=== PATIENT | female | born 1970 | race Caucasian/White ===

== ENCOUNTER → 2017-02-13 | Outpatient (CLI) | payer OTHER ==
--- NOTE | 2017-02-16 09:42 | MM ---
Reason for exam: screening (asymptomatic). Last mammogram was performed 1 year and 9 months ago. History: Family history of breast cancer in aunt at age 60. Benign right mammotome panel of the right breast, November 09, 2009. Took hormonal contraceptives for 6 years beginning at age 19. Physical Findings: A clinical breast exam by your physician is recommended on an annual basis and results should be correlated with mammographic findings. MG Screening Mammo w CAD Bilateral CC and MLO view(s) were taken. Prior study comparison: May 10, 2015, right breast MG work up mamm w CAD RT. May 08, 2015, bilateral MG screening mammo w CAD. The breast tissue is extremely dense which could obscure a lesion on mammography. Finding: There are stable diffuse calcifications in the right breast. There is no discrete abnormality. No significant changes in finding since May 10, 2015 and May 08, 2015. ASSESSMENT: Benign, BI-RAD 2 RECOMMENDATION: Routine screening mammogram of both breasts in 1 year.
== END | disposition home or self-care (01) ==
LOC: RADMAMWWP 15:01
PROVIDERS: ATTEND Family Medicine
DX: Z12.31 Encounter for screening mammogram for malignant neoplasm of breast (principal)

== ENCOUNTER 2017-10-16 10:06 | Emergency (ER) | payer OTHER ==
[2017-10-16] MEDS ORDERED: KETOROLAC 30 MG/ML 1 ML VIAL IVP STA (10:40)
[2017-10-16] MEDS ORDERED: SODIUM CHLORIDE 0.9% 500 ML IV STA (10:40)
[2017-10-16] MEDS ORDERED: RX INFO: IV CONTRAST WAS GIVEN 1 EACH MISC MISCELLANE PRN (10:40)
--- NOTE | 2017-10-16 10:48 | ED ---
General Adult HPI - General Chief complaint: Abdominal Pain Stated complaint: Right side pain Time Seen by Provider: 10/16/17 10:06 Source: patient, RN notes reviewed Mode of arrival: ambulatory Limitations: no limitations - History of Present Illness Initial comments: This is a 47 over female presents emergency Department complaining of right lower quadrant abdominal pain. Patient states she does not have an over-the- counter said she had similar pain years ago and he took the ovary out. Patient states she still does have an appendix. Patient states the pain comes and goes and is excruciatingly sharp when it comes. Patient states she vomited once last night but has not vomited since. Patient denies any nausea at this time. Patient denies diarrhea. Patient denies any vaginal discharge or bleeding abnormally. Patient states she is is starting menopause. Patient states she has no dysuria hematuria urinary frequency. Patient denies any fever chills per patient denies hurting that area in any way by lifting or moving. Patient denies any movement that increases the pain. - Related Data Home Medications Medication Instructions Recorded Confirmed Ranitidine HCl [Zantac] 150 mg PO BID 06/30/14 10/16/17 Methocarbamol [Robaxin-750] 750 mg PO BID PRN 11/18/15 10/16/17 Aspirin EC [Ecotrin] 325 mg PO DAILY 05/01/16 10/16/17 Atorvastatin [Lipitor] 80 mg PO DAILY 06/05/16 10/16/17 Cyanocobalamin (Vitamin B-12) 1,000 mcg PO DAILY 10/16/17 10/16/17 [Vitamin B-12] Ergocalciferol [Vitamin D2 50,000 unit PO SA 10/16/17 10/16/17 (DRISDOL)] Fluticasone Nasal [place] [Flonase 2 spr EA NOSTRIL DAILY 10/16/17 10/16/17 Nasal [place]] Folic Acid 0.4 mg PO DAILY 10/16/17 10/16/17 Levothyroxine Sodium [Synthroid] 88 mcg PO DAILY 10/16/17 10/16/17 Liothyronine Sodium [Cytomel] 5 mcg PO DAILY 10/16/17 10/16/17 Loratadine [Claritin] 10 mg PO DAILY 10/16/17 10/16/17 Magnesium Oxide [Mag-Ox] 400 mg PO DAILY 10/16/17 10/16/17 Metoprolol Tartrate [Metoprolol 12.5 mg PO BID 10/16/17 10/16/17 Tartrate] Previous Rx's Medication Instructions Recorded LORazepam [Ativan] 1 mg PO BID PRN #20 tab 02/19/15 Allergies Allergy/AdvReac Type Severity Reaction Status Date / Time No Known Allergies Allergy Verified 10/16/17 10:35 Review of Systems ROS Statement: Those systems with pertinent positive or pertinent negative responses have been documented in the HPI. ROS Other: All systems not noted in ROS Statement are negative. Past Medical History Past Medical History: Coronary Artery Disease (CAD), COPD, GERD/Reflux, Hyperlipidemia, Hypertension, Thyroid Disorder Additional Past Medical History / Comment(s): IRRITABLE BOWEL DISEASE/ HAD GRAVES-NOW HYPO History of Any Multi-Drug Resistant Organisms: C-DIFF Date of last positivie culture/infection: APRIL2015 MDRO Source:: FECES Past Surgical History: Section, Heart Catheterization With Stent, Tubal Ligation Additional Past Surgical History / Comment(s): OVARY REMOVED Past Anesthesia/Blood Transfusion Reactions: Motion Sickness Past Psychological History: Anxiety Smoking Status: Current every day smoker Past Alcohol Use History: None Reported Past Drug Use History: Marijuana - Past Family History Mother Family Medical History: No Reported History General Exam - General Exam Comments Initial Comments: GENERAL: Patient is well-developed and well-nourished. Patient is nontoxic and well- hydrated and is in mild distress. ENT: Neck is soft and supple. No significant lymphadenopathy is noted. Oropharynx is clear. Moist mucous membranes. Neck has full range of motion without eliciting any pain. T EYES: The sclera were anicteric and conjunctiva were pink and moist. Extraocular movements were intact and pupils were equal round and reactive to light. Eyelids were unremarkable. PULMONARY: Unlabored respirations. Good breath sounds bilaterally. No audible rales rhonchi or wheezing was noted. CARDIOVASCULAR: There is a regular rate and rhythm without any murmurs gallops or rubs. ABDOMEN: Mild right lower quadrant abdominal pain no rebound or guarding. SKIN: Skin is clear with no lesions or rashes and otherwise unremarkable. NEUROLOGIC: Patient is alert and oriented x3. Cranial nerves II through XII are grossly intact. Motor and sensory are also intact. Normal speech, volume and content. Symmetrical smile. MUSCULOSKELETAL: Normal extremities with adequate strength and full range of motion. No lower extremity swelling or edema. No calf tenderness. LYMPHATICS: No significant lymphadenopathy is noted PSYCHIATRIC: Normal psychiatric evaluation. Limitations: no limitations Course Vital Signs 10/16/17 10:14 Temperature 97.8 F Pulse Rate 102 H Respiratory 18 Rate Blood Pressure 181/76 O2 Sat by Pulse 99 Oximetry Medical Decision Making - Medical Decision Making All labs were normal. Computed tomography scan of abdomen and pelvis was normal. - Lab Data Result diagrams: 10/16/17 11:01 10/16/17 11:01 Lab Results 10/16/17 10/16/17 10/16/17 Range/Units 10:51 11:01 11:01 WBC 10.6 (3.8-10.6) k/uL RBC 4.81 (3.80-5.40) m/uL Hgb 15.7 (11.4-16.0) gm/dL Hct 46.5 H (34.0-46.0) % MCV 96.7 (80.0-100.0) fL MCH 32.5 (25.0-35.0) pg MCHC 33.7 (31.0-37.0) g/dL RDW 12.1 (11.5-15.5) % Plt Count 364 (150-450) k/uL Neutrophils % 66 % Lymphocytes % 24 % Monocytes % 4 % Eosinophils % 4 % Basophils % 1 % Neutrophils # 7.0 (1.3-7.7) k/uL Lymphocytes # 2.5 (1.0-4.8) k/uL Monocytes # 0.4 (0-1.0) k/uL Eosinophils # 0.5 (0-0.7) k/uL Basophils # 0.1 (0-0.2) k/uL Sodium 144 (137-145) mmol/L Potassium 3.8 (3.5-5.1) mmol/L Chloride 105 (98-107) mmol/L Carbon Dioxide 30 (22-30) mmol/L Anion Gap 9 mmol/L BUN 9 (7-17) mg/dL Creatinine 0.66 (0.52-1.04) mg/dL Est GFR (MDRD) Af Amer >60 (>60 ml/min/1.73 sqM) Est GFR (MDRD) Non-Af >60 (>60 ml/min/1.73 sqM) Glucose 93 (74-99) mg/dL Calcium 10.1 (8.4-10.2) mg/dL Total Bilirubin 0.4 (0.2-1.3) mg/dL AST 19 (14-36) U/L ALT 37 (9-52) U/L Alkaline Phosphatase 52 (38-126) U/L Total Protein 8.1 (6.3-8.2) g/dL Albumin 4.9 (3.5-5.0) g/dL Amylase 45 (30-110) U/L Lipase 81 (23-300) U/L Urine Color Light Yellow Urine Appearance Clear (Clear) Urine pH 5.0 (5.0-8.0) Ur Specific [place] 1.006 (1.001-1.035) Urine Protein Negative (Negative) Urine Glucose (UA) Negative (Negative) Urine Ketones Negative (Negative) Urine Blood Negative (Negative) Urine Nitrite Negative (Negative) Urine Bilirubin Negative (Negative) Urine Urobilinogen <2.0 (<2.0) mg/dL Ur Leukocyte Esterase Negative (Negative) Disposition Clinical Impression: Abdominal pain Disposition: HOME SELF-CARE Instructions: Abdominal Pain (ED) Referrals: Haydee Bear MD [Primary Care Provider] - 1-2 days Time of Disposition: 12:07
[2017-10-16 11:00] LABS: Appearance,Urine Clear (Clear); Bilirubin,Urine Negative (Negative); Blood,Urine Negative (Negative); Color,Urine Light Yellow; Glucose,Urine (UA) Negative (Negative); Ketones,Urine Negative (Negative); Leukocyte Esterase,Urine Negative (Negative); Nitrite,Urine Negative (Negative); Protein,Urine Negative (Negative); Specific Gravity,Urine 1.006 (1.001-1.035); Urobilinogen,Urine <2.0 mg/dL (<2.0)
[2017-10-16 11:25] LABS: Basophils # (A) 0.1 k/uL (0-0.2); Basophils % (A) 1 %; Eosinophils # (A) 0.5 k/uL (0-0.7); Eosinophils % (A) 4 %; HCT 46.5 % (34.0-46.0); HGB 15.7 gm/dL (11.4-16.0); Lymphocytes # (A) 2.5 k/uL (1.0-4.8); Lymphocytes % (A) 24 %; MCH 32.5 pg (25.0-35.0); MCHC 33.7 g/dL (31.0-37.0); MCV 96.7 fL (80.0-100.0); Mean Platelet Volume 6.5; Monocytes # (A) 0.4 k/uL (0-1.0); Monocytes % (A) 4 %; Neutrophils % (A) 66 %; Platelet Count 364 k/uL (150-450); RBC 4.81 m/uL (3.80-5.40); RDW 12.1 % (11.5-15.5); WBC 10.6 k/uL (3.8-10.6)
[2017-10-16 11:33] LABS: ALT 37 U/L (9-52); AST 19 U/L (14-36); Albumin 4.9 g/dL (3.5-5.0); Alkaline Phosphatase 52 U/L (38-126); Amylase 45 U/L (30-110); Anion Gap 9 mmol/L; Blood Urea Nitrogen 9 mg/dL (7-17); Calcium 10.1 mg/dL (8.4-10.2); Carbon Dioxide 30 mmol/L (22-30); Chloride 105 mmol/L (98-107); Glucose 93 mg/dL (74-99); Lipase 81 U/L (23-300); Potassium 3.8 mmol/L (3.5-5.1); Sodium 144 mmol/L (137-145); Total Bilirubin 0.4 mg/dL (0.2-1.3); Total Protein 8.1 g/dL (6.3-8.2)
--- NOTE | 2017-10-16 11:55 | CT ---
EXAMINATION TYPE: CT abdomen pelvis w con DATE OF EXAM: 10/16/2017 HISTORY: RLQ pain, back pain CT DLP: 928mGycm Automated Exposure Control for Dose Reduction was Utilized. CONTRAST: CT scan of the abdomen and pelvis is performed with IV Contrast, patient injected with 100 mL of Omni paque 300. COMPARISON: 06/05/2016 FINDINGS: LUNG BASES: Few centrilobular emphysematous changes are seen of the lung bases. LIVER/GB: No significant abnormality is appreciated. No cholelithiasis. PANCREAS: No significant abnormality is seen. No ductal dilatation. SPLEEN: No significant abnormality is seen. ADRENALS: A low-density 0.9 x 1.1 cm left adrenal gland nodule is most compatible with a benign adren al adenoma. KIDNEYS: No significant abnormality is seen. BOWEL: The appendix is retrocecal, low-lying within the pelvis and air-filled distally. No current ev idence of appendicitis. Moderate amount retained stool is seen throughout the nondilated colon. No pe ricolonic fat stranding changes are noted. No dilation of small bowel. UTERUS/ADNEXA: Right ovary is again surgically absent. LYMPH NODES: No greater than 1cm abdominal or pelvic lymph nodes are appreciated. OSSEOUS STRUCTURES: No significant abnormality is seen. Osseous structures are intact. IMPRESSION: Moderate amount of retained colonic stool throughout the nondilated colon. No evidence of bowel obstruction or significant CT finding to account for the patient's symptoms.
[2017-10-16 12:38] VITALS: BP 167/70; PULSE 97; RESP 20; TEMP 98.2
== END 2017-10-16 12:35 | disposition home or self-care (01) ==
LOC: EC 10:06
DX: R10.31 Right lower quadrant pain (principal); I25.10 Atherosclerotic heart disease of native coronary artery without angina pectoris; J44.9 Chronic obstructive pulmonary disease, unspecified; K21.9 Gastro-esophageal reflux disease without esophagitis; E78.5 Hyperlipidemia, unspecified; I10 Essential (primary) hypertension; E07.9 Disorder of thyroid, unspecified; F17.200 Nicotine dependence, unspecified, uncomplicated; Z98.51 Tubal ligation status; Z95.5 Presence of coronary angioplasty implant and graft; Z79.82 Long term (current) use of aspirin; Z79.899 Other long term (current) drug therapy; Z79.51 Long term (current) use of inhaled steroids
CPT/HCPCS: 99284; 96374; 96361; 36415; 80053; 82150; 83690; 85025; 81003; 74177; J1885; Q9967

== ENCOUNTER → 2018-03-16 | Outpatient (CLI) | payer OTHER ==
--- NOTE | 2018-03-17 09:02 | CT ---
EXAMINATION TYPE: CT chest w con DATE OF EXAM: 03/16/2018 COMPARISON: NONE HISTORY: Chronic cough. CT DLP: 390 mGycm Automated exposure control for dose reduction was used. CONTRAST: CT scan of the chest is performed with IV Contrast, patient injected with 100ml mL of Isovue M300. FINDINGS: LUNGS: There is moderate upper lobe emphysematous change appreciated. No evidence for distinct nodule or mass. No infiltrate seen. No pleural effusion. MEDIASTINUM: There are no greater than 1 cm hilar or mediastinal lymph nodes. No pericardial effusi on is seen. Thoracic aorta is of normal caliber. The heart is not enlarged. UPPER ABDOMEN: No significant abnormality appreciated. OTHER: No additional significant abnormality is seen. IMPRESSION: 1. Moderate and upper lobe emphysematous changes appreciated. No evident infiltrate or mass.
== END | disposition home or self-care (01) ==
LOC: RADCTMAIN 19:09
PROVIDERS: ATTEND Family Medicine
DX: J43.9 Emphysema, unspecified (principal)
CPT/HCPCS: 71260; Q9967

== ENCOUNTER 2018-03-19 04:24 | Emergency (ER) | payer OTHER ==
[2018-03-19] MEDS ORDERED: SODIUM CHLORIDE 0.9% 1,000 ML IV STA (04:41)
[2018-03-19] MEDS ORDERED: NITROGLYCERIN OINT 1 INCH/GM PACKET TOPICAL STA (04:41)
[2018-03-19] MEDS ORDERED: MORPHINE SULFATE 2 MG/ML SYRINGE IVP STA (04:41)
[2018-03-19] MEDS ORDERED: ASPIRIN 81 MG PO STA (04:41)
[2018-03-19] MEDS ORDERED: ONDANSETRON 4 MG/2 ML VIAL IVP STA (04:41)
[2018-03-19 05:21] LABS: Basophils # (A) 0.1 k/uL (0-0.2); Basophils % (A) 1 %; Eosinophils # (A) 0.5 k/uL (0-0.7); Eosinophils % (A) 5 %; HCT 40.7 % (34.0-46.0); HGB 14.2 gm/dL (11.4-16.0); Lymphocytes # (A) 3.1 k/uL (1.0-4.8); Lymphocytes % (A) 33 %; MCH 33.7 pg (25.0-35.0); MCHC 34.9 g/dL (31.0-37.0); MCV 96.7 fL (80.0-100.0); Mean Platelet Volume 6.4; Monocytes # (A) 0.6 k/uL (0-1.0); Monocytes % (A) 7 %; Neutrophils # (A) 4.9 k/uL (1.3-7.7); Neutrophils % (A) 52 %; Platelet Count 365 k/uL (150-450); RBC 4.21 m/uL (3.80-5.40); RDW 12.6 % (11.5-15.5); WBC 9.4 k/uL (3.8-10.6)
[2018-03-19 05:36] LABS: D-Dimer 0.4 mg/L FEU (<0.60); Partial Thromboplastin Time 28.5 sec (22.0-30.0); Prothrombin Time 9.9 sec (9.0-12.0)
[2018-03-19 05:43] LABS: ALT 27 U/L (9-52); AST 18 U/L (14-36); Albumin 4.1 g/dL (3.5-5.0); Alkaline Phosphatase 56 U/L (38-126); Anion Gap 10 mmol/L; Blood Urea Nitrogen 9 mg/dL (7-17); Calcium 9.6 mg/dL (8.4-10.2); Carbon Dioxide 28 mmol/L (22-30); Chloride 104 mmol/L (98-107); Glucose 72 mg/dL (74-99); Magnesium 1.8 mg/dL (1.6-2.3); Potassium 3.7 mmol/L (3.5-5.1); Sodium 142 mmol/L (137-145); Total Bilirubin 0.3 mg/dL (0.2-1.3); Total Protein 6.5 g/dL (6.3-8.2)
[2018-03-19 05:48] LABS: Creatine Kinase 51 U/L (30-135)
--- NOTE | 2018-03-19 05:57 | XR ---
EXAM: XR Chest, 2 Views CLINICAL HISTORY: ITS.REASON XR Reason: Chest Pain TECHNIQUE: Frontal and lateral views of the chest. COMPARISON: 04/24/2016 FINDINGS: Lungs: Unremarkable. No consolidation. Pleural space: Unremarkable. No pneumothorax. Heart: Unremarkable. No cardiomegaly. Mediastinum: Unremarkable. Bones/joints: Unremarkable. IMPRESSION: No acute radiographic findings regarding the chest.
[2018-03-19 06:00] LABS: Creatine Kinase MB <0.2 ng/mL (0.0-2.4); Troponin I <0.012 ng/mL (0.000-0.034)
[2018-03-19] MEDS ORDERED: MORPHINE SULFATE 2 MG/ML SYRINGE IVP PRN (06:51)
[2018-03-19] MEDS ORDERED: NITROGLYCERIN SL TABS 0.4 MG TAB SUBLINGUAL PRN (06:51)
--- NOTE | 2018-03-19 06:51 | ED ---
Chest Pain HPI - General Chief Complaint: Chest Pain Stated Complaint: Chest pain Time Seen by Provider: 03/19/18 04:36 Source: patient Mode of arrival: wheelchair Limitations: no limitations - History of Present Illness Initial Comments: 48 years old female with history of heart disease him a she has ischemic heart disease comes in with the mild chest pain for about to 2 hours prior to coming to the ER, she had a chest pain yesterday as well and she also had a pain going down the left arm she felt some tingling in the left arm as as well she feels generally weak and she is also complaining about shortness of breath and now chest pain gets worse with a deep breaths - Related Data Home Medications Medication Instructions Recorded Confirmed Ranitidine HCl [Zantac] 150 mg PO BID 06/30/14 10/16/17 Methocarbamol [Robaxin-750] 750 mg PO BID PRN 11/18/15 10/16/17 Aspirin EC [Ecotrin] 325 mg PO DAILY 05/01/16 10/16/17 Atorvastatin [Lipitor] 80 mg PO DAILY 06/05/16 10/16/17 Cyanocobalamin (Vitamin B-12) 1,000 mcg PO DAILY 10/16/17 10/16/17 [Vitamin B-12] Ergocalciferol [Vitamin D2 50,000 unit PO SA 10/16/17 10/16/17 (DRISDOL)] Fluticasone Nasal [place] [Flonase 2 spr EA NOSTRIL DAILY 10/16/17 10/16/17 Nasal [place]] Folic Acid 0.4 mg PO DAILY 10/16/17 10/16/17 Levothyroxine Sodium [Synthroid] 88 mcg PO DAILY 10/16/17 10/16/17 Liothyronine Sodium [Cytomel] 5 mcg PO DAILY 10/16/17 10/16/17 Loratadine [Claritin] 10 mg PO DAILY 10/16/17 10/16/17 Magnesium Oxide [Mag-Ox] 400 mg PO DAILY 10/16/17 10/16/17 Metoprolol Tartrate [Metoprolol 12.5 mg PO BID 10/16/17 10/16/17 Tartrate] Previous Rx's Medication Instructions Recorded LORazepam [Ativan] 1 mg PO BID PRN #20 tab 02/19/15 Allergies Allergy/AdvReac Type Severity Reaction Status Date / Time No Known Allergies Allergy Verified 03/19/18 04:32 Review of Systems ROS Statement: Those systems with pertinent positive or pertinent negative responses have been documented in the HPI. ROS Other: All systems not noted in ROS Statement are negative. EKG Findings - EKG Comments: EKG Findings:: I am EKG is ventricular rate is 62 FL interval is 208 QT QRS duration is 146 QT/QTc is 472/43 noticed white QRS complex this pain. (Rash block Past Medical History Past Medical History: Coronary Artery Disease (CAD), Chest Pain / Angina, COPD, GERD/Reflux, Hyperlipidemia, Hypertension, Thyroid Disorder Additional Past Medical History / Comment(s): IRRITABLE BOWEL DISEASE/ HAD GRAVES-NOW HYPO History of Any Multi-Drug Resistant Organisms: C-DIFF Date of last positivie culture/infection: APRIL2015 MDRO Source:: FECES Past Surgical History: Section, Heart Catheterization, Tubal Ligation Additional Past Surgical History / Comment(s): OVARY REMOVED Past Anesthesia/Blood Transfusion Reactions: Motion Sickness Past Psychological History: Anxiety Smoking Status: Current every day smoker Past Alcohol Use History: None Reported Past Drug Use History: Marijuana - Past Family History Mother Family Medical History: No Reported History General Exam - General Exam Comments Initial Comments: General: The patient is awake and alert, in no distress, and does not appear acutely ill. Skin: Skin is warm and dry and no rashes or lesions are noted. Eye: Pupils are equal, round and reactive to light, extra-ocular movements are intact; there is normal conjunctiva bilaterally. Ears, nose, mouth and throat: There are moist mucous membranes and no oral lesions. Neck: The neck is supple, there is no tenderness or JVD. Cardiovascular: There is a regular rate and rhythm. No murmur, rub or gallop is appreciated. Respiratory: To auscultation bilateral, exam is consistent with down moderate COPD Gastrointestinal: Soft, non-distended, non-tender abdomen without masses or organomegaly noted. There is no rebound or guarding present. Bowel sounds are unremarkable. Back: There is no tenderness to palpation in the midline. There is no obvious deformity. Musculoskeletal: Normal ROM, no tenderness, There is no pedal edema. There is no calf tenderness or swelling. No cords were appreciated. Neurological: CN II-XII intact, Cranial nerves III through XII are intact. There are no obvious motor or sensory deficits. Coordination appears grossly intact. Speech is normal. Psychiatric: Cooperative, appropriate mood & affect, normal judgment. Limitations: no limitations Course Vital Signs 03/19/18 03/19/18 03/19/18 04:28 04:57 05:48 Temperature 97.8 F 98.1 F Pulse Rate 70 63 Respiratory 18 18 16 Rate Blood Pressure 131/76 130/78 O2 Sat by Pulse 98 95 Oximetry 03/19/18 06:36 Temperature Pulse Rate 57 L Respiratory 16 Rate Blood Pressure 132/78 O2 Sat by Pulse 98 Oximetry Reassessment noticed the d-dimer is normal, CBC is unremarkable compress metabolic panel is unremarkable troponin is fine EKG does show a new left bundle branch block and she is known ischemic heart disease she be admitted to Dr. Page's service and now CONSULT cardiology Disposition Clinical Impression: Chest pain Disposition: ADMITTED IP TO THIS HOSP Condition: Good Referrals: Haydee Bear MD [Primary Care Provider] - 1-2 days
[2018-03-19] MEDS ORDERED: LORazepam 1 MG TAB PO PRN (06:55)
[2018-03-19] MEDS ORDERED: METHOCARBAMOL 750 MG TAB PO PRN (06:55)
[2018-03-19 07:06] VITALS: BP 143/85; PULSE 70; RESP 18; TEMP 97.8
[2018-03-19] MEDS ORDERED: METOPROLOL TARTRATE 25 MG TAB PO SCH (09:00)
[2018-03-19] MEDS ORDERED: MAGNESIUM OXIDE 400 MG TAB PO SCH (09:00)
[2018-03-19] MEDS ORDERED: FLUTICASONE 50MCG/SPRAY NASAL 16GM EA NOSTRIL SCH (09:00)
[2018-03-19] MEDS ORDERED: LIOTHYRONINE SODIUM 5 MCG TAB PO SCH (09:00)
[2018-03-19] MEDS ORDERED: NON-FORMULARY DRUG (Cyanocobalamin (Vitamin B-12) [Vitamin B-12] 1,000 MCG) PO SCH (09:00)
[2018-03-19] MEDS ORDERED: LEVOTHYROXINE 88 MCG TAB PO SCH (09:00)
[2018-03-19] MEDS ORDERED: NON-FORMULARY DRUG (Folic Acid [Folic Acid] 0.4 MG) PO SCH (09:00)
[2018-03-19] MEDS ORDERED: LORATADINE 10 MG TAB PO SCH (09:00)
[2018-03-19] MEDS ORDERED: NON-FORMULARY DRUG (Ranitidine Hcl [Zantac] 150 MG) PO SCH (09:00)
[2018-03-19] MEDS ORDERED: ATORVASTATIN 80 MG TAB PO SCH (09:00)
[2018-03-20] MEDS ORDERED: ERGOCALCIFEROL 50,000 UNIT CAP PO SCH (06:55)
[2018-03-20] MEDS ORDERED: ASPIRIN 325 MG TAB PO SCH (09:00)
== END 2018-03-19 07:14 | disposition other institution (70) ==
LOC: EC 04:24 → UNDOADMOB 06:51 → 6SEL 06:51 → EC 07:14
DX: R07.9 Chest pain, unspecified (principal); R06.02 Shortness of breath; R20.2 Paresthesia of skin; M79.602 Pain in left arm; R53.1 Weakness; I44.7 Left bundle-branch block, unspecified; I25.119 Atherosclerotic heart disease of native coronary artery with unspecified angina pectoris; J44.9 Chronic obstructive pulmonary disease, unspecified; K21.9 Gastro-esophageal reflux disease without esophagitis; E78.5 Hyperlipidemia, unspecified; I10 Essential (primary) hypertension; E03.9 Hypothyroidism, unspecified; K58.9 Irritable bowel syndrome, unspecified; F17.200 Nicotine dependence, unspecified, uncomplicated; Z79.51 Long term (current) use of inhaled steroids; Z79.82 Long term (current) use of aspirin; Z79.899 Other long term (current) drug therapy; Z95.818 Presence of other cardiac implants and grafts
CPT/HCPCS: 36415; 93005; 85379; 83880; 80053; 82550; 82553; 83735; 84484; 85025; 85610; 85730; 71046; 99285; 96374; 96375; 96361 ×2; J2405; J2270

== ENCOUNTER 2018-03-29 03:52 | Emergency (ER) | payer OTHER ==
[2018-03-29 04:10] VITALS: TEMP 98.4
[2018-03-29] MEDS ORDERED: HYDROcodone/APAP 5-325MG 1 EACH TAB PO STA (04:23)
[2018-03-29] MEDS: LORazepam 1 MG TAB PO STA ×2 (04:38→04:40)
--- NOTE | 2018-03-29 05:00 | CT ---
EXAMINATION TYPE: CT abdomen pelvis wo con DATE OF EXAM: 03/29/2018 COMPARISON: NONE HISTORY: Prior on synapse, right sided abd pain that radiates to her leg, renal stone protocol CT DLP: 664.00 mGycm Automated exposure control for dose reduction was used. TECHNIQUE: Helical acquisition of images was performed from the lung bases through the pelvis. FINDINGS: Lung bases are clear. There is no pleural effusion. There is no pericardial effusion. Liver shows no focal defect. Spleen and pancreas appear normal. Bile ducts are not dilated. Gallbladd er appears normal. There is no adrenal mass. Kidneys have normal size and contour. Ureters are not di lated. There is no hydronephrosis. I see no intestinal wall thickening. There are no dilated loops. B ladder distends smoothly. I see no pelvic mass. There is no sign of appendicitis. I see no bony destr uctive process. IMPRESSION: No evidence of renal stone or obstruction. Minimal atherosclerotic vascular disease. IMPRESSION:
--- NOTE | 2018-03-29 06:17 | ED ---
General Adult HPI - General Chief complaint: Abdominal Pain Stated complaint: Leg Pain Time Seen by Provider: 03/29/18 04:11 Source: patient, RN notes reviewed, old records reviewed Mode of arrival: ambulatory Limitations: no limitations - History of Present Illness Initial comments: This is a 48-year-old female to the ER for evaluation. Patient was essay for evaluation regarding abdominal pain. No nausea no vomiting no diarrhea. Patient states her bowel pain is mildly improved with no aggravating causes. No prior history of similar abdominal pain at this time. No modifying factors for pain. No fevers. No diarrhea. - Related Data Home Medications Medication Instructions Recorded Confirmed Ranitidine HCl [Zantac] 150 mg PO BID 06/30/14 10/16/17 Methocarbamol [Robaxin-750] 750 mg PO BID PRN 11/18/15 10/16/17 Aspirin EC [Ecotrin] 325 mg PO DAILY 05/01/16 10/16/17 Atorvastatin [Lipitor] 80 mg PO DAILY 06/05/16 10/16/17 Cyanocobalamin (Vitamin B-12) 1,000 mcg PO DAILY 10/16/17 10/16/17 [Vitamin B-12] Ergocalciferol [Vitamin D2 50,000 unit PO SA 10/16/17 10/16/17 (DRISDOL)] Fluticasone Nasal [place] [Flonase 2 spr EA NOSTRIL DAILY 10/16/17 10/16/17 Nasal [place]] Folic Acid 0.4 mg PO DAILY 10/16/17 10/16/17 Levothyroxine Sodium [Synthroid] 88 mcg PO DAILY 10/16/17 10/16/17 Liothyronine Sodium [Cytomel] 5 mcg PO DAILY 10/16/17 10/16/17 Loratadine [Claritin] 10 mg PO DAILY 10/16/17 10/16/17 Magnesium Oxide [Mag-Ox] 400 mg PO DAILY 10/16/17 10/16/17 Metoprolol Tartrate [Metoprolol 12.5 mg PO BID 10/16/17 10/16/17 Tartrate] Previous Rx's Medication Instructions Recorded LORazepam [Ativan] 1 mg PO BID PRN #20 tab 02/19/15 Allergies Allergy/AdvReac Type Severity Reaction Status Date / Time No Known Allergies Allergy Verified 03/29/18 04:10 Review of Systems ROS Statement: Those systems with pertinent positive or pertinent negative responses have been documented in the HPI. ROS Other: All systems not noted in ROS Statement are negative. Past Medical History Past Medical History: Coronary Artery Disease (CAD), Chest Pain / Angina, COPD, GERD/Reflux, Hyperlipidemia, Hypertension, Thyroid Disorder Additional Past Medical History / Comment(s): IRRITABLE BOWEL DISEASE/ HAD GRAVES-NOW HYPO History of Any Multi-Drug Resistant Organisms: C-DIFF Date of last positivie culture/infection: APRIL2015 MDRO Source:: FECES Past Surgical History: Section, Heart Catheterization, Tubal Ligation Additional Past Surgical History / Comment(s): OVARY REMOVED Past Anesthesia/Blood Transfusion Reactions: Motion Sickness Past Psychological History: Anxiety Smoking Status: Current every day smoker Past Alcohol Use History: None Reported Past Drug Use History: Marijuana - Past Family History Mother Family Medical History: No Reported History General Exam Limitations: no limitations General appearance: alert, in no apparent distress Head exam: Present: atraumatic, normocephalic, normal inspection Eye exam: Present: normal appearance, PERRL, EOMI. Absent: scleral icterus, conjunctival injection, periorbital swelling ENT exam: Present: normal exam, mucous membranes moist Neck exam: Present: normal inspection. Absent: tenderness, meningismus, lymphadenopathy Respiratory exam: Present: normal lung sounds bilaterally. Absent: respiratory distress, wheezes, rales, rhonchi, stridor Cardiovascular Exam: Present: regular rate, normal rhythm, normal heart sounds. Absent: systolic murmur, diastolic murmur, rubs, gallop, clicks GI/Abdominal exam: Present: soft, normal bowel sounds. Absent: distended, tenderness, guarding, rebound, rigid Extremities exam: Present: normal inspection, full ROM, normal capillary refill. Absent: tenderness, pedal edema, joint swelling, calf tenderness Back exam: Present: normal inspection Neurological exam: Present: alert, oriented X3, CN II-XII intact Psychiatric exam: Present: normal affect, normal mood Skin exam: Present: warm, dry, intact, normal color. Absent: rash Course Vital Signs 03/29/18 03/29/18 04:07 06:28 Temperature 98.4 F Pulse Rate 78 58 L Respiratory 18 16 Rate Blood Pressure 143/89 129/68 O2 Sat by Pulse 99 96 Oximetry Medical Decision Making - Medical Decision Making 48 female to specific abdominal pain. CT labwork is negative. Patient can be discharged home - Radiology Data Radiology results: report reviewed (CT of pelvis is negative for acute disease) , image reviewed Disposition Clinical Impression: Abdominal pain Disposition: HOME SELF-CARE Condition: Good Instructions: Abdominal Pain (ED) Is patient prescribed a controlled substance at d/c from ED?: No Referrals: Haydee Bear MD [Primary Care Provider] - 1-2 days
[2018-03-29 06:28] VITALS: BP 129/68; PULSE 58; RESP 16
== END 2018-03-29 06:28 | disposition home or self-care (01) ==
LOC: EC 03:52
DX: R10.9 Unspecified abdominal pain (principal); I25.10 Atherosclerotic heart disease of native coronary artery without angina pectoris; J44.9 Chronic obstructive pulmonary disease, unspecified; K21.9 Gastro-esophageal reflux disease without esophagitis; E78.5 Hyperlipidemia, unspecified; I10 Essential (primary) hypertension; E07.9 Disorder of thyroid, unspecified; F41.9 Anxiety disorder, unspecified; F17.200 Nicotine dependence, unspecified, uncomplicated; Z98.51 Tubal ligation status; Z90.721 Acquired absence of ovaries, unilateral; Z79.51 Long term (current) use of inhaled steroids; Z79.82 Long term (current) use of aspirin; Z79.899 Other long term (current) drug therapy
CPT/HCPCS: 74176; 99284

== ENCOUNTER → 2018-03-30 | Outpatient (CLI) | payer OTHER ==
--- NOTE | 2018-04-01 12:10 | MM ---
Reason for exam: screening (asymptomatic). Last mammogram was performed 1 year and 1 month ago. History: Family history of breast cancer in aunt at age 60. Benign right mammotome panel of the right breast, November 09, 2009. Took hormonal contraceptives for 6 years beginning at age 19. Physical Findings: A clinical breast exam by your physician is recommended on an annual basis and results should be correlated with mammographic findings. MG Screening Mammo w CAD Bilateral CC and MLO view(s) were taken. Prior study comparison: February 13, 2017, bilateral MG screening mammo w CAD. May 10, 2015, right breast MG work up mamm w CAD RT. The breast tissue is extremely dense which could obscure a lesion on mammography. Finding: There are typically benign round, diffuse/scattered and grouped calcifications in both breasts, greater in the right breast. Previous mammotome biopsy in the right breast. There is no discrete abnormality. Increase in number of calcifications since February 13, 2017 and May 10, 2015. ASSESSMENT: Benign, BI-RAD 2 RECOMMENDATION: Routine screening mammogram of both breasts in 1 year.
== END | disposition home or self-care (01) ==
LOC: RADMAMWWP 14:12
PROVIDERS: ATTEND Family Medicine
DX: Z12.31 Encounter for screening mammogram for malignant neoplasm of breast (principal)
CPT/HCPCS: 77067

== ENCOUNTER 2018-04-22 17:17 | Observation (INO) | payer OTHER ==
[2018-04-22] MEDS ORDERED: ASPIRIN 81 MG PO STA (17:48)
[2018-04-22] MEDS ORDERED: NICOTINE 21MG/24HR PATCH TRANSDERM STA (18:11)
--- NOTE | 2018-04-22 18:42 | ED ---
General Adult HPI - General Chief complaint: Recheck/Abnormal Lab/Rx Stated complaint: Abnormal Ekg Source: patient Mode of arrival: ambulatory Limitations: no limitations - History of Present Illness Initial comments: Dictation was produced using [employer] dictation software. please excuse any grammatical, word or spelling errors. Chief Complaint: 48-year-old female past medical history of acute coronary syndrome, 40% LAD blockage, hypertension, dyslipidemia, thyroid disease presents via transfer from visual merchandising director for EKG changes and chest pain. History of Present Illness: 48-year-old female past medical history of acute coronary disease, chest pain, COPD, GERD, hypertension, tobacco abuse presents via transfer from visual merchandising [facility] clinic for EKG changes and chest pain. Patient states that she was at her primary care physician's office where they EKG was obtained showing no left bundle-branch block. She was told to follow- up with the visual merchandising director. She was at the visual merchandising director's office where she's felt that she was having chest discomfort. She described the chest as pressure without radiation. She denies any exacerbation with exertion. Denies any radiation to the shoulders or neck. Another EKG was performed showing left bundle branch block as well. She was instructed by the visual merchandising director come to the emergency department for laboratory evaluation and likely admission for observation. Patient had a cardiac cath performed 2 years ago where there was found 40% blockage of the left anterior descending artery. At that time patient describes that she was told that she had a mini heart attack. Patient denies any stent placement this time. Patient reports not being compliant with her aspirin medication. Currently patient feels asymptomatic. Past Medical History: Hypertension, dyslipidemia, GERD, COPD, tobacco abuse, coronary artery disease Past Surgical History: , cardiac cath, tubal ligation Social History: Regular tobacco, occasional EtOH Family History: reviewed and noncontributory The ROS documented in this emergency department record has been reviewed and confirmed by me. Those systems with pertinent positive or negative responses have been documented in the HPI. All other systems are other negative and/or noncontributory. - Related Data Home Medications Medication Instructions Recorded Confirmed Ranitidine HCl [Zantac] 150 mg PO BID 06/30/14 04/22/18 Methocarbamol [Robaxin-750] 750 mg PO BID PRN 11/18/15 04/22/18 Aspirin EC [Ecotrin] 325 mg PO DAILY 05/01/16 04/22/18 Atorvastatin [Lipitor] 40 mg PO DAILY 06/05/16 04/22/18 Cyanocobalamin (Vitamin B-12) 1,000 mcg PO DAILY 10/16/17 04/22/18 [Vitamin B-12] Ergocalciferol [Vitamin D2 50,000 unit PO ANDRADE 10/16/17 04/22/18 (DRISDOL)] Fluticasone Nasal [place] [Flonase 2 spr EA NOSTRIL DAILY 10/16/17 04/22/18 Nasal [place]] Levothyroxine Sodium [Synthroid] 88 mcg PO DAILY 10/16/17 04/22/18 Liothyronine Sodium [Cytomel] 5 mcg PO DAILY 10/16/17 04/22/18 Loratadine [Claritin] 10 mg PO DAILY 10/16/17 04/22/18 Magnesium Oxide [Mag-Ox] 400 mg PO DAILY 10/16/17 04/22/18 Metoprolol Tartrate 12.5 mg PO BID 10/16/17 04/22/18 Albuterol Inhaler [Ventolin Hfa 1 - 2 puff INHALATION RT-Q6H PRN 04/22/18 Inhaler] Folic Acid 0.8 mg PO DAILY 04/22/18 04/22/18 Naproxen 500 mg PO BID PRN 04/22/18 04/22/18 Omeprazole [PriLOSEC] 20 mg PO DAILY 04/22/18 04/22/18 PARoxetine [Paxil] 20 mg PO DAILY 04/22/18 04/22/18 Umeclidinium [place] [Incruse 1 puff INHALATION RT-DAILY 04/22/18 04/22/18 Ellipta] Venlafaxine HCl [Effexor] 25 mg PO DAILY 04/22/18 04/22/18 Previous Rx's Medication Instructions Recorded LORazepam [Ativan] 1 mg PO BID PRN #20 tab 02/19/15 Allergies Allergy/AdvReac Type Severity Reaction Status Date / Time No Known Allergies Allergy Verified 04/22/18 18:45 Review of Systems ROS Statement: Those systems with pertinent positive or pertinent negative responses have been documented in the HPI. ROS Other: All systems not noted in ROS Statement are negative. Past Medical History Past Medical History: Coronary Artery Disease (CAD), Chest Pain / Angina, COPD, GERD/Reflux, Hyperlipidemia, Hypertension, Thyroid Disorder Additional Past Medical History / Comment(s): IRRITABLE BOWEL DISEASE/ HAD GRAVES-NOW HYPO History of Any Multi-Drug Resistant Organisms: C-DIFF Date of last positivie culture/infection: [id number] MDRO Source:: FECES Past Surgical History: Section, Heart Catheterization, Tubal Ligation Additional Past Surgical History / Comment(s): OVARY REMOVED Past Anesthesia/Blood Transfusion Reactions: Motion Sickness Past Psychological History: Anxiety Smoking Status: Current every day smoker Past Alcohol Use History: None Reported Past Drug Use History: Marijuana - Past Family History Mother Family Medical History: No Reported History General Exam - General Exam Comments Initial Comments: Vitals: Vital signs upon arrival are within acceptable limits PHYSICAL EXAM: General Impression: Alert and oriented x3, not in acute distress HEENT: Normocephalic atraumatic, extra-ocular movements intact, pupils equal and reactive to light bilaterally, mucous membranes moist. Cardiovascular: Heart regular rate and rhythm, S1&S2 audible, no murmurs, rubs or gallops Chest: Lungs clear to auscultation bilaterally, no rhonchi, no wheeze, no rales Abdomen: Bowel sounds present, abdomen soft, non-tender, non-distended, no organomegaly Musculoskeletal: Pulses present and equal in all extremities, no peripheral edema Motor: Power 5/5 bilaterally, no focal deficits noted Neurological: CN II-XII grossly intact, no focal motor or sensory deficits noted Skin: Intact with no visualized rashes Psych: Normal affect and mood Limitations: no limitations Course Vital Signs 04/22/18 04/22/18 04/22/18 17:36 18:57 19:16 Temperature 98.3 F Pulse Rate 73 63 69 Respiratory 20 18 19 Rate Blood Pressure 123/77 134/75 129/77 O2 Sat by Pulse 100 99 97 Oximetry 04/22/18 04/22/18 20:10 20:55 Temperature Pulse Rate 70 69 Respiratory 19 16 Rate Blood Pressure 138/81 134/77 O2 Sat by Pulse 95 Oximetry Medical Decision Making - Medical Decision Making ED course: 48-year-old female with multiple cardiac risk factors presents for new onset EKG changes and episode of chest pain today. Patient has known history of coronary artery disease. She states she has been noncompliant with her aspirin medication. Patient is asymptomatic at this time. She is not complaining of any chest pain. Vital signs upon arrival are within normal limits. She is well-appearing. Physical examination is benign. Laboratory evaluation obtained. First troponin is negative. Rest of labs unremarkable. Discussed patient case with visual merchandising director who recommends patient be worked up for acute coronary syndrome. patient given aspirin. He request the patient be admitted to observation for cardiology consult. We'll defer any provocative testing to cardiology. EKG Interpretation: A 12 lead EKG was obtained. It was interpreted by myself and attending physician. There is a P wave before every QRS complex. Rate is 61. Rhythm is normal sinus rhythm, left bundle branch block,. Interval 194, care surgeon 140 , QTc 463. QT is not prolonged. No ST segment depression or elevation. No sgarbossa criteria met - Lab Data Result diagrams: 04/22/18 18:06 04/22/18 18:06 Lab Results 04/22/18 04/22/18 04/22/18 Range/Units 18:06 18:06 18:06 WBC 8.3 (3.8-10.6) k/uL RBC 4.34 (3.80-5.40) m/uL Hgb 14.6 (11.4-16.0) gm/dL Hct 42.7 (34.0-46.0) % MCV 98.5 (80.0-100.0) fL MCH 33.6 (25.0-35.0) pg MCHC 34.1 (31.0-37.0) g/dL RDW 12.3 (11.5-15.5) % Plt Count 337 (150-450) k/uL Neutrophils % 53 % Lymphocytes % 32 % Monocytes % 6 % Eosinophils % 6 % Basophils % 1 % Neutrophils # 4.4 (1.3-7.7) k/uL Lymphocytes # 2.7 (1.0-4.8) k/uL Monocytes # 0.5 (0-1.0) k/uL Eosinophils # 0.5 (0-0.7) k/uL Basophils # 0.1 (0-0.2) k/uL PT (9.0-12.0) sec INR (<1.2) APTT (22.0-30.0) sec Sodium 143 (137-145) mmol/L Potassium 4.1 (3.5-5.1) mmol/L Chloride 103 (98-107) mmol/L Carbon Dioxide 27 (22-30) mmol/L Anion Gap 13 mmol/L BUN 8 (7-17) mg/dL Creatinine 0.56 (0.52-1.04) mg/dL Est GFR (CKD-EPI)AfAm >90 (>60 ml/min/1.73 sqM) Est GFR (CKD-EPI)NonAf >90 (>60 ml/min/1.73 sqM) Glucose 85 (74-99) mg/dL Calcium 9.7 (8.4-10.2) mg/dL Magnesium 1.9 (1.6-2.3) mg/dL Total Bilirubin 0.4 (0.2-1.3) mg/dL AST 17 (14-36) U/L ALT 27 (9-52) U/L Alkaline Phosphatase 52 (38-126) U/L Total Creatine Kinase 58 (30-135) U/L CK-MB (CK-2) <0.2 (0.0-2.4) ng/mL CK-MB (CK-2) Rel Index Troponin I <0.012 (0.000-0.034) ng/mL Total Protein 7.2 (6.3-8.2) g/dL Albumin 4.6 (3.5-5.0) g/dL 04/22/18 Range/Units 18:06 WBC (3.8-10.6) k/uL RBC (3.80-5.40) m/uL Hgb (11.4-16.0) gm/dL Hct (34.0-46.0) % MCV (80.0-100.0) fL MCH (25.0-35.0) pg MCHC (31.0-37.0) g/dL RDW (11.5-15.5) % Plt Count (150-450) k/uL Neutrophils % % Lymphocytes % % Monocytes % % Eosinophils % % Basophils % % Neutrophils # (1.3-7.7) k/uL Lymphocytes # (1.0-4.8) k/uL Monocytes # (0-1.0) k/uL Eosinophils # (0-0.7) k/uL Basophils # (0-0.2) k/uL PT 9.9 (9.0-12.0) sec INR 1.0 (<1.2) APTT 28.4 (22.0-30.0) sec Sodium (137-145) mmol/L Potassium (3.5-5.1) mmol/L Chloride (98-107) mmol/L Carbon Dioxide (22-30) mmol/L Anion Gap mmol/L BUN (7-17) mg/dL Creatinine (0.52-1.04) mg/dL Est GFR (CKD-EPI)AfAm (>60 ml/min/1.73 sqM) Est GFR (CKD-EPI)NonAf (>60 ml/min/1.73 sqM) Glucose (74-99) mg/dL Calcium (8.4-10.2) mg/dL Magnesium (1.6-2.3) mg/dL Total Bilirubin (0.2-1.3) mg/dL AST (14-36) U/L ALT (9-52) U/L Alkaline Phosphatase (38-126) U/L Total Creatine Kinase (30-135) U/L CK-MB (CK-2) (0.0-2.4) ng/mL CK-MB (CK-2) Rel Index Troponin I (0.000-0.034) ng/mL Total Protein (6.3-8.2) g/dL Albumin (3.5-5.0) g/dL Disposition Clinical Impression: Chest pain Disposition: ADMITTED IP TO THIS [facility] Condition: Stable Decision Time: 20:43
[2018-04-22 18:46] LABS: ALT 27 U/L (9-52); AST 17 U/L (14-36); Albumin 4.6 g/dL (3.5-5.0); Alkaline Phosphatase 52 U/L (38-126); Anion Gap 13 mmol/L; Blood Urea Nitrogen 8 mg/dL (7-17); Calcium 9.7 mg/dL (8.4-10.2); Carbon Dioxide 27 mmol/L (22-30); Chloride 103 mmol/L (98-107); Glucose 85 mg/dL (74-99); Magnesium 1.9 mg/dL (1.6-2.3); Potassium 4.1 mmol/L (3.5-5.1); Sodium 143 mmol/L (137-145); Total Bilirubin 0.4 mg/dL (0.2-1.3); Total Protein 7.2 g/dL (6.3-8.2)
[2018-04-22 18:53] LABS: Partial Thromboplastin Time 28.4 sec (22.0-30.0); Prothrombin Time 9.9 sec (9.0-12.0)
[2018-04-22 18:58] LABS: Basophils # (A) 0.1 k/uL (0-0.2); Basophils % (A) 1 %; Creatine Kinase 58 U/L (30-135); Eosinophils # (A) 0.5 k/uL (0-0.7); Eosinophils % (A) 6 %; HCT 42.7 % (34.0-46.0); HGB 14.6 gm/dL (11.4-16.0); Lymphocytes # (A) 2.7 k/uL (1.0-4.8); Lymphocytes % (A) 32 %; MCH 33.6 pg (25.0-35.0); MCHC 34.1 g/dL (31.0-37.0); MCV 98.5 fL (80.0-100.0); Mean Platelet Volume 6.5; Monocytes # (A) 0.5 k/uL (0-1.0); Monocytes % (A) 6 %; Neutrophils # (A) 4.4 k/uL (1.3-7.7); Neutrophils % (A) 53 %; Platelet Count 337 k/uL (150-450); RBC 4.34 m/uL (3.80-5.40); RDW 12.3 % (11.5-15.5); WBC 8.3 k/uL (3.8-10.6)
[2018-04-22 19:11] LABS: Creatine Kinase MB <0.2 ng/mL (0.0-2.4); Troponin I <0.012 ng/mL (0.000-0.034)
--- NOTE | 2018-04-22 19:13 | XR ---
EXAMINATION TYPE: XR chest 2V DATE OF EXAM: 04/22/2018 COMPARISON: 03/19/2018 HISTORY: Chest pain TECHNIQUE: Frontal and lateral views of the chest are obtained. FINDINGS: Heart and mediastinum are normal. Lungs are clear. Costophrenic angles are clear. Bony tho rax is intact. IMPRESSION: Normal chest. No change.
[2018-04-22] MEDS ORDERED: LORazepam 2 MG/ML INJ IV STA (20:31)
[2018-04-22] MEDS ORDERED: ACETAMINOPHEN TAB 325 MG TAB PO PRN (20:32)
[2018-04-22] MEDS ORDERED: NALOXONE 0.4 MG/ML 1 ML VIAL IV PRN (20:32)
[2018-04-22] MEDS ORDERED: SODIUM CHLORIDE 0.9% 1,000 ML IV SCH (20:45)
[2018-04-22] MEDS ORDERED: LORazepam 1 MG TAB PO PRN (23:06)
[2018-04-22] MEDS ORDERED: ALBUTEROL NEBULIZED 2.5 MG/3 ML INHALATION PRN (23:06)
[2018-04-22] MEDS ORDERED: NAPROXEN 250 MG TAB PO PRN (23:06)
[2018-04-22] MEDS ORDERED: METHOCARBAMOL 750 MG TAB PO PRN (23:06)
[2018-04-23 00:24] VITALS: BMI 21.9
[2018-04-23 01:57] VITALS: TEMP 97.6
[2018-04-23] MEDS ORDERED: LEVOTHYROXINE 88 MCG TAB PO SCH (06:30)
[2018-04-23] MEDS ORDERED: Umeclidinium Bromide [Incruse Ellipta] 1 PUFF INHALATION SCH (08:00)
[2018-04-23] MEDS ORDERED: LIOTHYRONINE SODIUM 5 MCG TAB PO SCH (09:00)
[2018-04-23] MEDS ORDERED: NICOTINE 14MG/24HR PATCH TRANSDERM SCH (09:00)
[2018-04-23] MEDS ORDERED: CYANOCOBALAMIN 500 MCG TAB PO SCH (09:00)
[2018-04-23] MEDS ORDERED: PARoxetine 20 MG TAB PO SCH (09:00)
[2018-04-23] MEDS ORDERED: LORATADINE 10 MG TAB PO SCH (09:00)
[2018-04-23] MEDS ORDERED: ATORVASTATIN 40 MG TAB PO SCH (09:00)
[2018-04-23] MEDS ORDERED: ASPIRIN 325 MG TAB PO SCH (09:00)
[2018-04-23] MEDS ORDERED: METOPROLOL TARTRATE 12.5 MG TAB PO SCH (09:00)
[2018-04-23] MEDS ORDERED: NON-FORMULARY DRUG (Ranitidine Hcl [Zantac] 150 MG) PO SCH (09:00)
[2018-04-23] MEDS ORDERED: FLUTICASONE 50MCG/SPRAY NASAL 16GM EA NOSTRIL SCH (09:00)
[2018-04-23] MEDS ORDERED: PANTOPRAZOLE 40 MG TABLET PO SCH (09:00)
[2018-04-23] MEDS ORDERED: MAGNESIUM OXIDE 400 MG TAB PO SCH (09:00)
[2018-04-23] MEDS ORDERED: FOLIC ACID 1 MG TAB PO SCH (09:00)
[2018-04-23] MEDS ORDERED: VENLAFAXINE HCL 25 MG TAB PO SCH (09:00)
[2018-04-23 09:06] VITALS: BP 120/65; PULSE 76; RESP 16
--- NOTE | 2018-04-23 10:57 | CONS ---
CONSULTATION CHIEF COMPLAINT: Abnormal EKG. Cassy is a 48-year-old lady with history of coronary artery disease who had an EKG at her primary care physician's office yesterday and it was abnormal, went to Dr. Espinoza, her probation and patrol agent where the EKG was done. It was thought to be different from her baseline EKG. Hence, she is admitted to hospital. Her EKG here shows left bundle branch block. She had left bundle branch block on an EKG done in March, also. While she was waiting at Dr. Espinoza's office, she had an episode of chest pain for which she was sent to the emergency room. Since coming here, she had remained chest pain-free and hemodynamically stable. Three sets of cardiac enzymes have been negative. Patient this morning wishes to go home and does not want to have a stress test done. She has not had any more episodes of chest pain. PAST MEDICAL HISTORY: Significant for coronary artery disease, hypothyroidism, dyslipidemia. CURRENT MEDICATIONS: Include aspirin, Lipitor, albuterol, vitamin B12, folic acid, Ativan, Synthroid, metoprolol 12.5 b.i.d., Robaxin, Zantac, Paxil, Prilosec, Effexor. ALLERGIES: There are no known drug allergies. FAMILY HISTORY: Negative for premature coronary artery disease. SOCIAL HISTORY: Significant for smoking and marijuana use. REVIEW OF SYSTEMS: HEENT is unremarkable. CARDIAC: As described above. RESPIRATORY: Negative. GI: Negative. : Negative. ALLERGY/IMMUNOLOGY: Negative. MUSCULOSKELETAL: Significant for arthritis. PSYCHOSOCIAL: Negative. ENDOCRINE: Negative. DERM: Negative. CONSTITUTIONAL: Negative. ONCOLOGICAL: Negative Rest of the system review is not relevant. PHYSICAL EXAM: Patient is afebrile. Heart rate is 76 beats per minute, blood pressure is 120/65, respiratory rate is 18, O2 SAT is 93% on room air. There is no jugular venous distention. Carotid upstroke is normal. There is no bruit. Chest exam reveals good air entry bilaterally. Heart exam reveals first and second heart sounds. No gallop. No murmur. No rub. Abdomen is soft, nontender. Exam of extremities did not reveal any edema. Peripheral pulses are felt. ASSESSMENT: 1. Abnormal EKG. 2. Coronary artery disease. PLAN: Myocardial infarction is ruled out. Patient is doing well. Does not want to have any further testing. Wishes to go home. She is stable to be discharged home and outpatient followup with Dr. Espinoza. BRENDA / MOSES: [id number] /
--- NOTE | 2018-04-23 11:07 | P.HPIM ---
History of Present Illness H&P Date: 04/23/18 Chief Complaint: Chest pain This is a 48-year-old female, a patient of Dr. Bear. She has a known past medical history of coronary artery disease, hypertension, hyperlipidemia, hypothyroidism, COPD, GERD, nicotine dependence and a possible previous myocardial infarction. Patient presents to the emergency room with complaints of chest pain and EKG changes. She had initially been to see her PCP and was found to have a new left bundle branch block and was sent to see her bag maker. At the bag maker office again there were EKG changes and patient was complaining of this left-sided chest pain near the breast area. The pain did not radiate. She denies any other associated symptoms. No nausea or vomiting, shortness of breath, dizziness lightheadedness or diaphoresis. Patient was admitted to the hospital for further evaluation and treatment. Troponins were negative 3 sets. EKG showing a normal sinus rhythm with a left bundle branch block. Chest x-ray was negative. Last heart catheterization was 2 years ago and per ER reports there was a 40% blockage in the LAD. Patient seen by our bag maker and they recommended patient have a stress test. Patient wishes to go home and does not want to have stress test done while she is in the hospital. Cardiology has cleared her for discharge and recommending stress test with Dr. Espinoza outpatient Review of Systems Please refer to HPI otherwise unremarkable Past Medical History Past Medical History: Coronary Artery Disease (CAD), Chest Pain / Angina, COPD, GERD/Reflux, Hyperlipidemia, Hypertension, Thyroid Disorder Additional Past Medical History / Comment(s): IRRITABLE BOWEL DISEASE/ HAD GRAVES-NOW HYPO History of Any Multi-Drug Resistant Organisms: C-DIFF Date of last positivie culture/infection: APRIL2015 MDRO Source:: FECES Past Surgical History: Section, Heart Catheterization, Tubal Ligation Additional Past Surgical History / Comment(s): OVARY REMOVED Past Anesthesia/Blood Transfusion Reactions: Motion Sickness Smoking Status: Current every day smoker - Past Family History Mother Family Medical History: No Reported History Medications and Allergies Home Medications Medication Instructions Recorded Confirmed Type Ranitidine HCl [Zantac] 150 mg PO BID 06/30/14 04/22/18 History LORazepam [Ativan] 1 mg PO BID PRN #20 tab 02/19/15 04/22/18 Rx Methocarbamol [Robaxin-750] 750 mg PO BID PRN 11/18/15 04/22/18 History Aspirin EC [Ecotrin] 325 mg PO DAILY 05/01/16 04/22/18 History Atorvastatin [Lipitor] 40 mg PO DAILY 06/05/16 04/22/18 History Cyanocobalamin (Vitamin B-12) 1,000 mcg PO DAILY 10/16/17 04/22/18 History [Vitamin B-12] Ergocalciferol [Vitamin D2 50,000 unit PO ANDRADE 10/16/17 04/22/18 History (DRISDOL)] Fluticasone Nasal [place] [Flonase 2 spr EA NOSTRIL DAILY 10/16/17 04/22/18 History Nasal [place]] Levothyroxine Sodium [Synthroid] 88 mcg PO DAILY 10/16/17 04/22/18 History Liothyronine Sodium [Cytomel] 5 mcg PO DAILY 10/16/17 04/22/18 History Loratadine [Claritin] 10 mg PO DAILY 10/16/17 04/22/18 History Magnesium Oxide [Mag-Ox] 400 mg PO DAILY 10/16/17 04/22/18 History Metoprolol Tartrate 12.5 mg PO BID 10/16/17 04/22/18 History Albuterol Inhaler [Ventolin Hfa 1 - 2 puff INHALATION RT-Q6H PRN 04/22/18 History Inhaler] Folic Acid 0.8 mg PO DAILY 04/22/18 04/22/18 History Naproxen 500 mg PO BID PRN 04/22/18 04/22/18 History Omeprazole [PriLOSEC] 20 mg PO DAILY 04/22/18 04/22/18 History PARoxetine [Paxil] 20 mg PO DAILY 04/22/18 04/22/18 History Umeclidinium [place] [Incruse 1 puff INHALATION RT-DAILY 04/22/18 04/22/18 History Ellipta] Venlafaxine HCl [Effexor] 25 mg PO DAILY 04/22/18 04/22/18 History Allergies Allergy/AdvReac Type Severity Reaction Status Date / Time No Known Allergies Allergy Verified 04/22/18 18:45 Physical Exam Vitals: Vital Signs Temp Pulse Pulse Resp BP BP Pulse Ox 04/23/18 09:05 97.6 F 76 16 120/65 93 L 04/23/18 05:10 97.6 F 70 20 130/61 97 04/23/18 04:00 70 20 04/22/18 22:11 97.6 F 66 20 127/61 96 04/22/18 20:55 69 16 134/77 95 04/22/18 20:10 70 19 138/81 04/22/18 19:16 69 19 129/77 97 04/22/18 18:57 63 18 134/75 99 04/22/18 17:36 98.3 F 73 20 123/77 100 Intake and Output 04/22/18 04/23/18 04/23/18 22:59 06:59 14:59 Intake Total 10 200 Output Total 300 Balance 10 -100 Intake: IV 10 Invasive Line 1 10 Oral 200 Output: Urine 300 Other: Voiding Method Toilet Toilet Weight 61.689 kg 61.1 kg Head normocephalic Neck supple Lungs clear to auscultation bilaterally no wheezing or crackles Heart regular rate and rhythm S1-S2, no rub or gallop. No rashes or lesions noted along the left breast Abdomen is soft nontender nondistended positive bowel sounds no hepatosplenomegaly Extremities no edema Neuro alert and orientated to 3 Results CBC & Chem 7: 04/22/18 18:06 04/22/18 18:06 Thrombosis Risk Factor Assmnt - Choose All That Apply Each Factor Represents 1 point: Abnormal pulmonary function (COPD), Age 41-60 years Other Risk Factors: No Other congenital or acquired thrombophilia - If yes, enter type in comment: No Thrombosis Risk Factor Assessment Total Risk Factor Score: 2 Thrombosis Risk Factor Assessment Level: Low Risk Assessment and Plan Assessment: 1. Chest pain with abnormal EKG showing left bundle branch block: DE ruled out troponins are negative 3 sets. Patient seen evaluated by cardiology. They're recommending a stress test. Patient is requesting this to be done outpatient. Therefore, cardiology has cleared her for discharge to have stress test outpatient with Dr. Palencia 2. History of coronary artery disease 3. Hypertension 4. Hyperlipidemia 5. Hypothyroidism 6. Nicotine dependence discussed smoking cessation for greater than 3 minutes 7. GERD Anticipate discharge later this morning with stress test outpatient.
--- NOTE | 2018-04-23 11:41 | P.DS ---
Providers Date of admission: 04/22/18 20:32 Expected date of discharge: 04/23/18 Attending physician: Hubert Page Consults: 04/22/18 20:33 Consult Physician Routine Consulting Provider: [facility] Consult Reason/Comments: chest pain Do you want consulting provider notified?: Yes Primary care physician: Haydee Bear [facility] Course: Discharge diagnosis 1. Chest pain with abnormal EKG showing left bundle branch block: SC ruled out troponins are negative 3 sets. Patient seen evaluated by cardiology. They're recommending a stress test. Patient is requesting this to be done outpatient. Therefore, cardiology has cleared her for discharge to have stress test outpatient with Dr. Plaencia 2. History of coronary artery disease 3. Hypertension 4. Hyperlipidemia 5. Hypothyroidism 6. Nicotine dependence discussed smoking cessation for greater than 3 minutes 7. GERD Hospital course This is a 48-year-old female, a patient of Dr. Bear. She has a known past medical history of coronary artery disease, hypertension, hyperlipidemia, hypothyroidism, COPD, GERD, nicotine dependence and a possible previous myocardial infarction. Patient presents to the emergency room with complaints of chest pain and EKG changes. She had initially been to see her PCP and was found to have a new left bundle branch block and was sent to see her gas combustion engineer. At the gas combustion engineer office again there were EKG changes and patient was complaining of this left-sided chest pain near the breast area. The pain did not radiate. She denies any other associated symptoms. No nausea or vomiting, shortness of breath, dizziness lightheadedness or diaphoresis. Patient was admitted to the hospital for further evaluation and treatment. Troponins were negative 3 sets. EKG showing a normal sinus rhythm with a left bundle branch block. Chest x-ray was negative. Last heart catheterization was 2 years ago and per ER reports there was a 40% blockage in the LAD. Patient seen by our gas combustion engineer and they recommended patient have a stress test. Patient wishes to go home and does not want to have stress test done while she is in the hospital. Cardiology has cleared her for discharge and recommending stress test with Dr. Espinoza outpatient SC ruled out during this admission. Patient will have stress test next Thursday. She has been informed if she starts to have chest pains that she can return to the emergency room for further evaluation and stress test at that time. Patient's chronic chest pain-free. She has been cleared by cardiology for discharge. She'll follow-up with cardiology Thursday and her PCP in 1 week. Please refer to chart for any further details. I performed an examination of the patient and discussed their management with the physician Signal Worker Helper. I have reviewed the Physician Signal Worker Helper's notes and agree with the documented findings and plan of care Patient Condition at Discharge: Stable Plan - Discharge Summary Discharge Rx Participant: No New Discharge Prescriptions: Continue Ranitidine HCl [Zantac] 150 mg PO BID LORazepam [Ativan] 1 mg PO BID PRN #20 tab PRN Reason: Anxiety Methocarbamol [Robaxin-750] 750 mg PO BID PRN PRN Reason: Muscle Spasm Aspirin EC [Ecotrin] 325 mg PO DAILY Atorvastatin [Lipitor] 40 mg PO DAILY Metoprolol Tartrate 12.5 mg PO BID Magnesium Oxide [Mag-Ox] 400 mg PO DAILY Ergocalciferol [Vitamin D2 (DRISDOL)] 50,000 unit PO ANDRADE Loratadine [Claritin] 10 mg PO DAILY Liothyronine Sodium [Cytomel] 5 mcg PO DAILY Fluticasone Nasal [place] [Flonase Nasal Gary] 2 spr EA NOSTRIL DAILY Cyanocobalamin (Vitamin B-12) [Vitamin B-12] 1,000 mcg PO DAILY Levothyroxine Sodium [Synthroid] 88 mcg PO DAILY Albuterol Inhaler [Ventolin Hfa Inhaler] 1 - 2 puff INHALATION RT-Q6H PRN PRN Reason: sob Folic Acid 0.8 mg PO DAILY Naproxen 500 mg PO BID PRN PRN Reason: Pain Omeprazole [PriLOSEC] 20 mg PO DAILY PARoxetine [Paxil] 20 mg PO DAILY Umeclidinium [place] [Incruse Ellipta] 1 puff INHALATION RT-DAILY Venlafaxine HCl [Effexor] 25 mg PO DAILY Discharge Medication List Ranitidine HCl [Zantac] 150 mg PO BID 06/30/14 [History] LORazepam [Ativan] 1 mg PO BID PRN #20 tab 02/19/15 [Rx] Methocarbamol [Robaxin-750] 750 mg PO BID PRN 11/18/15 [History] Aspirin EC [Ecotrin] 325 mg PO DAILY 05/01/16 [History] Atorvastatin [Lipitor] 40 mg PO DAILY 06/05/16 [History] Cyanocobalamin (Vitamin B-12) [Vitamin B-12] 1,000 mcg PO DAILY 10/16/17 [ History] Ergocalciferol [Vitamin D2 (DRISDOL)] 50,000 unit PO ANDRADE 10/16/17 [History] Fluticasone Nasal [place] [Flonase Nasal [place]] 2 spr EA NOSTRIL DAILY 10/16/17 [ History] Levothyroxine Sodium [Synthroid] 88 mcg PO DAILY 10/16/17 [History] Liothyronine Sodium [Cytomel] 5 mcg PO DAILY 10/16/17 [History] Loratadine [Claritin] 10 mg PO DAILY 10/16/17 [History] Magnesium Oxide [Mag-Ox] 400 mg PO DAILY 10/16/17 [History] Metoprolol Tartrate 12.5 mg PO BID 10/16/17 [History] Albuterol Inhaler [Ventolin Hfa Inhaler] 1 - 2 puff INHALATION RT-Q6H PRN [History] Folic Acid 0.8 mg PO DAILY 04/22/18 [History] Naproxen 500 mg PO BID PRN 04/22/18 [History] Omeprazole [PriLOSEC] 20 mg PO DAILY 04/22/18 [History] PARoxetine [Paxil] 20 mg PO DAILY 04/22/18 [History] Umeclidinium [place] [Incruse Ellipta] 1 puff INHALATION RT-DAILY 04/22/18 [ History] Venlafaxine HCl [Effexor] 25 mg PO DAILY 04/22/18 [History] Follow up Appointment(s)/Referral(s): [facility] [Provider Group] - 04/27/18 9:45 am (Thursday Scheduled Lexiscan Stress Test in office) Gael Espinoza MD [STAFF PHYSICIAN] - 05/11/18 3:45 pm (Thursday) Haydee Bear MD [Primary Care Provider] - 05/03/18 1:00 pm (Thursday) Patient Instructions/Handouts: Chest Pain (DC) Activity/Diet/Wound Care/Special Instructions: Follow up with cardiology for outpatient stress test. Diet: cardiac Activity: as tolerated Discharge Disposition: HOME SELF-CARE
== END 2018-04-23 11:55 | disposition home or self-care (01) ==
LOC: EC 17:17 → 6SEL 20:32
PROVIDERS: ADMIT Internal Medicine; ATTEND Internal Medicine
DX: R07.89 Other chest pain (principal); I44.7 Left bundle-branch block, unspecified; I25.10 Atherosclerotic heart disease of native coronary artery without angina pectoris; I10 Essential (primary) hypertension; E78.5 Hyperlipidemia, unspecified; F17.200 Nicotine dependence, unspecified, uncomplicated; K21.9 Gastro-esophageal reflux disease without esophagitis; K58.9 Irritable bowel syndrome, unspecified; Z16.24 Resistance to multiple antibiotics; F41.9 Anxiety disorder, unspecified; F12.90 Cannabis use, unspecified, uncomplicated; M19.90 Unspecified osteoarthritis, unspecified site; E03.9 Hypothyroidism, unspecified; J44.9 Chronic obstructive pulmonary disease, unspecified; Z91.14 Patient's other noncompliance with medication regimen; Z79.82 Long term (current) use of aspirin; Z79.899 Other long term (current) drug therapy; Z79.890 Hormone replacement therapy; Z79.51 Long term (current) use of inhaled steroids
CPT/HCPCS: 99285 ×2; 96374 ×2; 36415; 93005; 80053; 82550; 82553; 83735; 84484 ×2; 85025; 85610; 85730; 71046; G0378 ×2; S4990 ×2; J2060

== ENCOUNTER → 2018-05-21 | Outpatient (CLI) | payer OTHER ==
[2018-05-21 14:39] LABS: HCT 42.7 % (34.0-46.0); HGB 13.9 gm/dL (11.4-16.0); MCH 31.8 pg (25.0-35.0); MCHC 32.6 g/dL (31.0-37.0); MCV 97.6 fL (80.0-100.0); Mean Platelet Volume 6.6; Platelet Count 373 k/uL (150-450); RBC 4.37 m/uL (3.80-5.40); RDW 12.4 % (11.5-15.5); WBC 8.1 k/uL (3.8-10.6)
[2018-05-21 14:48] LABS: Anion Gap 6 mmol/L; Blood Urea Nitrogen 8 mg/dL (7-17); Carbon Dioxide 28 mmol/L (22-30); Chloride 108 mmol/L (98-107); Potassium 3.8 mmol/L (3.5-5.1); Sodium 142 mmol/L (137-145)
== END | disposition home or self-care (01) ==
LOC: LABPAT 14:09
PROVIDERS: ATTEND Internal Medicine Interventional Cardiology
DX: Z01.812 Encounter for preprocedural laboratory examination (principal); I25.10 Atherosclerotic heart disease of native coronary artery without angina pectoris
CPT/HCPCS: 36415; 80051; 82565; 84520; 85027

== ENCOUNTER 2018-05-26 11:08 | Day surgery (SDC) | payer OTHER ==
[~2018-05-26 11:08] MED LIST: ALPRAZolam 0.25 MG TAB PO PRN; ALPRAZolam 0.5 MG TAB PO PRN; ASPIRIN 325 MG TAB PO STA; ATORVASTATIN 80 MG TAB PO STA; BIVALIRUDIN 250 MG VIAL IV ONE; NITROGLYCERIN SL TABS 0.4 MG TAB SUBLINGUAL PRN; SODIUM CHLORIDE 0.9% 1,000 ML in EMPTY BAG 1 BAG IV ONE; SODIUM CHLORIDE 0.9% 50 ML BAG ONE
[2018-05-26] MEDS ORDERED: VERAPAMIL 2.5 MG/ML 2 ML AMP ONE (12:48)
[2018-05-26] MEDS ORDERED: MIDAZOLAM 2 MG/2 ML VIAL ONE ×2 (12:48→13:34)
[2018-05-26] MEDS ORDERED: LIDOCAINE 1% INJ 10MG/ML (20 ML MDV) ONE (12:48)
[2018-05-26] MEDS ORDERED: LIDOCAINE 1% INJ 10MG/ML (20 ML MDV) SQ ONE (13:12)
[2018-05-26] MEDS ORDERED: MIDAZOLAM 2 MG/2 ML VIAL IVP ONE ×2 (13:14→13:37)
[2018-05-26] MEDS ORDERED: HEPARIN SODIUM 1,000 UN/ML (10ML VL) ONE (13:18)
[2018-05-26] MEDS ORDERED: fentaNYL (PF) 50 MCG/ML 2 ML AMP ONE (13:18)
[2018-05-26] MEDS: fentaNYL (PF) 50 MCG/ML 2 ML AMP IVP ONE ×2 (13:19→13:37)
[2018-05-26] MEDS ORDERED: VERAPAMIL SYRINGE (5 MG/10 ML) INTRAARTER ONE (13:20)
[2018-05-26] MEDS ORDERED: HEPARIN SODIUM 1,000 UN/ML (10ML VL) IV ONE (13:20)
[2018-05-26] MEDS ORDERED: NITROGLYCERIN 1000MCG/10ML SYRINGE INTRACORON ONE ×2 (13:29→13:50)
[2018-05-26] MEDS ORDERED: CLOPIDOGREL 75 MG TAB ONE (13:39)
[2018-05-26] MEDS ORDERED: BIVALIRUDIN BOLUS 250 MG/50 ML IV ONE (13:43)
[2018-05-26] MEDS ORDERED: BIVALIRUDIN 250 MG in SODIUM CHLORIDE 0.9% 50 ML IV ONE (13:43)
[2018-05-26] MEDS ORDERED: IOPAMIDOL-370 125ML BTL INJ ONE (13:54)
[2018-05-26] MEDS ORDERED: IOPAMIDOL-370 100ML BTL INJ ONE (13:54)
[2018-05-26] MEDS ORDERED: LORazepam 1 MG TAB PO PRN (13:57)
[2018-05-26] MEDS ORDERED: METHOCARBAMOL 750 MG TAB PO PRN (13:57)
[2018-05-26] MEDS ORDERED: NAPROXEN 250 MG TAB PO PRN (13:57)
[2018-05-26] MEDS ORDERED: ALBUTEROL NEBULIZED 1.25 MG/3 ML INHALATION SCH (14:00)
[2018-05-26] MEDS ORDERED: RX INFO: IV CONTRAST WAS GIVEN 1 EACH MISC MISCELLANE PRN (14:00)
[2018-05-26] MEDS ORDERED: NITROGLYCERIN SL TABS 0.4 MG TAB SUBLINGUAL PRN (14:00)
[2018-05-26] MEDS ORDERED: MAG HYDROX/AL HYDROX/SIMETH 30 ML CUP PO PRN (14:00)
[2018-05-26] MEDS ORDERED: SODIUM CHLORIDE 0.9% 1,000 ML IV SCH (14:00)
[2018-05-26] MEDS ORDERED: ATROPINE SULFATE 0.1 MG/ML 10ML SYRINGE IV PRN (14:00)
[2018-05-26] MEDS ORDERED: ZOLPIDEM 5 MG TAB PO PRN (14:00)
[2018-05-26] MEDS ORDERED: ACETAMINOPHEN TAB 325 MG TAB ONE (15:34)
--- NOTE | 2018-05-26 16:46 | LTR ---
May 26, 2018 To: Dr. Bear Regarding: Cassy Jones (72) Dear Dr. Bear, Ms. Cassy Jones underwent heart catheterization and stenting of the left circumflex. The procedure was performed without any complication and with good angiographic results. Thank you for allowing me to participate in her care. Please do not hesitate to call with any question or concern. Sincerely, Gael Espinoza M.D. BRENDA / MOSES: [id number] /
--- NOTE | 2018-05-26 17:00 | CC ---
CARDIAC CATHETERIZATION REPORT DATE OF SERVICE: May 26, 2018 PERFORMING PHYSICIAN: Gael Espinoza MD, dress finisher. PROCEDURE PERFORMED: 1. Selective right and left coronary angiogram. 2. Left heart catheterization. 3. Successful stenting of the distal left circumflex using 2.5 x 15 mm Xience GOPI with good angiographic results. INDICATION: This is a pleasant 48-year-old female patient with history of coronary artery disease as well as hypertension and dyslipidemia who continues to experience intermittent episodes of chest discomfort. Her symptoms were concerning for angina. Because of that, heart catheterization was recommended. APPROACH: Right radial artery. COMPLICATION: None. LEVEL OF SEDATION: Moderate with sedation length of 43 minutes. PROCEDURE DESCRIPTION: After obtaining an informed consent, the patient was brought to cardiac entry level lab technician. The right radial artery was cannulated using micropuncture technique, the micropuncture wire passed easily then I placed a 6-Swiss sheath in the right radial artery. After that I gave the patient 2 mg of verapamil IA and 6000 units of heparin IV. Selective right and left coronary angiogram was performed using JR4 and JL3.5 catheters. Left heart catheterization was performed using 5-Swiss pigtail catheter. After that, I intervened on the left circumflex. Please see a separate paragraph for that. SELECTIVE CORONARY ANGIOGRAM: 1. The RCA is a moderate caliber vessel. It is a nondominant vessel. It is angiographically normal. 2. The left main is angiographically normal. It is a long left main. It bifurcates into the circumflex and left anterior descending artery. 3. The left circumflex is a large caliber vessel. It is a dominant vessel. The proximal circ appeared to be angiographically normal. The mid circ is normal and gives rise into the first and second obtuse marginal branches, both are angiographically normal. The circ distally after the bifurcation of the PDA branch has a lesion appeared to be in the range of 70%. 4. The proximal LAD appeared to have mild disease only in the range of 20-30%. It gives rise into the first diagonal branch which seems to be angiographically normal. The mid LAD is normal and gives rise into a second diagonal branch which seems to be angiographically normal and the LAD distally is angiographically normal and the LAD reached the apex. HEMODYNAMICS: The left ventricular end-diastolic pressure was 12 mmHg and no gradient was identified across the aortic valve. PCI OF THE LEFT CIRCUMFLEX: Anticoagulation was initiated using Angiomax. After I checked ACT it came into be sub therapeutic. After that, I did engage the left main using JL3.5 guiding catheter. A run-through wire was used to wire the left circumflex. After that, I did direct stenting of the lesion using 2.5 x 15 mm Xience GOPI where the stent was positioned under fluoroscopy guidance and deployed under 12 atmospheres for 20 seconds. The following angiogram showed good angiographic results. The procedure was completed without any complication. CONCLUSION: 1. Normal medium size nondominant right coronary artery. 2. Normal left main coronary artery. 3. Severe disease involving the distal left circumflex. 4. Mild disease involving the proximal LAD. 5. Successful stenting of the left circumflex distally as described above. POSTPROCEDURE MANAGEMENT: 1. Maximize medical treatment. 2. Follow up with the patient. BRENDA / MOSES: [id number] /
[2018-05-26 17:52] VITALS: BMI 22.7
[2018-05-26] MEDS: ALBUTEROL NEBULIZED 2.5 MG/3 ML INHALATION SCH ×2 (20:57→23:43)
[2018-05-26] MEDS ORDERED: FAMOTIDINE 20 MG TAB PO SCH (21:00)
[2018-05-26] MEDS ORDERED: METOPROLOL TARTRATE 12.5 MG TAB PO SCH (21:00)
[2018-05-27 06:03] LABS: Basophils % (A) 1 %; Eosinophils # (A) 0.5 k/uL (0-0.7); Eosinophils % (A) 5 %; HCT 39.1 % (34.0-46.0); HGB 12.8 gm/dL (11.4-16.0); Lymphocytes # (A) 2.2 k/uL (1.0-4.8); Lymphocytes % (A) 25 %; MCH 31.9 pg (25.0-35.0); MCHC 32.9 g/dL (31.0-37.0); MCV 96.8 fL (80.0-100.0); Mean Platelet Volume 6.6; Monocytes # (A) 0.6 k/uL (0-1.0); Monocytes % (A) 7 %; Neutrophils # (A) 5.5 k/uL (1.3-7.7); Neutrophils % (A) 61 %; Platelet Count 327 k/uL (150-450); RBC 4.03 m/uL (3.80-5.40); RDW 12.3 % (11.5-15.5)
[2018-05-27 06:22] LABS: Anion Gap 8 mmol/L; Blood Urea Nitrogen 8 mg/dL (7-17); Calcium 8.8 mg/dL (8.4-10.2); Carbon Dioxide 21 mmol/L (22-30); Chloride 112 mmol/L (98-107); Glucose 88 mg/dL (74-99); Potassium 3.8 mmol/L (3.5-5.1); Sodium 141 mmol/L (137-145)
[2018-05-27] MEDS ORDERED: LEVOTHYROXINE 88 MCG TAB PO SCH (06:30)
[2018-05-27] MEDS ORDERED: PANTOPRAZOLE 40 MG TABLET PO SCH (07:30)
--- NOTE | 2018-05-27 07:44 | DS ---
DISCHARGE SUMMARY ADMISSION DATE: May 26, 2018. DISCHARGE DATE: May 27, 2018 BRIEF HISTORY: This is a pleasant 48-year-old female patient with known history of coronary artery disease as well as hypertension and dyslipidemia and smoking, was experiencing chest discomfort concerning for angina. She underwent a heart catheterization and that revealed severe disease involving the distal left circumflex which was stented using a drug-eluting stent with good angiographic results and without any complication. The procedure was performed from the right radial artery. On follow up with the patient today, she is doing good. She is ready to go home. Her blood work looks within normal limits. I am going to discharge the patient home and I will follow up with the patient in the office in a week. MMODL / IJN: [id number] /
[2018-05-27 07:48] VITALS: BP 116/73; PULSE 61; RESP 16; TEMP 97.2
[2018-05-27] MEDS ORDERED: FLUTICASONE 50MCG/SPRAY NASAL 16GM EA NOSTRIL SCH (09:00)
[2018-05-27] MEDS ORDERED: LIOTHYRONINE SODIUM 5 MCG TAB PO SCH (09:00)
[2018-05-27] MEDS ORDERED: MAGNESIUM OXIDE 400 MG TAB PO SCH (09:00)
[2018-05-27] MEDS ORDERED: CYANOCOBALAMIN 500 MCG TAB PO SCH (09:00)
[2018-05-27] MEDS ORDERED: ESCITALOPRAM 10 MG TAB PO SCH (09:00)
[2018-05-27] MEDS ORDERED: ATORVASTATIN 40 MG TAB PO SCH (09:00)
[2018-05-27] MEDS ORDERED: VENLAFAXINE HCL 25 MG TAB PO SCH (09:00)
[2018-05-27] MEDS ORDERED: ASPIRIN 325 MG TAB PO SCH (09:00)
[2018-05-27] MEDS ORDERED: FOLIC ACID 1 MG TAB PO SCH (09:00)
[2018-05-27] MEDS ORDERED: LORATADINE 10 MG TAB PO SCH (09:00)
[2018-05-27] MEDS ORDERED: CLOPIDOGREL 75 MG TAB PO SCH (12:00)
[2018-05-30] MEDS ORDERED: ERGOCALCIFEROL 50,000 UNIT CAP PO SCH (09:00)
== END 2018-05-27 08:23 | disposition home or self-care (01) ==
LOC: CATHCVL 11:08 → 6SEL 13:53 → CATHCVL 05-27 08:23
PROVIDERS: ATTEND Internal Medicine Interventional Cardiology
DX: I25.110 Atherosclerotic heart disease of native coronary artery with unstable angina pectoris (principal); I44.7 Left bundle-branch block, unspecified; I10 Essential (primary) hypertension; E78.00 Pure hypercholesterolemia, unspecified; I34.1 Nonrheumatic mitral (valve) prolapse; Z82.49 Family history of ischemic heart disease and other diseases of the circulatory system; Z79.82 Long term (current) use of aspirin; Z79.51 Long term (current) use of inhaled steroids; Z79.899 Other long term (current) drug therapy; F17.210 Nicotine dependence, cigarettes, uncomplicated
CPT/HCPCS: 94640; 93458; 80048; 85025; C9600; C1887; C1894; C1769 ×2; C1874; J2250; J2001; J3010; J1644; J0583; Q9967 ×2

== ENCOUNTER 2019-01-12 01:50 | Emergency (ER) | payer OTHER ==
[2019-01-12] MEDS ORDERED: PROMETHAZ-COD 6.25-10 MG/5 ML 5 ML CUP PO STA (02:15)
[2019-01-12] MEDS ORDERED: IPRATROPIUM-ALBUTEROL 3 ML NEB INHALATION STA (02:15)
[2019-01-12] MEDS ORDERED: SODIUM CHLORIDE 0.9% 500 ML 500 ML IV STA (02:15)
[2019-01-12 02:27] LABS: Basophils # (A) 0.1 k/uL (0-0.2); Basophils % (A) 1 %; Eosinophils # (A) 0.8 k/uL (0-0.7); Eosinophils % (A) 7 %; HCT 43.8 % (34.0-46.0); HGB 14.5 gm/dL (11.4-16.0); Lymphocytes # (A) 2.3 k/uL (1.0-4.8); Lymphocytes % (A) 19 %; MCV 96.9 fL (80.0-100.0); Monocytes # (A) 0.6 k/uL (0-1.0); Monocytes % (A) 5 %; Neutrophils % (A) 67 %; Platelet Count 384 k/uL (150-450); RBC 4.52 m/uL (3.80-5.40); RDW 13.3 % (11.5-15.5)
[2019-01-12] MEDS ORDERED: ACETAMINOPHEN TAB 500 MG TAB PO STA (02:34)
[2019-01-12 02:35] LABS: ALT 25 U/L (9-52); AST 20 U/L (14-36); Albumin 4.4 g/dL (3.5-5.0); Alkaline Phosphatase 58 U/L (38-126); Anion Gap 10 mmol/L; Blood Urea Nitrogen 7 mg/dL (7-17); Calcium 10.1 mg/dL (8.4-10.2); Carbon Dioxide 25 mmol/L (22-30); Chloride 108 mmol/L (98-107); Glucose 97 mg/dL (74-99); INR 0.9 (<1.2); Magnesium 1.9 mg/dL (1.6-2.3); Partial Thromboplastin Time 28.4 sec (22.0-30.0); Potassium 3.7 mmol/L (3.5-5.1); Prothrombin Time 9.5 sec (9.0-12.0); Sodium 143 mmol/L (137-145); Total Bilirubin 0.3 mg/dL (0.2-1.3); Total Protein 7.2 g/dL (6.3-8.2)
--- NOTE | 2019-01-12 02:45 | ED ---
General Adult HPI - General Source: patient Mode of arrival: ambulatory Limitations: no limitations <Barbra Mcbride - Last Filed: 01/12/19 03:16> <Lynn Courtney - Last Filed: 01/12/19 06:06> - General Chief complaint: Upper Respiratory Infection Stated complaint: Chest Pain, Cough Time Seen by Provider: 01/12/19 01:58 - History of Present Illness Initial comments: 39-year-old female patient presents to the emergency department today for evaluation of cough, chest pain, shortness of breath. Patient states she's been sick for the last week with upper respiratory symptoms. Patient states she's had fevers as high as 100.6F. Patient states tonight she had a coughing episode lasting approximately 3 hours. States she did have 2 episodes of posttussive vomiting. Patient states she is having substernal chest pain that was sharp and stabbing in nature. She states that she was short of breath with this. Patient states she does have a history of coronary artery disease and has one stent. She denies any dizziness or weakness. Denies any numbness or tingling to extremities. Patient states she did receive influenza vaccination this season. Patient was seen at urgent care on Thursday for her symptoms was diagnosed with a sinus infection and given amoxicillin. Patient does admit to smoking cigarettes. Patient denies any recent rash, abdominal pain, nausea, vomiting, diarrhea, constipation, back pain, hematuria, dysuria, urinary urgency, urinary frequency, headache, visual changes, or any other complaints. (Barbra Mcbride) - Related Data Home Medications Medication Instructions Recorded Confirmed Ranitidine HCl [Zantac] 150 mg PO BID 06/30/14 05/26/18 Methocarbamol [Robaxin-750] 750 mg PO BID PRN 11/18/15 05/26/18 Aspirin EC [Ecotrin] 325 mg PO DAILY 05/01/16 05/26/18 Atorvastatin [Lipitor] 40 mg PO DAILY 06/05/16 05/26/18 Cyanocobalamin (Vitamin B-12) 1,000 mcg PO DAILY 10/16/17 05/26/18 [Vitamin B-12] Ergocalciferol [Vitamin D2 50,000 unit PO ANDRADE 10/16/17 05/26/18 (DRISDOL)] Fluticasone Nasal [place] [Flonase 2 spr EA NOSTRIL DAILY 10/16/17 05/26/18 Nasal [place]] Levothyroxine Sodium [Synthroid] 88 mcg PO DAILY 10/16/17 05/26/18 Liothyronine Sodium [Cytomel] 5 mcg PO DAILY 10/16/17 05/26/18 Loratadine [Claritin] 10 mg PO DAILY 10/16/17 05/26/18 Magnesium Oxide [Mag-Ox] 400 mg PO DAILY 10/16/17 05/26/18 Metoprolol Tartrate 12.5 mg PO BID 10/16/17 05/26/18 Albuterol Inhaler [Ventolin Hfa 1 - 2 puff INHALATION RT-Q6H PRN 04/22/18 05/26/18 Inhaler] Folic Acid 0.8 mg PO DAILY 04/22/18 05/26/18 Naproxen 500 mg PO BID PRN 04/22/18 05/21/18 Omeprazole [PriLOSEC] 20 mg PO DAILY 04/22/18 05/26/18 Venlafaxine HCl [Effexor] 25 mg PO DAILY 04/22/18 05/26/18 Albuterol Nebulized [Ventolin 1.25 mg INHALATION Q8H 05/21/18 05/26/18 Nebulized] Escitalopram [Lexapro] 10 mg PO DAILY 05/21/18 05/26/18 Albuterol Nebulized [Ventolin 2.5 mg INHALATION Q8H 05/26/18 05/26/18 Nebulized] Previous Rx's Medication Instructions Recorded LORazepam [Ativan] 1 mg PO BID PRN #20 tab 02/19/15 Clopidogrel [Plavix] 75 mg PO DAILY #90 tab 05/27/18 Promethaz-Cod 6.25-10 mg/5 ml 5 ml PO Q4HR PRN 3 Days #90 ml 01/12/19 [Phenergan with Codeine] predniSONE 50 mg PO DAILY #5 tablet 01/12/19 Allergies Allergy/AdvReac Type Severity Reaction Status Date / Time No Known Allergies Allergy Verified 01/12/19 01:56 Review of Systems ROS Other: All systems not noted in ROS Statement are negative. <Barbra Mcbride - Last Filed: 01/12/19 03:16> ROS Other: All systems not noted in ROS Statement are negative. <Lynn Courtney P - Last Filed: 01/12/19 06:06> ROS Statement: Those systems with pertinent positive or pertinent negative responses have been documented in the HPI. Past Medical History Past Medical History: Coronary Artery Disease (CAD), Chest Pain / Angina, COPD, Fibromyalgia, GERD/Reflux, Hyperlipidemia, Hypertension, Thyroid Disorder Additional Past Medical History / Comment(s): IRRITABLE BOWEL DISEASE/ HAD GRAVES-NOW HYPO,. Anxiety with panic attacks, sciatica, History of Any Multi-Drug Resistant Organisms: C-DIFF Date of last positivie culture/infection: APRIL 2015 MDRO Source:: FECES Past Surgical History: Section, Heart Catheterization With Stent, Tubal Ligation Additional Past Surgical History / Comment(s): OVARY REMOVED, cardiac stent Distal circ, Past Anesthesia/Blood Transfusion Reactions: Motion Sickness Past Psychological History: Anxiety, Panic Disorder Smoking Status: Current every day smoker Past Alcohol Use History: None Reported Past Drug Use History: Marijuana - Past Family History Mother Family Medical History: No Reported History <Barbra Mcbride M - Last Filed: 01/12/19 03:16> General Exam Limitations: no limitations General appearance: alert, in no apparent distress, other (This is a well- developed, well-nourished adult female patient in no acute distress. Vital signs upon presentation are temperature 100.0F, pulse 89, respirations 20, blood pressure 133/83, pulse ox 98% on room air.) Eye exam: Present: normal appearance, PERRL, EOMI. Absent: scleral icterus, conjunctival injection, periorbital swelling ENT exam: Present: normal exam, normal oropharynx, mucous membranes moist, TM's normal bilaterally Respiratory exam: Present: normal lung sounds bilaterally. Absent: respiratory distress, wheezes, rales, rhonchi, stridor Cardiovascular Exam: Present: regular rate, normal rhythm, normal heart sounds. Absent: systolic murmur, diastolic murmur, rubs, gallop, clicks GI/Abdominal exam: Present: soft, normal bowel sounds. Absent: distended, tenderness, guarding, rebound, rigid Neurological exam: Present: alert, oriented X3, CN II-XII intact Psychiatric exam: Present: normal affect, normal mood Skin exam: Present: warm, dry, intact, normal color. Absent: rash <Barbra Mcbride M - Last Filed: 01/12/19 03:16> Course Vital Signs 01/12/19 01/12/19 01/12/19 01:51 02:09 03:13 Temperature 100.0 F H Pulse Rate 89 69 Respiratory 20 22 Rate Blood Pressure 133/83 O2 Sat by Pulse 98 Oximetry 01/12/19 01/12/19 03:22 03:27 Temperature 99.2 F Pulse Rate 73 75 Respiratory 19 Rate Blood Pressure 124/84 O2 Sat by Pulse 98 Oximetry EKG Findings - EKG Comments: EKG Findings:: EKG obtained at 00 51 shows sinus bradycardia with a short WV interval. Ventricular rate is 59, WV interval is 104, QRS duration 70, QT 408, QTC 403. No evidence of ST elevation or depression. <Barbra Mcbride - Last Filed: 01/12/19 03:16> Medical Decision Making - Lab Data Result diagrams: 01/12/19 02:15 01/12/19 02:15 - Radiology Data Radiology results: report reviewed, image reviewed <Barbra Mcbride - Last Filed: 01/12/19 03:16> - Lab Data Result diagrams: 01/12/19 02:15 01/12/19 02:15 <Lynn Courtney - Last Filed: 01/12/19 06:06> - Medical Decision Making 49-year-old female patient presented to the emergency department today for evaluation of chest pain and shortness of breath. Patient states symptoms started after a three-hour coughing episode where she did have 2 episodes of posttussive vomiting. Patient does have history of coronary artery disease I did perform labs which had an negative troponin. Chest x-ray was clear with no evidence for pneumonia. Patient symptoms are consistent with acute bronchitis, she is on a taken amoxicillin from urgent care. She'll be started on prednisone and given a prescription for cough medication. She does have albuterol and Atrovent nebulizer treatments at home which she takes every 8 hours, she is instructed to increase the frequency of use every 4 hours as needed. She is instructed to follow-up with her primary care physician for recheck in 1-2 days. Return parameters were discussed in detail. She verbalizes understanding and agrees with this plan. (Barbra Mcbride) EKG was obtained at 2:06 AM, rate is 79 there is a P-wave before each QRS, rhythm is sinus, normal intervals, WV 188, QRS 136, QTC 451. There are no acute ST elevations or depressions there is no evidence of acute ischemia or infarction. I was available for consultation in the emergency department. The history and physical exam were done by the midlevel provider. I was consulted for this patient's care. I reviewed the case with the midlevel provider and based on their presentation of the patient, I agree with the assessment, medical decision making and plan of care as documented. (Lynn Courtney) - Lab Data Lab Results 01/12/19 01/12/19 01/12/19 Range/Units 02:15 02:15 02:15 WBC 12.0 H (3.8-10.6) k/uL RBC 4.52 (3.80-5.40) m/uL Hgb 14.5 (11.4-16.0) gm/dL Hct 43.8 (34.0-46.0) % MCV 96.9 (80.0-100.0) fL MCH 32.0 (25.0-35.0) pg MCHC 33.0 (31.0-37.0) g/dL RDW 13.3 (11.5-15.5) % Plt Count 384 (150-450) k/uL Neutrophils % 67 % Lymphocytes % 19 % Monocytes % 5 % Eosinophils % 7 % Basophils % 1 % Neutrophils # 8.0 H (1.3-7.7) k/uL Lymphocytes # 2.3 (1.0-4.8) k/uL Monocytes # 0.6 (0-1.0) k/uL Eosinophils # 0.8 H (0-0.7) k/uL Basophils # 0.1 (0-0.2) k/uL PT (9.0-12.0) sec INR (<1.2) APTT (22.0-30.0) sec Sodium 143 (137-145) mmol/L Potassium 3.7 (3.5-5.1) mmol/L Chloride 108 H (98-107) mmol/L Carbon Dioxide 25 (22-30) mmol/L Anion Gap 10 mmol/L BUN 7 (7-17) mg/dL Creatinine 0.48 L (0.52-1.04) mg/dL Est GFR (CKD-EPI)AfAm >90 (>60 ml/min/1.73 sqM) Est GFR (CKD-EPI)NonAf >90 (>60 ml/min/1.73 sqM) Glucose 97 (74-99) mg/dL Calcium 10.1 (8.4-10.2) mg/dL Magnesium 1.9 (1.6-2.3) mg/dL Total Bilirubin 0.3 (0.2-1.3) mg/dL AST 20 (14-36) U/L ALT 25 (9-52) U/L Alkaline Phosphatase 58 (38-126) U/L Troponin I (0.000-0.034) ng/mL Total Protein 7.2 (6.3-8.2) g/dL Albumin 4.4 (3.5-5.0) g/dL Influenza Type A RNA Not Detected (Not Detectd) Influenza Type B (PCR) Not Detected (Not Detectd) 01/12/19 01/12/19 Range/Units 02:15 02:15 WBC (3.8-10.6) k/uL RBC (3.80-5.40) m/uL Hgb (11.4-16.0) gm/dL Hct (34.0-46.0) % MCV (80.0-100.0) fL MCH (25.0-35.0) pg MCHC (31.0-37.0) g/dL RDW (11.5-15.5) % Plt Count (150-450) k/uL Neutrophils % % Lymphocytes % % Monocytes % % Eosinophils % % Basophils % % Neutrophils # (1.3-7.7) k/uL Lymphocytes # (1.0-4.8) k/uL Monocytes # (0-1.0) k/uL Eosinophils # (0-0.7) k/uL Basophils # (0-0.2) k/uL PT 9.5 (9.0-12.0) sec INR 0.9 (<1.2) APTT 28.4 (22.0-30.0) sec Sodium (137-145) mmol/L Potassium (3.5-5.1) mmol/L Chloride (98-107) mmol/L Carbon Dioxide (22-30) mmol/L Anion Gap mmol/L BUN (7-17) mg/dL Creatinine (0.52-1.04) mg/dL Est GFR (CKD-EPI)AfAm (>60 ml/min/1.73 sqM) Est GFR (CKD-EPI)NonAf (>60 ml/min/1.73 sqM) Glucose (74-99) mg/dL Calcium (8.4-10.2) mg/dL Magnesium (1.6-2.3) mg/dL Total Bilirubin (0.2-1.3) mg/dL AST (14-36) U/L ALT (9-52) U/L Alkaline Phosphatase (38-126) U/L Troponin I <0.012 (0.000-0.034) ng/mL Total Protein (6.3-8.2) g/dL Albumin (3.5-5.0) g/dL Influenza Type A RNA (Not Detectd) Influenza Type B (PCR) (Not Detectd) - Radiology Data Two-view x-ray of the chest is obtained. Report was reviewed in its entirety. Impression by Dr. Virk shows no acute cardio pulmonary process or significant interval change from previous exam. (Barbra Mcbride) Disposition Is patient prescribed a controlled substance at d/c from ED?: Yes When asked, does pt state using other controlled substances?: No If prescribed controlled substance>3 days was MAPS reviewed?: Prescribed <3 Days If Rx opioid, was Start Talking consent form obtained?: Yes Time of Disposition: 03:05 <Barbra Mcbride - Last Filed: 01/12/19 03:16> <Lynn Courtney - Last Filed: 01/12/19 06:06> Clinical Impression: Acute bronchitis, Pleuritic chest pain Disposition: HOME SELF-CARE Condition: Good Instructions (If sedation given, give patient instructions): Pleurisy (ED), Acute Bronchitis (ED) Additional Instructions: Complete antibiotic and other prescriptions as directed. Use home breathing treatments as directed. Follow-up with your primary care physician for recheck in 1-2 days. Return to the emergency department immediately for any new, worsening, or concerning symptoms. Prescriptions: Promethaz-Cod 6.25-10 mg/5 ml [Phenergan with Codeine] 5 ml PO Q4HR PRN 3 Days #90 ml PRN Reason: Cough predniSONE 50 mg PO DAILY #5 tablet Referrals: Haydee Baer MD [Primary Care Provider] - 1-2 days
--- NOTE | 2019-01-12 02:54 | XR ---
EXAM: XR Chest, 2 Views CLINICAL HISTORY: Chest Pain TECHNIQUE: Frontal and lateral views of the chest. COMPARISON: 07/20/2017; 04/22/2018 FINDINGS: Lungs: Unremarkable. No consolidation. The pulmonary vasculature is unremarkable. Pleural space: Unremarkable. No pneumothorax. Heart: Unremarkable. No cardiomegaly. Mediastinum: Unremarkable. Bones/joints: Unremarkable. IMPRESSION: No acute cardiopulmonary process or significant interval change from previous exam.
[2019-01-12] MEDS ORDERED: predniSONE 50 MG TAB PO STA (03:03)
[2019-01-12 04:58] VITALS: BP 124/84; PULSE 75; RESP 19; TEMP 99.2
== END 2019-01-12 03:28 | disposition home or self-care (01) ==
LOC: EC 01:50
DX: J20.9 Acute bronchitis, unspecified (principal); I25.119 Atherosclerotic heart disease of native coronary artery with unspecified angina pectoris; J44.9 Chronic obstructive pulmonary disease, unspecified; E78.5 Hyperlipidemia, unspecified; K21.9 Gastro-esophageal reflux disease without esophagitis; I10 Essential (primary) hypertension; E03.9 Hypothyroidism, unspecified; F41.0 Panic disorder [episodic paroxysmal anxiety]; F17.210 Nicotine dependence, cigarettes, uncomplicated; Z79.51 Long term (current) use of inhaled steroids; Z79.82 Long term (current) use of aspirin; Z79.899 Other long term (current) drug therapy; Z79.890 Hormone replacement therapy; Z95.5 Presence of coronary angioplasty implant and graft
CPT/HCPCS: 36415; 94640; 93005; 80053; 83735; 84484; 85025; 85610; 85730; 87502; 71046; 99285; 96360; J7512

== ENCOUNTER → 2019-02-22 | Outpatient (CLI) | payer OTHER ==
--- NOTE | 2019-02-22 13:41 | CT ---
EXAMINATION TYPE: CT pelvis w con DATE OF EXAM: 02/22/2019 COMPARISON: CT abdomen and pelvis 03/29/2018 HISTORY: 49-year-old female with right groin mass. Left side hernia. TECHNIQUE: Contiguous axial scanning of the pelvis pelvis following administration of 100 ml Isovue 3 00 IV contrast. Delayed images through the bladder and coronal/sagittal reconstructions performed. CT DLP: 377.7 mGycm Automated exposure control for dose reduction was used. FINDINGS: Some scattered prominent fluid-filled small bowel loops could be transient or could represent a nonsp ecific enteritis. Visualized kidneys, inferior liver, gallbladder and no gross abnormality. Scattered mild atherosclerotic calcifications infrarenal abdominal aorta and iliac arteries. Rounded, 1 cm enhancing lesion within the anterior uterine fundus/body like an intramural fibroid. There is somewhat bulky rounded appearance to the cervix measuring 4.7 cm wide, probably physiologic change. Correlate with Pap smear findings. The left ovary is visualized. Right ovary not clearly seen. No pelvic free fluid. Some prominent but nonenlarged right inguinal lymph nodes measure 1.1 cm, slightly larger from 8 mm, previously. Otherwise, no inguinal mass is identified. No discrete inguinal hernia or femoral canal h ernia seen by CT. Bones: Mild degenerative spurring of the hips. No osseous destructive process. IMPRESSION: 1. No discrete inguinal hernia or groin mass. A borderline sized but nonenlarged 1.1 cm right inguina l lymph node is present, slightly larger from 8 mm on 03/29/2018. No pathologic lymphadenopathy by CT size criteria. 2. A 1 cm round enhancing lesion in the anterior uterine fundus/body most likely an intramural fibroi d. 3. Somewhat bulky rounded configuration to the cervix measuring 4.7 cm wide may be a product of dudley l physiologic change. Correlate with Pap smear results.
== END | disposition home or self-care (01) ==
LOC: RADCTMAIN 11:19
PROVIDERS: ATTEND Surgery
DX: N85.9 Noninflammatory disorder of uterus, unspecified (principal)
CPT/HCPCS: 72193; Q9967

== ENCOUNTER 2019-03-18 12:30 | Emergency (ER) | payer OTHER ==
[2019-03-18 12:40] VITALS: RESP 16
[2019-03-18] MEDS ORDERED: SODIUM CHLORIDE 0.9% 1,000 ML IV STA (13:15)
[2019-03-18 13:53] LABS: Basophils # (A) 0.1 k/uL (0-0.2); Basophils % (A) 1 %; Eosinophils # (A) 0.4 k/uL (0-0.7); Eosinophils % (A) 4 %; HCT 44.5 % (34.0-46.0); HGB 14.7 gm/dL (11.4-16.0); Lymphocytes # (A) 2.3 k/uL (1.0-4.8); Lymphocytes % (A) 26 %; MCH 32.7 pg (25.0-35.0); MCHC 32.9 g/dL (31.0-37.0); MCV 99.3 fL (80.0-100.0); Mean Platelet Volume 6.4; Monocytes # (A) 0.5 k/uL (0-1.0); Monocytes % (A) 5 %; Neutrophils # (A) 5.4 k/uL (1.3-7.7); Neutrophils % (A) 62 %; Platelet Count 408 k/uL (150-450); RBC 4.48 m/uL (3.80-5.40); WBC 8.7 k/uL (3.8-10.6)
[2019-03-18 14:07] LABS: ALT 24 U/L (9-52); AST 19 U/L (14-36); Albumin 4.6 g/dL (3.5-5.0); Alkaline Phosphatase 50 U/L (38-126); Amylase 51 U/L (30-110); Anion Gap 9 mmol/L; Blood Urea Nitrogen 5 mg/dL (7-17); Carbon Dioxide 27 mmol/L (22-30); Chloride 106 mmol/L (98-107); Glucose 84 mg/dL (74-99); Lipase 59 U/L (23-300); Potassium 4.1 mmol/L (3.5-5.1); Sodium 142 mmol/L (137-145); Total Bilirubin 0.3 mg/dL (0.2-1.3); Total Protein 7.3 g/dL (6.3-8.2)
[2019-03-18] MEDS ORDERED: KETOROLAC 30 MG/ML 1 ML VIAL IVP STA (14:23)
[2019-03-18 14:41] LABS: Appearance,Urine Clear (Clear); Bilirubin,Urine Negative (Negative); Blood,Urine Negative (Negative); Color,Urine Colorless; Glucose,Urine (UA) Negative (Negative); Ketones,Urine Negative (Negative); Leukocyte Esterase,Urine Negative (Negative); Nitrite,Urine Negative (Negative); Protein,Urine Negative (Negative); Specific Gravity,Urine 1.001 (1.001-1.035); Urobilinogen,Urine <2.0 mg/dL (<2.0)
--- NOTE | 2019-03-18 14:43 | ED ---
General Adult HPI - General Chief complaint: Abdominal Pain Stated complaint: poss hernia Time Seen by Provider: 03/18/19 13:02 Source: patient, RN notes reviewed Mode of arrival: wheelchair Limitations: no limitations - History of Present Illness Initial comments: 41-year-old female presents to the emergency department for left groin pain. Patient states she has had pain in the left groin for quite some time. However today around 9 AM it worsen. States that prior to this her primary care provider thought she felt a hernia in her left groin. However she saw surgeon and had a CAT scan done and was told she does not have a hernia. States that t his pain is sharp and stabbing in nature. Denies any radiating pain. States she deals with chronic constipation from IBS. Denies any nausea vomiting or diarrhea.Patient has no other complaints at this time including shortness of breath, chest pain, abdominal pain, nausea or vomiting, headache, or visual changes. - Related Data Home Medications Medication Instructions Recorded Confirmed Ranitidine HCl [Zantac] 150 mg PO BID 06/30/14 03/18/19 Aspirin EC [Ecotrin] 325 mg PO DAILY 05/01/16 03/18/19 Ergocalciferol [Vitamin D2 50,000 unit PO ANDRADE 10/16/17 03/18/19 (DRISDOL)] Fluticasone Nasal [place] [Flonase 2 spr EA NOSTRIL DAILY 10/16/17 03/18/19 Nasal [place]] Liothyronine Sodium [Cytomel] 5 mcg PO DAILY 10/16/17 03/18/19 Metoprolol Tartrate 12.5 mg PO BID 10/16/17 03/18/19 Albuterol Inhaler [Ventolin Hfa 2 puff INHALATION RT-Q6H PRN 04/22/18 03/18/19 Inhaler] Escitalopram [Lexapro] 10 mg PO DAILY 05/21/18 03/18/19 Ascorbic Acid [Vitamin C] 500 mg PO DAILY 03/18/19 03/18/19 Atorvastatin [Lipitor] 20 mg PO HS 03/18/19 03/18/19 Dicyclomine [Bentyl] 20 mg PO QID 03/18/19 03/18/19 Levothyroxine Sodium [Synthroid] 100 mcg PO DAILY 03/18/19 03/18/19 Multivitamins, Thera [Multivitamin 1 tab PO DAILY 03/18/19 03/18/19 (formulary)] oxyCODONE HCL/ACETAMINOPHEN 0.5 tab PO ONCE 03/18/19 03/18/19 [Percocet 7.5-325 mg] Previous Rx's Medication Instructions Recorded LORazepam [Ativan] 1 mg PO BID PRN #20 tab 02/19/15 Allergies Allergy/AdvReac Type Severity Reaction Status Date / Time No Known Allergies Allergy Verified 03/18/19 14:09 Review of Systems ROS Statement: Those systems with pertinent positive or pertinent negative responses have been documented in the HPI. ROS Other: All systems not noted in ROS Statement are negative. Past Medical History Past Medical History: Coronary Artery Disease (CAD), Chest Pain / Angina, COPD, Fibromyalgia, GERD/Reflux, Hyperlipidemia, Hypertension, Thyroid Disorder Additional Past Medical History / Comment(s): IRRITABLE BOWEL DISEASE/ HAD GRAVES-NOW HYPO,. Anxiety with panic attacks, sciatica, History of Any Multi-Drug Resistant Organisms: C-DIFF Date of last positivie culture/infection: APRIL 2015 MDRO Source:: FECES Past Surgical History: Section, Heart Catheterization With Stent, Tubal Ligation Additional Past Surgical History / Comment(s): OVARY REMOVED, cardiac stent Distal circ, Past Anesthesia/Blood Transfusion Reactions: Motion Sickness Past Psychological History: Anxiety, Panic Disorder Smoking Status: Current every day smoker Past Alcohol Use History: None Reported Past Drug Use History: Marijuana - Past Family History Mother Family Medical History: No Reported History General Exam Limitations: no limitations General appearance: alert, in no apparent distress Head exam: Present: atraumatic, normocephalic, normal inspection Eye exam: Present: normal appearance, PERRL, EOMI. Absent: scleral icterus, conjunctival injection, periorbital swelling ENT exam: Present: normal exam, mucous membranes moist Neck exam: Present: normal inspection, full ROM. Absent: tenderness, meningismus, lymphadenopathy Respiratory exam: Present: normal lung sounds bilaterally. Absent: respiratory distress, wheezes, rales, rhonchi, stridor Cardiovascular Exam: Present: regular rate, normal rhythm, normal heart sounds. Absent: systolic murmur, diastolic murmur, rubs, gallop, clicks GI/Abdominal exam: Present: soft, normal bowel sounds, other (tenderness in right groin, no obvious hernia palpated). Absent: distended, tenderness, guarding, rebound, rigid Neurological exam: Present: alert, oriented X3, CN II-XII intact Psychiatric exam: Present: normal affect, normal mood Course Vital Signs 03/18/19 12:37 Temperature 97.6 F Pulse Rate 80 Respiratory 16 Rate Blood Pressure 121/74 O2 Sat by Pulse 98 Oximetry Medical Decision Making - Medical Decision Making 41-year-old female presents for left groin pain. This has been ongoing for quite some time but worsened around 9 AM this morning. On exam she does have minimal groin tenderness. No CVA abdominal tenderness. CBC CMP unremarkable. Urine does not show any significant evidence of infection. CT abdomen and pelvis shows there a few bilateral small inguinal lymph nodes unchanged. No evidence of hernia. There is a small left ovarian cyst. There is also an oval- shaped nodule on the left adrenal gland. I did discuss all of these a patient. Pain is likely from ovarian cyst or lymph nodes. Discussed following up with primary care and DEV OPS ENGINEER. Discussed returning here if she has any worsening symptoms. - Lab Data Result diagrams: 03/18/19 13:37 03/18/19 13:37 Lab Results 03/18/19 03/18/19 03/18/19 Range/Units 13:37 13:37 14:27 WBC 8.7 (3.8-10.6) k/uL RBC 4.48 (3.80-5.40) m/uL Hgb 14.7 (11.4-16.0) gm/dL Hct 44.5 (34.0-46.0) % MCV 99.3 (80.0-100.0) fL MCH 32.7 (25.0-35.0) pg MCHC 32.9 (31.0-37.0) g/dL RDW 13.0 (11.5-15.5) % Plt Count 408 (150-450) k/uL Neutrophils % 62 % Lymphocytes % 26 % Monocytes % 5 % Eosinophils % 4 % Basophils % 1 % Neutrophils # 5.4 (1.3-7.7) k/uL Lymphocytes # 2.3 (1.0-4.8) k/uL Monocytes # 0.5 (0-1.0) k/uL Eosinophils # 0.4 (0-0.7) k/uL Basophils # 0.1 (0-0.2) k/uL Sodium 142 (137-145) mmol/L Potassium 4.1 (3.5-5.1) mmol/L Chloride 106 (98-107) mmol/L Carbon Dioxide 27 (22-30) mmol/L Anion Gap 9 mmol/L BUN 5 L (7-17) mg/dL Creatinine 0.55 (0.52-1.04) mg/dL Est GFR (CKD-EPI)AfAm >90 (>60 ml/min/1.73 sqM) Est GFR (CKD-EPI)NonAf >90 (>60 ml/min/1.73 sqM) Glucose 84 (74-99) mg/dL Calcium 10.0 (8.4-10.2) mg/dL Total Bilirubin 0.3 (0.2-1.3) mg/dL AST 19 (14-36) U/L ALT 24 (9-52) U/L Alkaline Phosphatase 50 (38-126) U/L Total Protein 7.3 (6.3-8.2) g/dL Albumin 4.6 (3.5-5.0) g/dL Amylase 51 (30-110) U/L Lipase 59 (23-300) U/L Urine Color Urine Appearance (Clear) Urine pH (5.0-8.0) Ur Specific Carrie (1.001-1.035) Urine Protein (Negative) Urine Glucose (UA) (Negative) Urine Ketones (Negative) Urine Blood (Negative) Urine Nitrite (Negative) Urine Bilirubin (Negative) Urine Urobilinogen (<2.0) mg/dL Ur Leukocyte Esterase (Negative) Urine HCG, Qual Not Detected (Not Detectd) 03/18/19 Range/Units 14:27 WBC (3.8-10.6) k/uL RBC (3.80-5.40) m/uL Hgb (11.4-16.0) gm/dL Hct (34.0-46.0) % MCV (80.0-100.0) fL MCH (25.0-35.0) pg MCHC (31.0-37.0) g/dL RDW (11.5-15.5) % Plt Count (150-450) k/uL Neutrophils % % Lymphocytes % % Monocytes % % Eosinophils % % Basophils % % Neutrophils # (1.3-7.7) k/uL Lymphocytes # (1.0-4.8) k/uL Monocytes # (0-1.0) k/uL Eosinophils # (0-0.7) k/uL Basophils # (0-0.2) k/uL Sodium (137-145) mmol/L Potassium (3.5-5.1) mmol/L Chloride (98-107) mmol/L Carbon Dioxide (22-30) mmol/L Anion Gap mmol/L BUN (7-17) mg/dL Creatinine (0.52-1.04) mg/dL Est GFR (CKD-EPI)AfAm (>60 ml/min/1.73 sqM) Est GFR (CKD-EPI)NonAf (>60 ml/min/1.73 sqM) Glucose (74-99) mg/dL Calcium (8.4-10.2) mg/dL Total Bilirubin (0.2-1.3) mg/dL AST (14-36) U/L ALT (9-52) U/L Alkaline Phosphatase (38-126) U/L Total Protein (6.3-8.2) g/dL Albumin (3.5-5.0) g/dL Amylase (30-110) U/L Lipase (23-300) U/L Urine Color Colorless Urine Appearance Clear (Clear) Urine pH 6.0 (5.0-8.0) Ur Specific Carrie 1.001 (1.001-1.035) Urine Protein Negative (Negative) Urine Glucose (UA) Negative (Negative) Urine Ketones Negative (Negative) Urine Blood Negative (Negative) Urine Nitrite Negative (Negative) Urine Bilirubin Negative (Negative) Urine Urobilinogen <2.0 (<2.0) mg/dL Ur Leukocyte Esterase Negative (Negative) Urine HCG, Qual (Not Detectd) Disposition Clinical Impression: Abdominal pain, Ovarian cyst, Inguinal adenopathy Narrative: left adrenal gland nodule Disposition: HOME SELF-CARE Condition: Good Instructions (If sedation given, give patient instructions): Abdominal Pain (ED), Ovarian Cyst (ED) Additional Instructions: Please take Motrin and Tylenol for pain. Follow up with primary care and DEV OPS ENGINEER for CT results. Return here if you have any worsening symptoms. Is patient prescribed a controlled substance at d/c from ED?: No Referrals: Haydee Bear MD [Primary Care Provider] - 1-2 days Time of Disposition: 16:14
--- NOTE | 2019-03-18 15:10 | CT ---
EXAMINATION TYPE: CT abdomen pelvis w con DATE OF EXAM: 03/18/2019 COMPARISON: 02/22/2019 HISTORY: Possible hernia, left lower groin area CT DLP: 603.8 mGycm Automated exposure control for dose reduction was used. TECHNIQUE: Helical acquisition of images was performed from the lung bases through the pelvis. CONTRAST: Performed without Oral Contrast and with IV Contrast, patient injected with 100 mL of Isovue 300. FINDINGS: Lung bases are clear. There is no pleural effusion. There is no pericardial effusion. Liver spleen pancreas gallbladder appear normal. Bile ducts are not dilated. Stomach appears normal. There is a oval-shaped 15 x 12 mm low-density nodule left adrenal gland consistent with benign diseas e. Kidneys show satisfactory contrast opacification. There is no hydronephrosis. There is no retroper itoneal adenopathy. Ureters are not dilated. Bladder distends smoothly. Uterus is anteverted. There i s no evidence of a pelvic mass. There is no free fluid in the pelvis. There are a few small bilateral inguinal lymph nodes up to 1 cm. There is no inguinal hernia. There is 1.7 cm cyst on the left ovary . There is 16mm high density area anterior uterine fundus consistent with a fibroid unchanged. Unchan ged compared to 03/29/2018. Appendix appears normal. There is no evidence of free air. There is no asc ites. There is no mesenteric edema. Lumbar vertebra have normal spacing and alignment. I see no bony destructive process. Bony pelvis is intact. IMPRESSION: THERE ARE FEW BILATERAL SMALL INGUINAL LYMPH NODES UNCHANGED. NO EVIDENCE OF INGUINAL OR ABDOMINAL WA LL HERNIA. SMALL LEFT OVARIAN CYST IS A CHANGE COMPARED TO OLD EXAM.
[2019-03-18] MEDS ORDERED: MORPHINE SULFATE 4 MG/ML SYRINGE IVP STA (15:22)
[2019-03-18 16:25] VITALS: BP 128/70; PULSE 71; TEMP 97.8
== END 2019-03-18 16:24 | disposition home or self-care (01) ==
LOC: EC 12:30
DX: N83.202 Unspecified ovarian cyst, left side (principal); R59.0 Localized enlarged lymph nodes; I25.10 Atherosclerotic heart disease of native coronary artery without angina pectoris; J44.9 Chronic obstructive pulmonary disease, unspecified; M79.7 Fibromyalgia; K21.9 Gastro-esophageal reflux disease without esophagitis; E78.5 Hyperlipidemia, unspecified; I10 Essential (primary) hypertension; E07.9 Disorder of thyroid, unspecified; F41.0 Panic disorder [episodic paroxysmal anxiety]; F17.200 Nicotine dependence, unspecified, uncomplicated; Z95.5 Presence of coronary angioplasty implant and graft; Z87.19 Personal history of other diseases of the digestive system; Z98.51 Tubal ligation status; Z79.82 Long term (current) use of aspirin; Z79.890 Hormone replacement therapy; Z79.891 Long term (current) use of opiate analgesic; Z79.899 Other long term (current) drug therapy
CPT/HCPCS: 36415; 80053; 82150; 83690; 85025; 81003; 81025; 74177; 99284; 96374; 96375; 96361; J2270; J1885; Q9967

== ENCOUNTER → 2019-04-25 | Outpatient (CLI) | payer OTHER ==
--- NOTE | 2019-04-27 08:50 | MM ---
Reason for exam: screening (asymptomatic). Last mammogram was performed 1 year and 1 month ago. History: Family history of breast cancer in aunt at age 60. Benign right mammotome panel of the right breast, November 09, 2009. Took hormonal contraceptives for 6 years beginning at age 19. Physical Findings: A clinical breast exam by your physician is recommended on an annual basis and results should be correlated with mammographic findings. MG Screening Mammo w CAD Bilateral CC, MLO, and XCCL view(s) were taken. Prior study comparison: March 30, 2018, bilateral MG screening mammo w CAD. February 13, 2017, bilateral MG screening mammo w CAD. The breast tissue is heterogeneously dense. This may lower the sensitivity of mammography. Previous mammotome biopsy in the right breast. Diffuse bilateral punctate calcifications. No significant changes when compared with prior studies. ASSESSMENT: Benign, BI-RAD 2 RECOMMENDATION: Routine screening mammogram of both breasts in 1 year.
== END | disposition home or self-care (01) ==
LOC: RADMAMWWP 14:05
PROVIDERS: ATTEND Family Medicine
DX: Z12.31 Encounter for screening mammogram for malignant neoplasm of breast (principal)
CPT/HCPCS: 77067

== ENCOUNTER 2019-05-20 16:10 | Emergency (ER) | payer OTHER ==
[2019-05-20 16:15] VITALS: RESP 18
[2019-05-20] MEDS ORDERED: SODIUM CHLORIDE 0.9% 1,000 ML IV STA ×2 (16:28)
[2019-05-20 16:56] LABS: Basophils # (A) 0.1 k/uL (0-0.2); Basophils % (A) 1 %; Eosinophils # (A) 0.6 k/uL (0-0.7); Eosinophils % (A) 6 %; HCT 45.5 % (34.0-46.0); HGB 15.1 gm/dL (11.4-16.0); Lymphocytes # (A) 2.7 k/uL (1.0-4.8); Lymphocytes % (A) 30 %; MCH 32.9 pg (25.0-35.0); MCHC 33.1 g/dL (31.0-37.0); MCV 99.2 fL (80.0-100.0); Mean Platelet Volume 6.2; Monocytes # (A) 0.4 k/uL (0-1.0); Monocytes % (A) 5 %; Neutrophils # (A) 4.9 k/uL (1.3-7.7); Neutrophils % (A) 55 %; Platelet Count 383 k/uL (150-450); RBC 4.59 m/uL (3.80-5.40); RDW 12.1 % (11.5-15.5); WBC 8.8 k/uL (3.8-10.6)
--- NOTE | 2019-05-20 17:06 | XR ---
EXAMINATION TYPE: XR chest 2V DATE OF EXAM: 05/20/2019 COMPARISON: Prior chest 01/12/2019, chest CT 03/16/2018 HISTORY: Chest pain TECHNIQUE: Frontal and lateral views of the chest are obtained. FINDINGS: There are overlying cardiac leads. Prominent lung volumes is indicative of underlying emph ysema. There is no focal air space opacity, pleural effusion, or pneumothorax seen. The cardiac silh ouette size is within normal limits. The osseous structures are intact. IMPRESSION: No acute cardiopulmonary process. Emphysema
[2019-05-20 17:07] LABS: ALT 23 U/L (9-52); AST 22 U/L (14-36); African American GFR (CKD) >90 (>60 ml/min/1.73 sqM); Albumin 4.9 g/dL (3.5-5.0); Alkaline Phosphatase 64 U/L (38-126); Anion Gap 11 mmol/L; Blood Urea Nitrogen 9 mg/dL (7-17); Carbon Dioxide 26 mmol/L (22-30); Chloride 104 mmol/L (98-107); Glucose 101 mg/dL (74-99); Potassium 3.9 mmol/L (3.5-5.1); Sodium 141 mmol/L (137-145); Total Bilirubin 0.3 mg/dL (0.2-1.3); Total Protein 8.1 g/dL (6.3-8.2)
[2019-05-20 17:10] LABS: D-Dimer 0.4 mg/L FEU (<0.60); INR 0.9 (<1.2); Partial Thromboplastin Time 30.1 sec (22.0-30.0); Prothrombin Time 9.9 sec (9.0-12.0)
[2019-05-20] MEDS ORDERED: KETOROLAC 30 MG/ML 1 ML VIAL IVP STA (17:34)
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
[2019-05-20 18:30] VITALS: BP 127/68; PULSE 72; TEMP 98.4
== END 2019-05-20 18:30 | disposition home or self-care (01) ==
LOC: EC 16:10
DX: R07.9 Chest pain, unspecified (principal); I25.119 Atherosclerotic heart disease of native coronary artery with unspecified angina pectoris; J43.9 Emphysema, unspecified; I10 Essential (primary) hypertension; K21.9 Gastro-esophageal reflux disease without esophagitis; E78.5 Hyperlipidemia, unspecified; E07.9 Disorder of thyroid, unspecified; F41.0 Panic disorder [episodic paroxysmal anxiety]; F17.200 Nicotine dependence, unspecified, uncomplicated; Z79.82 Long term (current) use of aspirin; Z79.51 Long term (current) use of inhaled steroids; Z79.890 Hormone replacement therapy; Z79.899 Other long term (current) drug therapy; Z95.5 Presence of coronary angioplasty implant and graft
CPT/HCPCS: 36415; 93005; 85379; 83880; 80053; 83735; 84484; 85025; 85610; 85730; 71046; 99285; 96374; 96361 ×2; J1885

== ENCOUNTER 2019-09-09 08:20 | Day surgery (SDC) | payer OTHER ==
[2019-09-08 11:16] VITALS: BMI 24.7
[~2019-09-09 08:20] MED LIST changes: -ALPRAZolam 0.25 MG TAB PO PRN; -ALPRAZolam 0.5 MG TAB PO PRN; -ASPIRIN 325 MG TAB PO STA; -ATORVASTATIN 80 MG TAB PO STA; -BIVALIRUDIN 250 MG VIAL IV ONE; +LACTATED RINGERS 1,000 ML IV SCH; +LIDOCAINE 1% 20 ML VIAL (10MG/ML) FOR IV START INTRADERMA PRN; -NITROGLYCERIN SL TABS 0.4 MG TAB SUBLINGUAL PRN; -SODIUM CHLORIDE 0.9% 1,000 ML in EMPTY BAG 1 BAG IV ONE; -SODIUM CHLORIDE 0.9% 50 ML BAG ONE
[2019-09-09 08:45] VITALS: TEMP 97.6
--- NOTE | 2019-09-09 08:47 | P.GSHP ---
History of Present Illness H&P Date: 09/09/19 Chief Complaint: Change in bowel habits 49-year-old female some in the office this summer. Patient complaining of change in bowel habits. Some groin swelling. No rectal bleeding or melena. No family history of colon cancer. Past Medical History Past Medical History: Coronary Artery Disease (CAD), Chest Pain / Angina, COPD, Fibromyalgia, GERD/Reflux, Hyperlipidemia, Hypertension, Myocardial Infarction (OR), Skin Disorder, Thyroid Disorder Additional Past Medical History / Comment(s): IBS, HAD GRAVES-NOW HYPOTHYROID, MIx2, sciatica, "heart skips a beat sometimes', hx ulcer, "problem with gallbaldder-being tested because having pain after eating", psoriasis, Last Myocardial Infarction Date:: unknown History of Any Multi-Drug Resistant Organisms: C-DIFF Date of last positivie culture/infection: APRIL 2015 MDRO Source:: FECES Past Surgical History: Section, Heart Catheterization, Heart Catheterization With Stent, Tubal Ligation Additional Past Surgical History / Comment(s): rt oophorectomy, one cardiac stent, EGD Past Anesthesia/Blood Transfusion Reactions: Previous Problems w/ Anesthesia Additional Past Anesthesia/Blood Transfusion Reaction / Comment(s): diff breathing with one heart cath Date of Last Stent Placement:: 2017 Smoking Status: Current every day smoker - Past Family History Mother Family Medical History: No Reported History Medications and Allergies Home Medications Medication Instructions Recorded Confirmed Type Ranitidine HCl [Zantac] 150 mg PO BID PRN 06/30/14 09/08/19 History Fluticasone Nasal [place] [Flonase 2 spr EA NOSTRIL DAILY 10/16/17 09/08/19 History Nasal [place]] Liothyronine Sodium [Cytomel] 5 mcg PO HS 10/16/17 09/08/19 History Metoprolol Tartrate 12.5 mg PO BID 10/16/17 09/08/19 History Albuterol Inhaler [Ventolin Hfa 1 puff INHALATION Q6HR PRN 04/22/18 09/08/19 History Inhaler] Ascorbic Acid [Vitamin C] 500 mg PO HS 03/18/19 09/08/19 History Atorvastatin [Lipitor] 20 mg PO 1200 03/18/19 09/08/19 History Dicyclomine [Bentyl] 20 mg PO QID PRN 03/18/19 09/08/19 History Levothyroxine Sodium [Synthroid] 100 mcg PO 1200 03/18/19 09/08/19 History Multivitamins, Thera [Multivitamin 1 tab PO HS 03/18/19 09/08/19 History (formulary)] Acetaminophen Tab [Tylenol Tab] 1,000 mg PO BID 09/08/19 09/08/19 History Apple Cider Vinegar Tab 2 tab PO DAILY 09/08/19 09/08/19 History Aspirin [Adult Low Dose Aspirin EC] 81 mg PO DAILY 09/08/19 09/08/19 History Docusate Sodium [Dok] 100 mg PO BID PRN 09/08/19 09/08/19 History Ergocalciferol [Vitamin D2] 50,000 unit PO MO 09/08/19 09/08/19 History Gas-X Tab 180 mg PO DAILY PRN 09/08/19 09/08/19 History Inhaler(Name Unknown) 1 applicate IH TID 09/08/19 09/08/19 History Isosorbide Mononitrate [Isosorbide 15 mg PO 1200 09/08/19 09/08/19 History Mononitrate ER] L.acidoph,Paracasei, B.lactis 2 each PO DAILY 09/08/19 09/08/19 History [Probiotic] LORazepam [Ativan] 0.5 mg PO HS 09/08/19 09/08/19 History LORazepam [Ativan] 1 mg PO DAILY PRN 09/08/19 09/08/19 History Lisinopril [Zestril] 2.5 mg PO 1200 09/08/19 09/08/19 History Loratadine [Claritin] 10 mg PO 1200 09/08/19 09/08/19 History Magnesium Oxide 400 mg PO HS 09/08/19 09/08/19 History Nitroglycerin Sl Tabs [Nitrostat] 0.4 mg SUBLINGUAL Q5M PRN 09/08/19 09/08/19 History Omeprazole [PriLOSEC] 20 mg PO BID PRN 09/08/19 09/08/19 History PARoxetine [Paxil] 20 mg PO 1200 09/08/19 09/08/19 History Spironolactone [Aldactone] 25 mg PO 1200 09/08/19 09/08/19 History Turmeric Root Extract [Turmeric] 500 mg PO HS 09/08/19 09/08/19 History Umeclidinium [place] [Incruse 1 puff INHALATION DAILY PRN 09/08/19 09/08/19 History Ellipta] guaiFENesin [Mucinex] 1,200 mg PO DAILY 09/08/19 09/08/19 History l-Mefol/A-Cyst/Meb12/Algal Oil 1 each PO 1200 09/08/19 09/08/19 History [Cerefolin Nac Caplet] Allergies Allergy/AdvReac Type Severity Reaction Status Date / Time No Known Allergies Allergy Verified 09/09/19 08:45 Surgical - Exam Vital Signs Temp Pulse Resp BP Pulse Ox 97.6 F 79 16 137/61 93 L 09/09/19 08:44 09/09/19 08:44 09/09/19 08:44 09/09/19 08:44 09/09/19 08:44 Physical exam: General: Well-developed, well-nourished HEENT: Normocephalic, sclerae nonicteric Abdomen: Nontender, nondistended Extremities: No edema Neuro: Alert and oriented Assessment and Plan (1) Change in bowel habits Narrative/Plan: Will proceed with colonoscopy at this time. Current Visit: Yes Status: Acute Code(s): R19.4 - CHANGE IN BOWEL HABIT SNOMED Code(s): 979082565
[2019-09-09] MEDS ORDERED: PROPOFOL 10 MG/ML 20 ML VIAL IV ONE (08:54)
[2019-09-09] MEDS ORDERED: LIDOCAINE 1% INJ 10MG/ML (20 ML MDV) ONE (08:54)
--- NOTE | 2019-09-09 09:35 | P.PCN ---
Date of Procedure: 09/09/19 Procedure(s) Performed: PREOPERATIVE DIAGNOSIS: GERD, change in bowel habits POSTOPERATIVE DIAGNOSIS: Gastritis, small hiatal hernia, rectal polyps PROCEDURE: 1. EGD with biopsy 2. Colonoscopy with snare polypectomy ANESTHESIA: MAC SURGEON: Alexandro Demarco M.D. SPECIMENS: Antrum, rectal polyps ENDOSCOPIC PROCEDURE: The patient was on the endoscopy table in the left decubitus position. The Olympus gastroscope was inserted into the oropharynx and passed under direct visualization to the region of the third portion of the duodenum. From that point the scope was slowly withdrawn inspecting all surfaces carefully. There were no neoplastic inflammatory or polypoid lesions throughout the duodenum. The pylorus was widely patent. The stomach was carefully inspected. There was gastritis present. A biopsy of the antrum took place to rule out H. pylori. Retroflexion revealed a small sliding hiatal hernia. GE junction was present 1.5 cm above the diaphragmatic hiatus. The esophagus was then carefully examined. There were no neoplastic inflammatory or polypoid lesions throughout the visualized esophagus. The patient was kept on the endoscopy table in the left decubitus position. The Olympus colonoscope was inserted into the anus and passed under direct visualization to the base of the cecum. The appendiceal orifice was visualized. From that point the scope was slowly withdrawn inspecting all surfaces carefully. There were no neoplastic inflammatory or polypoid lesions throughout the cecum, ascending, transverse, descending, and sigmoid colon. In the rectum there were 3 small polyps removed using the snare with cautery technique. These are likely hyperplastic. No visible diverticulosis. Digital rectal examination was normal. The patient was taken to the recovery room in stable condition per anesthesia guidelines. RECOMMENDATIONS: Await biopsy results. Continue antiacids.
[2019-09-09 09:48] VITALS: PULSE 72; RESP 12
[2019-09-09 10:03] VITALS: BP 119/71
== END 2019-09-09 10:17 | disposition home or self-care (01) ==
LOC: ORWHC2ENDO 08:20
PROVIDERS: ATTEND Surgery
DX: K29.50 Unspecified chronic gastritis without bleeding (principal); K62.1 Rectal polyp; K44.9 Diaphragmatic hernia without obstruction or gangrene; K21.9 Gastro-esophageal reflux disease without esophagitis; I10 Essential (primary) hypertension; I25.2 Old myocardial infarction; I25.10 Atherosclerotic heart disease of native coronary artery without angina pectoris; J44.9 Chronic obstructive pulmonary disease, unspecified; K58.9 Irritable bowel syndrome, unspecified; E78.5 Hyperlipidemia, unspecified; M79.7 Fibromyalgia; F43.10 Post-traumatic stress disorder, unspecified; F41.9 Anxiety disorder, unspecified; Z95.5 Presence of coronary angioplasty implant and graft; E03.9 Hypothyroidism, unspecified; F17.200 Nicotine dependence, unspecified, uncomplicated; L40.9 Psoriasis, unspecified; Z86.19 Personal history of other infectious and parasitic diseases; Z79.890 Hormone replacement therapy; Z79.899 Other long term (current) drug therapy; Z98.51 Tubal ligation status; Z90.721 Acquired absence of ovaries, unilateral; Z79.82 Long term (current) use of aspirin; Z80.1 Family history of malignant neoplasm of trachea, bronchus and lung; Z80.3 Family history of malignant neoplasm of breast; Z82.49 Family history of ischemic heart disease and other diseases of the circulatory system
CPT/HCPCS: 88305; 45385; 43239; J2001; J2704

== ENCOUNTER → 2019-09-14 | Outpatient (CLI) | payer OTHER ==
--- NOTE | 2019-09-14 11:08 | NM ---
EXAMINATION TYPE: NM hepatobiliary w EF DATE OF EXAM: 09/14/2019 COMPARISON: NONE INDICATION: Right upper quadrant pain TECHNIQUE: After the intravenous administration of 4.4 mCi Tc 99m Mebrofenin hepatobiliary scintigrap hy is performed. Images were obtained immediately post injection. FINDINGS: There is prompt uptake and excretion of radiotracer by the liver. Extrahepatic ducts are identified at 11 minutes. The gallbladder is visualized within 13 minutes. Small bowel activity is noted within 24 minutes. At one hour 8 ounces of oral ensure plus is given to mimic CCK and gallbladder ejection fraction is c alculated at 45 %, which is in the normal range. (Normal >35% and <80%.). IMPRESSION: 1. Normal hepatobiliary scan
== END | disposition home or self-care (01) ==
LOC: RADNMMAIN 08:56
PROVIDERS: ATTEND Family Medicine
DX: R10.11 Right upper quadrant pain (principal)
CPT/HCPCS: 78226; A9537

== ENCOUNTER → 2019-09-21 | Outpatient (CLI) | payer OTHER ==
[2019-09-21 19:23] LABS: Chol/HDL Ratio 5.02; LDL Cholesterol,Calculated 116.2 mg/dL (0.0-131.0); VLDL Calculation 52.8 mg/dL (5.00-40.00)
== END ==
LOC: LABWHC1 12:35
PROVIDERS: ATTEND Internal Medicine Interventional Cardiology
DX: E78.2 Mixed hyperlipidemia (principal)
CPT/HCPCS: 36415; 80061; 84450; 84460

== ENCOUNTER → 2019-09-21 | Outpatient (CLI) | payer OTHER ==
[2019-09-21 13:09] LABS: HCT 46.8 % (34.0-46.0); HGB 15.8 gm/dL (11.4-16.0); MCH 33.6 pg (25.0-35.0); MCHC 33.8 g/dL (31.0-37.0); MCV 99.7 fL (80.0-100.0); Mean Platelet Volume 6.2; Platelet Count 407 k/uL (150-450); RBC 4.69 m/uL (3.80-5.40); RDW 11.9 % (11.5-15.5); WBC 8.8 k/uL (3.8-10.6)
[2019-09-21 13:13] LABS: African American GFR (CKD) >90 (>60 ml/min/1.73 sqM); Anion Gap 10 mmol/L; Blood Urea Nitrogen 9 mg/dL (7-17); Carbon Dioxide 26 mmol/L (22-30); Chloride 104 mmol/L (98-107); Non-African American GFR(CKD) >90 (>60 ml/min/1.73 sqM); Potassium 4.4 mmol/L (3.5-5.1); Sodium 140 mmol/L (137-145)
== END | disposition home or self-care (01) ==
LOC: LABPAT 12:29
PROVIDERS: ATTEND Internal Medicine Interventional Cardiology
DX: Z01.812 Encounter for preprocedural laboratory examination (principal); I25.10 Atherosclerotic heart disease of native coronary artery without angina pectoris
CPT/HCPCS: 36415; 80051; 82565; 84520; 85027

== ENCOUNTER 2019-09-24 23:36 | Emergency (ER) | payer OTHER ==
[2019-09-24 23:41] VITALS: TEMP 97.6
[2019-09-24] MEDS ORDERED: ASPIRIN 81 MG PO STA (23:52)
[2019-09-25 00:10] LABS: Basophils # (A) 0.1 k/uL (0-0.2); Basophils % (A) 1 %; Eosinophils # (A) 0.6 k/uL (0-0.7); Eosinophils % (A) 5 %; HGB 15.8 gm/dL (11.4-16.0); Lymphocytes # (A) 3.7 k/uL (1.0-4.8); Lymphocytes % (A) 31 %; MCH 33.8 pg (25.0-35.0); MCHC 34.4 g/dL (31.0-37.0); MCV 98.4 fL (80.0-100.0); Mean Platelet Volume 7.3; Monocytes # (A) 0.5 k/uL (0-1.0); Monocytes % (A) 4 %; Neutrophils # (A) 6.8 k/uL (1.3-7.7); Neutrophils % (A) 58 %; Platelet Count 409 k/uL (150-450); RBC 4.68 m/uL (3.80-5.40); RDW 11.8 % (11.5-15.5); WBC 11.9 k/uL (3.8-10.6)
--- NOTE | 2019-09-25 00:14 | ED ---
Chest Pain HPI - General Chief Complaint: Chest Pain Stated Complaint: Chest Pain Time Seen by Provider: 09/24/19 23:51 Source: patient, family Mode of arrival: ambulatory Limitations: no limitations - History of Present Illness Initial Comments: Cassy is a 49-year-old female with history of known coronary artery disease with one stent previously, patient is a current every day cigarette smoker. Patient reports that she recently followed with her pasteurizer helper had an echo which indicated a decreasing ejection fraction and was scheduled for a routine o utpatient cardiac catheterization for this Thursday. Patient reports that throughout the afternoon today she's been having stabbing retrosternal chest pain which prompted her to come to the ER for further evaluation. denies any recent fevers chills nausea vomiting or upper respiratory illness. - Related Data Home Medications Medication Instructions Recorded Confirmed Ranitidine HCl [Zantac] 150 mg PO BID PRN 06/30/14 09/09/19 Fluticasone Nasal [place] [Flonase 2 spr EA NOSTRIL DAILY 10/16/17 09/08/19 Nasal [place]] Liothyronine Sodium [Cytomel] 5 mcg PO HS 10/16/17 09/09/19 Metoprolol Tartrate 12.5 mg PO BID 10/16/17 09/09/19 Albuterol Inhaler [Ventolin Hfa 1 puff INHALATION Q6HR PRN 04/22/18 09/08/19 Inhaler] Ascorbic Acid [Vitamin C] 500 mg PO HS 03/18/19 09/08/19 Atorvastatin [Lipitor] 20 mg PO 1200 03/18/19 09/08/19 Dicyclomine [Bentyl] 20 mg PO QID PRN 03/18/19 09/08/19 Levothyroxine Sodium [Synthroid] 100 mcg PO 1200 03/18/19 09/09/19 Multivitamins, Thera [Multivitamin 1 tab PO HS 03/18/19 09/09/19 (formulary)] Acetaminophen Tab [Tylenol Tab] 1,000 mg PO BID 09/08/19 09/09/19 Apple Cider Vinegar Tab 2 tab PO DAILY 09/08/19 09/08/19 Aspirin [Adult Low Dose Aspirin EC] 81 mg PO DAILY 09/08/19 09/09/19 Docusate Sodium [Dok] 100 mg PO BID PRN 09/08/19 09/08/19 Ergocalciferol [Vitamin D2] 50,000 unit PO MO 09/08/19 09/08/19 Gas-X Tab 180 mg PO DAILY PRN 09/08/19 09/08/19 Inhaler(Name Unknown) 1 applicate IH TID 09/08/19 09/08/19 Isosorbide Mononitrate [Isosorbide 15 mg PO 1200 09/08/19 09/09/19 Mononitrate ER] L.acidoph,Paracasei, B.lactis 2 each PO DAILY 09/08/19 09/08/19 [Probiotic] LORazepam [Ativan] 0.5 mg PO HS 09/08/19 09/08/19 LORazepam [Ativan] 1 mg PO DAILY PRN 09/08/19 09/08/19 Lisinopril [Zestril] 2.5 mg PO 1200 09/08/19 09/09/19 Loratadine [Claritin] 10 mg PO 1200 09/08/19 09/09/19 Magnesium Oxide 400 mg PO HS 09/08/19 09/09/19 Nitroglycerin Sl Tabs [Nitrostat] 0.4 mg SUBLINGUAL Q5M PRN 09/08/19 09/09/19 Omeprazole [PriLOSEC] 20 mg PO BID PRN 09/08/19 09/09/19 PARoxetine [Paxil] 20 mg PO 1200 09/08/19 09/09/19 Spironolactone [Aldactone] 25 mg PO 1200 09/08/19 09/09/19 Turmeric Root Extract [Turmeric] 500 mg PO HS 09/08/19 09/09/19 Umeclidinium [place] [Incruse 1 puff INHALATION DAILY PRN 09/08/19 09/09/19 Ellipta] guaiFENesin [Mucinex] 1,200 mg PO DAILY 09/08/19 09/09/19 l-Mefol/A-Cyst/Meb12/Algal Oil 1 each PO 1200 09/08/19 09/09/19 [Cerefolin Nac Caplet] Allergies Allergy/AdvReac Type Severity Reaction Status Date / Time No Known Allergies Allergy Verified 09/24/19 23:41 Review of Systems ROS Statement: Those systems with pertinent positive or pertinent negative responses have been documented in the HPI. ROS Other: All systems not noted in ROS Statement are negative. EKG Findings - EKG Comments: EKG Findings:: EKG was obtained due to complaint of chest pain, EKG obtained at 12:01 AM, rate is 71 rhythm is sinus with sinus arrhythmia. Normal axis, left bundle branch block noted, VT prolonged 28, QRS 144, QTC [address] elevations or depressions no evidence of acute ischemia or infarction. An EKG was compared to EKG obtained on May 20 of this year is no significant change in morphology. Past Medical History Past Medical History: Coronary Artery Disease (CAD), Chest Pain / Angina, COPD, Fibromyalgia, GERD/Reflux, Hyperlipidemia, Hypertension, Thyroid Disorder Additional Past Medical History / Comment(s): IRRITABLE BOWEL DISEASE/ HAD GRAVES-NOW HYPO,. Anxiety with panic attacks, sciatica, History of Any Multi-Drug Resistant Organisms: C-DIFF Date of last positivie culture/infection: APRIL 2015 MDRO Source:: FECES Past Surgical History: Section, Heart Catheterization With Stent, Tubal Ligation Additional Past Surgical History / Comment(s): OVARY REMOVED, cardiac stent Distal circ, Past Anesthesia/Blood Transfusion Reactions: Motion Sickness Past Psychological History: Anxiety, Panic Disorder, PTSD Smoking Status: Current every day smoker Past Alcohol Use History: None Reported Past Drug Use History: None Reported - Past Family History Mother Family Medical History: No Reported History General Exam - General Exam Comments Initial Comments: Physical Exam GENERAL: Patient is well-developed and well-nourished. Patient is nontoxic and well- hydrated and is in no distress. HENT: Normocephalic, Atraumatic. EYES: PERRL, EOMI PULMONARY: Unlabored respirations. No audible rales rhonchi or wheezing was noted. CARDIOVASCULAR: There is a regular rate and rhythm without any murmurs gallops or rubs. ABDOMEN: Soft and nontender with normal bowel sounds. SKIN: Skin is clear with no lesions or rashes and otherwise unremarkable. : Deferred NEUROLOGIC: Patient is alert and oriented x3. Moving all extremities spontaneously MUSCULOSKELETAL: Normal extremities with adequate strength and full range of motion. No lower extremity swelling or edema. No calf tenderness. PSYCHIATRIC: Normal psychiatric evaluation. 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 Patient had an outpatient echo with abnormality and is scheduled for a cardiac catheterization this Thursday. Patient reports sharp stabbing pain in the retrosternal area for a number of hours. Pertinent workup was initiated EKG with no acute ischemic changes, persistent left bundle-branch block Labs were reviewed with no acute findings Results were discussed with the patient. Patient expresses relief. I advised the patient that given her medical history she is a high risk cardiac patient and I would advise that she be placed in the observation unit for evaluation by cardiology in the morning and possible early or cardiac catheterization. Patient states that normal labs she would prefer discharge home. I did advise the patient at this time she would have to leaving his medical advice. The patient has decided to leave against medical advice because she has sheridan eduled cath thursday The patient has adequate capacity to make medical decisions. The patient refuses hospital admission and wants to be discharged. The risks have been explained to the patient, including heart attack, worsening illness, chronic pain, permanent disability and . The benefits of workup/admission have also been explained, including the availability and proximity of nurses, physicians, monitoring, diagnostic testing, treatment and evaluation by cardiology in the morning The patient was able to understand and state the risks and benefits of hospital admission. This was witnessed by nurse Amanda Sanchez and me. The patient the opportunity to ask questions about their medical condition. The patient was treated to the extent that they would allow and knows that they may return for care at any time. Disposition Clinical Impression: Chest pain Disposition: Left Against Medical Advice Condition: Serious Instructions (If sedation given, give patient instructions): Chest Pain (ED) Additional Instructions: Please return to the emergency department if you develop any worsening chest pain, palpitations, shortness of breath or any new or concerning symptoms. Notify her pasteurizer helper on Thursday morning the ER in the ER for chest pain. Is patient prescribed a controlled substance at d/c from ED?: No Referrals: Scot Sanchez DO [Primary Care Provider] - 1-2 days
[2019-09-25 00:19] LABS: INR 0.9 (<1.2); Partial Thromboplastin Time 29.9 sec (22.0-30.0); Prothrombin Time 9.8 sec (9.0-12.0)
[2019-09-25 00:20] LABS: ALT 25 U/L (9-52); AST 20 U/L (14-36); African American GFR (CKD) >90 (>60 ml/min/1.73 sqM); Alkaline Phosphatase 64 U/L (38-126); Anion Gap 12 mmol/L; Blood Urea Nitrogen 13 mg/dL (7-17); Calcium 10.2 mg/dL (8.4-10.2); Carbon Dioxide 24 mmol/L (22-30); Chloride 103 mmol/L (98-107); Glucose 125 mg/dL (74-99); Magnesium 1.9 mg/dL (1.6-2.3); Non-African American GFR(CKD) >90 (>60 ml/min/1.73 sqM); Potassium 3.7 mmol/L (3.5-5.1); Sodium 139 mmol/L (137-145); Total Bilirubin 0.3 mg/dL (0.2-1.3); Total Protein 8.1 g/dL (6.3-8.2)
--- NOTE | 2019-09-25 00:34 | XR ---
EXAMINATION TYPE: XR chest 2V DATE OF EXAM: 09/25/2019 COMPARISON: May 20, 2019 HISTORY: Chest pain TECHNIQUE: Frontal and lateral views of the chest are obtained. FINDINGS: Heart and mediastinum are normal. Lungs are clear. Diaphragm is normal. Bony thorax is int act. There are chest leads. IMPRESSION: Normal chest. No change.
[2019-09-25 00:48] VITALS: BP 128/94; PULSE 72; RESP 14
== END 2019-09-25 01:23 | disposition left against medical advice (07) ==
LOC: EC 23:36
DX: R07.9 Chest pain, unspecified (principal); I25.119 Atherosclerotic heart disease of native coronary artery with unspecified angina pectoris; J44.9 Chronic obstructive pulmonary disease, unspecified; M79.7 Fibromyalgia; E78.5 Hyperlipidemia, unspecified; K21.9 Gastro-esophageal reflux disease without esophagitis; I10 Essential (primary) hypertension; E03.9 Hypothyroidism, unspecified; K58.9 Irritable bowel syndrome, unspecified; F17.210 Nicotine dependence, cigarettes, uncomplicated; F41.9 Anxiety disorder, unspecified; F41.0 Panic disorder [episodic paroxysmal anxiety]; Z79.899 Other long term (current) drug therapy; Z79.890 Hormone replacement therapy; Z79.51 Long term (current) use of inhaled steroids; Z79.82 Long term (current) use of aspirin; Z95.5 Presence of coronary angioplasty implant and graft; Z53.20 Procedure and treatment not carried out because of patient's decision for unspecified reasons
CPT/HCPCS: 36415; 71046; 80053; 83735; 84484; 85025; 85610; 85730; 93005; 99285

== ENCOUNTER 2019-09-28 05:11 | Emergency (ER) | payer OTHER ==
[2019-09-28 05:17] VITALS: TEMP 97.4
--- NOTE | 2019-09-28 05:31 | ED ---
Chest Pain HPI - General Chief Complaint: Chest Pain Stated Complaint: chest pain Time Seen by Provider: 09/28/19 05:30 Source: patient Mode of arrival: ambulatory Limitations: no limitations - History of Present Illness Initial Comments: Cassy is a 49-year-old female with known cardiac disease with a stent in the past scheduled for an outpatient cardiac catheterization this Thursday due to abnormality on outpatient echo. Patient was seen and evaluated earlier in the week for chest pain but chose to sign out AMA. Patient reports that she's been up all night because she's been having chest pain, patient reports she's premature and constant pain since her previous visit. She cannot identify any exacerbating or relieving factors. Is not exertional. As also seen with shortness of breath lightheadedness diaphoresis. Pain is directly behind her sternum with no radiation. She is still smoking half a pack a day. - Related Data Home Medications Medication Instructions Recorded Confirmed Ranitidine HCl [Zantac] 150 mg PO BID PRN 06/30/14 09/09/19 Fluticasone Nasal [place] [Flonase 2 spr EA NOSTRIL DAILY 10/16/17 09/08/19 Nasal [place]] Liothyronine Sodium [Cytomel] 5 mcg PO HS 10/16/17 09/09/19 Metoprolol Tartrate 12.5 mg PO BID 10/16/17 09/09/19 Albuterol Inhaler [Ventolin Hfa 1 puff INHALATION Q6HR PRN 04/22/18 09/08/19 Inhaler] Ascorbic Acid [Vitamin C] 500 mg PO HS 03/18/19 09/08/19 Atorvastatin [Lipitor] 20 mg PO 1200 03/18/19 09/08/19 Dicyclomine [Bentyl] 20 mg PO QID PRN 03/18/19 09/08/19 Levothyroxine Sodium [Synthroid] 100 mcg PO 1200 03/18/19 09/09/19 Multivitamins, Thera [Multivitamin 1 tab PO HS 03/18/19 09/09/19 (formulary)] Acetaminophen Tab [Tylenol Tab] 1,000 mg PO BID 09/08/19 09/09/19 Apple Cider Vinegar Tab 2 tab PO DAILY 09/08/19 09/08/19 Aspirin [Adult Low Dose Aspirin EC] 81 mg PO DAILY 09/08/19 09/09/19 Docusate Sodium [Dok] 100 mg PO BID PRN 09/08/19 09/08/19 Ergocalciferol [Vitamin D2] 50,000 unit PO MO 09/08/19 09/08/19 Gas-X Tab 180 mg PO DAILY PRN 09/08/19 09/08/19 Inhaler(Name Unknown) 1 applicate IH TID 09/08/19 09/08/19 Isosorbide Mononitrate [Isosorbide 15 mg PO 1200 09/08/19 09/09/19 Mononitrate ER] L.acidoph,Paracasei, B.lactis 2 each PO DAILY 09/08/19 09/08/19 [Probiotic] LORazepam [Ativan] 0.5 mg PO HS 09/08/19 09/08/19 LORazepam [Ativan] 1 mg PO DAILY PRN 09/08/19 09/08/19 Lisinopril [Zestril] 2.5 mg PO 1200 09/08/19 09/09/19 Loratadine [Claritin] 10 mg PO 1200 09/08/19 09/09/19 Magnesium Oxide 400 mg PO HS 09/08/19 09/09/19 Nitroglycerin Sl Tabs [Nitrostat] 0.4 mg SUBLINGUAL Q5M PRN 09/08/19 09/09/19 Omeprazole [PriLOSEC] 20 mg PO BID PRN 09/08/19 09/09/19 PARoxetine [Paxil] 20 mg PO 1200 09/08/19 09/09/19 Spironolactone [Aldactone] 25 mg PO 1200 09/08/19 09/09/19 Turmeric Root Extract [Turmeric] 500 mg PO HS 09/08/19 09/09/19 Umeclidinium [place] [Incruse 1 puff INHALATION DAILY PRN 09/08/19 09/09/19 Ellipta] guaiFENesin [Mucinex] 1,200 mg PO DAILY 09/08/19 09/09/19 l-Mefol/A-Cyst/Meb12/Algal Oil 1 each PO 1200 09/08/19 09/09/19 [Cerefolin Nac Caplet] Allergies Allergy/AdvReac Type Severity Reaction Status Date / Time No Known Allergies Allergy Verified 09/28/19 05:17 Review of Systems ROS Statement: Those systems with pertinent positive or pertinent negative responses have been documented in the HPI. ROS Other: All systems not noted in ROS Statement are negative. EKG Findings - EKG Comments: EKG Findings:: EKG was obtained due to complaint of chest pain. EKG obtained at 5:24 AM, rate is 62 rhythm is sinus first degree AV block and a left bundle branch block. No acute ST elevations or depressions no evidence of acute ischemia or infarction. When EKG was compared to previous EKG from 4 days prior, there is no TN prolongation no other change in morphology. Past Medical History Past Medical History: Coronary Artery Disease (CAD), Chest Pain / Angina, COPD, Fibromyalgia, GERD/Reflux, Hyperlipidemia, Hypertension, Thyroid Disorder Additional Past Medical History / Comment(s): IRRITABLE BOWEL DISEASE/ HAD GRAVES-NOW HYPO,. Anxiety with panic attacks, sciatica, History of Any Multi-Drug Resistant Organisms: C-DIFF Date of last positivie culture/infection: APRIL 2015 MDRO Source:: FECES Past Surgical History: Section, Heart Catheterization With Stent, Tubal Ligation Additional Past Surgical History / Comment(s): OVARY REMOVED, cardiac stent Distal circ, Past Anesthesia/Blood Transfusion Reactions: Motion Sickness Past Psychological History: Anxiety, Panic Disorder, PTSD Smoking Status: Current every day smoker Past Alcohol Use History: None Reported Past Drug Use History: Marijuana - Past Family History Mother Family Medical History: No Reported History General Exam - General Exam Comments Initial Comments: Physical Exam GENERAL: Patient is well-developed and well-nourished. Patient is nontoxic and well- hydrated and is in no distress. HENT: Normocephalic, Atraumatic. EYES: PERRL, EOMI PULMONARY: Unlabored respirations. No audible rales rhonchi or wheezing was noted. CARDIOVASCULAR: There is a regular rate and rhythm without any murmurs gallops or rubs. ABDOMEN: Soft and nontender with normal bowel sounds. SKIN: Skin is clear with no lesions or rashes and otherwise unremarkable. : Deferred NEUROLOGIC: Patient is alert and oriented x3. Moving all extremities spontaneously MUSCULOSKELETAL: Normal extremities with adequate strength and full range of motion. No lower extremity swelling or edema. No calf tenderness. PSYCHIATRIC: Normal psychiatric evaluation. Limitations: no limitations Course Vital Signs 09/28/19 05:14 Temperature 97.4 F L Pulse Rate 80 Respiratory 17 Rate Blood Pressure 118/75 O2 Sat by Pulse 99 Oximetry Chest Pain MDM - MDM The patient was seen and evaluated, history was obtained from the patient and review of medical record 49-year-old female who is been experiencingNo evidence of ACS, pericarditis, myocarditis, pulmonary embolism, pneumothorax, pneumonia, Zoster, or esophageal perforation. Historically not abrupt in onset, tearing or ripping, pulses symmetric, no evidence of aortic dissection. For a number of days, upon initial arrival evaluation patient is very anxious asking if she has to stay asking if she'll be able to call her own erp analyst asking if she has to see the on-call asking who is on-call. Advised the patient at this time we just need to begin a workup and reevaluate her chest pain. Patient is agreeable. EKG is nonischemic Labs were unchanged, troponin continues to be negative. Considering the patient's reporting multiple days of chest pain with no change in EKG and no elevated troponin I do not feel this is related to acute coronary syndrome. I did discuss with the patient the need to stop looking. And follow-up with cardiology as scheduled Thursday morning. Disposition Clinical Impression: Chest pain Disposition: HOME SELF-CARE Condition: Stable Instructions (If sedation given, give patient instructions): Chest Pain (ED) Additional Instructions: Follow up with Cardiology on Thursday as scheduled Return to the ER if you have any new or worsening chest pain Is patient prescribed a controlled substance at d/c from ED?: No Referrals: Scot Sanchez DO [Primary Care Provider] - 1-2 days
[2019-09-28 06:13] LABS: ALT 27 U/L (9-52); AST 21 U/L (14-36); African American GFR (CKD) >90 (>60 ml/min/1.73 sqM); Albumin 4.5 g/dL (3.5-5.0); Alkaline Phosphatase 54 U/L (38-126); Anion Gap 7 mmol/L; Blood Urea Nitrogen 9 mg/dL (7-17); Calcium 9.9 mg/dL (8.4-10.2); Carbon Dioxide 27 mmol/L (22-30); Chloride 105 mmol/L (98-107); Glucose 106 mg/dL (74-99); Magnesium 1.8 mg/dL (1.6-2.3); Non-African American GFR(CKD) >90 (>60 ml/min/1.73 sqM); Sodium 139 mmol/L (137-145); Total Bilirubin 0.4 mg/dL (0.2-1.3); Total Protein 7.3 g/dL (6.3-8.2)
[2019-09-28 06:15] LABS: Basophils # (A) 0.1 k/uL (0-0.2); Basophils % (A) 1 %; Eosinophils # (A) 0.5 k/uL (0-0.7); Eosinophils % (A) 5 %; HCT 41.5 % (34.0-46.0); HGB 14.3 gm/dL (11.4-16.0); Lymphocytes % (A) 40 %; MCH 33.7 pg (25.0-35.0); MCHC 34.3 g/dL (31.0-37.0); MCV 98.2 fL (80.0-100.0); Mean Platelet Volume 7.3; Monocytes # (A) 0.6 k/uL (0-1.0); Monocytes % (A) 6 %; Neutrophils # (A) 4.7 k/uL (1.3-7.7); Neutrophils % (A) 46 %; Platelet Count 384 k/uL (150-450); RBC 4.23 m/uL (3.80-5.40); RDW 11.7 % (11.5-15.5); WBC 10.2 k/uL (3.8-10.6)
[2019-09-28 06:21] LABS: INR 0.9 (<1.2); Partial Thromboplastin Time 30.6 sec (22.0-30.0); Prothrombin Time 10.2 sec (9.0-12.0)
--- NOTE | 2019-09-28 06:33 | XR ---
EXAM: XR Chest, 2 Views CLINICAL HISTORY: Reason: Chest Pain TECHNIQUE: Frontal and lateral views of the chest. COMPARISON: 09/25/19 FINDINGS: Lungs: Normal lung volumes. No airspace consolidation. No pulmonary edema. Pleural space: Unremarkable. No pneumothorax. No pleural effusions. Heart: Unremarkable. No cardiomegaly. Mediastinum: Unremarkable. Bones/joints: Unremarkable. IMPRESSION: No evidence of active cardiopulmonary abnormality.
[2019-09-28 07:48] VITALS: BP 110/79; PULSE 75; RESP 20
== END 2019-09-28 07:53 | disposition home or self-care (01) ==
LOC: EC 05:11
DX: R07.9 Chest pain, unspecified (principal); I25.119 Atherosclerotic heart disease of native coronary artery with unspecified angina pectoris; E03.9 Hypothyroidism, unspecified; F43.10 Post-traumatic stress disorder, unspecified; F41.0 Panic disorder [episodic paroxysmal anxiety]; F41.9 Anxiety disorder, unspecified; E78.5 Hyperlipidemia, unspecified; I10 Essential (primary) hypertension; J44.9 Chronic obstructive pulmonary disease, unspecified; K21.9 Gastro-esophageal reflux disease without esophagitis; K58.9 Irritable bowel syndrome, unspecified; M79.7 Fibromyalgia; F17.210 Nicotine dependence, cigarettes, uncomplicated; Z79.82 Long term (current) use of aspirin; Z95.5 Presence of coronary angioplasty implant and graft; Z79.51 Long term (current) use of inhaled steroids; Z79.890 Hormone replacement therapy; Z79.899 Other long term (current) drug therapy
CPT/HCPCS: 36415; 71046; 80053; 83735; 84484; 85025; 85610; 85730; 99285

== ENCOUNTER → 2019-09-30 | Day surgery (SDC) | payer OTHER ==
[~2019-09-30] MED LIST changes: +ALPRAZolam 0.25 MG TAB PO PRN; +ALPRAZolam 0.5 MG TAB PO PRN; +ASPIRIN 325 MG TAB PO ONE; +HEPARIN SODIUM 1,000 UN/ML (10ML VL) IV ONE; +IOPAMIDOL-370 125ML BTL INJ ONE; -LACTATED RINGERS 1,000 ML IV SCH; -LIDOCAINE 1% 20 ML VIAL (10MG/ML) FOR IV START INTRADERMA PRN; +LIDOCAINE 1% INJ 10MG/ML (20 ML MDV) SQ ONE; +MIDAZOLAM 2 MG/2 ML VIAL IVP ONE; +NITROGLYCERIN SL TABS 0.4 MG TAB SUBLINGUAL PRN; +RX INFO: IV CONTRAST WAS GIVEN 1 EACH MISC MISCELLANE PRN; +SODIUM CHLORIDE 0.9% 1,000 ML IV SCH; +SODIUM CHLORIDE 0.9% 1,000 ML in EMPTY BAG 1 BAG IV ONE; +fentaNYL (PF) 50 MCG/ML 2 ML AMP IVP ONE
[2019-09-30 06:33] VITALS: RESP 18; TEMP 97.8
--- NOTE | 2019-09-30 08:57 | CC ---
CARDIAC CATHETERIZATION REPORT DATE OF SERVICE: 09/30/2019 PERFORMING PHYSICIAN: Gael Espinoza MD. PROCEDURE PERFORMED: 1. Selective right and left coronary angiogram. 2. Left heart catheterization. INDICATION: This is a very pleasant 49-year-old female patient with history of coronary artery disease and prior stenting of the left circumflex as well as history of smoking, was experiencing symptoms of shortness of breath with exertion. She underwent an echocardiogram which revealed cardiomyopathy with EF around 43%. Because of that, a heart catheterization was advised. APPROACH: Right radial artery. COMPLICATION: None. LEVEL OF SEDATION: Moderate with sedation length of 11 minutes. PROCEDURE DESCRIPTION: After obtaining an informed consent, the patient was brought to the cardiac nitriles lab technician. The right radial artery was cannulated using micropuncture technique, the micropuncture wire passed easily, then I placed a 5-Romansh sheath in the right radial artery. After that, I did give the patient 2 mg of verapamil IA and 6000 units of heparin IV. Subsequently, I did perform selective right and left coronary angiogram using JR4 and JL3.5 catheters. Left heart catheterization was performed using the JR4 catheter which crossed the aortic valve then I did pullback across the aortic valve. The procedure was completed without any complication. SELECTIVE CORONARY ANGIOGRAM: 1. The right coronary artery is a small to medium caliber vessel and is a nondominant vessel. The right coronary artery appeared to be angiographically normal. 2. The left main is angiographically normal. It bifurcates into left circumflex and left anterior descending artery. 3. The left circumflex is a large caliber vessel and it is a dominant vessel. The proximal left circumflex appeared to be angiographically normal. The mid left circumflex is normal and gives rise into the first and second obtuse marginal branches both appeared to be angiographically normal. The circumflex distally bifurcates into PDA and PLV branches. The PLV branch is stented and the stent is patent. The PDA branch appeared to be angiographically normal. 4. The LAD, the proximal LAD appeared to have mild disease only in the range of 10%- 20% only. Gives rise into the first diagonal branch which appeared to be a large caliber vessel and seems to be normal. The mid LAD is normal and gives rise into a second diagonal branch which seems to be normal. The LAD distally is angiographically normal. 5. HEMODYNAMICS: The LVEDP was 12 mmHg without significant gradient across the aortic valve. CONCLUSION: 1. Patent stent in the left circumflex coronary artery. 2. Mild disease involving the left anterior descending artery. POSTPROCEDURE MANAGEMENT: 1. Medical treatment. 2. Smoking cessation. 3. Obtain an echocardiogram in the next few months to assess the improvement in the left ventricular systolic function. BRENDA / TODDN: [id number] /
[2019-09-30 15:28] VITALS: BP 105/56; PULSE 65
== END ==
LOC: CATHCVL 05:46
PROVIDERS: ATTEND Internal Medicine Interventional Cardiology
DX: I25.10 Atherosclerotic heart disease of native coronary artery without angina pectoris (principal); I42.9 Cardiomyopathy, unspecified; E78.00 Pure hypercholesterolemia, unspecified; I10 Essential (primary) hypertension; E78.5 Hyperlipidemia, unspecified; I34.1 Nonrheumatic mitral (valve) prolapse; F17.210 Nicotine dependence, cigarettes, uncomplicated; Z95.5 Presence of coronary angioplasty implant and graft; Z79.899 Other long term (current) drug therapy; Z79.890 Hormone replacement therapy; Z79.82 Long term (current) use of aspirin; Z82.49 Family history of ischemic heart disease and other diseases of the circulatory system
CPT/HCPCS: 93005; 93458; C1769; C1894; J2250; J2001; J3010; J1644; Q9967

== ENCOUNTER 2019-10-26 11:36 | Emergency (ER) | payer OTHER | END 2019-10-26 12:01 | disposition left against medical advice (07) | LOC: EC 11:36 | DX: R45.89 Other symptoms and signs involving emotional state (principal); Z53.21 Procedure and treatment not carried out due to patient leaving prior to being seen by health care provider | CPT/HCPCS: 99499 ==

== ENCOUNTER → 2019-10-28 | Outpatient (CLI) | payer OTHER ==
--- NOTE | 2019-10-30 11:29 | CT ---
EXAMINATION TYPE: CT angio chest DATE OF EXAM: 10/28/2019 COMPARISON: 03/16/2018 CT chest HISTORY: Chest pain, history of heart disease. CT DLP: 394.7 mGycm. Automated Exposure Control for Dose Reduction was Utilized. CONTRAST: CTA scan of the thorax is performed without and with IV Contrast, patient injected with 100ml mL of I sovue 370, pulmonary embolism protocol. MIP Images are created on CT scanner and reviewed. FINDINGS: LUNGS: Extensive emphysematous changes are seen of the lungs. There is a 4 mm pulmonary nodule in the right upper lobe on series 6 image 26. Questionable nodule versus pseudonodule from vascular ectasia in the right middle lobe on image 44 measuring 4 mm. There is a peripherally spiculated 6 mm pulmona ry nodule in the left upper lobe laterally on series 6 image 31. There is no pleural effusion or pneu mothorax seen. The tracheobronchial tree is patent. MEDIASTINUM: Moderate coronary calcifications are seen within the left anterior descending coronary a rtery and few calcifications in the circumflex coronary artery. Mild atheromatous changes of the thor acic aorta. The thoracic aorta does not appear aneurysmal throughout measuring 3.1 cm both in the asc ending thoracic aorta and aortic root and 2.4 cm in the descending thoracic aorta. There is satisfact ory enhancement of the pulmonary artery and its branches, there is no CT evidence for pulmonary embol ism. No thoracic aortic dissection. There are no greater than 1 cm hilar or mediastinal lymph nodes. No cardiomegaly or pericardial effusion is seen. OTHER: Minimal multilevel degenerative disc disease of the spine. IMPRESSION: 1. Bilateral 6 mm pulmonary nodules and possible additional nodule in the right middle lobe.. In a hi gh-risk patient with extensive background emphysematous change follow-up CT is recommended at 3-6 mon ths then at 18-24 months if nodules are stable per consensus criteria. 2. Moderate coronary calcifications in the left anterior descending coronary artery and few calcifica tions in the circumflex coronary artery in this patient with chest pain. 3. No evidence of thoracic aortic aneurysm, dissection or central pulmonary embolism.
== END | disposition home or self-care (01) ==
LOC: RADCTMAIN 16:44
PROVIDERS: ATTEND Internal Medicine Interventional Cardiology
DX: J43.8 Other emphysema (principal); R91.8 Other nonspecific abnormal finding of lung field; I25.10 Atherosclerotic heart disease of native coronary artery without angina pectoris
CPT/HCPCS: 71275; Q9967

== ENCOUNTER → 2019-11-16 | Outpatient (CLI) | payer OTHER ==
--- NOTE | 2019-11-16 09:28 | US ---
EXAMINATION TYPE: US abdomen complete DATE OF EXAM: 11/16/2019 COMPARISON: NONE CLINICAL HISTORY: R10.11 Right Upper Quadrant pain. EXAM MEASUREMENTS: Liver Length: 12.4 cm Gallbladder Wall: 0.2 cm CBD: 0.2 cm Spleen: 9.0 cm Right Kidney: 11.7 x 5.0 x 4.4 cm Left Kidney: 11.6 x 5.1 x 5.0 cm Pancreas: partially obscured by bowel gas, portions visualized wnl Liver: wnl Gallbladder: wnl Evidence for sonographic Dow's sign: no CBD: wnl Spleen: wnl Right Kidney: No hydronephrosis or masses seen Left Kidney: Inferior pole obscured by bowel gas, no hydronephrosis or masses seen Upper IVC: wnl Abd Aorta: mild atherosclerotic changes The liver is homogenous. The intrahepatic portion of the IVC and proximal abdominal aorta are within normal limits. There is no evidence of cholelithiasis. Common bile duct is unremarkable. The visu alized portions of the pancreas are homogenous. The spleen is unremarkable. Kidneys are symmetric a nd free of hydronephrosis. No renal lesions are seen. IMPRESSION: No sonographic evidence of cholelithiasis or acute cholecystitis. Pancreas is partially o bscured by bowel gas.
== END | disposition home or self-care (01) ==
LOC: RADUSWWP 08:31
PROVIDERS: ATTEND Family Medicine
DX: R10.11 Right upper quadrant pain (principal)
CPT/HCPCS: 76700

== ENCOUNTER → 2020-03-21 | Outpatient (CLI) | payer OTHER ==
--- NOTE | 2020-03-21 13:57 | CT ---
EXAMINATION TYPE: CT chest wo con DATE OF EXAM: 03/21/2020 COMPARISON: 10/28/2019 HISTORY: 50-year-old female Follow up nodule. SOB on exertion. TECHNIQUE: Contiguous axial scanning of the chest without IV contrast. Coronal and sagittal reconstru ctions performed. CT DLP: 475 mGycm Automated exposure control for dose reduction was used. FINDINGS: Heart normal size without pericardial effusion. Mild LAD calcifications are present. Aorta normal caliber with mild atherosclerotic calcifications at the origin of the arch vessels. No thoracic lymphadenopathy by CT size criteria. Moderate centrilobular emphysema. Previous pulmonary nodules have resolved suggesting infectious/infl ammatory etiology. No enlarging pulmonary nodules or masses. No consolidation or pleural effusion. Motion artifact in the visualized upper abdomen. No gross abnormality seen. Bones: Suggestion of some loose bodies within the right glenohumeral joint. No osseous destructive pr ocess. IMPRESSION: COPD WITH MODERATE EMPHYSEMA. PREVIOUS PULMONARY NODULES HAVE RESOLVED SUGGESTING A PRIOR INFECTIOUS/ INFLAMMATORY ETIOLOGY.
== END | disposition home or self-care (01) ==
LOC: RADCTMAIN 13:02
PROVIDERS: ATTEND Family Medicine
DX: J43.9 Emphysema, unspecified (principal)
CPT/HCPCS: 71250

== ENCOUNTER → 2020-10-05 | Outpatient (CLI) | payer OTHER ==
--- NOTE | 2020-10-09 12:25 | MM ---
Reason for exam: screening (asymptomatic). Last mammogram was performed 1 year and 5 months ago. History: Patient is postmenopausal. Family history of breast cancer in aunt at age 60. Benign right mammotome panel of the right breast, November 09, 2009. Took hormonal contraceptives for 6 years beginning at age 19. Physical Findings: A clinical breast exam by your physician is recommended on an annual basis and results should be correlated with mammographic findings. MG Screening Mammo w CAD Bilateral CC and MLO view(s) were taken. Prior study comparison: April 25, 2019, bilateral MG screening mammo w CAD. March 30, 2018, bilateral MG screening mammo w CAD. The breast tissue is heterogeneously dense. This may lower the sensitivity of mammography. Previous mammotome biopsy in the right breast. Punctate diffuse and regional calcifications redemonstrated. No significant changes when compared with prior studies. ASSESSMENT: Benign, BI-RAD 2 RECOMMENDATION: Routine screening mammogram of both breasts in 1 year.
== END | disposition home or self-care (01) ==
LOC: RADMAMWWP 15:33
PROVIDERS: ATTEND Family Medicine
DX: Z12.31 Encounter for screening mammogram for malignant neoplasm of breast (principal)
CPT/HCPCS: 77067

== ENCOUNTER → 2021-01-04 | Outpatient (CLI) | payer OTHER ==
--- NOTE | 2021-01-04 15:01 | US ---
EXAMINATION TYPE: US pelvic complete DATE OF EXAM: 01/04/2021 COMPARISON: CT abdomen and pelvis March 18, 2019 CLINICAL HISTORY: R10.2 pelvic pain. Right ovary removed. LMP x 2 years ago. Generalized pelvic ynes n. TECHNIQUE: Transvaginal (TV) and Transabdominal (TA) . Transabdominal sonographic images of the pel vis were acquired. Transvaginal sonographic images were medically necessary to better assess the fol lowing anatomy: Ovaries Date of LMP: 2018, EXAM MEASUREMENTS: Uterus: 6.1 x 3.6 x 2.5 cm Endometrial Stripe: 0.3 cm Left Ovary: 2.1 x 1.4 x 1.3 cm 1. Uterus: Anteverted Small in size. Heterogenous. Fundal focal lesion - 1.3 x 1.4 x 1.2 cm 2. Endometrium: wnl 3. Right Ovary: Surgically absent 4. Left Ovary: limited visualization due to over lying bowel gas 5. Bilateral Adnexa: wnl 6. Posterior cul-de-sac: no free fluid Anteverted heterogeneous uterus. Uterus best assessed on transvaginal images. Focal 1.4 cm heterogene ous hyperechoic fibroid in the fundus. No suspicious endometrial thickening. No free fluid. Normal size left ovary. Right ovary surgically absent. No concerning adnexal masses. IMPRESSION: Small 1.4 cm fibroid in the uterine fundus. Right ovary surgically absent. No adnexal mas ses noted.
== END ==
LOC: RADUSWWP 13:38
PROVIDERS: ATTEND Obstetrics & Gynecology
DX: D25.9 Leiomyoma of uterus, unspecified (principal); Z90.721 Acquired absence of ovaries, unilateral
CPT/HCPCS: 76830; 76856

== ENCOUNTER 2021-02-23 06:42 | Emergency (ER) | payer OTHER ==
[2021-02-23 06:48] VITALS: BP 121/82; PULSE 73; RESP 18; TEMP 98
[2021-02-23] MEDS ORDERED: SODIUM CHLORIDE 0.9% 1,000 ML IV STA (06:56)
[2021-02-23] MEDS ORDERED: ONDANSETRON 4 MG/2 ML VIAL IVP STA (06:56)
[2021-02-23] MEDS ORDERED: HYDROmorphone 0.5 MG/0.5 ML SYRINGE IVP STA (06:56)
[2021-02-23] MEDS ORDERED: SODIUM CHLORIDE 0.9% 500 ML 500 ML IV STA (06:56)
--- NOTE | 2021-02-23 07:01 | ED ---
Abdominal Pain HPI - General Chief Complaint: Abdominal Pain Stated Complaint: Abd Pain Time Seen by Provider: 02/23/21 06:46 Source: patient, RN notes reviewed Mode of arrival: ambulatory Limitations: no limitations - History of Present Illness Initial Comments: 51-year-old female presents emergency Department with chief complaint of abdominal pain. Patient states that years ago she had some issues with her gallbladder states that she noted from the results for HIDA scan. Patient states that she's had increased pain last week especially last night she's been vomiting having right quadrant abdominal pain. It is worse when she eats. She's been feeling constipated, having urinary frequency without dysuria no reported fevers chills no chest pain or shortness of breath. Patient's had prior section, ovary removal and tubal ligation - Related Data Home Medications Medication Instructions Recorded Confirmed Ranitidine HCl [Zantac] 150 mg PO BID 06/30/14 09/30/19 Fluticasone Nasal [place] [Flonase 2 spr EA NOSTRIL DAILY 10/16/17 09/30/19 Nasal [place]] Liothyronine Sodium [Cytomel] 5 mcg PO HS 10/16/17 09/30/19 Metoprolol Tartrate 12.5 mg PO BID 10/16/17 09/30/19 Albuterol Inhaler (Mhu) [Ventolin 1 puff INHALATION Q6HR PRN 04/22/18 09/30/19 Hfa Inhaler (Mhu)] Ascorbic Acid [Vitamin C] 500 mg PO HS 03/18/19 09/30/19 Atorvastatin [Lipitor] 40 mg PO 1200 03/18/19 09/30/19 Dicyclomine [Bentyl] 20 mg PO QID PRN 03/18/19 09/30/19 Levothyroxine Sodium [Synthroid] 100 mcg PO 1200 03/18/19 09/30/19 Multivitamins, Thera [Multivitamin 1 tab PO HS 03/18/19 09/30/19 (formulary)] Acetaminophen Tab [Tylenol] 1,000 mg PO BID 09/08/19 09/30/19 Apple Cider Vinegar Tab 2 tab PO DAILY 09/08/19 09/30/19 Aspirin [Adult Low Dose Aspirin EC] 162 mg PO DAILY 09/08/19 09/30/19 Docusate Sodium [Dok] 100 mg PO BID PRN 09/08/19 09/30/19 Ergocalciferol [Vitamin D2 50,000 unit PO MO 09/08/19 09/30/19 (DRISDOL)] Gas-X Tab 180 mg PO DAILY PRN 09/08/19 09/30/19 Inhaler(Name Unknown) 1 applicate IH TID 09/08/19 09/30/19 Isosorbide Mononitrate [Isosorbide 15 mg PO 1200 09/08/19 09/30/19 Mononitrate ER] L.acidoph,Paracasei, B.lactis 2 each PO DAILY 09/08/19 09/30/19 [Probiotic] LORazepam [Ativan] 0.5 mg PO HS 09/08/19 09/30/19 LORazepam [Ativan] 1 mg PO DAILY PRN 09/08/19 09/30/19 Loratadine [Claritin] 10 mg PO 1200 09/08/19 09/30/19 Magnesium Oxide 400 mg PO HS 09/08/19 09/30/19 Nitroglycerin Sl Tabs [Nitrostat] 0.4 mg SUBLINGUAL Q5M PRN 09/08/19 09/30/19 Omeprazole [PriLOSEC] 20 mg PO BID PRN 09/08/19 09/30/19 PARoxetine [Paxil] 20 mg PO 1200 09/08/19 09/30/19 Spironolactone [Aldactone] 25 mg PO 1200 09/08/19 09/30/19 Turmeric Root Extract [Turmeric] 500 mg PO HS 09/08/19 09/30/19 Umeclidinium [place] [Incruse 1 puff INHALATION DAILY PRN 09/08/19 09/30/19 Ellipta] guaiFENesin [Mucinex] 1,200 mg PO DAILY 09/08/19 09/30/19 l-Mefol/A-Cyst/Meb12/Algal Oil 1 each PO 1200 09/08/19 09/30/19 [Cerefolin [place]] lisinopriL [Zestril] 2.5 mg PO 1200 09/08/19 09/30/19 methocarbamoL [Robaxin] 750 mg PO BID 09/29/19 09/30/19 Previous Rx's Medication Instructions Recorded Ondansetron Odt [Zofran Odt] 4 mg PO Q8HR PRN #10 tab 02/23/21 Allergies Allergy/AdvReac Type Severity Reaction Status Date / Time No Known Allergies Allergy Verified 02/23/21 06:48 Review of Systems ROS Statement: Those systems with pertinent positive or pertinent negative responses have been documented in the HPI. ROS Other: All systems not noted in ROS Statement are negative. Past Medical History Past Medical History: Coronary Artery Disease (CAD), Chest Pain / Angina, COPD, Fibromyalgia, GERD/Reflux, Hyperlipidemia, Hypertension, Thyroid Disorder Additional Past Medical History / Comment(s): IRRITABLE BOWEL DISEASE/ HAD G RAVES-NOW HYPO,. Anxiety with panic attacks, sciatica, History of Any Multi-Drug Resistant Organisms: C-DIFF Date of last positivie culture/infection: APRIL 2015 MDRO Source:: FECES Past Surgical History: Section, Heart Catheterization With Stent, Tubal Ligation Additional Past Surgical History / Comment(s): OVARY REMOVED, cardiac stent Distal circ, Past Anesthesia/Blood Transfusion Reactions: Motion Sickness Past Psychological History: Anxiety, Panic Disorder, PTSD Smoking Status: Current every day smoker Past Alcohol Use History: None Reported Past Drug Use History: Marijuana - Past Family History Mother Family Medical History: No Reported History General Exam Limitations: no limitations General appearance: alert, in no apparent distress Head exam: Present: atraumatic, normocephalic, normal inspection Respiratory exam: Present: normal lung sounds bilaterally. Absent: respiratory distress, wheezes, rales, rhonchi, stridor Cardiovascular Exam: Present: regular rate, normal rhythm, normal heart sounds. Absent: systolic murmur, diastolic murmur, rubs, gallop, clicks GI/Abdominal exam: Present: soft, tenderness (Moderate quadrant), normal bowel sounds. Absent: distended, guarding, rebound, rigid Back exam: Present: CVA tenderness (R). Absent: CVA tenderness (L) Neurological exam: Present: alert Skin exam: Present: warm, dry, intact, normal color. Absent: rash Course Vital Signs 02/23/21 06:43 Temperature 98 F Pulse Rate 73 Respiratory 18 Rate Blood Pressure 121/82 O2 Sat by Pulse 100 Oximetry Medical Decision Making - Medical Decision Making Labs ultrasound unremarkable. Patient may have underlying dysfunctional gallbladder will follow-up with PCP and surgeon. - Lab Data Result diagrams: 02/23/21 07:10 02/23/21 07:10 Lab Results 02/23/21 02/23/21 02/23/21 Range/Units 07:10 07:10 07:10 WBC 8.8 (3.8-10.6) k/uL RBC 4.14 (3.80-5.40) m/uL Hgb 14.2 (11.4-16.0) gm/dL Hct 40.1 (34.0-46.0) % MCV 96.8 (80.0-100.0) fL MCH 34.4 (25.0-35.0) pg MCHC 35.5 (31.0-37.0) g/dL RDW 11.8 (11.5-15.5) % Plt Count 376 (150-450) k/uL MPV 6.9 Neutrophils % 55 % Lymphocytes % 30 % Monocytes % 7 % Eosinophils % 6 % Basophils % 1 % Neutrophils # 4.8 (1.3-7.7) k/uL Lymphocytes # 2.6 (1.0-4.8) k/uL Monocytes # 0.6 (0-1.0) k/uL Eosinophils # 0.5 (0-0.7) k/uL Basophils # 0.1 (0-0.2) k/uL Sodium 137 (137-145) mmol/L Potassium 3.9 (3.5-5.1) mmol/L Chloride 102 (98-107) mmol/L Carbon Dioxide 26 (22-30) mmol/L Anion Gap 9 mmol/L BUN 9 (7-17) mg/dL Creatinine 0.58 (0.52-1.04) mg/dL Est GFR (CKD-EPI)AfAm >90 (>60 ml/min/1.73 sqM) Est GFR (CKD-EPI)NonAf >90 (>60 ml/min/1.73 sqM) Glucose 98 (74-99) mg/dL Plasma Lactic Acid [place] (0.7-2.0) mmol/L Calcium 9.9 (8.4-10.2) mg/dL Total Bilirubin 0.4 (0.2-1.3) mg/dL AST 23 (14-36) U/L ALT 15 (4-34) U/L Alkaline Phosphatase 60 (38-126) U/L Total Protein 7.0 (6.3-8.2) g/dL Albumin 4.4 (3.5-5.0) g/dL Amylase 41 (30-110) U/L Lipase 75 (23-300) U/L Urine Color Yellow Urine Appearance Clear (Clear) Urine pH 5.5 (5.0-8.0) Ur Specific [place] 1.012 (1.001-1.035) Urine Protein Negative (Negative) Urine Glucose (UA) Negative (Negative) Urine Ketones Negative (Negative) Urine Blood Negative (Negative) Urine Nitrite Negative (Negative) Urine Bilirubin Negative (Negative) Urine Urobilinogen <2.0 (<2.0) mg/dL Ur Leukocyte Esterase Negative (Negative) 02/23/21 Range/Units 07:10 WBC (3.8-10.6) k/uL RBC (3.80-5.40) m/uL Hgb (11.4-16.0) gm/dL Hct (34.0-46.0) % MCV (80.0-100.0) fL MCH (25.0-35.0) pg MCHC (31.0-37.0) g/dL RDW (11.5-15.5) % Plt Count (150-450) k/uL MPV Neutrophils % % Lymphocytes % % Monocytes % % Eosinophils % % Basophils % % Neutrophils # (1.3-7.7) k/uL Lymphocytes # (1.0-4.8) k/uL Monocytes # (0-1.0) k/uL Eosinophils # (0-0.7) k/uL Basophils # (0-0.2) k/uL Sodium (137-145) mmol/L Potassium (3.5-5.1) mmol/L Chloride (98-107) mmol/L Carbon Dioxide (22-30) mmol/L Anion Gap mmol/L BUN (7-17) mg/dL Creatinine (0.52-1.04) mg/dL Est GFR (CKD-EPI)AfAm (>60 ml/min/1.73 sqM) Est GFR (CKD-EPI)NonAf (>60 ml/min/1.73 sqM) Glucose (74-99) mg/dL Plasma Lactic Acid [place] 0.9 (0.7-2.0) mmol/L Calcium (8.4-10.2) mg/dL Total Bilirubin (0.2-1.3) mg/dL AST (14-36) U/L ALT (4-34) U/L Alkaline Phosphatase (38-126) U/L Total Protein (6.3-8.2) g/dL Albumin (3.5-5.0) g/dL Amylase (30-110) U/L Lipase (23-300) U/L Urine Color Urine Appearance (Clear) Urine pH (5.0-8.0) Ur Specific [place] (1.001-1.035) Urine Protein (Negative) Urine Glucose (UA) (Negative) Urine Ketones (Negative) Urine Blood (Negative) Urine Nitrite (Negative) Urine Bilirubin (Negative) Urine Urobilinogen (<2.0) mg/dL Ur Leukocyte Esterase (Negative) Disposition Clinical Impression: Abdominal pain Disposition: HOME SELF-CARE Condition: Stable Instructions (If sedation given, give patient instructions): Abdominal Pain (ED) Additional Instructions: Please return to the Emergency Department if symptoms worsen or any other con cerns. Prescriptions: Ondansetron Odt [Zofran Odt] 4 mg PO Q8HR PRN #10 tab PRN Reason: Nausea Is patient prescribed a controlled substance at d/c from ED?: No Referrals: Scot Sanchez DO [Primary Care Provider] - 1-2 days Gregoria Fregoso DO [Doctor of Osteopathic Medicine] - 1-2 days Time of Disposition: 08:02
[2021-02-23 07:23] LABS: Basophils # (A) 0.1 k/uL (0-0.2); Basophils % (A) 1 %; Eosinophils # (A) 0.5 k/uL (0-0.7); Eosinophils % (A) 6 %; HCT 40.1 % (34.0-46.0); HGB 14.2 gm/dL (11.4-16.0); Lymphocytes # (A) 2.6 k/uL (1.0-4.8); Lymphocytes % (A) 30 %; MCH 34.4 pg (25.0-35.0); MCHC 35.5 g/dL (31.0-37.0); MCV 96.8 fL (80.0-100.0); Mean Platelet Volume 6.9; Monocytes # (A) 0.6 k/uL (0-1.0); Monocytes % (A) 7 %; Neutrophils # (A) 4.8 k/uL (1.3-7.7); Neutrophils % (A) 55 %; Platelet Count 376 k/uL (150-450); RBC 4.14 m/uL (3.80-5.40); RDW 11.8 % (11.5-15.5); WBC 8.8 k/uL (3.8-10.6)
[2021-02-23 07:27] LABS: Appearance,Urine Clear (Clear); Bilirubin,Urine Negative (Negative); Blood,Urine Negative (Negative); Color,Urine Yellow; Glucose,Urine (UA) Negative (Negative); Ketones,Urine Negative (Negative); Leukocyte Esterase,Urine Negative (Negative); Nitrite,Urine Negative (Negative); PH, Urine 5.5 (5.0-8.0); Protein,Urine Negative (Negative); Specific Gravity,Urine 1.012 (1.001-1.035); Urobilinogen,Urine <2.0 mg/dL (<2.0)
--- NOTE | 2021-02-23 07:40 | US ---
EXAMINATION TYPE: US abdomen limited DATE OF EXAM: 02/23/2021 COMPARISON: NONE CLINICAL HISTORY: Abdominal pain. EXAM MEASUREMENTS: Liver Length: 14.3 cm Gallbladder Wall: 0.2 cm CBD: 0.3 cm Right Kidney: 11.9 x 4.0 x 5.2 cm Pancreas: visualized portions wnl Liver: wnl Gallbladder: No stones seen Evidence for sonographic Dow's sign: Yes CBD: wnl Right Kidney: No hydronephrosis or masses seen IMPRESSION: 1. Normal right upper quadrant ultrasound. 2. There is a positive Dow's sign. However, ultrasound changes for acute appendicitis are not iden tified.
[2021-02-23 07:44] LABS: ALT 15 U/L (4-34); AST 23 U/L (14-36); African American GFR (CKD) >90 (>60 ml/min/1.73 sqM); Albumin 4.4 g/dL (3.5-5.0); Alkaline Phosphatase 60 U/L (38-126); Amylase 41 U/L (30-110); Anion Gap 9 mmol/L; Blood Urea Nitrogen 9 mg/dL (7-17); Calcium 9.9 mg/dL (8.4-10.2); Carbon Dioxide 26 mmol/L (22-30); Chloride 102 mmol/L (98-107); Glucose 98 mg/dL (74-99); Lipase 75 U/L (23-300); Non-African American GFR(CKD) >90 (>60 ml/min/1.73 sqM); Potassium 3.9 mmol/L (3.5-5.1); Sodium 137 mmol/L (137-145); Total Bilirubin 0.4 mg/dL (0.2-1.3)
[2021-02-23] MEDS ORDERED: ACET/COD 300 MG/30 MG STARTER PACK 6 TAB BTL PO STA (08:01)
== END 2021-02-23 08:26 | disposition home or self-care (01) ==
LOC: EC 06:42
DX: R10.9 Unspecified abdominal pain (principal); E78.5 Hyperlipidemia, unspecified; F17.200 Nicotine dependence, unspecified, uncomplicated; F41.9 Anxiety disorder, unspecified; I10 Essential (primary) hypertension; I25.10 Atherosclerotic heart disease of native coronary artery without angina pectoris; J44.9 Chronic obstructive pulmonary disease, unspecified; K21.9 Gastro-esophageal reflux disease without esophagitis; M79.7 Fibromyalgia; F12.90 Cannabis use, unspecified, uncomplicated; E07.9 Disorder of thyroid, unspecified; Z79.82 Long term (current) use of aspirin; Z90.721 Acquired absence of ovaries, unilateral; Z95.5 Presence of coronary angioplasty implant and graft; Z98.891 History of uterine scar from previous surgery; Z98.51 Tubal ligation status
CPT/HCPCS: 36415; 80053; 82150; 83605; 83690; 85025; 81003; 76705; 99284; 96374; 96375; 96361; J2405; J1170

== ENCOUNTER → 2021-04-01 | Outpatient (CLI) | payer OTHER ==
--- NOTE | 2021-04-01 12:32 | CT ---
EXAMINATION TYPE: CT abdomen pelvis w con DATE OF EXAM: 04/01/2021 HISTORY: Left lower quadrant pain with irregular bowel movements CT DLP: 489.1mGycm Automated Exposure Control for Dose Reduction was Utilized. CONTRAST: CT scan of the abdomen and pelvis is performed with oral and with IV Contrast, patient injected with 100 mL of Isovue 300. COMPARISON: CT abdomen and pelvis March 18, 2019 FINDINGS: LUNG BASES: No significant abnormality is appreciated. LIVER/GB: No significant abnormality is appreciated. PANCREAS: No significant abnormality is seen. SPLEEN: No significant abnormality is seen. ADRENALS: Slight 1.1 cm nodular thickening left adrenal gland axial image 17 stable presumed benign. KIDNEYS: No significant abnormality is seen. BOWEL: Oral contrast reaches level proximal transverse colon making evaluation of distal bowel subopt imal. No suspicious small or large bowel dilatation. Low-lying cecum into the right pelvis. Mild-to-m oderate fecal prominence in the transverse colon. Mild wall thickening left colon extends into sigmoi d colon. No significant surrounding fat stranding. Findings could be on basis of a uncomplicated mild colitis versus product of poor distention. UTERUS/ADNEXA: Anteverted uterus redemonstrated. There is 1.3 cm oval hyperdense lesion in the inferi or fundus probable small superficial intramural fibroid redemonstrated. Left ovary remains normal in size. LYMPH NODES: No new greater than 1cm abdominal or pelvic lymph nodes are appreciated. OSSEOUS STRUCTURES: No significant abnormality is seen. OTHER: No significant additional abnormality is seen. IMPRESSION: No bowel obstruction. Mild mid colonic fecal stasis. Possible mild uncomplicated distal c olitis versus product of poor distention, correlate clinically.
== END | disposition home or self-care (01) ==
LOC: RADCTMAIN 09:37
PROVIDERS: ATTEND Surgery
DX: R10.32 Left lower quadrant pain (principal)
CPT/HCPCS: 74177; Q9967

== ENCOUNTER 2021-04-07 21:16 | Emergency (ER) | payer OTHER ==
[2021-04-07 21:36] VITALS: BP 124/82; PULSE 74; RESP 18; TEMP 98
[2021-04-07] MEDS ORDERED: ACETAMINOPHEN TAB 500 MG TAB PO STA (21:49)
--- NOTE | 2021-04-07 22:14 | XR ---
EXAMINATION TYPE: XR Hip Complete LT DATE OF EXAM: 04/07/2021 COMPARISON: NONE HISTORY: Hip pain TECHNIQUE: 2 views FINDINGS: There is a lucent line projected over the lateral aspect of the acetabulum that could be no ndisplaced chip fracture of the labrum. The proximal femur is intact. IMPRESSION: Possible acetabular labral fracture.
--- NOTE | 2021-04-07 22:28 | ED ---
Fall HPI - General Chief Complaint: Fall Stated Complaint: fall, L leg & hip pain Time Seen by Provider: 04/07/21 21:39 Source: patient, RN notes reviewed Mode of arrival: wheelchair - History of Present Illness Initial Comments: Patient is a 51-year-old female that presents to emergency department complaining of left hip/groin pain. She notes she was outside [facility] when s he slipped and fell. She notes that it feels more like muscle pain and a break. She notes that it is painful to walk and flex her hip. She does have full sensation range of motion and strength in her left lower extremity. She notes she wanted to come get evaluated just to make sure nothing was broken. She denied any other complaints or issues. She did note that she took a 10 mg oxycodone about 1 hour prior to arrival. She notes that her pain was about a 6 out of 10. She denied any chest pain first breath headache nausea vomiting diarrhea constipation fever fatigue chills bladder or bowel incontinence/retention. - Related Data Home Medications Medication Instructions Recorded Confirmed Ranitidine HCl [Zantac] 150 mg PO BID 06/30/14 09/30/19 Fluticasone Nasal [place] [Flonase 2 spr EA NOSTRIL DAILY 10/16/17 09/30/19 Nasal [place]] Liothyronine Sodium [Cytomel] 5 mcg PO HS 10/16/17 09/30/19 Metoprolol Tartrate 12.5 mg PO BID 10/16/17 09/30/19 Albuterol Inhaler (Mhu) [Ventolin 1 puff INHALATION Q6HR PRN 04/22/18 09/30/19 Hfa Inhaler (Mhu)] Ascorbic Acid [Vitamin C] 500 mg PO HS 03/18/19 09/30/19 Atorvastatin [Lipitor] 40 mg PO 1200 03/18/19 09/30/19 Dicyclomine [Bentyl] 20 mg PO QID PRN 03/18/19 09/30/19 Levothyroxine Sodium [Synthroid] 100 mcg PO 1200 03/18/19 09/30/19 Multivitamins, Thera [Multivitamin 1 tab PO HS 03/18/19 09/30/19 (formulary)] Acetaminophen Tab [Tylenol] 1,000 mg PO BID 09/08/19 09/30/19 Apple Cider Vinegar Tab 2 tab PO DAILY 09/08/19 09/30/19 Aspirin [Adult Low Dose Aspirin EC] 162 mg PO DAILY 09/08/19 09/30/19 Docusate Sodium [Dok] 100 mg PO BID PRN 09/08/19 09/30/19 Ergocalciferol [Vitamin D2 50,000 unit PO MO 09/08/19 09/30/19 (DRISDOL)] Gas-X Tab 180 mg PO DAILY PRN 09/08/19 09/30/19 Inhaler(Name Unknown) 1 applicate IH TID 09/08/19 09/30/19 Isosorbide Mononitrate [Isosorbide 15 mg PO 1200 09/08/19 09/30/19 Mononitrate ER] L.acidoph,Paracasei, B.lactis 2 each PO DAILY 09/08/19 09/30/19 [Probiotic] LORazepam [Ativan] 0.5 mg PO HS 09/08/19 09/30/19 LORazepam [Ativan] 1 mg PO DAILY PRN 09/08/19 09/30/19 Loratadine [Claritin] 10 mg PO 1200 09/08/19 09/30/19 Magnesium Oxide 400 mg PO HS 09/08/19 09/30/19 Nitroglycerin Sl Tabs [Nitrostat] 0.4 mg SUBLINGUAL Q5M PRN 09/08/19 09/30/19 Omeprazole [PriLOSEC] 20 mg PO BID PRN 09/08/19 09/30/19 PARoxetine [Paxil] 20 mg PO 1200 09/08/19 09/30/19 Spironolactone [Aldactone] 25 mg PO 1200 09/08/19 09/30/19 Turmeric Root Extract [Turmeric] 500 mg PO HS 09/08/19 09/30/19 Umeclidinium [place] [Incruse 1 puff INHALATION DAILY PRN 09/08/19 09/30/19 Ellipta] guaiFENesin [Mucinex] 1,200 mg PO DAILY 09/08/19 09/30/19 l-Mefol/A-Cyst/Meb12/Algal Oil 1 each PO 1200 09/08/19 09/30/19 [Cerefolin [place]] lisinopriL [Zestril] 2.5 mg PO 1200 09/08/19 09/30/19 methocarbamoL [Robaxin] 750 mg PO BID 09/29/19 09/30/19 Previous Rx's Medication Instructions Recorded Ondansetron Odt [Zofran Odt] 4 mg PO Q8HR PRN #10 tab 02/23/21 Allergies Allergy/AdvReac Type Severity Reaction Status Date / Time No Known Allergies Allergy Verified 02/23/21 06:48 Review of Systems ROS Statement: Those systems with pertinent positive or pertinent negative responses have been documented in the HPI. ROS Other: All systems not noted in ROS Statement are negative. Past Medical History Past Medical History: Coronary Artery Disease (CAD), Chest Pain / Angina, COPD, Fibromyalgia, GERD/Reflux, Hyperlipidemia, Hypertension, Thyroid Disorder Additional Past Medical History / Comment(s): IRRITABLE BOWEL DISEASE/ HAD GRAVES-NOW HYPO,. Anxiety with panic attacks, sciatica, History of Any Multi-Drug Resistant Organisms: C-DIFF Date of last positivie culture/infection: APRIL 2015 MDRO Source:: FECES Past Surgical History: Section, Heart Catheterization With Stent, Tubal Ligation Additional Past Surgical History / Comment(s): OVARY REMOVED, cardiac stent Distal circ, Past Anesthesia/Blood Transfusion Reactions: Motion Sickness Past Psychological History: Anxiety, Panic Disorder, PTSD Smoking Status: Current every day smoker Past Alcohol Use History: None Reported Past Drug Use History: Marijuana - Past Family History Mother Family Medical History: No Reported History General Exam Limitations: no limitations General appearance: alert, in no apparent distress Head exam: Present: atraumatic, normocephalic, normal inspection Eye exam: Present: normal appearance, PERRL, EOMI. Absent: scleral icterus, conjunctival injection, periorbital swelling Neck exam: Present: normal inspection Respiratory exam: Present: normal lung sounds bilaterally. Absent: respiratory distress, wheezes, rales, rhonchi, stridor Cardiovascular Exam: Present: regular rate, normal rhythm, normal heart sounds. Absent: systolic murmur, diastolic murmur, rubs, gallop, clicks Left Hip exam: Present: normal inspection, full ROM, tenderness (Over the psoas muscle with deep palpation). Absent: swelling, abrasion, laceration, ecchymosis, deformity, crepitus, dislocation Upper Leg exam: Present: normal inspection Knee exam: Present: normal inspection Lower Leg exam: Present: normal inspection Ankle exam: Present: normal inspection Foot/Toe exam: Present: normal inspection Neurovascular tendon exam: Present: no vascular compromise Neurological exam: Present: alert, oriented X3 Psychiatric exam: Present: normal affect, normal mood Skin exam: Present: warm, dry, intact, normal color. Absent: rash Course Vital Signs 04/07/21 21:32 Temperature 98 F Pulse Rate 74 Respiratory 18 Rate Blood Pressure 124/82 O2 Sat by Pulse 97 Oximetry Medical Decision Making - Medical Decision Making 51-year-old female complaining of left hip flexor/hip pain after slipping outside a jets. X-ray left hip, 1000 mg of Tylenol ordered. X-ray shows a possible nondisplaced fracture of the labrum. Case discussed with Dr. Holley, CT of the left hip ordered due to inconclusive read of hip x-ray. Given location of fracture patient will be transferred to [facility]. Dr. Faustin was consulted and will accept the admit and transfer. Dr. cabrera will accept the admit to the ER. - Radiology Data Radiology results: report reviewed, image reviewed X-ray left hip: There is a lucent line projected over the lateral aspect of the acetabulum that could be nondisplaced chip fracture of the labrum. The proximal femurs intact. Disposition Clinical Impression: Fall, Left acetabular fracture Disposition: OTHER INSTITUTION NOT DEFINED Instructions (If sedation given, give patient instructions): Fall Prevention (ED) Is patient prescribed a controlled substance at d/c from ED?: No Referrals: Scot Sanchez DO [Primary Care Provider] - 1-2 days Time of Disposition: 23:15 - Out of Hospital Transfer - Req. Specs Out of Hospital Transfer - Requested Specifics: Other Emergency Center ([facility])
--- NOTE | 2021-04-07 23:13 | CT ---
EXAMINATION TYPE: CT hip LT wo con DATE OF EXAM: 04/07/2021 COMPARISON: None HISTORY: PAIN CT DLP: 473.90 mGycm Automated exposure control for dose reduction was used. Images were obtained from the top of the iliac crest to the mid shaft of the femur without contrast. The left iliac bone appears intact. Left sacroiliac joint appears normal. Hip joint space is fairly n ormal. Proximal femur is intact. There is vertical fracture through the posterior acetabular labrum. There is no separation of the fra gments. The fragment measures 2.8 x 1.7 cm. There is no dislocation. Intertrochanteric femur appears intact. IMPRESSION: Nondisplaced posterior acetabular labral intra-articular fracture.
== END 2021-04-08 00:30 | disposition other institution (70) ==
LOC: EC 21:16
DX: S32.492A Other specified fracture of left acetabulum, initial encounter for closed fracture (principal); I10 Essential (primary) hypertension; J44.9 Chronic obstructive pulmonary disease, unspecified; E78.5 Hyperlipidemia, unspecified; K21.9 Gastro-esophageal reflux disease without esophagitis; I25.10 Atherosclerotic heart disease of native coronary artery without angina pectoris; F41.0 Panic disorder [episodic paroxysmal anxiety]; M79.7 Fibromyalgia; F17.200 Nicotine dependence, unspecified, uncomplicated; F12.90 Cannabis use, unspecified, uncomplicated; Z79.51 Long term (current) use of inhaled steroids; W01.0XXA Fall on same level from slipping, tripping and stumbling without subsequent striking against object, initial encounter; Y92.89 Other specified places as the place of occurrence of the external cause
CPT/HCPCS: 73502; 99285

== ENCOUNTER 2021-05-16 17:47 | Emergency (ER) | payer OTHER ==
[2021-05-16 17:51] VITALS: RESP 18; TEMP 97.6
[2021-05-16] MEDS ORDERED: NITROGLYCERIN OINT 1 INCH/GM PACKET TOPICAL STA (18:05)
[2021-05-16] MEDS ORDERED: ASPIRIN 81 MG PO STA (18:05)
[2021-05-16 18:26] LABS: Basophils # (A) 0.1 k/uL (0-0.2); Basophils % (A) 1 %; Eosinophils # (A) 0.3 k/uL (0-0.7); Eosinophils % (A) 4 %; HCT 42.3 % (34.0-46.0); HGB 14.3 gm/dL (11.4-16.0); Lymphocytes # (A) 2.2 k/uL (1.0-4.8); Lymphocytes % (A) 33 %; MCH 33.6 pg (25.0-35.0); MCHC 33.9 g/dL (31.0-37.0); MCV 99.1 fL (80.0-100.0); Mean Platelet Volume 6.8; Monocytes # (A) 0.4 k/uL (0-1.0); Monocytes % (A) 5 %; Neutrophils # (A) 3.6 k/uL (1.3-7.7); Neutrophils % (A) 54 %; Platelet Count 388 k/uL (150-450); RBC 4.27 m/uL (3.80-5.40); RDW 12.6 % (11.5-15.5); WBC 6.7 k/uL (3.8-10.6)
[2021-05-16 18:30] LABS: Partial Thromboplastin Time 27.4 sec (22.0-30.0); Prothrombin Time 10.4 sec (9.0-12.0)
[2021-05-16 18:39] LABS: ALT 13 U/L (4-34); AST 16 U/L (14-36); African American GFR (CKD) >90 (>60 ml/min/1.73 sqM); Albumin 4.2 g/dL (3.5-5.0); Alkaline Phosphatase 70 U/L (38-126); Anion Gap 9 mmol/L; Blood Urea Nitrogen 5 mg/dL (7-17); Calcium 9.7 mg/dL (8.4-10.2); Carbon Dioxide 23 mmol/L (22-30); Chloride 106 mmol/L (98-107); Glucose 97 mg/dL (74-99); Magnesium 1.9 mg/dL (1.6-2.3); Non-African American GFR(CKD) >90 (>60 ml/min/1.73 sqM); Potassium 3.7 mmol/L (3.5-5.1); Sodium 138 mmol/L (137-145); Total Bilirubin 0.1 mg/dL (0.2-1.3); Total Protein 6.6 g/dL (6.3-8.2)
[2021-05-16 18:59] VITALS: BP 137/86; PULSE 64
--- NOTE | 2021-05-16 19:00 | ED ---
General Adult HPI - General Chief complaint: Chest Pain Stated complaint: Chest pain Time Seen by Provider: 05/16/21 17:50 Source: patient, RN notes reviewed, old records reviewed Mode of arrival: ambulatory Limitations: no limitations - History of Present Illness Initial comments: This is a 51-year-old female presents to the emergency department stating that she has had a previous heart attack with a stent placement. Patient states she also has high cholesterol. History is positive for heart disease and she smokes. Patient states earlier today she had chest pain she took a nitroglycerin one away. Patient states she then took a shower got out of the shower the pain came back per patient states this has been coming and going. Patient states she is also mildly short of breath but there is no diaphoretic episode. Patient denies any radiation of the pain. Patient states currently she is pain-free. Patient denies any abdominal pain patient is not vomiting diarrhea. Patient denies lightheadedness or dizziness. - Related Data Home Medications Medication Instructions Recorded Confirmed Fluticasone Nasal [place] [Flonase 2 spr EA NOSTRIL DAILY 10/16/17 05/16/21 Nasal [place]] Liothyronine Sodium [Cytomel] 5 mcg PO DAILY 10/16/17 05/16/21 Metoprolol Tartrate 12.5 mg PO BID 10/16/17 05/16/21 Dicyclomine [Bentyl] 20 mg PO QID PRN 03/18/19 05/16/21 Levothyroxine Sodium [Synthroid] 100 mcg PO MOTUWETHFR 03/18/19 05/16/21 Acetaminophen Tab [Tylenol] 500 mg PO Q8H 09/08/19 05/16/21 Docusate Sodium [Dok] 100 mg PO BID 09/08/19 05/16/21 Ergocalciferol [Vitamin D2 50,000 unit PO WE 09/08/19 05/16/21 (DRISDOL)] LORazepam [Ativan] 0.5 mg PO HS 09/08/19 05/16/21 LORazepam [Ativan] 1 mg PO DAILY PRN 09/08/19 05/16/21 Loratadine [Claritin] 10 mg PO DAILY 09/08/19 05/16/21 Magnesium Oxide 400 mg PO HS 09/08/19 05/16/21 Nitroglycerin Sl Tabs [Nitrostat] 0.4 mg SUBLINGUAL Q5M PRN 09/08/19 05/16/21 Omeprazole [PriLOSEC] 20 mg PO BID 09/08/19 05/16/21 Spironolactone [Aldactone] 25 mg PO DAILY 09/08/19 05/16/21 Albuterol Nebulized [Ventolin 2.5 mg INHALATION RT-QID PRN 05/16/21 05/16/21 Nebulized] Albuterol Sulfate [Proair Hfa] 1 - 2 puff INHALATION RT-Q6H PRN 05/16/21 05/16/21 Aspirin EC [Ecotrin] 325 mg PO DAILY 05/16/21 05/16/21 Atorvastatin [Lipitor] 40 mg PO HS 05/16/21 05/16/21 Black Cohosh 40 mg PO BID 05/16/21 05/16/21 Calcium Carbonate [Calcium] 600 mg PO DAILY 05/16/21 05/16/21 HYDROcodone/APAP 5-325MG [[place] 1 tab PO Q4HR PRN 05/16/21 05/16/21 5-325] Levothyroxine Sodium [Synthroid] 50 mcg PO SUSA 05/16/21 05/16/21 PARoxetine HCL [Paxil] 30 mg PO DAILY 05/16/21 05/16/21 Polyethylene Glycol 3350 [Miralax] 17 gm PO BID 05/16/21 05/16/21 Tiotropium 18 Mcg/Puff [Spiriva] 1 puff INHALATION RT-DAILY 05/16/21 05/16/21 metroNIDAZOLE [Flagyl] 500 mg PO Q12H 05/16/21 05/16/21 rOPINIRole HCL [Requip] 0.25 mg PO HS 05/16/21 05/16/21 tiZANidine [Zanaflex] 4 mg PO BID 05/16/21 05/16/21 Allergies Allergy/AdvReac Type Severity Reaction Status Date / Time No Known Allergies Allergy Verified 05/16/21 18:49 Review of Systems ROS Statement: Those systems with pertinent positive or pertinent negative responses have been documented in the HPI. ROS Other: All systems not noted in ROS Statement are negative. Past Medical History Past Medical History: Coronary Artery Disease (CAD), Chest Pain / Angina, COPD, Fibromyalgia, GERD/Reflux, Hyperlipidemia, Hypertension, Thyroid Disorder Additional Past Medical History / Comment(s): IRRITABLE BOWEL DISEASE/ HAD GRAVES-NOW HYPO,. Anxiety with panic attacks, sciatica, History of Any Multi-Drug Resistant Organisms: C-DIFF Date of last positivie culture/infection: APRIL 2015 MDRO Source:: FECES Past Surgical History: Section, Heart Catheterization With Stent, Orthopedic Surgery, Tubal Ligation Additional Past Surgical History / Comment(s): OVARY REMOVED, cardiac stent Di stal circ, left hip broken March 2021 Past Anesthesia/Blood Transfusion Reactions: Motion Sickness Past Psychological History: Anxiety, Panic Disorder, PTSD Smoking Status: Current every day smoker Past Alcohol Use History: None Reported Past Drug Use History: Marijuana - Past Family History Mother Family Medical History: No Reported History General Exam - General Exam Comments Initial Comments: GENERAL: Patient is well-developed and well-nourished. Patient is nontoxic and well- hydrated and is in mild distress. ENT: Neck is soft and supple. No significant lymphadenopathy is noted. Oropharynx is clear. Moist mucous membranes. Neck has full range of motion without eliciting any pain. EYES: The sclera were anicteric and conjunctiva were pink and moist. Extraocular movements were intact and pupils were equal round and reactive to light. Eyelids were unremarkable. PULMONARY: Unlabored respirations. Good breath sounds bilaterally. No audible rales rhonchi or wheezing was noted. CARDIOVASCULAR: There is a regular rate and rhythm without any murmurs gallops or rubs. ABDOMEN: Soft and nontender with normal bowel sounds. SKIN: Skin is clear with no lesions or rashes and otherwise unremarkable. NEUROLOGIC: Patient is alert and oriented x3. Cranial nerves II through XII are grossly intact. Motor and sensory are also intact. Normal speech, volume and content. Symmetrical smile. MUSCULOSKELETAL: Normal extremities with adequate strength and full range of motion. LYMPHATICS: No significant lymphadenopathy is noted PSYCHIATRIC: Normal psychiatric evaluation. Limitations: no limitations Course Vital Signs 05/16/21 05/16/21 05/16/21 17:48 18:03 18:30 Temperature 97.6 F Pulse Rate 78 78 64 Respiratory 18 18 18 Rate Blood Pressure 128/83 137/86 O2 Sat by Pulse 98 98 98 Oximetry Medical Decision Making - Medical Decision Making EKG shows sinus rhythm at 84 bpm with occasional PVC and PAC [place] interval is 182 QRS is 140 QT interval 422 QTC is 498. Patient's EKG shows no ST segment elevation or depression Chest x-ray shows no acute abnormality. I went back in to tell the patient she needed to stay because she had a significant history and a classic story. I told the patient she was at risk for heart attack she did not care she stated her enzymes were normal she wanted to go home. I told her she could still have had a heart attack in the NSAIDs not being elevated But she refused to stay and wanted to be discharged home and she agreed to sign out AMA. - Lab Data Result diagrams: 05/16/21 Unknown 05/16/21 Unknown Lab Results 05/16/21 05/16/21 05/16/21 Range/Units Unknown Unknown Unknown WBC 6.7 (3.8-10.6) k/uL RBC 4.27 (3.80-5.40) m/uL Hgb 14.3 (11.4-16.0) gm/dL Hct 42.3 (34.0-46.0) % MCV 99.1 (80.0-100.0) fL MCH 33.6 (25.0-35.0) pg MCHC 33.9 (31.0-37.0) g/dL RDW 12.6 (11.5-15.5) % Plt Count 388 (150-450) k/uL MPV 6.8 Neutrophils % 54 % Lymphocytes % 33 % Monocytes % 5 % Eosinophils % 4 % Basophils % 1 % Neutrophils # 3.6 (1.3-7.7) k/uL Lymphocytes # 2.2 (1.0-4.8) k/uL Monocytes # 0.4 (0-1.0) k/uL Eosinophils # 0.3 (0-0.7) k/uL Basophils # 0.1 (0-0.2) k/uL PT 10.4 (9.0-12.0) sec INR 1.0 (<1.2) APTT 27.4 (22.0-30.0) sec Sodium 138 (137-145) mmol/L Potassium 3.7 (3.5-5.1) mmol/L Chloride 106 (98-107) mmol/L Carbon Dioxide 23 (22-30) mmol/L Anion Gap 9 mmol/L BUN 5 L (7-17) mg/dL Creatinine 0.60 (0.52-1.04) mg/dL Est GFR (CKD-EPI)AfAm >90 (>60 ml/min/1.73 sqM) Est GFR (CKD-EPI)NonAf >90 (>60 ml/min/1.73 sqM) Glucose 97 (74-99) mg/dL Calcium 9.7 (8.4-10.2) mg/dL Magnesium 1.9 (1.6-2.3) mg/dL Total Bilirubin 0.1 L (0.2-1.3) mg/dL AST 16 (14-36) U/L ALT 13 (4-34) U/L Alkaline Phosphatase 70 (38-126) U/L Troponin I (0.000-0.034) ng/mL Total Protein 6.6 (6.3-8.2) g/dL Albumin 4.2 (3.5-5.0) g/dL 05/16/21 Range/Units Unknown WBC (3.8-10.6) k/uL RBC (3.80-5.40) m/uL Hgb (11.4-16.0) gm/dL Hct (34.0-46.0) % MCV (80.0-100.0) fL MCH (25.0-35.0) pg MCHC (31.0-37.0) g/dL RDW (11.5-15.5) % Plt Count (150-450) k/uL MPV Neutrophils % % Lymphocytes % % Monocytes % % Eosinophils % % Basophils % % Neutrophils # (1.3-7.7) k/uL Lymphocytes # (1.0-4.8) k/uL Monocytes # (0-1.0) k/uL Eosinophils # (0-0.7) k/uL Basophils # (0-0.2) k/uL PT (9.0-12.0) sec INR (<1.2) APTT (22.0-30.0) sec Sodium (137-145) mmol/L Potassium (3.5-5.1) mmol/L Chloride (98-107) mmol/L Carbon Dioxide (22-30) mmol/L Anion Gap mmol/L BUN (7-17) mg/dL Creatinine (0.52-1.04) mg/dL Est GFR (CKD-EPI)AfAm (>60 ml/min/1.73 sqM) Est GFR (CKD-EPI)NonAf (>60 ml/min/1.73 sqM) Glucose (74-99) mg/dL Calcium (8.4-10.2) mg/dL Magnesium (1.6-2.3) mg/dL Total Bilirubin (0.2-1.3) mg/dL AST (14-36) U/L ALT (4-34) U/L Alkaline Phosphatase (38-126) U/L Troponin I <0.012 (0.000-0.034) ng/mL Total Protein (6.3-8.2) g/dL Albumin (3.5-5.0) g/dL Disposition Clinical Impression: Unstable angina pectoris Disposition: Left Against Medical Advice Instructions (If sedation given, give patient instructions): Chest Pain (ED) Is patient prescribed a controlled substance at d/c from ED?: No Referrals: Scot Sanchez DO [Primary Care Provider] - 1-2 days Time of Disposition: 19:22
--- NOTE | 2021-05-16 19:03 | XR ---
EXAMINATION TYPE: XR chest 2V DATE OF EXAM: 05/16/2021 COMPARISON: CT 03/21/2020. HISTORY: Chest pain. TECHNIQUE: Frontal and lateral views of the chest are obtained. FINDINGS: There is no focal air space opacity, pleural effusion, or pneumothorax seen. The cardiac silhouette size is within normal limits. The osseous structures are intact. IMPRESSION: No acute cardiopulmonary process.
== END 2021-05-16 19:31 | disposition left against medical advice (07) ==
LOC: EC 17:47
DX: I20.0 Unstable angina (principal); I10 Essential (primary) hypertension; J44.9 Chronic obstructive pulmonary disease, unspecified; E78.5 Hyperlipidemia, unspecified; K21.9 Gastro-esophageal reflux disease without esophagitis; F41.9 Anxiety disorder, unspecified; F17.200 Nicotine dependence, unspecified, uncomplicated; F12.90 Cannabis use, unspecified, uncomplicated; Z79.51 Long term (current) use of inhaled steroids; Z79.82 Long term (current) use of aspirin
CPT/HCPCS: 36415; 71046; 80053; 83735; 84484; 85025; 85610; 85730; 93005; 99285

== ENCOUNTER 2021-05-20 03:15 | Observation (INO) | payer OTHER ==
[2021-05-20] MEDS ORDERED: SODIUM CHLORIDE 0.9% 1,000 ML IV STA (03:23)
[2021-05-20 03:46] LABS: Basophils # (A) 0.1 k/uL (0-0.2); Basophils % (A) 1 %; Eosinophils # (A) 0.4 k/uL (0-0.7); Eosinophils % (A) 4 %; HCT 43.8 % (34.0-46.0); HGB 15.3 gm/dL (11.4-16.0); Lymphocytes # (A) 3.3 k/uL (1.0-4.8); Lymphocytes % (A) 35 %; MCH 34.3 pg (25.0-35.0); Mean Platelet Volume 7.2; Monocytes # (A) 0.5 k/uL (0-1.0); Monocytes % (A) 5 %; Neutrophils # (A) 4.9 k/uL (1.3-7.7); Neutrophils % (A) 53 %; Platelet Count 390 k/uL (150-450); RBC 4.46 m/uL (3.80-5.40); RDW 11.9 % (11.5-15.5); WBC 9.4 k/uL (3.8-10.6)
[2021-05-20 03:58] LABS: INR 0.9 (<1.2); Partial Thromboplastin Time 27.3 sec (22.0-30.0); Prothrombin Time 9.9 sec (9.0-12.0)
--- NOTE | 2021-05-20 04:04 | ED ---
Chest Pain HPI - General Chief Complaint: Chest Pain Stated Complaint: Chest Pain Time Seen by Provider: 05/20/21 03:16 Source: patient, RN notes reviewed, old records reviewed Mode of arrival: ambulatory Limitations: no limitations - History of Present Illness Initial Comments: This is a 51-year-old female DF for chest pain. Patient is a recent chest pain observation admit to sign AGAINST MEDICAL ADVICE. Patient states she did take care of issues at home 3 times a day for persistent chest pain medical history is significant for Heart disease with history of CAD. Otherwise no fevers no cough or congestion of travel history no sick contacts MD Complaint: chest pain -: days(s) Onset: during rest, during exertion Pain Location: substernal, left chest Pain Radiation: LUE Severity: moderate Severity scale (1-10): 4 Quality: tightness, heaviness Consistency: intermittent Improves With: nothing Worsens With: nothing Context: recent illness Anginal Symptoms: dyspnea Other Symptoms: burping Treatments Prior to Arrival: none - Related Data Home Medications Medication Instructions Recorded Confirmed Fluticasone Nasal [place] [Flonase 2 spr EA NOSTRIL DAILY 10/16/17 05/20/21 Nasal [place]] Liothyronine Sodium [Cytomel] 5 mcg PO DAILY 10/16/17 05/20/21 Metoprolol Tartrate 12.5 mg PO BID 10/16/17 05/20/21 Dicyclomine [Bentyl] 20 mg PO QID PRN 03/18/19 05/20/21 Levothyroxine Sodium [Synthroid] 100 mcg PO DAILY 03/18/19 05/20/21 Acetaminophen Tab [Tylenol] 500 mg PO Q8H 09/08/19 05/20/21 Docusate Sodium [Dok] 100 mg PO BID 09/08/19 05/20/21 Ergocalciferol [Vitamin D2 50,000 unit PO WE 09/08/19 05/20/21 (DRISDOL)] LORazepam [Ativan] 0.5 mg PO HS 09/08/19 05/20/21 LORazepam [Ativan] 1 mg PO DAILY PRN 09/08/19 05/20/21 Loratadine [Claritin] 10 mg PO DAILY 09/08/19 05/20/21 Magnesium Oxide 400 mg PO HS 09/08/19 05/20/21 Nitroglycerin Sl Tabs [Nitrostat] 0.4 mg SUBLINGUAL Q5M PRN 09/08/19 05/20/21 Omeprazole [PriLOSEC] 20 mg PO BID 09/08/19 05/20/21 Spironolactone [Aldactone] 25 mg PO DAILY 09/08/19 05/20/21 Albuterol Nebulized [Ventolin 2.5 mg INHALATION RT-QID PRN 05/16/21 05/20/21 Nebulized] Albuterol Sulfate [Proair Hfa] 1 - 2 puff INHALATION RT-Q6H PRN 05/16/21 05/20/21 Aspirin EC [Ecotrin] 325 mg PO DAILY 05/16/21 05/20/21 Atorvastatin [Lipitor] 60 mg PO HS 05/16/21 05/20/21 Black Coh[place] 40 mg PO BID 05/16/21 05/20/21 Calcium Carbonate [Calcium] 600 mg PO DAILY 05/16/21 05/20/21 HYDROcodone/APAP 5-325MG [[place] 1 tab PO Q4HR PRN 05/16/21 05/20/21 5-325] Levothyroxine Sodium [Synthroid] 50 mcg PO SUSA 05/16/21 05/20/21 PARoxetine HCL [Paxil] 30 mg PO DAILY 05/16/21 05/20/21 Polyethylene Glycol 3350 [Miralax] 17 gm PO BID 05/16/21 05/20/21 Tiotropium 18 Mcg/Puff [Spiriva] 1 puff INHALATION RT-DAILY 05/16/21 05/20/21 rOPINIRole HCL [Requip] 0.25 mg PO HS 05/16/21 05/20/21 tiZANidine [Zanaflex] 4 mg PO BID PRN 05/16/21 05/20/21 Allergies Allergy/AdvReac Type Severity Reaction Status Date / Time No Known Allergies Allergy Verified 05/20/21 07:24 Review of Systems ROS Statement: Those systems with pertinent positive or pertinent negative responses have been documented in the HPI. ROS Other: All systems not noted in ROS Statement are negative. EKG Findings - EKG Comments: EKG Findings:: EKG is sinus rhythm 79 NE 160 QRS 100 QTc 463 Past Medical History Past Medical History: Coronary Artery Disease (CAD), Chest Pain / Angina, COPD, Fibromyalgia, GERD/Reflux, Hyperlipidemia, Hypertension, Thyroid Disorder Additional Past Medical History / Comment(s): IRRITABLE BOWEL DISEASE/ HAD GRAVES-NOW HYPO,. Anxiety with panic attacks, sciatica, History of Any Multi-Drug Resistant Organisms: C-DIFF Date of last positivie culture/infection: APRIL 2015 MDRO Source:: FECES Past Surgical History: Section, Heart Catheterization With Stent, Orthopedic Surgery, Tubal Ligation Additional Past Surgical History / Comment(s): OVARY REMOVED, cardiac stent Distal circ, left hip broken March 2021 Past Anesthesia/Blood Transfusion Reactions: Motion Sickness Past Psychological History: Anxiety, Panic Disorder, PTSD Smoking Status: Current every day smoker Past Alcohol Use History: None Reported Past Drug Use History: Marijuana - Past Family History Mother Family Medical History: No Reported History General Exam Limitations: no limitations General appearance: alert, in no apparent distress Head exam: Present: atraumatic, normocephalic, normal inspection Eye exam: Present: normal appearance, PERRL, EOMI. Absent: scleral icterus, conjunctival injection, periorbital swelling ENT exam: Present: normal exam, mucous membranes moist Neck exam: Present: normal inspection. Absent: tenderness, meningismus, lymphadenopathy Respiratory exam: Present: normal lung sounds bilaterally. Absent: respiratory distress, wheezes, rales, rhonchi, stridor Cardiovascular Exam: Present: regular rate, normal rhythm, normal heart sounds. Absent: systolic murmur, diastolic murmur, rubs, gallop, clicks GI/Abdominal exam: Present: soft, normal bowel sounds. Absent: distended, tenderness, guarding, rebound, rigid Extremities exam: Present: normal inspection, full ROM, normal capillary refill. Absent: tenderness, pedal edema, joint swelling, calf tenderness Back exam: Present: normal inspection Neurological exam: Present: alert, oriented X3, CN II-XII intact Psychiatric exam: Present: normal affect, normal mood Skin exam: Present: warm, dry, intact, normal color. Absent: rash Course Vital Signs 05/20/21 05/20/21 05/20/21 03:15 03:36 05:08 Temperature 97.7 F Pulse Rate 89 68 Pulse Rate [ 74 [employer]ch[employer] ] Respiratory 18 24 Rate Blood Pressure 129/94 130/79 O2 Sat by Pulse 100 98 Oximetry 05/20/21 05/20/21 05/20/21 06:00 07:00 07:35 Temperature 98.7 F 97.5 F L Pulse Rate 63 70 87 Pulse Rate [ [employer] ] Respiratory 20 20 18 Rate Blood Pressure 121/70 108/70 108/62 O2 Sat by Pulse 97 98 96 Oximetry 05/20/21 11:21 Temperature Pulse Rate 72 Pulse Rate [ [employer] ] Respiratory 16 Rate Blood Pressure 138/82 O2 Sat by Pulse 98 Oximetry - Reevaluation(s) Reevaluation #1: 05/20/21 07:05 medical record is reviewed Patient has continued chest pain here in the ER Patient informed results and questions answered Chest Pain MDM - MDM 51 female to the ED co CP, Disposition Clinical Impression: Chest pain Disposition: ADMITTED IP TO THIS HOSP Condition: Undetermined Is patient prescribed a controlled substance at d/c from ED?: No
[2021-05-20 04:09] LABS: ALT 23 U/L (4-34); AST 28 U/L (14-36); African American GFR (CKD) >90 (>60 ml/min/1.73 sqM); Albumin 4.5 g/dL (3.5-5.0); Alkaline Phosphatase 76 U/L (38-126); Anion Gap 9 mmol/L; Blood Urea Nitrogen 7 mg/dL (7-17); Calcium 9.9 mg/dL (8.4-10.2); Carbon Dioxide 25 mmol/L (22-30); Chloride 105 mmol/L (98-107); Creatine Kinase 53 U/L (30-135); Glucose 110 mg/dL (74-99); Lipase 129 U/L (23-300); Non-African American GFR(CKD) >90 (>60 ml/min/1.73 sqM); Potassium 3.4 mmol/L (3.5-5.1); Sodium 139 mmol/L (137-145); Total Bilirubin 0.1 mg/dL (0.2-1.3); Total Protein 7.2 g/dL (6.3-8.2)
[2021-05-20] MEDS ORDERED: MORPHINE SULFATE 4 MG/ML SYRINGE IV PRN (04:17)
[2021-05-20] MEDS ORDERED: ASPIRIN 81 MG PO STA (04:17)
[2021-05-20] MEDS ORDERED: NITROGLYCERIN SL TABS 0.4 MG TAB SUBLINGUAL PRN (04:17)
[2021-05-20 07:36] VITALS: TEMP 97.5
[2021-05-20] MEDS ORDERED: POTASSIUM CHLORIDE ER 20 MEQ TAB.ER PO STA (10:13)
[2021-05-20] MEDS ORDERED: ALBUTEROL NEBULIZED 2.5 MG/3 ML INHALATION PRN ×2 (10:13)
[2021-05-20] MEDS ORDERED: LORazepam 1 MG TAB PO PRN (10:13)
[2021-05-20] MEDS ORDERED: DICYCLOMINE 20 MG TAB PO PRN (10:13)
[2021-05-20] MEDS ORDERED: tiZANidine 4 MG TAB PO PRN (10:13)
[2021-05-20] MEDS ORDERED: METOPROLOL TARTRATE 12.5 MG TAB PO SCH (10:15)
[2021-05-20] MEDS ORDERED: PARoxetine 10 MG TAB PO SCH (10:15)
[2021-05-20] MEDS ORDERED: LORATADINE 10 MG TAB PO SCH (10:15)
[2021-05-20] MEDS ORDERED: LEVOTHYROXINE 100 MCG TAB PO SCH (10:15)
[2021-05-20] MEDS ORDERED: polyethylene glycoL 3350 17 GM POWD.PACK PO SCH (10:15)
[2021-05-20] MEDS ORDERED: ACETAMINOPHEN TAB 500 MG TAB PO PRN (10:15)
[2021-05-20] MEDS ORDERED: FLUTICASONE 50MCG/SPRAY NASAL 16GM EA NOSTRIL SCH (10:15)
[2021-05-20] MEDS ORDERED: LIOTHYRONINE SODIUM 5 MCG TAB PO SCH (10:15)
[2021-05-20] MEDS ORDERED: SPIRONOLACTONE 25 MG TAB PO SCH (10:15)
[2021-05-20] MEDS ORDERED: CAFFEINE CITRATE 60 MG/3 ML VIAL IV PRN (11:09)
[2021-05-20] MEDS ORDERED: AMINOPHYLLINE 500 MG/20 ML VIAL IV PRN (11:09)
[2021-05-20] MEDS ORDERED: REGADENOSON 0.4 MG/5 ML SYRINGE IV PRN (11:09)
[2021-05-20 11:24] VITALS: BP 138/82; PULSE 72; RESP 16
[2021-05-20] MEDS ORDERED: IPRATROPIUM 0.5 MG/2.5 ML NEBU INHALATION SCH (12:00)
--- NOTE | 2021-05-20 15:14 | CONS ---
CONSULTATION Mrs. Jones is a 51-year-old female, followed by Dr. Espinoza. History of coronary artery disease status post percutaneous revascularization of her left circumflex performed by Dr. Espinoza in May 2018, history of chronic tobacco use, history of hyperlipidemia, hypertension, who presented with symptoms of chest discomfort. She has been having the discomfort for the last week on and off, not always exertional pattern. At times, worse when she takes a deep breath or she coughs. She thinks that some of the discomfort reminds her of the way she felt prior to her PCI. Because of that, she came into the emergency room. She is not very active physically. She denies any significant change in her breathing. She has chronic dyspnea on exertion and has been followed by Dr. Acosta regarding COPD. She has no peripheral edema. No palpitation. No syncope. She has underwent a cardiac catheterization by Dr. Espinoza in the September 2019 and at that time there was no evidence of progression of disease and she had patent stent in left circumflex with mild disease in the LAD. She has no palpitation. No syncope. Her coronary risk factors at home include smoking, hypertension, hyperlipidemia. She is nondiabetic. MEDICATIONS: Her medications include: Zanaflex, Requip, Spiriva, Aldactone, Paxil, magnesium, Claritin, Cytomel, Synthroid. She is on Lipitor a 60 mg daily, ProAir, Ventolin, and Drisdol. REVIEW OF SYSTEMS: RESPIRATORY system: She has dyspnea on exertion. History of chronic tobacco use and obstructive lung disease, followed by Dr. Acosta. GI system: No recent GI bleeding. No peptic ulcer disease. system: No dysuria or hematuria. NERVOUS SYSTEM: No stroke or seizure. PHYSICAL EXAMINATION: 51-year-old female, alert, oriented, in no apparent distress. Blood pressure 108/60 with a heart rate in the 80s. HEAD: Normocephalic. Eyes: Sclerae anicteric. NECK: Good carotid upstroke. No bruit. No jugular venous distention. LUNGS: Decreased air exchange. No wheezes. HEART: Regular rate and rhythm S1, S2. No S3. No rub or gallop. ABDOMEN: Soft, nontender. Positive bowel sounds. No organomegaly. EXTREMITIES: No edema. Intact pulses. LAB DATA: Lab data revealed a troponin less than 0.012 for 3 samples. NT proBNP of 132. BUN and creatinine of 7 and 0.53, hemoglobin 15.3. EKG revealed a sinus mechanism, normal axis and intervals with T-wave inversion in the anterolateral leads. Comparing the EKG to her prior changes, she had a left bundle branch block in the past. IMPRESSION: 1. Symptoms of chest discomfort of unclear etiology, has some atypical features for ischemic heart disease, could be her related to her chronic obstructive lung disease and chronic tobacco use in a patient with known history of obstructive coronary artery disease. 2. History of ischemic cardiomyopathy with ejection fraction in the past in the 40%. 3. Chronic tobacco use. 4. Hypertension. 5. Hyperlipidemia. RECOMMENDATIONS: I have recommended to obtain an echocardiogram with Doppler as well as a myocardial perfusion imaging to further assess her status and guide her treatment. Depending on testing, further recommendations will be made. The importance of smoking cessation was discussed with the patient who is in full understanding and agreement. Thank you for this consult. We will follow with you. BRENDA / TODDN: [id number] /
--- NOTE | 2021-05-20 16:52 | P.HPIM ---
History of Present Illness H&P Date: 05/20/21 This is a 51-year-old female who was recently admitted with chest pain noted on her left side that was sharp and pressure-like in intensity. Patient states she sees Dr. Espinoza outpatient and refuses stress testing stating she cannot handle the treadmill or the way that the cardiac medications cause her heart rate to elevate and palpitations. Patient states she has a past medical history of cardiac catheterization with stenting in 2019 and continues to follow with Dr. Espinoza outpatient. She has a past medical history of coronary artery disease with COPD, fibromyalgia, GERD, hyperlipidemia, hypertension, thyroid disorder along with IBS, anxiety and sciatica. Patient follows with Dr. Anisa Sanchez as her primary care provider. Patient states that the pain started yesterday evening and progressively continued to get worse which brought her to the emergency room. Will Have cardiology evaluate the patient. Troponins have been negative and BNP was done showing 132. Sodium is 139 with a potassium of 3.4 and will replace per protocol, current creatinine is 0.53. CBC within normal li mits with no active infection noted and patient is afebrile. Patient continues to be in every day one pack per day smoker. Review of Systems Constitutional: Denies chills, Denies fever Ears, nose, mouth and throat: Denies headache, Denies sore throat Cardiovascular: Reports chest pain, Reports shortness of breath Respiratory: Denies cough Gastrointestinal: Denies abdominal pain, Denies diarrhea, Denies nausea, Denies vomiting Genitourinary: Denies dysuria, Denies hematuria Musculoskeletal: Denies myalgias Integumentary: Denies pruritus, Denies rash Neurological: Denies numbness, Denies weakness Psychiatric: Reports anxiety, Reports anxiety attacks, Reports mood swings, Reports sadness/tearfulness Endocrine: Denies fatigue, Denies weight change Past Medical History Past Medical History: Coronary Artery Disease (CAD), Chest Pain / Angina, COPD, Fibromyalgia, GERD/Reflux, Hyperlipidemia, Hypertension, Thyroid Disorder Additional Past Medical History / Comment(s): IRRITABLE BOWEL DISEASE/ HAD GRAVES-NOW HYPO,. Anxiety with panic attacks, sciatica, History of Any Multi-Drug Resistant Organisms: C-DIFF Date of last positivie culture/infection: APRIL 2015 MDRO Source:: FECES Past Surgical History: Section, Heart Catheterization With Stent, Orthopedic Surgery, Tubal Ligation Additional Past Surgical History / Comment(s): OVARY REMOVED, cardiac stent Distal circ, left hip broken March 2021 Past Anesthesia/Blood Transfusion Reactions: Motion Sickness Past Psychological History: Anxiety, Panic Disorder, PTSD Smoking Status: Current every day smoker Past Alcohol Use History: None Reported Past Drug Use History: Marijuana - Past Family History Mother Family Medical History: No Reported History Medications and Allergies Home Medications Medication Instructions Recorded Confirmed Type Fluticasone Nasal [place] [Flonase 2 spr EA NOSTRIL DAILY 10/16/17 05/20/21 His tory Nasal [place]] Liothyronine Sodium [Cytomel] 5 mcg PO DAILY 10/16/17 05/20/21 History Metoprolol Tartrate 12.5 mg PO BID 10/16/17 05/20/21 History Dicyclomine [Bentyl] 20 mg PO QID PRN 03/18/19 05/20/21 History Levothyroxine Sodium [Synthroid] 100 mcg PO DAILY 03/18/19 05/20/21 History Acetaminophen Tab [Tylenol] 500 mg PO Q8H 09/08/19 05/20/21 History Docusate Sodium [Dok] 100 mg PO BID 09/08/19 05/20/21 History Ergocalciferol [Vitamin D2 50,000 unit PO WE 09/08/19 05/20/21 History (DRISDOL)] LORazepam [Ativan] 0.5 mg PO HS 09/08/19 05/20/21 History LORazepam [Ativan] 1 mg PO DAILY PRN 09/08/19 05/20/21 History Loratadine [Claritin] 10 mg PO DAILY 09/08/19 05/20/21 History Magnesium Oxide 400 mg PO HS 09/08/19 05/20/21 History Nitroglycerin Sl Tabs [Nitrostat] 0.4 mg SUBLINGUAL Q5M PRN 09/08/19 05/20/21 History Omeprazole [PriLOSEC] 20 mg PO BID 09/08/19 05/20/21 History Spironolactone [Aldactone] 25 mg PO DAILY 09/08/19 05/20/21 History Albuterol Nebulized [Ventolin 2.5 mg INHALATION RT-QID PRN 05/16/21 05/20/21 History Nebulized] Albuterol Sulfate [Proair Hfa] 1 - 2 puff INHALATION RT-Q6H PRN 05/16/21 05/20/21 History Aspirin EC [Ecotrin] 325 mg PO DAILY 05/16/21 05/20/21 History Atorvastatin [Lipitor] 60 mg PO HS 05/16/21 05/20/21 History Black Cohosh 40 mg PO BID 05/16/21 05/20/21 History Calcium Carbonate [Calcium] 600 mg PO DAILY 05/16/21 05/20/21 History HYDROcodone/APAP 5-325MG [[place] 1 tab PO Q4HR PRN 05/16/21 05/20/21 History 5-325] Levothyroxine Sodium [Synthroid] 50 mcg PO SUSA 05/16/21 05/20/21 History PARoxetine HCL [Paxil] 30 mg PO DAILY 05/16/21 05/20/21 History Polyethylene Glycol 3350 [Miralax] 17 gm PO BID 05/16/21 05/20/21 History Tiotropium 18 Mcg/Puff [Spiriva] 1 puff INHALATION RT-DAILY 05/16/21 05/20/21 History rOPINIRole HCL [Requip] 0.25 mg PO HS 05/16/21 05/20/21 History tiZANidine [Zanaflex] 4 mg PO BID PRN 05/16/21 05/20/21 History Allergies Allergy/AdvReac Type Severity Reaction Status Date / Time No Known Allergies Allergy Verified 05/20/21 07:24 Physical Exam Vitals: Vital Signs Temp Pulse Pulse Resp BP Pulse Ox 05/20/21 07:35 97.5 F L 87 18 108/62 96 05/20/21 07:00 98.7 F 70 20 108/70 98 05/20/21 06:00 63 20 121/70 97 05/20/21 05:08 68 24 130/79 98 05/20/21 03:36 74 05/20/21 03:15 97.7 F 89 18 129/94 100 Intake and Output 05/19/21 05/20/21 05/20/21 22:59 06:59 14:59 Other: Weight 68.039 kg Gen: This is a 51-year-old female awake alert and oriented 3, well-developed, well-nourished, tearful and anxious HEENT: Head is atraumatic, normocephalic. Pupils equal, round. Sclerae is anicteric. NECK: Supple. No JVD. No lymphadenopathy. No thyromegaly. LUNGS: Clear to auscultation. No wheezes or rhonchi. No intercostal retractions. HEART: Regular rate and rhythm. No murmur. ABDOMEN: Soft. Bowel sounds are present. No masses. No tenderness. EXTREMITIES: No pedal edema. No calf tenderness. NEUROLOGICAL: Patient is awake, alert and oriented x3. Cranial nerves 2 through 12 are grossly intact. Results CBC & Chem 7: 05/20/21 03:27 05/20/21 03:27 Labs: Abnormal Lab Results - Last 24 Hours (Table) 05/20/21 Range/Units 03:27 Potassium 3.4 L (3.5-5.1) mmol/L Glucose 110 H (74-99) mg/dL Total Bilirubin 0.1 L (0.2-1.3) mg/dL Assessment and Plan Assessment: Chest pain rule out acute coronary syndrome Coronary artery disease COPD, not in acute exacerbation History of fibromyalgia [place] history of gastroesophageal reflux disease [place] hyperlipidemia Hypertension Thyroid disorder history Anxiety/panic attacks Continued ongoing nicotine abuse, counseling provided THC use GI prophylaxis DVT prophylaxis Plan: We'll continue appropriate home medications and will have cardiology evaluate the patient. Troponins have been negative and will continue with telemetry. Patient continues to smoke every day and counseling was provided. Will continue to monitor closely. Patient is refusing stress testing and states she only undergoes cardiac catheterization with Dr. Espinoza and requesting Dr. Espinoza at this time. Will await cardiology evaluation. Time with Patient: Greater than 30
[2021-05-20] MEDS ORDERED: MAGNESIUM OXIDE 400 MG TAB PO SCH (21:00)
[2021-05-20] MEDS ORDERED: LORazepam 0.5 MG TAB PO SCH (21:00)
[2021-05-20] MEDS ORDERED: DOCUSATE 100 MG CAP PO SCH (21:00)
[2021-05-20] MEDS ORDERED: ATORVASTATIN 20 MG TAB PO SCH (21:00)
[2021-05-21] MEDS ORDERED: PANTOPRAZOLE 40 MG TABLET PO SCH (07:30)
[2021-05-21] MEDS ORDERED: CALCIUM CARBONATE 500 MG CHEWABLE PO SCH (09:00)
[2021-05-21] MEDS ORDERED: ASPIRIN 325 MG TAB PO SCH (09:00)
[2021-05-21] MEDS ORDERED: ASPIRIN 81 MG PO SCH (09:00)
--- NOTE | 2021-05-22 02:45 | P.DS ---
Providers Date of admission: 05/20/21 04:17 Expected date of discharge: 05/20/21 Attending physician: Alma Marcelo Consults: 05/20/21 04:17 Consult Physician Urgent Consulting Provider: Gael Espinoza Consult Reason/Comments: known Do you want consulting provider notified?: Yes Primary care physician: [facility] Hospital Course: Final Diagnosis Chest pain rule out acute coronary syndrome Coronary artery disease COPD, not in acute exacerbation History of fibromyalgia history of gastroesophageal reflux disease hyperlipidemia Hypertension Thyroid disorder history Anxiety/panic attacks Continued ongoing nicotine abuse, counseling provided THC use GI prophylaxis DVT prophylaxis Discharge disposition Patient left against medical advice and RN in the ER reported that patient signed AMA paperwork. Please refer to H&P for further HPI and cardiology documentation as well. Patient instructed to follow up with research physician Dr. Espinoza outpatient. Risks versus benefits explained and patient will be leaving against medical advice. Patient Condition at Discharge: Fair Plan - Discharge Summary New Discharge Prescriptions: No Action Metoprolol Tartrate 12.5 mg PO BID Liothyronine Sodium [Cytomel] 5 mcg PO DAILY Fluticasone Nasal [place] [Flonase Nasal [place]] 2 spr EA NOSTRIL DAILY Levothyroxine Sodium [Synthroid] 100 mcg PO DAILY Dicyclomine [Bentyl] 20 mg PO QID PRN PRN Reason: IBS Acetaminophen Tab [Tylenol] 500 mg PO Q8H Docusate Sodium [Dok] 100 mg PO BID Ergocalciferol [Vitamin D2 (DRISDOL)] 50,000 unit PO WE Loratadine [Claritin] 10 mg PO DAILY LORazepam [Ativan] 0.5 mg PO HS LORazepam [Ativan] 1 mg PO DAILY PRN PRN Reason: Anxiety Magnesium Oxide 400 mg PO HS Omeprazole [PriLOSEC] 20 mg PO BID Spironolactone [Aldactone] 25 mg PO DAILY Nitroglycerin Sl Tabs [Nitrostat] 0.4 mg SUBLINGUAL Q5M PRN PRN Reason: Chest Pain Polyethylene Glycol 3350 [Miralax] 17 gm PO BID [place] 40 mg PO BID tiZANidine [Zanaflex] 4 mg PO BID PRN PRN Reason: Muscle Spasm Aspirin EC [Ecotrin] 325 mg PO DAILY Levothyroxine Sodium [Synthroid] 50 mcg PO SUSA Albuterol Nebulized [Ventolin Nebulized] 2.5 mg INHALATION RT-QID PRN PRN Reason: Shortness Of Breath Tiotropium 18 Mcg/Puff [Spiriva] 1 puff INHALATION RT-DAILY rOPINIRole HCL [Requip] 0.25 mg PO HS PARoxetine HCL [Paxil] 30 mg PO DAILY Calcium Carbonate [Calcium] 600 mg PO DAILY Atorvastatin [Lipitor] 60 mg PO HS Albuterol Sulfate [Proair Hfa] 1 - 2 puff INHALATION RT-Q6H PRN PRN Reason: Shortness Of Breath HYDROcodone/APAP 5-325MG [[place] 5-325] 1 tab PO Q4HR PRN PRN Reason: Pain Discharge Medication List Fluticasone Nasal [place] [Flonase Nasal [place]] 2 spr EA NOSTRIL DAILY 10/16/17 [History] Liothyronine Sodium [Cytomel] 5 mcg PO DAILY 10/16/17 [History] Metoprolol Tartrate 12.5 mg PO BID 10/16/17 [History] Dicyclomine [Bentyl] 20 mg PO QID PRN 03/18/19 [History] Levothyroxine Sodium [Synthroid] 100 mcg PO DAILY 03/18/19 [History] Acetaminophen Tab [Tylenol] 500 mg PO Q8H 09/08/19 [History] Docusate Sodium [Dok] 100 mg PO BID 09/08/19 [History] Ergocalciferol [Vitamin D2 (DRISDOL)] 50,000 unit PO WE 09/08/19 [History] LORazepam [Ativan] 0.5 mg PO HS 09/08/19 [History] LORazepam [Ativan] 1 mg PO DAILY PRN 09/08/19 [History] Loratadine [Claritin] 10 mg PO DAILY 09/08/19 [History] Magnesium Oxide 400 mg PO HS 09/08/19 [History] Nitroglycerin Sl Tabs [Nitrostat] 0.4 mg SUBLINGUAL Q5M PRN 09/08/19 [History] Omeprazole [PriLOSEC] 20 mg PO BID 09/08/19 [History] Spironolactone [Aldactone] 25 mg PO DAILY 09/08/19 [History] Albuterol Nebulized [Ventolin Nebulized] 2.5 mg INHALATION RT-QID PRN 05/16/21 [History] Albuterol Sulfate [Proair Hfa] 1 - 2 puff INHALATION RT-Q6H PRN 05/16/21 [History] Aspirin EC [Ecotrin] 325 mg PO DAILY 05/16/21 [History] Atorvastatin [Lipitor] 60 mg PO HS 05/16/21 [History] [place] 40 mg PO BID 05/16/21 [History] Calcium Carbonate [Calcium] 600 mg PO DAILY 05/16/21 [History] HYDROcodone/APAP 5-325MG [[place] 5-325] 1 tab PO Q4HR PRN 05/16/21 [History] Levothyroxine Sodium [Synthroid] 50 mcg PO SUSA 05/16/21 [History] PARoxetine HCL [Paxil] 30 mg PO DAILY 05/16/21 [History] Polyethylene Glycol 3350 [Miralax] 17 gm PO BID 05/16/21 [History] Tiotropium 18 Mcg/Puff [Spiriva] 1 puff INHALATION RT-DAILY 05/16/21 [History] rOPINIRole HCL [Requip] 0.25 mg PO HS 05/16/21 [History] tiZANidine [Zanaflex] 4 mg PO BID PRN 05/16/21 [History] Follow up Appointment(s)/Referral(s): Scot Sanchez DO [Primary Care Provider] - 1-2 days Patient Instructions/Handouts: Chest Pain (ED) Discharge Disposition: Left Against Medical Advice
[2021-05-22] MEDS ORDERED: ERGOCALCIFEROL 1,250 MCG (50,000 IU) CAPSULE PO SCH (09:00)
[2021-05-25] MEDS ORDERED: LEVOTHYROXINE 50 MCG TAB PO SCH (06:30)
== END 2021-05-20 14:44 | disposition left against medical advice (07) ==
LOC: EC 03:15 → 6NMEDSUR 04:17
PROVIDERS: ADMIT Hospitalist; ATTEND Hospitalist
DX: R07.2 Precordial pain (principal); I25.10 Atherosclerotic heart disease of native coronary artery without angina pectoris; J44.9 Chronic obstructive pulmonary disease, unspecified; M79.7 Fibromyalgia; K21.9 Gastro-esophageal reflux disease without esophagitis; E78.5 Hyperlipidemia, unspecified; I10 Essential (primary) hypertension; E07.9 Disorder of thyroid, unspecified; F41.0 Panic disorder [episodic paroxysmal anxiety]; F43.10 Post-traumatic stress disorder, unspecified; F17.210 Nicotine dependence, cigarettes, uncomplicated; F12.90 Cannabis use, unspecified, uncomplicated; Z71.6 Tobacco abuse counseling; I25.5 Ischemic cardiomyopathy; K58.9 Irritable bowel syndrome, unspecified; M54.30 Sciatica, unspecified side; Z79.82 Long term (current) use of aspirin; Z79.890 Hormone replacement therapy; Z79.899 Other long term (current) drug therapy; Z95.5 Presence of coronary angioplasty implant and graft; Z87.81 Personal history of (healed) traumatic fracture; Z98.891 History of uterine scar from previous surgery; Z98.51 Tubal ligation status; Z86.19 Personal history of other infectious and parasitic diseases; Z90.721 Acquired absence of ovaries, unilateral; Z86.59 Personal history of other mental and behavioral disorders; Z53.29 Procedure and treatment not carried out because of patient's decision for other reasons
CPT/HCPCS: 96360; 96361; 99285; 36415; 93005; 83880; 80053; 82550; 83690; 83735; 84484; 85025; 85610; 85730; G0378

== ENCOUNTER → 2021-07-29 | Outpatient (CLI) | payer OTHER ==
--- NOTE | 2021-07-30 08:07 | BD ---
EXAMINATION TYPE: Axial Bone Density DATE OF EXAM: 07/29/2021 COMPARISON: NONE CLINICAL HISTORY: Postmenopausal female Height: 5 FT 5 1/2 IN Weight: 151 FRAX RISK QUESTIONS: Alcohol (3 or more units per day): NO Family History (Parent hip fracture): NO Glucocorticoids (More than 3mos): NO (Ex: prednisone, prednisolone, methylprednisolone, dexamethasone, and hydrocortisone). History of Fracture in Adulthood: YES Secondary Osteoporosis: 1. Type 1 Diabetes: NO 2. Hyperthyroidism: GRAVES DISEASE 3. Menopause before 45: NO 4. Malnutrition: NO 5. Chronic liver disease: NO Rheumatoid Arthritis: NO Current Tobacco Use: YES RISK FACTORS HISTORY OF: Hip Fracture (Right/Left): LEFT When: 03/2021 Surgery to Spine/Hip(right/left)/Wrist (right/left): LEFT HIP FX When: 03/2021 Family History of Osteoporosis: YES Active: YES Diet low in dairy products/other sources of calcium: NO Postmenopausal woman: AGE 49 Take estrogen and/or progesterone medications: NO Lost more than 2 inches in height since high school: NO MEDICATIONS: Thyroid Medications: YES Which medication: LEVOTHYROXINE How Long: APPROX 20 YEARS Additional Medications: MARISELA THYRONINE ,LEVOTHYROXINE,ANGELA VAN, PAXIL, MUSCLE RELAXER, OMEPRAZOLE, IRR ITABLE BOWEL MEDS , METOPROLOL, H2O PILL, ASPIRIN, VIT D, ALBUTEROL,,RESTLESS LEG SYNDROME MEDS Additional History: EXAM MEASUREMENTS: Bone mineral densitometry was performed using the Donews System. Bone mineral density as measured about the Lumbar spine is: ----- L1-L4(G/cm2): 1.205 T Score Values are as follows: ----- L2: 0.1 ----- L3: 0.5 ----- L4: 0.2 ----- L1-L4: 0.2 BASELINE Bone mineral density about the R hip (g/cm2): 0.894 T Score values are as follows: -----R Neck: -1.0 -----R Total: -1.0 BASELINE IMPRESSION: Normal (Values between +1 and -1 indicate normal bone mass). Consider repeating this study in 5 year s or sooner if there is some new clinical indication. NOTE: T-SCORE=SD OF THE YOUNG ADULT MEAN.
== END | disposition home or self-care (01) ==
LOC: RADBDWWP 16:17
PROVIDERS: ATTEND Family Medicine
DX: Z78.0 Asymptomatic menopausal state (principal); Z79.82 Long term (current) use of aspirin
CPT/HCPCS: 77080

== ENCOUNTER → 2022-02-27 | Outpatient (CLI) | payer OTHER ==
--- NOTE | 2022-02-27 09:22 | CTL ---
EXAMINATION TYPE: CT Low Dose Lung DATE OF EXAM ORDERED: 02/27/2022 HISTORY: Tobacco use. Lung cancer screening CT DLP: 83.[address] CTDI: 2.0 mGy Automated exposure control for dose reduction was used. SCREENING VISIT: Baseline COMPARISON: CT dated 03/21/2020 TECHNIQUE: Low dose computed tomography scan was performed through the chest at 1 mm thick sections a nd reconstructed images in multiple planes at 1 mm and [address] DIAGNOSTIC QUALITY: Satisfactory FINDINGS: LUNG NODULES: Left lateral lung base solid [address] image 305. This nodule is stable since 03/18/2019 CT abdomen. Right lung bases solid [address] image 282. This nodule is stable. Right middle lobe solid elongated [address] image 211. This nodule is stable LUNGS: COPD: Severity: Moderate Fibrosis: Severity: Minimal Lymph nodes: No pathologically enlarged lymph nodes Other findings: Diffuse bronchial wall thickening. RIGHT PLEURAL SPACE: Effusion: None Calcification: None Thickening: None Pneumothorax: None LEFT PLEURAL SPACE: Effusion: None Calcification: None Thickening: None Pneumothorax: None HEART: Heart Size: Normal Coronary Calcification: Moderate Pericardial Effusion: None OTHER FINDINGS: Upper abdomen: None Bony thorax: Suspected right sided rotator cuff calcific tendinitis. Supraclavicular region: None Other: Scattered arterial atherosclerotic calcifications. Tiny right breast calcification. Please cor relate with breast ultrasound/mammography results. IMPRESSION: Scattered pulmonary nodules measuring up to 5 mm, stable. COPD changes. Other incidental findings as described above. CT LUNG RAD AND CT CHEST RECOMMENDATION: Lung-Rad 2 Benign Appearance or Behavior: Continue annual sc reening with LDCT in 12 months. S Modifier (other clinically significant findings): As above
== END | disposition home or self-care (01) ==
LOC: RADCTMAIN 06:58
PROVIDERS: ATTEND Internal Medicine Critical Care Medicine
DX: Z12.2 Encounter for screening for malignant neoplasm of respiratory organs (principal); R91.8 Other nonspecific abnormal finding of lung field; J44.9 Chronic obstructive pulmonary disease, unspecified; Z87.891 Personal history of nicotine dependence
CPT/HCPCS: 71271

== ENCOUNTER → 2022-03-27 | Outpatient (CLI) | payer OTHER ==
--- NOTE | 2022-03-27 15:37 | MM ---
Reason for Exam: Additional evaluation requested from prior study. Last mammogram was performed 1 year(s) and 6 month(s) ago. Patient History: Menarche at age 14. First Full-Term at age 25. Postmenopausal. Hormonal Contraceptives for 6 years from age 19 until age 25. 11/09/2009, Benign Core Biopsy on the right side. Maternal aunt had breast cancer, age 60. Risk Values: [place] 5 year model risk: 1.1%. NCI Lifetime model risk: 9.3%. Prior Study Comparison: 03/30/2018 Bilateral Screening Mammogram, [facility]. 04/25/2019 Bilateral Screening Mammogram, [facility]. 10/05/2020 Bilateral Screening Mammogram, [facility]. Tissue Density: The breast tissue is extremely dense which could obscure a lesion on mammography. Findings: Analyzed By CAD. Pattern appears symmetrical and stable. There are scattered calcifications bilaterally. Some finer calcifications are adjacent to prior core biopsy clip. These appear stable from comparison. Overall Assessment: Benign, BI-RAD 2 Management: Screening Mammogram of both breasts in 1 year. A clinical breast exam by your physician is recommended on an annual basis and results should be correlated with mammographic findings. This exam should not preclude additional follow-up of suspicious palpable abnormalities. Results were given to the patient verbally at the time of exam. Electronically signed and approved by: Freddie Villa D.O. Radiologis
== END | disposition home or self-care (01) ==
LOC: RADMAMWWP 15:08
PROVIDERS: ATTEND Family Medicine
DX: R92.1 Mammographic calcification found on diagnostic imaging of breast (principal)
CPT/HCPCS: 77066

== ENCOUNTER 2022-07-18 03:06 | Emergency (ER) | payer OTHER ==
[2022-07-18] MEDS ORDERED: MORPHINE SULFATE 4 MG/ML SYRINGE IV STA (04:30)
[2022-07-18] MEDS ORDERED: ONDANSETRON 4 MG/2 ML VIAL IVP STA (04:30)
[2022-07-18] MEDS ORDERED: SODIUM CHLORIDE 0.9% 1,000 ML IV STA (04:30)
--- NOTE | 2022-07-18 04:30 | ED ---
Abdominal Pain HPI <Marin Eubanks - Last Filed: 07/18/22 08:05> - General Source: patient, RN notes reviewed, old records reviewed Mode of arrival: ambulatory Limitations: no limitations - History of Present Illness MD Complaint: abdominal pain -: days(s) Location: periumbilical, RUQ Radiation: RUQ, epigastric Migration to: epigastric Severity: moderate Severity scale (1-10): 7 Quality: cramping, aching, sharp Consistency: constant Improves With: nothing Worsens With: nothing Associated Symptoms: nausea Treatments Prior to Arrival: other (0) <Luis M June - Last Filed: 07/18/22 21:35> - General Chief Complaint: Abdominal Pain Stated Complaint: Abd Pain Time Seen by Provider: 07/18/22 04:29 - History of Present Illness Initial Comments: This is a 52-year-old female DF for evaluation. She presents today for evaluation of abdominal pain. Patient coming in with epigastric right upper quadrant abdominal pain mild nausea no vomiting no fevers. Doesn't history mild GI illness no history of surgery. No travel history or sick contacts (Luis M June) - Related Data Home Medications Medication Instructions Recorded Confirmed Fluticasone Nasal [place] [Flonase 2 spr EA NOSTRIL DAILY 10/16/17 05/20/21 Nasal [place]] Liothyronine Sodium [Cytomel] 5 mcg PO DAILY 10/16/17 05/20/21 Metoprolol Tartrate 12.5 mg PO BID 10/16/17 05/20/21 Dicyclomine [Bentyl] 20 mg PO QID PRN 03/18/19 05/20/21 Levothyroxine Sodium [Synthroid] 100 mcg PO DAILY 03/18/19 05/20/21 Acetaminophen Tab [Tylenol] 500 mg PO Q8H 09/08/19 05/20/21 Docusate Sodium [Dok] 100 mg PO BID 09/08/19 05/20/21 Ergocalciferol [Vitamin D2 50,000 unit PO WE 09/08/19 05/20/21 (DRISDOL)] LORazepam [Ativan] 0.5 mg PO HS 09/08/19 05/20/21 LORazepam [Ativan] 1 mg PO DAILY PRN 09/08/19 05/20/21 Loratadine [Claritin] 10 mg PO DAILY 09/08/19 05/20/21 Magnesium Oxide 400 mg PO HS 09/08/19 05/20/21 Nitroglycerin Sl Tabs [Nitrostat] 0.4 mg SUBLINGUAL Q5M PRN 09/08/19 05/20/21 Omeprazole [PriLOSEC] 20 mg PO BID 09/08/19 05/20/21 Spironolactone [Aldactone] 25 mg PO DAILY 09/08/19 05/20/21 Albuterol Nebulized [Ventolin 2.5 mg INHALATION RT-QID PRN 05/16/21 05/20/21 Nebulized] Albuterol Sulfate [Proair Hfa] 1 - 2 puff INHALATION RT-Q6H PRN 05/16/21 05/20/21 Aspirin EC [Ecotrin] 325 mg PO DAILY 05/16/21 05/20/21 Atorvastatin [Lipitor] 60 mg PO HS 05/16/21 05/20/21 Black Cohosh 40 mg PO BID 05/16/21 05/20/21 Calcium Carbonate [Calcium] 600 mg PO DAILY 05/16/21 05/20/21 HYDROcodone/APAP 5-325MG [N[place]oso 1 tab PO Q4HR PRN 05/16/21 05/20/21 5-325] Levothyroxine Sodium [Synthroid] 50 mcg PO SUSA 05/16/21 05/20/21 PARoxetine HCL [Paxil] 30 mg PO DAILY 05/16/21 05/20/21 Tiotropium 18 Mcg/Puff [Spiriva] 1 puff INHALATION RT-DAILY 05/16/21 05/20/21 polyethylene glycoL 3350 [Miralax] 17 gm PO BID 05/16/21 05/20/21 rOPINIRole HCL [Requip] 0.25 mg PO HS 05/16/21 05/20/21 tiZANidine [Zanaflex] 4 mg PO BID PRN 05/16/21 05/20/21 Previous Rx's Medication Instructions Recorded Clotrimazole Elie [Mycelex 10 mg MUCOUS MEM 5XD #70 elie 03/11/22 Elie] Allergies Allergy/AdvReac Type Severity Reaction Status Date / Time No Known Allergies Allergy Verified 07/18/22 03:14 Review of Systems ROS Other: All systems not noted in ROS Statement are negative. <Marin Eubansk Eugenia - Last Filed: 07/18/22 08:05> ROS Other: All systems not noted in ROS Statement are negative. <Luis M June - Last Filed: 07/18/22 21:35> ROS Statement: Those systems with pertinent positive or pertinent negative responses have been documented in the HPI. Past Medical History Past Medical History: Coronary Artery Disease (CAD), Chest Pain / Angina, COPD, Fibromyalgia, GERD/Reflux, Hyperlipidemia, Hypertension, Thyroid Disorder Additional Past Medical History / Comment(s): IRRITABLE BOWEL DISEASE/ HAD GRAVES-NOW HYPO,. Anxiety with panic attacks, sciatica, History of Any Multi-Drug Resistant Organisms: C-DIFF Date of last positivie culture/infection: APRIL 2015 MDRO Source:: FECES Past Surgical History: Section, Heart Catheterization With Stent, Orthopedic Surgery, Tubal Ligation Additional Past Surgical History / Comment(s): OVARY REMOVED, cardiac stent Distal circ, left hip broken March 2021 Past Anesthesia/Blood Transfusion Reactions: Motion Sickness Past Psychological History: Anxiety, Panic Disorder, PTSD Smoking Status: Current every day smoker Past Alcohol Use History: None Reported Past Drug Use History: Marijuana - Past Family History Mother Family Medical History: No Reported History <Luis M June - Last Filed: 07/18/22 21:35> General Exam Limitations: no limitations General appearance: alert, in no apparent distress Head exam: Present: atraumatic, normocephalic, normal inspection Eye exam: Present: normal appearance, PERRL, EOMI. Absent: scleral icterus, conjunctival injection, periorbital swelling ENT exam: Present: normal exam, mucous membranes moist Neck exam: Present: normal inspection. Absent: tenderness, meningismus, lymphadenopathy Respiratory exam: Present: normal lung sounds bilaterally. Absent: respiratory distress, wheezes, rales, rhonchi, stridor Cardiovascular Exam: Present: regular rate, normal rhythm, normal heart sounds. Absent: systolic murmur, diastolic murmur, rubs, gallop, clicks GI/Abdominal exam: Present: soft, normal bowel sounds. Absent: distended, tenderness, guarding, rebound, rigid Extremities exam: Present: normal inspection, full ROM, normal capillary refill. Absent: tenderness, pedal edema, joint swelling, calf tenderness Back exam: Present: normal inspection Neurological exam: Present: alert, oriented X3, CN II-XII intact Psychiatric exam: Present: normal affect, normal mood Skin exam: Present: warm, dry, intact, normal color. Absent: rash <Luis M June - Last Filed: 07/18/22 21:35> Course <Luis M June - Last Filed: 07/18/22 21:35> Vital Signs 07/18/22 07/18/22 07/18/22 03:14 04:55 06:03 Temperature 98.1 F Pulse Rate 85 65 64 Respiratory 16 18 18 Rate Blood Pressure 126/61 126/72 128/98 O2 Sat by Pulse 98 99 95 Oximetry 07/18/22 07/18/22 07:00 08:23 Temperature 97.8 F Pulse Rate 58 L 62 Respiratory 18 18 Rate Blood Pressure 126/80 142/76 O2 Sat by Pulse 97 97 Oximetry - Reevaluation(s) Reevaluation #1: Records reviewed patient informed results questions answered Patient symptoms improved here in the ER (Luis M June) Medical Decision Making - Lab Data Result diagrams: 07/18/22 04:40 07/18/22 04:40 <Marin Eubanks - Last Filed: 07/18/22 08:05> - Lab Data Result diagrams: 07/18/22 04:40 07/18/22 04:40 - Radiology Data Radiology results: report reviewed (CT abd pelvis is negative for acute dz, ultrasound gallbladder negative for acute disease), image reviewed <Luis M June - Last Filed: 07/18/22 21:35> - Medical Decision Making 82-year-old female who had presented with right upper quadrant pain. She states this is a chronic issue. She's had workup with both general surgery and gastroenterology some years. She has not had a formal diagnosis. Workup emergency department, CT, ultrasound is NEGATIVE. Patient reassured by this testing and will continue to follow up with her primary care physician. (Marin Eubanks) This is a 52-year-old female DF for evaluation of abdominal pain. Patient has normal computed tomography scan normal lab values as well as a normal ultrasound here in the ER and can be discharged home (Luis M Juen) - Lab Data Lab Results 07/18/22 07/18/22 07/18/22 Range/Units 04:40 04:40 04:40 WBC 12.0 H (3.8-10.6) k/uL RBC 3.75 L (3.80-5.40) m/uL Hgb 12.8 (11.4-16.0) gm/dL Hct 36.3 (34.0-46.0) % MCV 96.7 (80.0-100.0) fL MCH 34.2 (25.0-35.0) pg MCHC 35.3 (31.0-37.0) g/dL RDW 11.7 (11.5-15.5) % Plt Count 375 (150-450) k/uL MPV 7.3 Neutrophils % 57 % Lymphocytes % 33 % Monocytes % 7 % Eosinophils % 2 % Basophils % 1 % Neutrophils # 6.8 (1.3-7.7) k/uL Lymphocytes # 4.0 (1.0-4.8) k/uL Monocytes # 0.8 (0-1.0) k/uL Eosinophils # 0.2 (0-0.7) k/uL Basophils # 0.1 (0-0.2) k/uL Sodium 129 L (137-145) mmol/L Potassium 4.2 (3.5-5.1) mmol/L Chloride 95 L (98-107) mmol/L Carbon Dioxide 21 L (22-30) mmol/L Anion Gap 13 mmol/L BUN 14 (7-17) mg/dL Creatinine 0.67 (0.52-1.04) mg/dL Est GFR (CKD-EPI)AfAm >90 (>60 ml/min/1.73 sqM) Est GFR (CKD-EPI)NonAf >90 (>60 ml/min/1.73 sqM) Glucose 102 H (74-99) mg/dL Plasma Lactic Acid Shaquille (0.7-2.0) mmol/L Calcium 9.6 (8.4-10.2) mg/dL Total Bilirubin 0.3 (0.2-1.3) mg/dL AST 25 (14-36) U/L ALT 17 (4-34) U/L Alkaline Phosphatase 46 (38-126) U/L Troponin I (0.000-0.034) ng/mL Total Protein 6.9 (6.3-8.2) g/dL Albumin 4.6 (3.5-5.0) g/dL Amylase 40 (30-110) U/L Lipase 95 (23-300) U/L Urine Color Colorless Urine Appearance Clear (Clear) Urine pH 5.0 (5.0-8.0) Ur Specific [place] 1.006 (1.001-1.035) Urine Protein Negative (Negative) Urine Glucose (UA) Negative (Negative) Urine Ketones Negative (Negative) Urine Blood Negative (Negative) Urine Nitrite Negative (Negative) Urine Bilirubin Negative (Negative) Urine Urobilinogen <2.0 (<2.0) mg/dL Ur Leukocyte Esterase Negative (Negative) 07/18/22 07/18/22 Range/Units 04:40 04:40 WBC (3.8-10.6) k/uL RBC (3.80-5.40) m/uL Hgb (11.4-16.0) gm/dL Hct (34.0-46.0) % MCV (80.0-100.0) fL MCH (25.0-35.0) pg MCHC (31.0-37.0) g/dL RDW (11.5-15.5) % Plt Count (150-450) k/uL MPV Neutrophils % % Lymphocytes % % Monocytes % % Eosinophils % % Basophils % % Neutrophils # (1.3-7.7) k/uL Lymphocytes # (1.0-4.8) k/uL Monocytes # (0-1.0) k/uL Eosinophils # (0-0.7) k/uL Basophils # (0-0.2) k/uL Sodium (137-145) mmol/L Potassium (3.5-5.1) mmol/L Chloride (98-107) mmol/L Carbon Dioxide (22-30) mmol/L Anion Gap mmol/L BUN (7-17) mg/dL Creatinine (0.52-1.04) mg/dL Est GFR (CKD-EPI)AfAm (>60 ml/min/1.73 sqM) Est GFR (CKD-EPI)NonAf (>60 ml/min/1.73 sqM) Glucose (74-99) mg/dL Plasma Lactic Acid Sha[place] 0.9 (0.7-2.0) mmol/L Calcium (8.4-10.2) mg/dL Total Bilirubin (0.2-1.3) mg/dL AST (14-36) U/L ALT (4-34) U/L Alkaline Phosphatase (38-126) U/L Troponin I <0.012 (0.000-0.034) ng/mL Total Protein (6.3-8.2) g/dL Albumin (3.5-5.0) g/dL Amylase (30-110) U/L Lipase (23-300) U/L Urine Color Urine Appearance (Clear) Urine pH (5.0-8.0) Ur Specific [place] (1.001-1.035) Urine Protein (Negative) Urine Glucose (UA) (Negative) Urine Ketones (Negative) Urine Blood (Negative) Urine Nitrite (Negative) Urine Bilirubin (Negative) Urine Urobilinogen (<2.0) mg/dL Ur Leukocyte Esterase (Negative) Disposition Is patient prescribed a controlled substance at d/c from ED?: No Time of Disposition: 08:06 <Marin Eubanks - Last Filed: 07/18/22 08:05> Is patient prescribed a controlled substance at d/c from ED?: No <Luis M June - Last Filed: 07/18/22 21:35> Clinical Impression: Abdominal pain Disposition: HOME SELF-CARE Condition: Fair Instructions (If sedation given, give patient instructions): Abdominal Pain (ED) Referrals: Scot Sanchez DO [Primary Care Provider] - 1-2 days
[2022-07-18 04:53] LABS: Basophils # (A) 0.1 k/uL (0-0.2); Basophils % (A) 1 %; Eosinophils # (A) 0.2 k/uL (0-0.7); Eosinophils % (A) 2 %; HCT 36.3 % (34.0-46.0); HGB 12.8 gm/dL (11.4-16.0); Lymphocytes % (A) 33 %; MCH 34.2 pg (25.0-35.0); MCHC 35.3 g/dL (31.0-37.0); MCV 96.7 fL (80.0-100.0); Mean Platelet Volume 7.3; Monocytes # (A) 0.8 k/uL (0-1.0); Monocytes % (A) 7 %; Neutrophils # (A) 6.8 k/uL (1.3-7.7); Neutrophils % (A) 57 %; Platelet Count 375 k/uL (150-450); RBC 3.75 m/uL (3.80-5.40); RDW 11.7 % (11.5-15.5)
[2022-07-18 04:56] VITALS: RESP 18
[2022-07-18 05:06] LABS: ALT 17 U/L (4-34); AST 25 U/L (14-36); African American GFR (CKD) >90 (>60 ml/min/1.73 sqM); Albumin 4.6 g/dL (3.5-5.0); Alkaline Phosphatase 46 U/L (38-126); Amylase 40 U/L (30-110); Anion Gap 13 mmol/L; Blood Urea Nitrogen 14 mg/dL (7-17); Calcium 9.6 mg/dL (8.4-10.2); Carbon Dioxide 21 mmol/L (22-30); Chloride 95 mmol/L (98-107); Glucose 102 mg/dL (74-99); Lipase 95 U/L (23-300); Non-African American GFR(CKD) >90 (>60 ml/min/1.73 sqM); Sodium 129 mmol/L (137-145); Total Bilirubin 0.3 mg/dL (0.2-1.3); Total Protein 6.9 g/dL (6.3-8.2)
--- NOTE | 2022-07-18 05:08 | CT ---
EXAMINATION TYPE: CT abdomen pelvis wo con DATE OF EXAM: 07/18/2022 COMPARISON: 04/01/2021 HISTORY: RUQ PAIN X2 DAYS CT DLP: 482.6 mGycm Automated exposure control for dose reduction was used. Images obtained from the diaphragm to the floor the pelvis without contrast. Heart size is normal. No pericardial effusion. Lung bases are clear. No pleural effusion. Liver and spleen are intact. Stomach is intact. There is no sign of pancreatic mass. Gallbladder appe ars normal. The bile ducts are not dilated. There is no adrenal mass. Kidneys of normal size. No hydronephrosis. Ureters are not dilated. No retr operitoneal adenopathy. Appendix is posterior and appears normal. Bladder distends smoothly. No ingui nal hernia. No free fluid in the pelvis. No pelvic mass. Uterus is anteverted. There is no mesenteric edema. No ascites or free air. No sign of a bowel obstruction. The lumbar vert ebrae have normal alignment. Disc spaces are fairly normal. Posterior element are intact. No compress ion fracture. The bony pelvis is intact. Sacroiliac joints are intact. IMPRESSION: Negative CT scan of the abdomen and pelvis. Normal appendix. No adverse change compared to old exam.
[2022-07-18 05:09] LABS: Potassium 4.2 mmol/L (3.5-5.1)
[2022-07-18 05:15] LABS: Appearance,Urine Clear (Clear); Bilirubin,Urine Negative (Negative); Blood,Urine Negative (Negative); Color,Urine Colorless; Glucose,Urine (UA) Negative (Negative); Ketones,Urine Negative (Negative); Leukocyte Esterase,Urine Negative (Negative); Nitrite,Urine Negative (Negative); Protein,Urine Negative (Negative); Specific Gravity,Urine 1.006 (1.001-1.035); Urobilinogen,Urine <2.0 mg/dL (<2.0)
[2022-07-18] MEDS ORDERED: MORPHINE SULFATE 4 MG/ML SYRINGE IVP STA (06:51)
[2022-07-18] MEDS ORDERED: KETOROLAC 15 MG/ML 1 ML VIAL IVP STA (07:02)
--- NOTE | 2022-07-18 07:57 | US ---
EXAMINATION TYPE: US gallbladder DATE OF EXAM: 07/18/2022 COMPARISON: CT earlier today CLINICAL HISTORY: abd pain. Right upper quadrant abdomen pain TECHNIQUE: Multiple sonographic images of the right upper quadrant are obtained. FINDINGS: EXAM MEASUREMENTS: Liver Length: 16.9 cm Gallbladder Wall: 0.14 cm CBD: 0.3 cm Right Kidney: 11.2 x 4.7 x 4.3 cm Pancreas: Tail obscured by overlying bowel gas Liver: Slightly heterogeneous Gallbladder: wnl Evidence for sonographic Dow's sign: No CBD: wnl Right Kidney: wnl Visualized portion of pancreas unremarkable. Visualized liver shows no worrisome mass or ductal dilat ation. Gallbladder is seen without intraluminal gallstones. No right-sided hydronephrosis. IMPRESSION: No gallstones or ultrasound evidence for acute cholecystitis.
[2022-07-18 08:24] VITALS: BP 142/76; PULSE 62; TEMP 97.8
== END 2022-07-18 08:24 | disposition home or self-care (01) ==
LOC: EC 03:06
DX: R10.11 Right upper quadrant pain (principal); R10.13 Epigastric pain; I25.10 Atherosclerotic heart disease of native coronary artery without angina pectoris; J44.9 Chronic obstructive pulmonary disease, unspecified; I10 Essential (primary) hypertension; E07.9 Disorder of thyroid, unspecified; F17.200 Nicotine dependence, unspecified, uncomplicated; Z79.890 Hormone replacement therapy; Z79.899 Other long term (current) drug therapy; Z79.82 Long term (current) use of aspirin; Z79.51 Long term (current) use of inhaled steroids
CPT/HCPCS: 96374; 96375; 96361; 96376; 36415; 80053; 82150; 83605; 83690; 84484; 85025; 81003; 76705; 74176; 99284; J2270; J2405; J1885

== ENCOUNTER 2022-09-27 11:28 | Emergency (ER) | payer OTHER ==
[2022-09-27 11:33] VITALS: TEMP 98.7
[2022-09-27] MEDS ORDERED: SODIUM CHLORIDE 0.9% 1,000 ML IV STA (11:40)
[2022-09-27] MEDS: ASPIRIN 81 MG PO STA ×2 (11:59→12:00)
[2022-09-27] MEDS ORDERED: KETOROLAC 15 MG/ML 1 ML VIAL IVP STA (12:04)
--- NOTE | 2022-09-27 12:07 | XR ---
EXAMINATION TYPE: XR chest 2V DATE OF EXAM: 09/27/2022 COMPARISON: 05/16/2021 HISTORY: Shortness of breath TECHNIQUE: Frontal and lateral views of the chest are obtained. FINDINGS: Scattered senescent parenchymal changes noted. Hyperinflation compatible with COPD. No evidence for infiltrate. No evidence for atelectasis. Heart size is stable. Mediastinal structures are stable and grossly unremarkable. No evidence for hilar prominence. Degenerative changes dorsal spine. IMPRESSION: 1. No evidence for acute pulmonary disease.
[2022-09-27 12:08] LABS: Basophils # (A) 0.1 k/uL (0-0.2); Basophils % (A) 1 %; Eosinophils # (A) 0.1 k/uL (0-0.7); Eosinophils % (A) 1 %; HCT 41.6 % (34.0-46.0); HGB 14.8 gm/dL (11.4-16.0); Lymphocytes # (A) 2.5 k/uL (1.0-4.8); Lymphocytes % (A) 28 %; MCH 34.4 pg (25.0-35.0); MCHC 35.6 g/dL (31.0-37.0); MCV 96.6 fL (80.0-100.0); Mean Platelet Volume 7.3; Monocytes # (A) 0.5 k/uL (0-1.0); Monocytes % (A) 5 %; Neutrophils # (A) 5.5 k/uL (1.3-7.7); Neutrophils % (A) 63 %; Platelet Count 592 k/uL (150-450); RBC 4.31 m/uL (3.80-5.40); RDW 12.1 % (11.5-15.5); WBC 8.7 k/uL (3.8-10.6)
[2022-09-27 12:20] LABS: ALT 15 U/L (4-34); AST 18 U/L (14-36); African American GFR (CKD) >90 (>60 ml/min/1.73 sqM); Albumin 4.7 g/dL (3.5-5.0); Alkaline Phosphatase 55 U/L (38-126); Amylase 42 U/L (30-110); Anion Gap 7 mmol/L; Blood Urea Nitrogen 7 mg/dL (7-17); Calcium 9.7 mg/dL (8.4-10.2); Carbon Dioxide 26 mmol/L (22-30); Chloride 106 mmol/L (98-107); Glucose 111 mg/dL (74-99); Lipase 73 U/L (23-300); Non-African American GFR(CKD) >90 (>60 ml/min/1.73 sqM); Potassium 4.2 mmol/L (3.5-5.1); Sodium 139 mmol/L (137-145); Total Bilirubin 0.6 mg/dL (0.2-1.3); Total Protein 7.3 g/dL (6.3-8.2)
[2022-09-27 12:26] LABS: Partial Thromboplastin Time 28.2 sec (22.0-30.0); Prothrombin Time 10.5 sec (9.0-12.0)
--- NOTE | 2022-09-27 13:06 | ED ---
Chest Pain HPI - General Chief Complaint: Chest Pain Stated Complaint: chest pain Time Seen by Provider: 09/27/22 11:35 Source: patient Mode of arrival: wheelchair Limitations: no limitations - History of Present Illness Initial Comments: Patient is a 52-year-old female presenting with chief complaint of chest pain. Past medical history includes coronary artery disease with previous [facility] and stents placed in 2018, fibromyalgia, hyperlipidemia, hypertension. Patient states that the pain started this morning. She describes it as sharp pain located in the center and left side of the chest. It is worse with coughing and taking a deep breath. Patient was diagnosed with Covid on 09/18, states that most of her symptoms have resolved. Patient took 2 nitros at home and the pain was not alleviated. No difficulty breathing. No nausea, vomiting, abdominal pain, radiation of pain down the arms or up the neck or to the back. No fever, chills, vision or hearing changes, neck pain or stiffness, dizziness. - Related Data Home Medications Medication Instructions Recorded Confirmed Fluticasone Nasal [place] [Flonase 2 spr EA NOSTRIL DAILY 10/16/17 05/20/21 Nasal [place]] Liothyronine Sodium [Cytomel] 5 mcg PO DAILY 10/16/17 05/20/21 Metoprolol Tartrate 12.5 mg PO BID 10/16/17 05/20/21 Dicyclomine [Bentyl] 20 mg PO QID PRN 03/18/19 05/20/21 Levothyroxine Sodium [Synthroid] 100 mcg PO DAILY 03/18/19 05/20/21 Acetaminophen Tab [Tylenol] 500 mg PO Q8H 09/08/19 05/20/21 Docusate Sodium [Dok] 100 mg PO BID 09/08/19 05/20/21 Ergocalciferol [Vitamin D2 50,000 unit PO WE 09/08/19 05/20/21 (DRISDOL)] LORazepam [Ativan] 0.5 mg PO HS 09/08/19 05/20/21 LORazepam [Ativan] 1 mg PO DAILY PRN 09/08/19 05/20/21 Loratadine [Claritin] 10 mg PO DAILY 09/08/19 05/20/21 Magnesium Oxide 400 mg PO HS 09/08/19 05/20/21 Nitroglycerin Sl Tabs [Nitrostat] 0.4 mg SUBLINGUAL Q5M PRN 09/08/19 05/20/21 Omeprazole [PriLOSEC] 20 mg PO BID 09/08/19 05/20/21 Spironolactone [Aldactone] 25 mg PO DAILY 09/08/19 05/20/21 Albuterol Nebulized [Ventolin 2.5 mg INHALATION RT-QID PRN 05/16/21 05/20/21 Nebulized] Albuterol Sulfate [Proair Hfa] 1 - 2 puff INHALATION RT-Q6H PRN 05/16/21 05/20/21 Aspirin EC [Ecotrin] 325 mg PO DAILY 05/16/21 05/20/21 Atorvastatin [Lipitor] 60 mg PO HS 05/16/21 05/20/21 Black Cohosh 40 mg PO BID 05/16/21 05/20/21 Calcium Carbonate [Calcium] 600 mg PO DAILY 05/16/21 05/20/21 HYDROcodone/APAP 5-325MG [[place] 1 tab PO Q4HR PRN 05/16/21 05/20/21 5-325] Levothyroxine Sodium [Synthroid] 50 mcg PO SUSA 05/16/21 05/20/21 PARoxetine HCL [Paxil] 30 mg PO DAILY 05/16/21 05/20/21 Tiotropium 18 Mcg/Puff [Spiriva] 1 puff INHALATION RT-DAILY 05/16/21 05/20/21 polyethylene glycoL 3350 [Miralax] 17 gm PO BID 05/16/21 05/20/21 rOPINIRole HCL [Requip] 0.25 mg PO HS 05/16/21 05/20/21 tiZANidine [Zanaflex] 4 mg PO BID PRN 05/16/21 05/20/21 Previous Rx's Medication Instructions Recorded Clotrimazole [place] [Mycelex 10 mg MUCOUS MEM 5XD #70 saul 03/11/22 Saul] Allergies Allergy/AdvReac Type Severity Reaction Status Date / Time No Known Allergies Allergy Verified 09/27/22 11:31 Review of Systems ROS Statement: Those systems with pertinent positive or pertinent negative responses have been documented in the HPI. ROS Other: All systems not noted in ROS Statement are negative. EKG Findings - EKG Comments: EKG Findings:: Sinus rhythm ventricular rate 63. MT interval 193. QRS 141. QT 445. QTc 453. Left bundle-branch block that is not appreciated when compared to most recent EKG. EKG is interpreted by me. EKG was also interpreted by my attending Dr. Powers. Past Medical History Past Medical History: Coronary Artery Disease (CAD), Chest Pain / Angina, COPD, Fibromyalgia, GERD/Reflux, Hyperlipidemia, Hypertension, Thyroid Disorder Additional Past Medical History / Comment(s): IRRITABLE BOWEL DISEASE/ HAD GRAVES-NOW HYPO,. Anxiety with panic attacks, sciatica, History of Any Multi-Drug Resistant Organisms: C-DIFF Date of last positivie culture/infection: APRIL 2015 MDRO Source:: FECES Past Surgical History: Section, Heart Catheterization With Stent, Orthopedic Surgery, Tubal Ligation Additional Past Surgical History / Comment(s): OVARY REMOVED, cardiac stent Distal circ, left hip broken March 2021 Past Anesthesia/Blood Transfusion Reactions: Motion Sickness Past Psychological History: Anxiety, Panic Disorder, PTSD Smoking Status: Current every day smoker Past Alcohol Use History: None Reported Past Drug Use History: Marijuana - Past Family History Mother Family Medical History: No Reported History General Exam Limitations: no limitations General appearance: alert, in no apparent distress Head exam: Present: atraumatic, normocephalic, normal inspection Eye exam: Present: normal appearance Neck exam: Present: normal inspection, full ROM Respiratory exam: Present: normal lung sounds bilaterally. Absent: respiratory distress, wheezes, rales, rhonchi, stridor Cardiovascular Exam: Present: regular rate, normal rhythm, normal heart sounds. Absent: systolic murmur, diastolic murmur, rubs, gallop, clicks Neurological exam: Present: alert, oriented X3, CN II-XII intact Psychiatric exam: Present: normal affect, normal mood Skin exam: Present: warm, dry, intact, normal color. Absent: rash Course Vital Signs 09/27/22 09/27/22 09/27/22 11:31 12:02 12:30 Temperature 98.7 F Pulse Rate 77 68 58 L Respiratory 16 18 18 Rate Blood Pressure 120/82 112/73 112/73 O2 Sat by Pulse 99 Oximetry 09/27/22 09/27/22 13:00 13:30 Temperature Pulse Rate 60 Respiratory 20 18 Rate Blood Pressure 99/64 104/76 O2 Sat by Pulse Oximetry Chest Pain MDM - [facility] Patient is a 52-year-old female presenting with chief complaint of chest pain. Pain started this morning, sharp in nature, worse with breathing and coughing. On examination heart and lungs are clear to auscultation. Patient is given Toradol for pain. Lab work shows no leukocytosis or anemia. Coags are WNL. Let April 19 WNL. Troponin is less than 0.012. Chest x-ray shows no acute process. EKG shows left bundle branch block not seen when compared to previous EKG. I educated the patient on these findings. I explained that the patient is high risk for heart attack over the next 24 hours based on her risk factors and EKG findings and that it is recommended that she stay for observation. Patient is expressing that she feels better and wishes to go home at this time. I emphasized the fact that she could still have a heart attack and in my professional opinion she needs to stay in the hospital for evaluation by cardiology. Patient insisted that she felt better, she did not want to stay in the hospital tonight, and she instead wishes to come back if symptoms worsen. She is of sound mind and body and able to make her own decisions. She signed out AMA. 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 Report back to ER with any new or worsening symptoms. Discussed return parameters and answered all questions. Patient conveyed verbal understanding and agreed to the plan. I discussed this case in detail with my attending Dr. Powers Disposition Clinical Impression: Chest pain Disposition: Left Against Medical Advice Condition: Fair Instructions (If sedation given, give patient instructions): Chest Pain (ED) Additional Instructions: Follow-up with PCP and adobe ball mixer. Report back to ER with any new or worsening symptoms. You understand you are leaving AGAINST MEDICAL ADVICE today, leaving AGAINST MEDICAL ADVICE may result in permanent injury or and you acknowledge this Is patient prescribed a controlled substance at d/c from ED?: No Referrals: Scot Sanchez DO [Primary Care Provider] - 1-2 days Gael Espinoza MD [STAFF PHYSICIAN] - 1-2 days Time of Disposition: 13:06
[2022-09-27 15:34] VITALS: BP 104/76; PULSE 60; RESP 18
== END 2022-09-27 13:10 | disposition left against medical advice (07) ==
LOC: EC 11:28
DX: R07.89 Other chest pain (principal); I25.10 Atherosclerotic heart disease of native coronary artery without angina pectoris; I10 Essential (primary) hypertension; I25.2 Old myocardial infarction; J44.9 Chronic obstructive pulmonary disease, unspecified; K21.9 Gastro-esophageal reflux disease without esophagitis; E78.5 Hyperlipidemia, unspecified; F41.9 Anxiety disorder, unspecified; F17.200 Nicotine dependence, unspecified, uncomplicated; F12.90 Cannabis use, unspecified, uncomplicated; Z79.82 Long term (current) use of aspirin; Z79.890 Hormone replacement therapy; Z79.899 Other long term (current) drug therapy; Z53.29 Procedure and treatment not carried out because of patient's decision for other reasons
CPT/HCPCS: 36415; 93005; 80053; 82150; 83690; 83735; 84484; 85025; 85610; 85730; 71046; 99285; 96374; 96361; J1885

== ENCOUNTER → 2023-03-25 | Outpatient (CLI) | payer OTHER ==
--- NOTE | 2023-03-25 08:39 | CTL ---
EXAMINATION TYPE: CT Low Dose Lung DATE OF EXAM ORDERED: 03/25/2023 HISTORY: Long-term tobacco use. Lung cancer screening CT DLP: 69.[address] CTDI: 1.80 mGy Automated exposure control for dose reduction was used. SCREENING VISIT: First after baseline COMPARISON: Prior study February 27, 2022 TECHNIQUE: Low dose computed tomography scan was performed through the chest at 1 mm thick sections a nd reconstructed images in multiple planes at 1 mm and [address] DIAGNOSTIC QUALITY: Satisfactory FINDINGS: LUNG NODULES: Present, detailed below: Stable 2 mm peripheral right basilar nodule axial image 261. Stable 5 x 2 mm peripheral right middle lobe nodule axial image 192. No new or enlarging greater than 5 mm pulmonary nodules LUNGS: COPD: Severity: Moderate to severe Fibrosis: Severity: Mild biapical and mild anterior lower lung Lymph nodes: No greater than 1 cm Other findings: None RIGHT PLEURAL SPACE: Effusion: None Calcification: None Thickening: None Pneumothorax: None LEFT PLEURAL SPACE: Effusion: None Calcification: None Thickening: None Pneumothorax: None HEART: Heart Size: Normal Coronary Calcification: [id number] Pericardial Effusion: None OTHER FINDINGS: Upper abdomen: None Bony thorax: Degenerative change bilateral shoulders redemonstrated Supraclavicular region: None Other: None IMPRESSION: Moderate to advanced underlying emphysematous change redemonstrated. Stable small right-s ided nodules. No new or enlarging greater than 5 mm nodules. No significant change from prior. CT LUNG RAD AND CT CHEST RECOMMENDATION: Lung-Rad 2 Benign Appearance or Behavior: Continue annual sc reening with LDCT in 12 months. S Modifier (other clinically significant findings): None
== END | disposition home or self-care (01) ==
LOC: RADCTMAIN 06:31
PROVIDERS: ATTEND Internal Medicine Critical Care Medicine
DX: Z12.2 Encounter for screening for malignant neoplasm of respiratory organs (principal); J43.9 Emphysema, unspecified; R91.8 Other nonspecific abnormal finding of lung field; F17.210 Nicotine dependence, cigarettes, uncomplicated
CPT/HCPCS: 71271

== ENCOUNTER → 2023-06-03 | Outpatient (CLI) | payer OTHER ==
--- NOTE | 2023-06-15 11:39 | MM ---
Reason for Exam: Screening (asymptomatic). Last mammogram was performed 1 year(s) and 2 month(s) ago. Patient History: Menarche at age 14. First Full-Term at age 25. Postmenopausal. Hormonal Contraceptives for 6 years from age 19 until age 25. 11/09/2009, Benign Core Biopsy on the right side. Maternal aunt had breast cancer, age 60. Risk Values: Nelia 5 year model risk: 1.1%. NCI Lifetime model risk: 9.1%. Prior Study Comparison: 04/25/2019 Bilateral Screening Mammogram, [facility]. 10/05/2020 Bilateral Screening Mammogram, [facility]. 03/27/2022 Bilateral MG diagnostic mammo w CAD [place], [facility]. Tissue Density: The breast tissue is heterogeneously dense. This may lower the sensitivity of mammography. Findings: Analyzed By CAD. There is no suspicious group of microcalcifications or new suspicious mass in either breast. Benign-appearing calcifications within both breasts. Biopsy clip within the right breast. Overall Assessment: Benign, BI-RAD 2 Management: Screening Mammogram of both breasts in 1 year. A clinical breast exam by your physician is recommended on an annual basis and results should be correlated with mammographic findings. Note on Nelia scores and lifetime risk: 1. A Nelia score greater than 3% is considered moderate risk. If this is the case, consider specialist referral to assess eligibility for a risk reducing agent. If overall lifetime risk for the development of breast cancer is 20% or higher, the patient may qualify for future screening with alternating mammogram and breast MRI. Electronically signed and approved by: Shalom Pemberton D.O.
== END | disposition home or self-care (01) ==
LOC: RADMAMWWP 16:21
PROVIDERS: ATTEND Family Medicine
DX: Z12.31 Encounter for screening mammogram for malignant neoplasm of breast (principal); Z78.0 Asymptomatic menopausal state; Z80.3 Family history of malignant neoplasm of breast
CPT/HCPCS: 77067

== ENCOUNTER 2023-08-17 23:35 | Emergency (ER) | payer OTHER ==
[2023-08-17 23:47] VITALS: BP 131/88; PULSE 90; RESP 18; TEMP 97.7
[2023-08-18 00:50] LABS: Appearance,Urine Clear (Clear); Color,Urine Yellow; PH, Urine 5.5 (5.0-8.0)
[2023-08-18 00:51] LABS: Bilirubin,Urine Negative (Negative); Blood,Urine Negative (Negative); Glucose,Urine (UA) Negative (Negative); Ketones,Urine Negative (Negative); Leukocyte Esterase,Urine Negative (Negative); Nitrite,Urine Negative (Negative); Protein,Urine Negative (Negative); Urobilinogen,Urine <2.0 mg/dL (<2.0)
== END 2023-08-18 02:30 | disposition left against medical advice (07) ==
LOC: EC 23:35
DX: Z53.21 Procedure and treatment not carried out due to patient leaving prior to being seen by health care provider (principal); R10.11 Right upper quadrant pain
CPT/HCPCS: 81003; 99499

== ENCOUNTER 2023-09-01 02:25 | Emergency (ER) | payer OTHER ==
[2023-09-01] MEDS ORDERED: MORPHINE SULFATE 4 MG/ML SYRINGE IV STA ×2 (02:37→03:25)
[2023-09-01 02:49] VITALS: TEMP 98.5
[2023-09-01 03:20] LABS: Basophils # (A) 0.1 k/uL (0-0.2); Basophils % (A) 1 %; Eosinophils # (A) 0.2 k/uL (0-0.7); Eosinophils % (A) 2 %; HCT 36.2 % (34.0-46.0); HGB 12.3 gm/dL (11.4-16.0); Lymphocytes # (A) 2.7 k/uL (1.0-4.8); Lymphocytes % (A) 28 %; MCH 33.3 pg (25.0-35.0); MCHC 33.9 g/dL (31.0-37.0); MCV 98.2 fL (80.0-100.0); Mean Platelet Volume 7.6; Monocytes # (A) 0.5 k/uL (0-1.0); Monocytes % (A) 5 %; Neutrophils # (A) 5.9 k/uL (1.3-7.7); Neutrophils % (A) 62 %; Platelet Count 364 k/uL (150-450); RBC 3.68 m/uL (3.80-5.40); RDW 13.2 % (11.5-15.5); WBC 9.5 k/uL (3.8-10.6)
[2023-09-01 03:32] LABS: ALT 20 U/L (4-34); AST 20 U/L (14-36); African American GFR (CKD) >90 (>60 ml/min/1.73 sqM); Albumin 4.1 g/dL (3.5-5.0); Alkaline Phosphatase 70 U/L (38-126); Anion Gap 11 mmol/L; Blood Urea Nitrogen 7 mg/dL (7-17); Calcium 9.6 mg/dL (8.4-10.2); Carbon Dioxide 24 mmol/L (22-30); Chloride 103 mmol/L (98-107); Glucose 96 mg/dL (74-99); Magnesium 1.8 mg/dL (1.6-2.3); Non-African American GFR(CKD) >90 (>60 ml/min/1.73 sqM); Potassium 2.9 mmol/L (3.5-5.1); Sodium 138 mmol/L (137-145); Total Bilirubin 0.5 mg/dL (0.2-1.3); Total Protein 6.6 g/dL (6.3-8.2)
[2023-09-01 03:34] LABS: Partial Thromboplastin Time 28.9 sec (22.0-30.0); Prothrombin Time 10.7 sec (10.0-12.5)
--- NOTE | 2023-09-01 04:04 | XR ---
EXAM: XR Chest, 2 Views CLINICAL HISTORY: ITS.REASON XR Reason: Chest Pain TECHNIQUE: Frontal and lateral views of the chest. COMPARISON: 09/27/2022 FINDINGS: Lungs: Unremarkable. No consolidation. Pleural space: Unremarkable. No pneumothorax. Heart: Unremarkable. No cardiomegaly. Mediastinum: Unremarkable. Bones/joints: Unremarkable. IMPRESSION: Normal chest x-rays
[2023-09-01] MEDS ORDERED: HYDROmorphone 0.5 MG/0.5 ML SYRINGE IVP STA (05:54)
[2023-09-01] MEDS ORDERED: POTASSIUM BICARBONATE/CIT AC 20 MEQ TABLET.EFF PO ONE (06:06)
--- NOTE | 2023-09-01 06:23 | ED ---
Chest Pain HPI - General Chief Complaint: Chest Pain Stated Complaint: SOB Time Seen by Provider: 09/01/23 02:35 Source: EMS Mode of arrival: EMS Limitations: no limitations - History of Present Illness Onset/Timin -: week(s) Onset: during rest Pain Location: left chest Pain Radiation: none Severity: moderate Quality: aching, dull Consistency: constant Improves With: nothing Worsens With: movement, other (Cough, palpation) Context: recent illness Other Symptoms: cough Treatments Prior to Arrival: none - Related Data Home Medications Medication Instructions Recorded Confirmed Fluticasone Nasal Welsh [Flonase 2 spr EA NOSTRIL DAILY 10/16/17 07/15/23 Nasal Welsh] Liothyronine Sodium [Cytomel] 5 mcg PO DAILY 10/16/17 07/15/23 Dicyclomine [Bentyl] 20 mg PO QID PRN 03/18/19 07/15/23 Acetaminophen Tab [Tylenol] 500 mg PO Q8H 09/08/19 07/15/23 Docusate Sodium [Dok] 100 mg PO BID 09/08/19 07/15/23 Ergocalciferol [Vitamin D2 50,000 unit PO WE 09/08/19 07/15/23 (DRISDOL)] LORazepam [Ativan] 0.5 mg PO HS 09/08/19 07/15/23 LORazepam [Ativan] 1 mg PO QAM 09/08/19 07/15/23 Magnesium Oxide 400 mg PO DAILY 09/08/19 07/15/23 Nitroglycerin Sl Tabs [Nitrostat] 0.4 mg SUBLINGUAL Q5M PRN 09/08/19 07/15/23 Omeprazole [PriLOSEC] 20 mg PO BID 09/08/19 07/15/23 Spironolactone [Aldactone] 25 mg PO DAILY 09/08/19 07/15/23 Albuterol Nebulized [Ventolin 2.5 mg INHALATION QID 05/16/21 07/15/23 Nebulized] Albuterol Sulfate [Proair Hfa] 1 - 2 puff INHALATION Q6H PRN 05/16/21 07/15/23 Aspirin EC [Ecotrin] 325 mg PO DAILY 05/16/21 07/15/23 Atorvastatin [Lipitor] 40 mg PO HS 05/16/21 07/15/23 Black Cohosh 40 mg PO DAILY 05/16/21 07/15/23 polyethylene glycoL 3350 [Miralax] 17 gm PO BID PRN 05/16/21 07/15/23 rOPINIRole HCL [Requip] 0.25 mg PO HS 05/16/21 07/15/23 tiZANidine [Zanaflex] 4 mg PO BID PRN 05/16/21 07/15/23 Atorvastatin [Lipitor] 20 mg PO DAILY 07/15/23 Cetirizine HCl [Zyrtec] 10 mg PO DAILY 07/15/23 Entresto (Unknown Dose) 1 tab PO BID 07/15/23 Fluticasone/Umeclidin/Vilanter 1 puff INHALATION DAILY 07/15/23 [Trelegy Ellipta 200-62.5-25] Levothyroxine Sodium 125 mcg PO DAILY 07/15/23 Metoprolol Succinate [Metoprolol 25 mg PO DAILY 07/15/23 Succinate ER] Mucinex (Unknown Dose) 1 tab PO DAILY 07/15/23 Multivit with Calcium,Iron,Min 1 each PO DAILY 07/15/23 [Women's Multivitamin] PARoxetine HCL 40 mg PO DAILY 07/15/23 Previous Rx's Medication Instructions Recorded Azithromycin [Zithromax] 0 mg PO DIRECTED #6 tab 09/01/23 predniSONE [Deltasone] 20 mg PO BID #8 tab 09/01/23 Allergies Allergy/AdvReac Type Severity Reaction Status Date / Time fentanyl Allergy Dyspnea Verified 08/17/23 23:45 Review of Systems ROS Statement: Those systems with pertinent positive or pertinent negative responses have been documented in the HPI. ROS Other: All systems not noted in ROS Statement are negative. Constitutional: Denies: fever, chills ENT: Reports: congestion Respiratory: Reports: cough, wheezes. Denies: dyspnea Cardiovascular: Reports: chest pain. Denies: palpitations, orthopnea, edema, syncope Gastrointestinal: Denies: abdominal pain, vomiting, diarrhea Genitourinary: Denies: dysuria, hematuria Musculoskeletal: Denies: back pain Skin: Denies: rash Neurological: Denies: headache, weakness, numbness EKG Findings - EKG Results: EKG: interpreted by MATEUS, sinus rhythm (Rate 66 bpm) - Blocks, [place], Hypertrophy, ST Abn: AV and intraventricular conduction: left bundle branch block (fixed/intermittent, complete/incomplete) Past Medical History Past Medical History: Coronary Artery Disease (CAD), Chest Pain / Angina, COPD, Fibromyalgia, GERD/Reflux, Hyperlipidemia, Hypertension, Thyroid Disorder Additional Past Medical History / Comment(s): IRRITABLE BOWEL DISEASE/ HAD GRAVES-NOW HYPO,. Anxiety with panic attacks, sciatica, History of Any Multi-Drug Resistant Organisms: C-DIFF Date of last positivie culture/infection: APRIL 2015 MDRO Source:: FECES Past Surgical History: Section, Heart Catheterization With Stent, Orthopedic Surgery, Tubal Ligation Additional Past Surgical History / Comment(s): OVARY REMOVED, cardiac stent Distal circ, left hip broken March 2021 Past Anesthesia/Blood Transfusion Reactions: Motion Sickness Past Psychological History: Anxiety, Panic Disorder, PTSD Smoking Status: Current every day smoker Past Alcohol Use History: None Reported Past Drug Use History: Marijuana - Past Family History Mother Family Medical History: No Reported History Father Family Medical History: Cancer General Exam General appearance: alert, in no apparent distress Head exam: Present: atraumatic, normocephalic Eye exam: Present: normal appearance. Absent: scleral icterus, conjunctival injection ENT exam: Present: normal oropharynx Neck exam: Present: normal inspection Respiratory exam: Present: wheezes, chest wall tenderness. Absent: respiratory distress, rales, rhonchi, stridor, accessory muscle use Cardiovascular Exam: Present: regular rate, normal rhythm, normal heart sounds. Absent: systolic murmur, diastolic murmur, rubs, gallop GI/Abdominal exam: Present: soft. Absent: distended, tenderness, guarding, rebound, rigid, mass Extremities exam: Present: normal inspection, normal capillary refill. Absent: pedal edema, calf tenderness Back exam: Present: normal inspection. Absent: CVA tenderness (R), CVA tenderness (L) Neurological exam: Present: alert Skin exam: Present: warm, dry, intact, normal color. Absent: rash Course Vital Signs 09/01/23 09/01/23 09/01/23 02:29 03:30 05:55 Temperature 98.5 F Pulse Rate 79 92 72 Respiratory 18 16 16 Rate Blood Pressure 144/89 134/77 138/75 O2 Sat by Pulse 97 98 97 Oximetry 09/01/23 06:43 Temperature Pulse Rate 60 Respiratory 18 Rate Blood Pressure 135/78 O2 Sat by Pulse 99 Oximetry Chest Pain MDM - MDM The patient had 2 view chest x-ray which I interpreted as negative for acute infiltrate, pneumothorax, congestive heart failure Was pt. sent in by a medical professional or institution (PEYMAN Jasso, CLINICAL BUSINESS MANAGER, urgent care, hospital, or snf...) When possible be specific @ -[No] Did you speak to anyone other than the patient for history (EMS, parent, family, police, friend...)? What history was obtained from this source @ -[No] Did you review nursing and triage notes (agree or disagree)? Why? @ -[I reviewed and agree with nursing and triage notes] Were old charts reviewed (outside hosp., previous admission, EMS record, old EKG, old radiological studies, urgent care reports/EKG's, snf records)? Report findings @ -[No old charts were reviewed] Differential Diagnosis (chest pain, altered mental status, abdominal pain women, abdominal pain men, vaginal bleeding, weakness, fever, dyspnea, syncope, headache, dizziness, GI bleed, back pain, seizure, CVA, palpatations, mental health, musculoskeletal)? @ -[Differential Chest Pain: Stable Angina, Unstable Angina, STEMI, NSTEMI Aortic Dissection, Pneumothorax, Musculoskeletal, Esophageal Spasm GERD, Cholecystitis, Pancreatitis, Zoster, this is not meant to be an all-inclusive list. EKG interpreted by me (3pts min.). @ -[I interpreted as above X-rays interpreted by me (1pt min.). @ -[I interpreted as above CT interpreted by me (1pt min.). @ -[None done] U/S interpreted by me (1pt. min.). @ -[None done] What testing was considered but not performed or refused? (CT, X-rays, U/S, labs)? Why? @ -[None] What meds were considered but not given or refused? Why? @ -[None] Did you discuss the management of the patient with other professionals (professionals i.e. PEYMAN Jasso, CLINICAL BUSINESS MANAGER, lab, RT, psych nurse, social work associate, special education math teacher, teacher, investigation officer, test case developer)? Give summary @ -[No] Was smoking cessation discussed for >3mins.? @ -[No] Was critical care preformed (if so, how long)? @ -[No] Were there social determinants of health that impacted care today? How? (Homelessness, low income, unemployed, alcoholism, drug addiction, transpo rtation, low edu. Level, literacy, decrease access to med. care, mcc, rehab)? @ -[No] Was there de-escalation of care discussed even if they declined (Discuss DNR or withdrawal of care, Hospice)? DNR status @ -[No] What co-morbidities impacted this encounter? (DM, HTN, Smoking, COPD, CAD, Cancer, CVA, ARF, Chemo, Hep., AIDS, mental health diagnosis, sleep apnea, morbid obesity)? @ -[None] Was patient admitted / discharged? Hospital course, mention meds given and route, prescriptions, significant lab abnormalities, going to OR and other pertinent info. @ -[Patient's 53-year-old woman with chest pain related to cough from bronchitis. Patient workup is otherwise unremarkable. She is stable for outpatient treatment. We discussed appropriate further care and follow-up as well as return parameters. Undiagnosed new problem with uncertain prognosis? @ -[No] Drug Therapy requiring intensive monitoring for toxicity (Heparin, Nitro, Insulin, Cardizem)? @ -[No] Were any procedures done? @ -[No] Diagnosis/symptom? @ -[Acute bronchitis Chest wall pain Hypokalemia Acute, or Chronic, or Acute on Chronic? @ -[Acute Uncomplicated (without systemic symptoms) or Complicated (systemic symptoms)? @ -[Uncomplicated Side effects of treatment? @ -[No] Exacerbation, Progression, or Severe Exacerbation? @ -[No] Poses a threat to life or bodily function? How? (Chest pain, [place], SC, pneumonia, PE, COPD, DKA, ARF, appy, cholecystitis, CVA, Diverticulitis, Homicidal, Suicidal, threat to staff... and all critical care pts) @ -[No] Disposition Clinical Impression: Bronchitis, Chest wall injury, Hypokalemia Disposition: HOME SELF-CARE Condition: Good Instructions (If sedation given, give patient instructions): Acute Bronchitis (ED), Chest Wall Pain (ED) Prescriptions: predniSONE [Deltasone] 20 mg PO BID #8 tab Azithromycin [Zithromax] 0 mg PO DIRECTED #6 tab Is patient prescribed a controlled substance at d/c from ED?: No Referrals: Juan Carolina MD [Primary Care Provider] - 1-2 days
[2023-09-01] MEDS ORDERED: predniSONE 20 MG TAB PO STA (06:32)
[2023-09-01] MEDS ORDERED: AZITHROMYCIN 500 MG TAB PO STA (06:32)
[2023-09-01 07:09] VITALS: BP 135/78; PULSE 60; RESP 18
== END 2023-09-01 06:45 | disposition home or self-care (01) ==
LOC: EC 02:25
DX: S29.9XXA Unspecified injury of thorax, initial encounter (principal); E87.6 Hypokalemia; J20.9 Acute bronchitis, unspecified; I44.7 Left bundle-branch block, unspecified; I25.10 Atherosclerotic heart disease of native coronary artery without angina pectoris; K21.9 Gastro-esophageal reflux disease without esophagitis; J44.9 Chronic obstructive pulmonary disease, unspecified; E78.5 Hyperlipidemia, unspecified; E07.9 Disorder of thyroid, unspecified; I10 Essential (primary) hypertension; F41.9 Anxiety disorder, unspecified; F17.200 Nicotine dependence, unspecified, uncomplicated; F12.90 Cannabis use, unspecified, uncomplicated; Z79.890 Hormone replacement therapy; Z79.82 Long term (current) use of aspirin; Z79.899 Other long term (current) drug therapy; Z79.51 Long term (current) use of inhaled steroids; Z88.8 Allergy status to other drugs, medicaments and biological substances; Z95.5 Presence of coronary angioplasty implant and graft; X58.XXXA Exposure to other specified factors, initial encounter
CPT/HCPCS: 36415; 93005; 85379; 80053; 83735; 84484; 85025; 85610; 85730; 87636; 71046; 99285; 96374; 96375; 96376; J2270; J7512; J1170

== ENCOUNTER → 2023-10-24 | Outpatient (CLI) | payer OTHER ==
[2023-10-24 13:40] LABS: HCT 43.4 % (37.2-46.3); HGB 14.7 g/dL (12.0-15.0); MCHC 33.9 g/dL (32.0-37.0); MCV 97.5 FL (80.0-97.0); Mean Platelet Volume 9.4 FL (9.5-12.2); NRBC Per 100 WBC 0 X 10*3/uL (0.00-0.01); Platelet Count 474 X 10*3/uL (140-440); RBC 4.45 X 10*6/uL (4.10-5.20); RDW 12.2 % (11.5-14.5); WBC 11.53 X 10*3/uL (4.50-10.00)
[2023-10-24 13:57] LABS: Carbon Dioxide 26.7 mmol/L (21.6-31.8); Chloride 100 mmol/L (96-109); Potassium 3.5 mmol/L (3.5-5.5); Sodium 139 mmol/L (135-145)
== END | disposition home or self-care (01) ==
LOC: LABPAT 08:14
PROVIDERS: ATTEND Internal Medicine Interventional Cardiology
DX: Z01.812 Encounter for preprocedural laboratory examination (principal); I25.10 Atherosclerotic heart disease of native coronary artery without angina pectoris
CPT/HCPCS: 80051; 82565; 84520; 85027

== ENCOUNTER → 2023-10-27 | Day surgery (SDC) | payer OTHER ==
[~2023-10-27] MED LIST changes: +ALBUTEROL NEBULIZED 2.5 MG/3 ML INHALATION STA; -ASPIRIN 325 MG TAB PO ONE; +ASPIRIN 325 MG TAB PO STA; -HEPARIN SODIUM 1,000 UN/ML (10ML VL) IV ONE; +HEPARIN SODIUM 1,000 UN/ML (10ML VL) ONE; +HEPARIN SODIUM,PORCINE (1 ML) 2,500 UNIT in SODIUM CHLORIDE 0.9% 250 ML IRRIGATION PRN; +HEPARIN SODIUM,PORCINE 10,000 UNIT in SODIUM CHLORIDE 0.9% 1,000 ML IRRIGATION PRN; +IOPAMIDOL-370 100ML BTL INJ ONE; -IOPAMIDOL-370 125ML BTL INJ ONE; +LIDOCAINE 1% INJ 10MG/ML (20 ML MDV) ONE; -SODIUM CHLORIDE 0.9% 1,000 ML in EMPTY BAG 1 BAG IV ONE; +SODIUM CHLORIDE 0.9% 1,000 ML in EMPTY BAG 1 BAG IV SCH; +VERAPAMIL 2.5 MG/ML 2 ML AMP ONE; -fentaNYL (PF) 50 MCG/ML 2 ML AMP IVP ONE
[2023-10-27 08:57] VITALS: RESP 16; TEMP 98.1
--- NOTE | 2023-10-27 10:43 | P.PCN ---
Date of Procedure: 10/27/23 Operative Findings: CARDIAC CATHETERIZATION PERFORMING PHYSICIAN: Gael Espinoza MD, RPVI PROCEDURE PERFORMED: 1. Selective right and left coronary angiogram 2. Left heart catheterization 3. Ultrasound-guided access of the right common femoral artery and selective right common femoral artery arterial INDICATION: Cardiomyopathy COMPLICATION: None APPROACH: Right common femoral artery LEVEL OF SEDATION: Moderate with sedation in length of 13 minutes PROCEDURE DESCRIPTION: After obtaining an informed consent, the patient was brought to cardiac blood bank laboratory technician. Local anesthesia was performed using lidocaine subcutaneously. The right common femoral artery was cannulated using Seldinger technique, the guidewire passed easily, following that we advanced a 6 Lao sheath dilator assembly, the wire and dilator were removed and sheath was flushed. Selective right and left coronary angiogram using a 6-Lao JR4 and JL catheters. Following that we did left heart catheterization using 6-Lao pigtail catheter. The procedure was completed there was no complication. Please note that the right radial artery was initially attempted to be cannulated but that was unsuccessful because under ultrasound it seems to be occluded SELECTIVE CORONARY ANGIOGRAM: The right coronary artery: Medium caliber vessel and nondominant vessel and appeared to be angiographically normal Left main: Is angiographically normal. Bifurcates into an LCx and LAD The left circumflex: Large caliber vessel and a dominant vessel. The proximal LCx is normal. Gives rises into an OM1 which seems to be having mild disease only. Also gives rises into the OM to undergo I'm a 3 in the midportion which seems to be normal. The circumflex distally bifurcates into PDA and PLV branches. The PLV branch appears to have patent stent. The PLV branch appears to be normal The left anterior descending artery: The proximal LAD has [id number] disease only appeared to be in the range of 20-30%. The mid and distal LAD appears to be normal. The LAD gives rise into a small diagonal branch which seems to be normal. HEMODYNAMICS: The LVEDP was 8 mmHg was no significant gradient across aortic valve CONCLUSION: 1. Patent stent in the left circumflex 2. [id number] disease involving the proximal LAD 3. Normal left-sided filling pressure POSTPROCEDURE MANAGEMENT: Medical treatment
[2023-10-27 19:17] VITALS: BP 122/69; PULSE 68
== END ==
LOC: CATHCVL 07:42
PROVIDERS: ATTEND Internal Medicine Interventional Cardiology
DX: I25.10 Atherosclerotic heart disease of native coronary artery without angina pectoris (principal); I42.9 Cardiomyopathy, unspecified; Z95.5 Presence of coronary angioplasty implant and graft
CPT/HCPCS: 94640; 93458; 76937; 99152; C1760; C1769 ×2; C1894; J2250; J2001; Q9967

== ENCOUNTER → 2023-12-31 | Outpatient (CLI) | payer OTHER ==
--- NOTE | 2024-01-01 12:40 | US ---
EXAMINATION TYPE: US gallbladder DATE OF EXAM: 12/31/2023 COMPARISON: US 2021 CLINICAL INDICATION: Female, 53 years old with history of R10.11 RIGHT UPPER QUADRANT PAIN; RUQ pain x couple years - gets worse after eating TECHNIQUE: Multiple sonographic images of the right upper quadrant are obtained. FINDINGS: EXAM MEASUREMENTS: Liver Length: 15.9 cm Gallbladder Wall: 0.2 cm CBD: 0.3 cm Right Kidney: 11.1 x 4.3 x 5.1 cm Pancreas: visualized portions wnl, limited by overlying midline bowel gas Liver: wnl Gallbladder: wnl Evidence for sonographic Dow's sign: no CBD: wnl Right Kidney: wnl IMPRESSION: Unremarkable sonographic examination of the right upper quadrant.
== END | disposition home or self-care (01) ==
LOC: RADUSWWP 07:44
PROVIDERS: ATTEND Surgery
DX: R10.11 Right upper quadrant pain (principal)
CPT/HCPCS: 76705

== ENCOUNTER → 2024-01-15 | Outpatient (CLI) | payer OTHER ==
--- NOTE | 2024-01-15 14:28 | US ---
EXAMINATION TYPE: US venous doppler duplex LE BI DATE OF EXAM: 01/15/2024 2:02 PM COMPARISON: NONE CLINICAL INDICATION: Female, 54 years old with history of M79.669 PAIN IN LEG; Bilateral leg pain x c ouple days SIDE PERFORMED: Bilateral TECHNIQUE: The lower extremity deep venous system is examined utilizing real time linear array sonog regina with graded compression, doppler sonography and color-flow sonography. VESSELS IMAGED: Common Femoral Vein Deep Femoral Vein Greater Saphenous Vein * Femoral Vein Popliteal Vein Small Saphenous Vein * Proximal Calf Veins (* superficial vessels) Right Leg: Appears negative for DVT Left Leg: Appears negative for DVT IMPRESSION: 1. Bilateral lower extremity ultrasound negative for deep venous thrombosis.
[2024-01-15 19:53] LABS: ALT 8 U/L (8-44); AST 11 U/L (13-35); Albumin 4.6 g/dL (3.8-4.9); Alkaline Phosphatase 76 U/L (41-126); BUN/Creat Ratio 8.33 Ratio (12.00-20.00); Carbon Dioxide 27.7 mmol/L (21.6-31.8); Chloride 102 mmol/L (96-109); Creatine Kinase 65 U/L (26-186); Globulin 2.3 g/dL (1.6-3.3); Glucose 81 mg/dL (70-110); Magnesium 2.1 mg/dL (1.5-2.4); Potassium 3.4 mmol/L (3.5-5.5); Sodium 143 mmol/L (135-145); T4, Free (Free Thyroxine) 1.12 ng/dL (0.80-1.80); Total Bilirubin 0.2 mg/dL (0.3-1.2); Total Protein 6.9 g/dL (6.2-8.2)
== END | disposition home or self-care (01) ==
LOC: RADUSWWP 13:29
PROVIDERS: ATTEND Internal Medicine
DX: E03.9 Hypothyroidism, unspecified (principal); E55.9 Vitamin D deficiency, unspecified; M54.50 Low back pain, unspecified; M79.661 Pain in right lower leg
CPT/HCPCS: 80053; 82306; 82550; 83735; 84439; 84443; 93970

== ENCOUNTER → 2024-02-11 | Outpatient (CLI) | payer OTHER ==
--- NOTE | 2024-02-11 14:04 | NM ---
EXAMINATION TYPE: NM hepatobiliary w CCK DATE OF EXAM: 02/11/2024 COMPARISON: Ultrasound 12/31/2023 CLINICAL INDICATION: Female, 54 years old with history of R10.11 RUQ PAIN; TECHNIQUE: After the intravenous administration of 4.8 mCi Tc 99m Mebrofenin hepatobiliary scintigrap hy is performed. Immediate images post injection. FINDINGS: There is satisfactory initial accumulation of tracer by the liver. The gallbladder is visualized wit hin 6 minutes. Limited gallbladder accumulation. The small bowel activity is noted within 8 minutes. At one hour CCK was administered, patient was injected with 1.4 mcg of Kinevac, and gallbladder eje ction fraction is calculated at 44 %, in the normal range. IMPRESSION: Limited gallbladder accumulation of tracer. However, ejection fraction is in the normal range at 44%. No scintigraphic evidence for acute/chronic cholecystitis or biliary dyskinesia.
== END | disposition home or self-care (01) ==
LOC: RADNMMAIN 06:58
PROVIDERS: ATTEND Surgery
DX: R10.11 Right upper quadrant pain (principal)
CPT/HCPCS: 78227; A9537; J2805

== ENCOUNTER → 2024-03-28 | Outpatient (CLI) | payer OTHER ==
[2024-03-28 15:55] LABS: African American GFR (CKD) >90 (>60 ml/min/1.73 sqM); Blood Urea Nitrogen 5 mg/dL (7-17); Non-African American GFR(CKD) >90 (>60 ml/min/1.73 sqM)
--- NOTE | 2024-03-28 16:47 | CTL ---
EXAMINATION TYPE: CT Low Dose Lung DATE OF EXAM ORDERED: 03/28/2024 History: Lung cancer screening CT DLP: 86.[address] CTDI: 2.1 mGy Automated exposure control for dose reduction was used. Comparison: 03/25/2023. TECHNIQUE: Low dose computed tomography scan was performed through the chest at 1 mm thick sections a nd reconstructed images in multiple planes at 1 mm and [address] DIAGNOSTIC QUALITY: Satisfactory FINDINGS: There are marked emphysematous changes. There are stable sub-5 mm nodules in the right lower lobe and right middle lobe. There are few micron odules in the subpleural parenchymal left lung. There is no new or suspicious lung mass or nodule. There is no air space consolidation. There is no abnormal interstitial density. There is no pleural effusion or pneumothorax. Great vessels chest are normal and there is no mediastinal, hilar or axillary adenopathy. Limited scanning through the upper abdomen reveals no gross abnormality. No focal osseous lesions are seen. IMPRESSION: 1. Lung RADS category 2, benign findings. Continue routine screening at yearly intervals. 2. Marked emphysematous changes. 3 no acute cardiopulmonary disease.
== END | disposition home or self-care (01) ==
LOC: RADCTMAIN 15:03
PROVIDERS: ATTEND Internal Medicine Critical Care Medicine
DX: Z12.2 Encounter for screening for malignant neoplasm of respiratory organs (principal); Z01.812 Encounter for preprocedural laboratory examination; J43.9 Emphysema, unspecified; F17.210 Nicotine dependence, cigarettes, uncomplicated
CPT/HCPCS: 71271; 82565; 84520

== ENCOUNTER 2024-07-10 23:38 | Emergency (ER) | payer OTHER ==
[2024-07-10 23:55] VITALS: RESP 18
--- NOTE | 2024-07-11 00:44 | ED ---
General Adult HPI - General Chief complaint: Abdominal Pain Stated complaint: ABD Pain Time Seen by Provider: 07/11/24 00:08 Source: patient Mode of arrival: ambulatory Limitations: no limitations - History of Present Illness Initial comments: Patient is a pleasant 54-year-old female the past medical history CAD presenting today for worsening of chronic right sided abdominal pain. States has been ongoing for 1 to 1-1/2 years. Worse in the last 5 days and persistent. No relief with home [place]. Is similar to the pain that she has been having for the last year. States that she has an extensive outpatient workup for this but no recent CT of the abdomen. Does have one scheduled outpatient. Is hoping to find answers today as to what has been causing her pain. She denies nausea, vomiting, fevers, chills, cough, chest pain, shortness of breath, hemoptysis, hematochezia. - Related Data Home Medications Medication Instructions Recorded Confirmed Fluticasone Nasal [place] [Flonase 2 spr EA NOSTRIL DAILY 10/16/17 10/26/23 Nasal [place]] Liothyronine Sodium [Cytomel] 5 mcg PO DAILY 10/16/17 10/27/23 Dicyclomine [Bentyl] 20 mg PO QID PRN 03/18/19 10/26/23 Acetaminophen Tab [Tylenol] 500 mg PO Q8H 09/08/19 10/26/23 Docusate Sodium [Dok] 100 mg PO BID 09/08/19 10/27/23 Ergocalciferol [Vitamin D2 50,000 unit PO WE 09/08/19 10/27/23 (DRISDOL)] LORazepam [Ativan] 0.5 mg PO HS 09/08/19 10/27/23 LORazepam [Ativan] 1 mg PO QAM 09/08/19 10/26/23 Magnesium Oxide 400 mg PO DAILY 09/08/19 10/27/23 Nitroglycerin Sl Tabs [Nitrostat] 0.4 mg SUBLINGUAL Q5M PRN 09/08/19 10/27/23 Omeprazole [PriLOSEC] 40 mg PO BID 09/08/19 10/27/23 Spironolactone [Aldactone] 25 mg PO DAILY 09/08/19 10/27/23 Albuterol Nebulized [Ventolin 2.5 mg INHALATION QID 05/16/21 10/27/23 Nebulized] Albuterol Sulfate [Proair Hfa] 1 - 2 puff INHALATION Q6H PRN 05/16/21 10/27/23 Aspirin EC [Ecotrin] 325 mg PO DAILY 05/16/21 10/27/23 Atorvastatin [Lipitor] 40 mg PO HS 05/16/21 10/27/23 Black Cohosh 40 mg PO DAILY 05/16/21 10/27/23 rOPINIRole HCL [Requip] 0.25 mg PO HS 05/16/21 10/27/23 Atorvastatin [Lipitor] 20 mg PO DAILY 07/15/23 10/27/23 Cetirizine HCl [Zyrtec] 10 mg PO DAILY 07/15/23 10/27/23 Entresto (Unknown Dose) 1 tab PO DAILY 07/15/23 10/27/23 Fluticasone/Umeclidin/Vilanter 1 puff INHALATION DAILY 07/15/23 10/27/23 [Trelegy Ellipta 200-62.5-25] Levothyroxine Sodium 125 mcg PO DAILY 07/15/23 10/27/23 Metoprolol Succinate [Metoprolol 25 mg PO DAILY 07/15/23 10/27/23 Succinate ER] Mucinex (Unknown Dose) 1 tab PO DAILY 07/15/23 10/27/23 Multivit with Calcium,Iron,Min 1 each PO DAILY 07/15/23 10/27/23 [Women's Multivitamin] PARoxetine HCL 40 mg PO DAILY 07/15/23 10/27/23 Cephalexin [Keflex] 500 mg PO Q8H 10/26/23 10/27/23 Meloxicam [Mobic] 15 mg PO DAILY 10/26/23 10/27/23 Allergies Allergy/AdvReac Type Severity Reaction Status Date / Time fentanyl Allergy Dyspnea Verified 07/10/24 23:55 Review of Systems ROS Statement: Those systems with pertinent positive or pertinent negative responses have been documented in the HPI. ROS Other: All systems not noted in ROS Statement are negative. Past Medical History Past Medical History: Coronary Artery Disease (CAD), Chest Pain / Angina, COPD, Fibromyalgia, GERD/Reflux, Hyperlipidemia, Hypertension, Thyroid Disorder Additional Past Medical History / Comment(s): IRRITABLE BOWEL DISEASE/ HAD GRAVES-NOW HYPO,. Anxiety with panic attacks, sciatica, History of Any Multi-Drug Resistant Organisms: C-DIFF Date of last positivie culture/infection: APRIL 2015 MDRO Source:: FECES Past Surgical History: Section, Heart Catheterization With Stent, Orthopedic Surgery, Tubal Ligation Additional Past Surgical History / Comment(s): OVARY REMOVED, cardiac stent Distal circ, left hip broken March 2021 Past Anesthesia/Blood Transfusion Reactions: Motion Sickness Past Psychological History: Anxiety, Panic Disorder, PTSD Smoking Status: Current every day smoker Past Alcohol Use History: None Reported Past Drug Use History: Marijuana - Past Family History Mother Family Medical History: No Reported History Father Family Medical History: Cancer General Exam - General Exam Comments Initial Comments: PE: CONSTITUTIONAL: No apparent distress, well appearing SKIN: Warm, dry, no jaundice, hives or petechiae, no overlying skin changes in the area of pain EYES: Pupils are equally round, extraocular movements intact without nystagmus, clear conjunctiva, non-icteric sclera HENT: Normocephalic, atraumatic, moist mucus membranes, oropharynx clear without exudates NECK: , Full range of motion, normal appearance PULMONARY: Clear to auscultation without wheezes, rhonchi, or rales, normal excursion, no accessory muscle use and no stridor CARDIOVASCULAR: Regular rate, rhythm, normal S1 and S2. No appreciated murmurs, rubs or gallops. Strong radial pulses with intact distal perfusion. No lower extremity edema GASTROINTESTINAL: Soft, active bowel sounds throughout, tenderness to palpation in the right upper quadrant of the abdomen just inferior to the right costochondral junction, non-distended, no palpable masses, no rebound or guarding. No hepatosplenomegaly GENITOURINARY: MUSCULOSKELETAL: Extremities have no gross deformity, no edema, redness, or swelling. No calf swelling NEUROLOGIC:_a/o x 3, GCS 15, normal mentation and speech. Moves all extremities x 4 without motor or sensory deficit PSYCHIATRIC:_normal mood and affect, thought process is clear and linear Limitations: no limitations Course Vital Signs 07/10/24 07/11/24 23:53 05:07 Temperature 98.3 F 97.5 F L Pulse Rate 79 66 Respiratory 18 18 Rate Blood Pressure 137/81 135/79 O2 Sat by Pulse 96 92 L Oximetry EKG Findings - EKG Comments: EKG Findings:: Sinus rhythm, artifact heavily present throughout, PVC present, rate 64 bpm, TN interval 203 ms, QRS duration 149 ms, QT/QTc 457/467 ms, RBBB, compared to EKG performed 09/10, RBBB present at that time as well, no significant changes from prior, though limited by artifact Medical Decision Making - Medical Decision Making Was pt. sent in by a medical professional or institution (, PA, STAFFING RN, urgent care, hospital, or long-term...) When possible be specific @ -No Did you speak to anyone other than the patient for history (EMS, parent, family, police, friend...)? What history was obtained from this source @ -No Did you review nursing and triage notes (agree or disagree)? Why? @ -I reviewed and agree with nursing and triage notes Were old charts reviewed (outside hosp., previous admission, EMS record, old EKG, old radiological studies, urgent care reports/EKG's, long-term records)? Report findings @Low-dose lung CT performed on 03/28/2024, showed benign findings marked emphysematous changes but no acute process, patient had HIDA scan performed 02/11/2024 for right upper quadrant pain ejection fraction from CBD 44% within normal limits, no evidence for acute or chronic cholecystitis or biliary dyskinesia, ultrasound of the gallbladder performed in December showed no acute process Differential Diagnosis (chest pain, altered mental status, abdominal pain women, abdominal pain men, vaginal bleeding, weakness, fever, dyspnea, syncope, headache, dizziness, GI bleed, back pain, seizure, CVA, palpatations, mental health, musculoskeletal)? @ -Differential diagnosis remains broad however top considerations include cholecystitis, choledocholithiasis, diverticulitis, colitis, GERD, peptic ulcer disease, PE, costochondritis this is not all-inclusive list EKG interpreted by me (3pts min.). @ -As above X-rays interpreted by me (1pt min.). @ -None done CT interpreted by me (1pt min.). @No pulmonary embolism on CTA chest, no obstruction or perforation on CT abdomen pelvis U/S interpreted by me (1pt. min.). @ -None done What testing was considered but not performed or refused? (CT, X-rays, U/S, labs)? Why? @ -None What meds were considered but not given or refused? Why? @ -None Did you discuss the management of the patient with other professionals (professionals i.e. , PA, STAFFING RN, lab, RT, psych nurse, social science teacher, surveyor instrument assistant, teacher, parking regulation enforcement officer, foster care case manager)? Give summary @ -No Was smoking cessation discussed for >3mins.? @ -No Was critical care preformed (if so, how long)? @ -No Were there social determinants of health that impacted care today? How? (Homelessness, low income, unemployed, alcoholism, drug addiction, transportation, low edu. Level, literacy, decrease access to med. care, nursing home, rehab)? @ -No Was there de-escalation of care discussed even if they declined (Discuss DNR or withdrawal of care, Hospice)? @ -No What co-morbidities impacted this encounter? (DM, HTN, Smoking, COPD, CAD, Cancer, CVA, ARF, Chemo, Hep., AIDS, mental health diagnosis, sleep apnea, morbid obesity)? @ -None Was patient admitted / discharged? Hospital course, mention meds given and route, prescriptions, significant lab abnormalities, going to OR and other pertinent info. @ -Hospital course Patient is a 54-year-old female history of CAD chronic right upper quadrant pain presenting for worsening and persistence of her right upper quadrant pain. Has had extensive workup for this in the past. States never had CT for this. Does have CT Scheduled outpatient. On my assessment patient is well-appearing and in no acute distress. Exam significant for point tenderness to palpation of the right upper quadrant of the abdomen where abdomen he rates the right costochondral junction, there are no overlying skin changes, negative Dow sign, abdomen soft and otherwise nontender throughout, no palpable masses. Plan for CT PE study in addition to CT abdomen pelvis, comprehensive labs. CT PE study showed no PE, CT abdomen pelvis significant for mild fecal retention, and otherwise no acute process, labs significant for mild leukocytosis white blood cell count 11.3, otherwise labs are reassuring, urinalysis shows no signs of infection or hematuria. Troponin within normal limits. Repeat troponin was not drawn as very low suspicion for ACS based on story, additionally if secondary to ACS and pain has been ongoing a year worse over the last 5 days 1 would expect a troponin elevation at this point. On reassessment patient states pain is somewhat improved. I discussed with her reassuring workup today. We discussed signs and symptoms warranting return to the emergency department as well as the importance of following up with her primary care provider regarding further monitoring of her presenting complaint. Patient is comfortable disc harge home at this point. In my medical judgment there is currently no evidence of an immediate life- threatening or surgical condition. Discharge is therefore indicated at this time. Discharge treatment instructions, follow up instructions, and appropriate emergency department return precautions were discussed with the patient and/or medical decision maker. Patient and/or medical decision maker expressed understanding of and agreed with the treatment plan, follow up instructions, and emergency department return precaution. All patient's and/or medical decision maker's questions were answered. The patient was advised that a small risk still exists that a serious condition could develop and was therefore instructed to return to the ED for any changes in symptoms, persistent symptoms, inability to obtain proper follow-up or for any further concerns. Patient received verbal and written instructions for this condition. Drug Therapy requiring intensive monitoring for toxicity (Heparin, Nitro, Insulin, Cardizem)? @ -No Were any procedures done? @ -No Diagnosis/symptom? @ -Right upper quadrant abdominal pain Acute, or Chronic, or Acute on Chronic? @Acute on chronic Uncomplicated (without systemic symptoms) or Complicated (systemic symptoms)? @Uncomplicated Side effects of treatment? @ -No Exacerbation, Progression, or Severe Exacerbation? @ -No Poses a threat to life or bodily function? How? (Chest pain, [place], [place], pneumonia, PE, COPD, DKA, ARF, appy, cholecystitis, CVA, Diverticulitis, Homicidal, Suicidal, threat to staff... and all critical care pts) @ -No - Lab Data Result diagrams: 07/11/24 01:55 07/11/24 01:55 Lab Results 07/11/24 07/11/24 07/11/24 Range/Units 01:45 01:55 01:55 WBC 11.3 H (3.8-10.6) k/uL RBC 4.36 (3.80-5.40) m/uL Hgb 14.6 (11.4-16.0) gm/dL Hct 42.6 (34.0-46.0) % MCV 97.8 (80.0-100.0) fL MCH 33.6 (25.0-35.0) pg MCHC 34.3 (31.0-37.0) g/dL RDW 12.7 (11.5-15.5) % Plt Count 420 (150-450) k/uL MPV 7.7 Neutrophils % 65 % Lymphocytes % 26 % Monocytes % 6 % Eosinophils % 2 % Basophils % 1 % Neutrophils # 7.3 (1.3-7.7) k/uL Lymphocytes # 2.9 (1.0-4.8) k/uL Monocytes # 0.7 (0-1.0) k/uL Eosinophils # 0.2 (0-0.7) k/uL Basophils # 0.1 (0-0.2) k/uL PT (10.0-12.5) sec INR (<1.2) APTT (22.0-30.0) sec Sodium 139 (137-145) mmol/L Potassium 4.2 (3.5-5.1) mmol/L Chloride 108 H (98-107) mmol/L Carbon Dioxide 26 (22-30) mmol/L Anion Gap 5 mmol/L BUN 8 (7-17) mg/dL Creatinine 0.58 (0.52-1.04) mg/dL Est GFR (CKD-EPI)AfAm >90 (>60 ml/min/1.73 sqM) Est GFR (CKD-EPI)NonAf >90 (>60 ml/min/1.73 sqM) Glucose 89 (74-99) mg/dL Calcium 10.1 (8.4-10.2) mg/dL Total Bilirubin 0.5 (0.2-1.3) mg/dL AST 23 (14-36) U/L ALT 21 (4-34) U/L Alkaline Phosphatase 67 (38-126) U/L Troponin I (0.000-0.034) ng/mL Total Protein 7.7 (6.3-8.2) g/dL Albumin 5.0 (3.5-5.0) g/dL Amylase 45 (30-110) U/L Lipase 89 (23-300) U/L Urine Color Colorless Urine Appearance Clear (Clear) Urine pH 5.5 (5.0-8.0) Ur Specific [place] 1.008 (1.001-1.035) Urine Protein Negative (Negative) Urine Glucose (UA) Negative (Negative) Urine Ketones Negative (Negative) Urine Blood Negative (Negative) Urine Nitrite Negative (Negative) Urine Bilirubin Negative (Negative) Urine Urobilinogen <2.0 (<2.0) mg/dL Ur Leukocyte Esterase Negative (Negative) 07/11/24 07/11/24 Range/Units 01:55 01:55 WBC (3.8-10.6) k/uL RBC (3.80-5.40) m/uL Hgb (11.4-16.0) gm/dL Hct (34.0-46.0) % MCV (80.0-100.0) fL MCH (25.0-35.0) pg MCHC (31.0-37.0) g/dL RDW (11.5-15.5) % Plt Count (150-450) k/uL MPV Neutrophils % % Lymphocytes % % Monocytes % % Eosinophils % % Basophils % % Neutrophils # (1.3-7.7) k/uL Lymphocytes # (1.0-4.8) k/uL Monocytes # (0-1.0) k/uL Eosinophils # (0-0.7) k/uL Basophils # (0-0.2) k/uL PT 10.5 (10.0-12.5) sec INR 1.0 (<1.2) APTT 28.9 (22.0-30.0) sec Sodium (137-145) mmol/L Potassium (3.5-5.1) mmol/L Chloride (98-107) mmol/L Carbon Dioxide (22-30) mmol/L Anion Gap mmol/L BUN (7-17) mg/dL Creatinine (0.52-1.04) mg/dL Est GFR (CKD-EPI)AfAm (>60 ml/min/1.73 sqM) Est GFR (CKD-EPI)NonAf (>60 ml/min/1.73 sqM) Glucose (74-99) mg/dL Calcium (8.4-10.2) mg/dL Total Bilirubin (0.2-1.3) mg/dL AST (14-36) U/L ALT (4-34) U/L Alkaline Phosphatase (38-126) U/L Troponin I <0.012 (0.000-0.034) ng/mL Total Protein (6.3-8.2) g/dL Albumin (3.5-5.0) g/dL Amylase (30-110) U/L Lipase (23-300) U/L Urine Color Urine Appearance (Clear) Urine pH (5.0-8.0) Ur Specific [place] (1.001-1.035) Urine Protein (Negative) Urine Glucose (UA) (Negative) Urine Ketones (Negative) Urine Blood (Negative) Urine Nitrite (Negative) Urine Bilirubin (Negative) Urine Urobilinogen (<2.0) mg/dL Ur Leukocyte Esterase (Negative) Disposition Clinical Impression: Right sided abdominal pain Disposition: HOME SELF-CARE Condition: Good Instructions (If sedation given, give patient instructions): Abdominal Pain (ED) Additional Instructions: Every disease is a spectrum and a small chance still exists that a serious condition could develop, for this reason, please monitor yourself closely for new, changing or worsening symptoms, change in the quality or intensity of your symptoms, nausea vomiting, vomiting blood or blood in your stool, fevers, inability to tolerate/keep down fluids or your medications, inability to follow up with outpatient providers as instructed and should you experience these symptoms or should you have any further concerns for your wellbeing please return to the ED or call 911 immediately. PLEASE call your primary care physician as soon as possible to arrange / discuss plan for followup appointment. Appointment in the next 1-3 days is strongly encouraged if possible. PLEASE let us know here before you leave if there is anything further we can do to be of any assistance. Take care and feel Better! Is patient prescribed a controlled substance at d/c from ED?: No Referrals: Juan Carolina, [Primary Care Provider] - 1-2 days
[2024-07-11] MEDS: SODIUM CHLORIDE 0.9% 1,000 ML IV STA (02:01)
[2024-07-11] MEDS: PANTOPRAZOLE 40 MG/10 ML VIAL IVP STA (02:02)
[2024-07-11] MEDS: ONDANSETRON 4 MG/2 ML VIAL IVP STA ×2 (02:02→04:10)
[2024-07-11] MEDS: MORPHINE SULFATE 4 MG/ML SYRINGE IVP STA ×2 (02:03→04:10)
[2024-07-11 02:23] LABS: Basophils # (A) 0.1 k/uL (0-0.2); Basophils % (A) 1 %; Eosinophils # (A) 0.2 k/uL (0-0.7); Eosinophils % (A) 2 %; HCT 42.6 % (34.0-46.0); HGB 14.6 gm/dL (11.4-16.0); Lymphocytes # (A) 2.9 k/uL (1.0-4.8); Lymphocytes % (A) 26 %; MCH 33.6 pg (25.0-35.0); MCHC 34.3 g/dL (31.0-37.0); MCV 97.8 fL (80.0-100.0); Mean Platelet Volume 7.7; Monocytes # (A) 0.7 k/uL (0-1.0); Monocytes % (A) 6 %; Neutrophils # (A) 7.3 k/uL (1.3-7.7); Neutrophils % (A) 65 %; Platelet Count 420 k/uL (150-450); RBC 4.36 m/uL (3.80-5.40); RDW 12.7 % (11.5-15.5); WBC 11.3 k/uL (3.8-10.6)
[2024-07-11 02:35] LABS: Appearance,Urine Clear (Clear); Bilirubin,Urine Negative (Negative); Blood,Urine Negative (Negative); Color,Urine Colorless; Glucose,Urine (UA) Negative (Negative); Ketones,Urine Negative (Negative); Leukocyte Esterase,Urine Negative (Negative); Nitrite,Urine Negative (Negative); PH, Urine 5.5 (5.0-8.0); Protein,Urine Negative (Negative); Specific Gravity,Urine 1.008 (1.001-1.035); Urobilinogen,Urine <2.0 mg/dL (<2.0)
[2024-07-11 02:38] LABS: Partial Thromboplastin Time 28.9 sec (22.0-30.0); Prothrombin Time 10.5 sec (10.0-12.5)
[2024-07-11 03:22] LABS: ALT 21 U/L (4-34); AST 23 U/L (14-36); African American GFR (CKD) >90 (>60 ml/min/1.73 sqM); Alkaline Phosphatase 67 U/L (38-126); Amylase 45 U/L (30-110); Anion Gap 5 mmol/L; Blood Urea Nitrogen 8 mg/dL (7-17); Calcium 10.1 mg/dL (8.4-10.2); Carbon Dioxide 26 mmol/L (22-30); Chloride 108 mmol/L (98-107); Glucose 89 mg/dL (74-99); Lipase 89 U/L (23-300); Non-African American GFR(CKD) >90 (>60 ml/min/1.73 sqM); Potassium 4.2 mmol/L (3.5-5.1); Sodium 139 mmol/L (137-145); Total Bilirubin 0.5 mg/dL (0.2-1.3); Total Protein 7.7 g/dL (6.3-8.2)
--- NOTE | 2024-07-11 03:29 | CT ---
EXAM: CT Angiography Chest With Intravenous Contrast CLINICAL HISTORY: ITS.REASON CT Reason: sharp right sided lower chest pain/RUQ pain, PE? TECHNIQUE: Axial computed tomographic angiography images of the chest with intravenous contrast. CTDI is 6 mGy and DLP is 269.8 mGy-cm. This CT exam was performed using one or more of the following dose reduction techniques: automated exposure control, adjustment of the mA and/or kV according to patient size, and/or use of iterative reconstruction technique. MIP reconstructed images were created and reviewed. COMPARISON: No relevant prior studies available. FINDINGS: Pulmonary arteries: Unremarkable. No pulmonary embolism. Aorta: No acute findings. No thoracic aortic aneurysm. Lungs: Severe centrilobular emphysema. No mass. No consolidation. Pleural space: Unremarkable. No significant effusion. No pneumothorax. Heart: Unremarkable. No cardiomegaly. No significant pericardial effusion. No evidence of RV dysfunction. Bones/joints: No acute fracture. No dislocation. Soft tissues: Unremarkable. Lymph nodes: Unremarkable. No enlarged lymph nodes. IMPRESSION: 1. No pulmonary embolism. 2. Severe centrilobular emphysema.
--- NOTE | 2024-07-11 03:32 | CT ---
EXAM: CT Abdomen and Pelvis With Intravenous Contrast CLINICAL HISTORY: ITS.REASON CT Reason: abdominal pain TECHNIQUE: Axial computed tomography images of the abdomen and pelvis with intravenous contrast. CTDI is 14.5 mGy and DLP is 753.2 mGy-cm. This CT exam was performed using one or more of the following dose reduction techniques: automated exposure control, adjustment of the mA and/or kV according to patient size, and/or use of iterative reconstruction technique. COMPARISON: No relevant prior studies available. FINDINGS: Lung bases: Unremarkable. No mass. No consolidation. ABDOMEN: Liver: Unremarkable. No mass. Gallbladder and bile ducts: Unremarkable. No calcified stones. No ductal dilation. Pancreas: Unremarkable. No mass. No ductal dilation. Spleen: Unremarkable. No splenomegaly. Adrenals: Unremarkable. No mass. Kidneys and ureters: Unremarkable. No solid mass. No hydronephrosis. Stomach and bowel: Mild fecal retention, correlate for constipation. No obstruction. No mucosal thickening. PELVIS: Appendix: No findings to suggest acute appendicitis. Bladder: Unremarkable. No mass. Reproductive: Unremarkable as visualized. ABDOMEN and PELVIS: Intraperitoneal space: Unremarkable. No free air. No significant fluid collection. Bones/joints: Degenerative changes of the spine. No acute fracture. No dislocation. Soft tissues: Unremarkable. Vasculature: Atherosclerotic changes of the aorta. No abdominal aortic aneurysm. Lymph nodes: Unremarkable. No enlarged lymph nodes. IMPRESSION: Mild fecal retention, correlate for constipation.
[2024-07-11 05:14] VITALS: BP 135/79; PULSE 66; TEMP 97.5
== END 2024-07-11 05:14 | disposition home or self-care (01) ==
LOC: EC 23:38
CPT/HCPCS: 36415; 71275; 74177; 80053; 81003; 82150; 83690; 84484; 85025; 85610; 85730; 93005

== ENCOUNTER → 2024-09-06 | Outpatient (CLI) | payer OTHER ==
--- NOTE | 2024-09-12 17:25 | MM ---
Reason for Exam: Screening (asymptomatic). Last mammogram was performed 1 year(s) and 3 month(s) ago. Patient History: Menarche at age 14. First Full-Term at age 25. Right ovary removed at age 41. Postmenopausal. Hormonal Contraceptives for 6 years from age 19 until age 25. 11/09/2009, Benign Core Biopsy on the right side. Maternal aunt had breast cancer, age 60. Risk Values: Nelia 5 year model risk: 1.2%. NCI Lifetime model risk: 9.0%. Prior Study Comparison: 10/05/2020 Bilateral Screening Mammogram, [facility]. 03/27/2022 Bilateral MG diagnostic mammo w CAD [facility], [facility]. 06/03/2023 Bilateral MG screening mammo w CAD, [facility]. Tissue Density: The breasts are heterogeneously dense, which may obscure small masses. Findings: Analyzed By CAD. Redemonstrated are diffuse and regional microcalcifications throughout the right breast with microclip related to prior biopsy. Possible partially obscured nodular asymmetric density subareolar right cc view for which further evaluation is recommended. Otherwise, no significant change. Overall Assessment: Incomplete: need additional imaging evaluation, BI-RAD 0 Management: Special View Mammogram of the right breast. Diagnostic Breast Ultrasound of the right breast. Additional views to include spot 3-D CC, 3-D CC rolled, and 3-D lateral views. Subsequent right breast ultrasound given dense breast tissue. [facility] will attempt to contact patient to return for supplemental views and ultrasound if indicated. [facility], , 09/12/2024 5:22 PM. Electronically signed and approved by: Marin Dumas DO
== END | disposition home or self-care (01) ==
LOC: RADMAMWWP 08:37
PROVIDERS: ATTEND Internal Medicine
DX: Z12.31 Encounter for screening mammogram for malignant neoplasm of breast (principal); R92.333 Mammographic heterogeneous density, bilateral breasts; Z78.0 Asymptomatic menopausal state; Z80.3 Family history of malignant neoplasm of breast; Z90.722 Acquired absence of ovaries, bilateral
CPT/HCPCS: 77067

== ENCOUNTER → 2024-09-26 | Outpatient (CLI) | payer OTHER ==
[2024-09-27 02:48] LABS: Blood Urea Nitrogen 10.3 mg/dL (9.0-27.0); Carbon Dioxide 25.4 mmol/L (21.6-31.8); Chloride 101 mmol/L (96-109); Sodium 138 mmol/L (135-145)
[2024-09-27 03:50] LABS: HCT 43.5 % (37.2-46.3); HGB 14.6 g/dL (12.0-15.0); MCH 32.9 pg (27.0-32.0); MCHC 33.6 g/dL (32.0-37.0); Mean Platelet Volume 10.2 FL (9.5-12.2); NRBC Per 100 WBC 0 X 10*3/uL (0.00-0.01); Platelet Count 406 X 10*3/uL (140-440); RBC 4.44 X 10*6/uL (4.10-5.20); RDW 12.2 % (11.5-14.5); WBC 8.79 X 10*3/uL (4.50-10.00)
== END | disposition home or self-care (01) ==
LOC: LABPAT 16:25
PROVIDERS: ATTEND Internal Medicine Clinical Cardiac Electrophysiology
DX: Z01.818 Encounter for other preprocedural examination (principal); I50.9 Heart failure, unspecified; I42.8 Other cardiomyopathies; I44.7 Left bundle-branch block, unspecified
CPT/HCPCS: 80051; 82565; 84520; 85027

== ENCOUNTER → 2024-09-30 | Outpatient (CLI) | payer OTHER ==
--- NOTE | 2024-10-02 01:40 | MM ---
Reason for Exam: Additional evaluation requested from prior study. Last screening mammogram was performed less than 1 month ago. Patient History: Menarche at age 14. First Full-Term at age 25. Right ovary removed at age 41. Postmenopausal. Hormonal Contraceptives for 6 years from age 19 until age 25. 11/09/2009, Benign Core Biopsy on the right side. Maternal aunt had breast cancer, age 60. Risk Values: Nelia 5 year model risk: 1.2%. NCI Lifetime model risk: 9.0%. Tissue Density: Right: The breasts are extremely dense, which lowers the sensitivity of mammography. Findings: Analyzed By CAD. On compression no persistent suspicious nodularity is evident. Scattered benign-appearing calcifications. Overall Assessment: Probably benign, BI-RAD 3 Management: Diagnostic Mammogram of the right breast in 6 months. A negative mammogram report should not preclude additional follow up of suspicious palpable abnormalities. Patient should continue monthly self breast exam. A clinical breast exam by your physician is recommended on an annual basis and results should be correlated with mammographic findings. Note on Nelia scores and lifetime risk: 1. A Nelia score greater than 3% is considered moderate risk. If this is the case, consider specialist referral to assess eligibility for a risk reducing agent. 2. If overall lifetime risk for the development of breast cancer is 20% or higher, the patient may qualify for future screening with alternating mammogram and breast MRI. [facility], , 10/02/2024 1:38 AM. Electronically signed and approved by: Freddie Villa D.O. Radiologis
== END | disposition home or self-care (01) ==
LOC: RADMAMWWP 13:24
PROVIDERS: ATTEND Internal Medicine
DX: R92.8 Other abnormal and inconclusive findings on diagnostic imaging of breast (principal); Z78.0 Asymptomatic menopausal state; Z80.3 Family history of malignant neoplasm of breast
CPT/HCPCS: 77065; G0279; 77061

== ENCOUNTER 2024-10-04 13:19 | Day surgery (SDC) | payer OTHER ==
[2024-10-03 11:12] VITALS: BMI 25.0
[2024-10-04] MEDS: SODIUM CHLORIDE 0.9% 1,000 ML IV SCH (14:12)
[2024-10-04] MEDS: IV FLUID CONTINUATION 1,000 ML IV ONE (14:13)
[2024-10-04 14:33] LABS: ALT 15 U/L (4-34); AST 16 U/L (14-36); African American GFR (CKD) 86 (>60 ml/min/1.73 sqM); Albumin 5.1 g/dL (3.5-5.0); Alkaline Phosphatase 77 U/L (38-126); Anion Gap 11 mmol/L; Blood Urea Nitrogen 13 mg/dL (7-17); Calcium 10.4 mg/dL (8.4-10.2); Carbon Dioxide 28 mmol/L (22-30); Chloride 103 mmol/L (98-107); Glucose 108 mg/dL (74-99); Non-African American GFR(CKD) 74 (>60 ml/min/1.73 sqM); Potassium 4.3 mmol/L (3.5-5.1); Sodium 142 mmol/L (137-145); Total Bilirubin 0.5 mg/dL (0.2-1.3); Total Protein 7.7 g/dL (6.3-8.2)
[2024-10-04] MEDS: ALBUTEROL NEBULIZED 2.5 MG/3 ML INHALATION ONE (15:04)
[2024-10-04] MEDS ORDERED: MIDAZOLAM 2 MG/2 ML VIAL ONE (17:11)
[2024-10-04] MEDS ORDERED: GLYCOPYRROLATE 0.2 MG/ML 2 ML VIAL ONE (17:11)
[2024-10-04] MEDS ORDERED: ROCURONIUM 10 MG/ML (5 ML VIAL) IV ONE (17:11)
[2024-10-04] MEDS ORDERED: NEOSTIGMINE 1 MG/ML 10 ML VIAL ONE (17:11)
[2024-10-04] MEDS ORDERED: PROPOFOL 10 MG/ML 20 ML VIAL IV ONE (17:11)
[2024-10-04] MEDS ORDERED: PHENYLEPHRINE-0.9% NACL SYG 1,000 MCG/10 ML SYRINGE ONE (17:11)
[2024-10-04] MEDS ORDERED: SUCCINYLCHOLINE CHLORIDE 200 MG/10 ML VIAL IV ONE (17:11)
[2024-10-04] MEDS: IOPAMIDOL-370 100ML BTL INJ ONE ×2 (17:30)
[2024-10-04] MEDS: ROPIVACAINE 5 MG/ML 30 ML VIAL MISCELLANE ONE (18:00)
[2024-10-04] MEDS: LIDOCAINE 1% INJ 10MG/ML (20 ML MDV) SQ ONE (18:00)
[2024-10-04] MEDS: VANCOMYCIN IV PER PHARMACY 1 EACH MISC MISCELLANE STA (18:17)
[2024-10-04] MEDS: LACTATED RINGERS 1,000 ML IV ONE (19:30)
[2024-10-04] MEDS: ceFAZolin 1 GM in SODIUM CHLORIDE 0.9% IRRIG BTL 250 ML IRRIGATION PRN (20:00)
--- NOTE | 2024-10-04 20:52 | P.EPPROC ---
- EP Procedure Note Electrophysiology Procedure Note: Diagnosis Severe nonischemic cardiomyopathy with a left bundle branch block QRS width of 142 ms congestive heart failure class II on guideline directed medical treatment Congestive heart failure [place] [employer] class class II Wide QRS left bundle branch block morphology QRS width 142 ms On guide line directed medical treatment for greater than 3 months Procedure: Biventricular ICD implantation for management of risk of sudden cardiac and congestive heart failure Result: Successful biventricular ICD implantation, with left bundle pacing Atrial lead: 0.5 V at 0.5 ms, P waves 2.7 mV and pacing impedance of 560 ohms RV ICD lead: 0.4 V at 0.5 ms, R waves 11 mV and pacing impedance 990 ohms. High- voltage impedance 89 ohms Left ventricular lead: The coronary sinus was very difficult to access and despite multiple sheaths. Switch to left bundle pacing Conduction system pacing lead: Schmitt [employer] model number [id number], 58 cm lead along with the Schmitt sheath was successfully implanted in the left bundle area with selective left bundle pacing achieved. Stimulus-V6 peak equals 67 ms and paced QRS width 135 ms, typical right bundle, unipolar Excellent thresholds 0.4 V at 0.5 ms pacing pins 560 ohms However, with bipolar pacing excellent stimulus-peak of V6 obtained of 69 ms with a QRS width again of 135 ms, very similar to unipolar pacing Procedure details: Patient was brought to the EP lab in a fasting state. Written informed consent was obtained prior to the procedure. Options, pros and cons, benefits and risks and complications discussed with patient in detail prior to the procedure (shared decision making) previously. Importance of continuing medical treatment emphasized previously. Alternatives discussed previously. Left upper extremity venogram performed. 15 mL IV dye injected in the left arm. Patent axillary/subclavian vein The left pectoral area was prepped and draped as a protocol. IV antibiotics administered 1% lidocaine was used for local anesthesia. A 4 cm incision was made parallel to the deltopectoral groove, about 1.5 cm medial to it. The incision was carried down to the level of the pectoralis muscle and the subfascial pocket was made. Hemostasis was assured. The axillary vein access was obtained. Appropriately sized into to see sheaths were placed. ICD lead implanted in the right ventricle and screwed in. ICD lead tested for threshold, sensing, impedances and tested with high output pacing for diaphragmatic stimulation. Negative diaphragmatic stimulation Atrial lead placed in the right atrial appendage and tested for threshold, sensing, impedance, and tested with high output pacing. Phrenic nerve stimulation negative Coronary sinus/left ventricular epicardial lead placement attempted but the coronary sinus is very difficult to access. We did place the coronary sinus lead catheter within the proximal 2 cm but it would not advance easily beyond this on account of the valve. This took extra time and finally this was abandoned in favor of left bundle pacing Conduction system pacing lead placement: [employer] medical radiation therapist used for left bundle pacing successfully with excellent unipolar and bipolar parameters for left bundle pacing as described above Leads secured to the underlying pectoral muscle after removing sheaths . Pocket irrigated with antibiotic solution. Antibiotic pouch placed Leads connected to the biventricular ICD generator. Wound closed in 3 layers and dressed per protocol Biventricular ICD interrogated and programmed. Appropriate pacing parameters, antitachycardia therapies with antitachycardia pacing cardioversion defibrillations programmed. Short AV delay AV delay and unipolar LB Pacing parameters programmed to achieve optimal physiologic pacing Patient tolerated the procedure well without any acute complications. See scanned device report in EMR for lead details recommended for management of congestive heart failure chronic systolic dysfunction and management of sudden cardiac Defibrillation level testing VF was induced and adequately and appropriately detected with Vinay sensitivity and successfully internally defibrillated with a 10 J shock. No post shock noise No significant dropouts. MADIT RIT programming for tachycardia therapies DDD 50 with a short AV delay of 120 ms for left bundle pacing. LV RV offset of 80 ms This is a long procedure on account of mapping for the coronary sinus. Coronary sinus catheter placement was difficult and only the initial 2 cm of the coronary sinus could be accessed. The lead would not pass beyond this on account of the presence of valve just beyond the os. Multiple attempts were made with multiple different sheaths and finally we switched to left bundle pacing. This took longer than usual time Plan Increase metoprolol succinate to 100 mg p.o. daily to prolonged AV candice delay to allow for left bundle pacing and activation
[2024-10-04] MEDS: ACETAMINOPHEN IV (For NPO) 1,000 MG in EMPTY BAG 1 BAG IVPB ONE (21:06)
[2024-10-04] MEDS ORDERED: HYDROmorphone 0.5 MG/0.5 ML SYRINGE IM PRN (21:21)
[2024-10-04] MEDS: HYDROmorphone 0.5 MG/0.5 ML SYRINGE IVP STA (21:35)
[2024-10-04] MEDS: SACUBITRIL/VALSARTAN 24 MG-26 MG TABLET PO SCH (22:07)
[2024-10-04] MEDS: VANCOMYCIN 1,000 MG in SODIUM CHLORIDE 0.9% 250 ML IVPB ONE ×2 (22:09→22:49)
[2024-10-04] MEDS: ACETAMINOPHEN TAB 325 MG TAB PO PRN (22:29)
[2024-10-05] MEDS: LEVOTHYROXINE 137 MCG TAB PO SCH (05:39)
[2024-10-05] MEDS: LIOTHYRONINE SODIUM 5 MCG TAB PO SCH (05:39)
[2024-10-05 07:48] VITALS: BP 103/74; PULSE 88; RESP 16; TEMP 98.1
--- NOTE | 2024-10-05 08:27 | P.DS ---
Providers Attending physician: Michael Westfall Primary care physician: [facility] Course: Patient is sitting comfortably in bed. She does have discomfort in the left pectoral area out of proportion to what is usually seen after an ICD implant No breathing trouble. When I asked her to perform pendulum exercises of the left arm she was able to do so comfortably and did not appear to be in any pain Blood pressure 111/70 mmHg pulse rate is in the 60s afebrile Breath sounds are clear Heart sounds are normal Chest x-ray shows a biventricular ICD with left bundle lead all in stable position. No pneumothorax Impression Predominantly nonischemic cardiomyopathy with congestive heart failure class II on heart failure medications, guideline directed Status post BiV ICD with left bundle lead Dose of metoprolol succinate was increased to 100 mg p.o. daily to permit LV activation via left bundle pacing status post BiV ICD with left bundle pacing and defibrillation level testing. DFT at 10 J Plan Discharge home today after interrogation of the device and follow-up in the device clinic and follow-up with Dr. Espinoza Plan - Discharge Summary Discharge Rx Participant: No New Discharge Prescriptions: New RX: Metoprolol Succinate [Toprol XL] 100 mg PO DAILY #90 tab Continue RX: Liothyronine Sodium [Cytomel] 5 mcg PO DAILY RX: Fluticasone Nasal [place] [Flonase Nasal [place]] 2 spr EA NOSTRIL DAILY RX: Dicyclomine [Bentyl] 20 mg PO QID PRN PRN Reason: IBS RX: Acetaminophen Tab [Tylenol] 500 mg PO Q8H RX: Docusate Sodium [Dok] 100 mg PO BID RX: LORazepam [Ativan] 0.5 mg PO HS RX: LORazepam [Ativan] 1 mg PO QAM RX: Magnesium Oxide 400 mg PO DAILY RX: Omeprazole [PriLOSEC] 40 mg PO BID RX: Spironolactone [Aldactone] 25 mg PO DAILY RX: Nitroglycerin Sl Tabs [Nitrostat] 0.4 mg SUBLINGUAL Q5M PRN PRN Reason: Chest Pain RX: Albuterol Nebulized [Ventolin Nebulized] 2.5 mg INHALATION QID RX: PARoxetine HCL 40 mg PO DAILY RX: Cetirizine HCl [Zyrtec] 10 mg PO DAILY RX: Potassium Chloride 10 meq PO DAILY RX: Orphenadrine Citrate [Orphenadrine Citrate ER] 100 mg PO DAILY RX: Empagliflozin [Jardiance] 10 mg PO DAILY RX: Aspirin EC [Ecotrin Low Dose] 81 mg PO DAILY RX: Sacubitril/Valsartan [Entresto 24 mg-26 mg Tablet] 1 each PO BID RX: rOPINIRole HCL [Requip] 0.25 mg PO HS RX: Atorvastatin [Lipitor] 40 mg PO HS RX: Albuterol Sulfate [Proair Hfa] 1 - 2 puff INHALATION Q6H PRN PRN Reason: Shortness Of Breath RX: Atorvastatin [Lipitor] 20 mg PO DAILY RX: Multivit with Calcium,Iron,Min [Women's Multivitamin] 1 each PO DAILY RX: Fluticasone/Umeclidin/Vilanter [Trelegy Ellipta 200-62.5-25] 1 puff INHALATION DAILY RX: Levothyroxine Sodium 137 mcg PO DAILY Discontinued RX: Metoprolol Succinate [Metoprolol Succinate ER] 25 mg PO DAILY Discharge Medication List RX: Fluticasone Nasal [place] [Flonase Nasal [place]] 2 spr EA NOSTRIL DAILY 10/16/17 [History] RX: Liothyronine Sodium [Cytomel] 5 mcg PO DAILY 10/16/17 [History] RX: Dicyclomine [Bentyl] 20 mg PO QID PRN 03/18/19 [History] RX: Acetaminophen Tab [Tylenol] 500 mg PO Q8H 09/08/19 [History] RX: Docusate Sodium [Dok] 100 mg PO BID 09/08/19 [History] RX: LORazepam [Ativan] 0.5 mg PO HS 09/08/19 [History] RX: LORazepam [Ativan] 1 mg PO QAM 09/08/19 [History] RX: Magnesium Oxide 400 mg PO DAILY 09/08/19 [History] RX: Nitroglycerin Sl Tabs [Nitrostat] 0.4 mg SUBLINGUAL Q5M PRN 09/08/19 [History] RX: Omeprazole [PriLOSEC] 40 mg PO BID 09/08/19 [History] RX: Spironolactone [Aldactone] 25 mg PO DAILY 09/08/19 [History] RX: Albuterol Nebulized [Ventolin Nebulized] 2.5 mg INHALATION QID 05/16/21 [History] RX: Albuterol Sulfate [Proair Hfa] 1 - 2 puff INHALATION Q6H PRN 05/16/21 [History] RX: Atorvastatin [Lipitor] 40 mg PO HS 05/16/21 [History] RX: rOPINIRole HCL [Requip] 0.25 mg PO HS 05/16/21 [History] RX: Atorvastatin [Lipitor] 20 mg PO DAILY 07/15/23 [History] RX: Cetirizine HCl [Zyrtec] 10 mg PO DAILY 07/15/23 [History] RX: Fluticasone/Umeclidin/Vilanter [Trelegy Ellipta 200-62.5-25] 1 puff INHALATION DAILY 07/15/23 [History] RX: Multivit with Calcium,Iron,Min [Women's Multivitamin] 1 each PO DAILY 07/15/23 [History] RX: PARoxetine HCL 40 mg PO DAILY 07/15/23 [History] RX: Aspirin EC [Ecotrin Low Dose] 81 mg PO DAILY 10/03/24 [History] RX: Empagliflozin [Jardiance] 10 mg PO DAILY 10/03/24 [History] RX: Levothyroxine Sodium 137 mcg PO DAILY 10/03/24 [History] RX: Orphenadrine Citrate [Orphenadrine Citrate ER] 100 mg PO DAILY 10/03/24 [History] RX: Potassium Chloride 10 meq PO DAILY 10/03/24 [History] RX: Sacubitril/Valsartan [Entresto 24 mg-26 mg Tablet] 1 each PO BID 10/03/24 [History] RX: Metoprolol Succinate [Toprol XL] 100 mg PO DAILY #90 tab 10/04/24 [Rx] Follow up Appointment(s)/Referral(s): Gael Espinoza MD [STAFF PHYSICIAN] - 1 Week Activity/Diet/Wound Care/Special Instructions: PATIENT EDUCATION MATERIAL Instructions following a heart rhythm device implant. 1. Keep dressing DRY for 5 DAYS. You may cover the area with Saran or Cling Wrap, prior to a shower. 2. The dressing will be removed in the Device Clinic at [facility]. Absorbable sutures were used to close the wound. 3. Avoid raising the left arm above the shoulder level. 4 week restriction 4. Avoid arm movements, like backscratching, rubbing the head, or pulling on a cord. 4 weeks restriction 5. Gentle range of motion movements of the shoulder, closest to the incision should be performed to avoid a frozen shoulder. (Pendulum exercises of the shoulder) 6. The opposite arm may be used freely. 7. Avoid driving for 7 days. 8. Avoid activities such as golfing, swimming, weed whacking, lifting more than 10 pounds weight, bowling, gymnastics and weight training/lifting. (6 weeks restriction) 9. Activities such as wood chopping with an axe, pull-ups in the gymnasium, power lifting, arc-welding, being close to home induction cooktops will always be a problem. 10. Arm sling is only a reminder not to raise the arm above the head. You do not need to keep the arm completely immobilized. Your free to move the arm and use it and for normal activities. In case of any problems, please call [facility], [place], @ [phone], Attention: Device Clinic Device clinic follow-up in 5 days Follow-up with primary snow maker in 2-3 months Increase metoprolol to 100 mg p.o. daily following BiV ICD implantation with left bundle pacing Discharge Disposition: HOME SELF-CARE
[2024-10-05] MEDS: SPIRONOLACTONE 25 MG TAB PO SCH (08:42)
[2024-10-05] MEDS: ATORVASTATIN 20 MG TAB PO SCH (08:42)
[2024-10-05] MEDS: PARoxetine 20 MG TAB PO SCH (08:42)
[2024-10-05] MEDS: IBUPROFEN 200 MG TAB PO PRN (08:42)
[2024-10-05] MEDS: ASPIRIN 81 MG PO SCH (08:43)
[2024-10-05] MEDS: METOPROLOL SUCCINATE (ER) 50 MG TAB.ER.24H PO SCH (08:43)
[2024-10-05] MEDS: DAPAGLIFLOZIN PROPANEDIOL 5 MG TABLET PO SCH (08:43)
--- NOTE | 2024-10-05 09:23 | XR ---
EXAMINATION TYPE: XR chest 2V DATE OF EXAM: 10/05/2024 7:38 AM COMPARISON: Chest radiographs from 09/01/2023 CLINICAL INDICATION: Female, 54 years old with history of Lead placement check; [facility] TECHNIQUE: XR chest 2V Frontal and lateral views of the chest. FINDINGS: Lungs/Pleura: There is no evidence of pleural effusion, focal consolidation, or pneumothorax. Pulmonary vascularity: Unremarkable. Heart/mediastinum: Cardiomediastinal silhouette is unremarkable. Three lead cardiac conduction device overlying the left hemithorax with lead tips projecting over the right ventricle, and right atrium. Musculoskeletal: No acute osseous pathology. IMPRESSION: No acute cardiopulmonary disease/process. [facility], , 10/05/2024 9:21 AM
== END 2024-10-05 10:53 | disposition home or self-care (01) ==
LOC: CATHEP 13:19 → 6NMEDSUR 20:15 → CATHEP 10-05 10:53
PROVIDERS: ATTEND Internal Medicine Clinical Cardiac Electrophysiology
DX: I11.0 Hypertensive heart disease with heart failure (principal); I50.22 Chronic systolic (congestive) heart failure; I42.8 Other cardiomyopathies; I25.10 Atherosclerotic heart disease of native coronary artery without angina pectoris; Z95.5 Presence of coronary angioplasty implant and graft; E78.5 Hyperlipidemia, unspecified; I08.1 Rheumatic disorders of both mitral and tricuspid valves; I44.7 Left bundle-branch block, unspecified; F17.210 Nicotine dependence, cigarettes, uncomplicated; Z79.82 Long term (current) use of aspirin; Z79.84 Long term (current) use of oral hypoglycemic drugs; Z79.890 Hormone replacement therapy; Z79.51 Long term (current) use of inhaled steroids; Z79.899 Other long term (current) drug therapy; Z82.49 Family history of ischemic heart disease and other diseases of the circulatory system
CPT/HCPCS: 94640; 93641; 33249; 80053; 84443; 71046; C1769 ×2; C1898 ×2; C1730; C1887; C1892; C1882; C1777; J2250; J3370; J0330; J2710; J0690 ×2; J2003; J2795; J0131; J2704; J1171; Q9967; J2371; J1596

== ENCOUNTER 2024-12-13 18:07 | Emergency (ER) | payer OTHER ==
[2024-12-13 18:26] VITALS: TEMP 98.1
--- NOTE | 2024-12-13 18:51 | ED ---
Extremity Problem HPI - General Chief complaint: Extremity Problem,Nontraumatic Stated complaint: L hip pain Time Seen by Provider: 12/13/24 18:31 Source: patient, RN notes reviewed Mode of arrival: wheelchair Limitations: no limitations - History of Present Illness Initial comments: This is a 54-year-old female who presents to the emergency department for left hip pain. States that it started when she woke up 2 days ago but seems to be getting worse. Denies any known injuries. She did break this hip a couple of years ago. However, states that the pain seems to be lower down in the upper thigh than the actual hip bone. She has tried taking Tylenol without any relief. States that the pain has gotten to the point where she is unable to ambulate. Pain does not typically radiate past the mid thigh. - Related Data Home Medications Medication Instructions Recorded Confirmed Fluticasone Nasal [place] [Flonase 2 spr EA NOSTRIL DAILY 10/16/17 10/04/24 Nasal [place]] Liothyronine Sodium [Cytomel] 5 mcg PO DAILY 10/16/17 10/04/24 Dicyclomine [Bentyl] 20 mg PO QID PRN 03/18/19 10/04/24 Acetaminophen Tab [Tylenol] 500 mg PO Q8H 09/08/19 10/04/24 Docusate Sodium [Dok] 100 mg PO BID 09/08/19 10/04/24 LORazepam [Ativan] 0.5 mg PO HS 09/08/19 10/04/24 LORazepam [Ativan] 1 mg PO QAM 09/08/19 10/04/24 Magnesium Oxide 400 mg PO DAILY 09/08/19 10/04/24 Nitroglycerin Sl Tabs [Nitrostat] 0.4 mg SUBLINGUAL Q5M PRN 09/08/19 10/04/24 Omeprazole [PriLOSEC] 40 mg PO BID 09/08/19 10/04/24 Spironolactone [Aldactone] 25 mg PO DAILY 09/08/19 10/04/24 Albuterol Nebulized [Ventolin 2.5 mg INHALATION QID 05/16/21 10/04/24 Nebulized] Albuterol Sulfate [Proair Hfa] 1 - 2 puff INHALATION Q6H PRN 05/16/21 10/04/24 Atorvastatin [Lipitor] 40 mg PO HS 05/16/21 10/04/24 rOPINIRole HCL [Requip] 0.25 mg PO HS 05/16/21 10/04/24 Atorvastatin [Lipitor] 20 mg PO DAILY 07/15/23 10/04/24 Cetirizine HCl [Zyrtec] 10 mg PO DAILY 07/15/23 10/04/24 Fluticasone/Umeclidin/Vilanter 1 puff INHALATION DAILY 07/15/23 10/04/24 [Trelegy Ellipta 200-62.5-25] Multivit with Calcium,Iron,Min 1 each PO DAILY 07/15/23 10/04/24 [Women's Multivitamin] PARoxetine HCL 40 mg PO DAILY 07/15/23 10/04/24 Aspirin EC [Ecotrin Low Dose] 81 mg PO DAILY 10/03/24 10/04/24 Empagliflozin [Jardiance] 10 mg PO DAILY 10/03/24 10/04/24 Levothyroxine Sodium 137 mcg PO DAILY 10/03/24 10/04/24 Orphenadrine Citrate [Orphenadrine 100 mg PO DAILY 10/03/24 10/04/24 Citrate ER] Potassium Chloride 10 meq PO DAILY 10/03/24 10/04/24 Sacubitril/Valsartan [Entresto 24 1 each PO BID 10/03/24 10/04/24 mg-26 mg Tablet] Previous Rx's Medication Instructions Recorded Metoprolol Succinate [Toprol XL] 100 mg PO DAILY #90 tab 10/04/24 HYDROcodone/APAP 7.5-325MG [[place] 1 tab PO TID PRN 3 Days #9 tab 10/05/24 7.5-325] HYDROcodone/APAP 5-325MG [[place] 1 tab PO Q4HR PRN 3 Days #18 tab 12/13/24 5-325] predniSONE 50 mg PO DAILY 5 Days #5 tab 12/13/24 Allergies Allergy/AdvReac Type Severity Reaction Status Date / Time fentanyl Allergy Dyspnea Verified 12/13/24 18:26 Review of Systems ROS Statement: Those systems with pertinent positive or pertinent negative responses have been documented in the HPI. ROS Other: All systems not noted in ROS Statement are negative. Past Medical History Past Medical History: Coronary Artery Disease (CAD), Chest Pain / Angina, COPD, Fibromyalgia, GERD/Reflux, Hyperlipidemia, Hypertension, Thyroid Disorder Additional Past Medical History / Comment(s): IRRITABLE BOWEL DISEASE/ HAD GRAVES-NOW HYPO,. Anxiety with panic attacks, sciatica, History of Any Multi-Drug Resistant Organisms: C-DIFF Date of last positivie culture/infection: APRIL 2015 MDRO Source:: FECES Past Surgical History: Pacemaker Additional Past Surgical History / Comment(s): OVARY REMOVED, cardiac stent Distal circ, left hip broken March 2021, pacer/defib Past Anesthesia/Blood Transfusion Reactions: Motion Sickness Date of Last Stent Placement:: . Past Psychological History: Anxiety, Panic Disorder, PTSD Smoking Status: Current every day smoker Past Alcohol Use History: None Reported Past Drug Use History: Marijuana - Past Family History Mother Family Medical History: No Reported History Father Family Medical History: Cancer General Exam Limitations: no limitations General appearance: alert, in no apparent distress Head exam: Present: atraumatic, normocephalic, normal inspection Respiratory exam: Present: normal lung sounds bilaterally. Absent: respiratory distress, wheezes, rales, rhonchi, stridor Cardiovascular Exam: Present: regular rate, normal rhythm, normal heart sounds. Absent: systolic murmur, diastolic murmur, rubs, gallop, clicks Extremities exam: Present: other (Tenderness to palpation over the left hip and upper thigh. Full range of motion, however this does induce pain. No swelling or erythema. 2+ DP and PT pulses) Neurological exam: Present: alert, oriented X3, CN II-XII intact Psychiatric exam: Present: normal affect, normal mood Skin exam: Present: warm, dry, intact, normal color. Absent: rash Course Vital Signs 12/13/24 12/13/24 18:21 22:19 Temperature 98.1 F Pulse Rate 83 71 Respiratory 17 20 Rate Blood Pressure 99/65 115/73 O2 Sat by Pulse 97 95 Oximetry Medical Decision Making - Medical Decision Making This is a 54 year old female who presents to the emergency department for left hip pain. Was pt. sent in by a medical professional or institution? @ -No Did you speak to anyone other than the patient for history? @ -No Did you review nursing and triage notes? @ -Yes, and I agree, it is accurate with regards to the patient's symptoms. Were old charts reviewed? @ -CT scan of the left hip from 04/07/2021 demonstrating a nondisplaced posterior acetabular labral intra-articular fracture. Differential Diagnosis? @ -Differential Musculoskeletal Muscular strain, contusion, ligament sprain, fracture, arthritis, septic arthritis, bursitis, cellulitis, muscle spasm, nerve compression, DVT, arterial occlusion, herpes zoster, electrolyte abnormality, tumor.... This is not meant to be in all inclusive list EKG interpreted by me (3pts min.)? @ -Not obtained X-rays interpreted by me (1pt min.)? @ -X-ray of the left hip and AP pelvis as well as left femur obtained. My interpretation of all images identifies no acute fractures. CT interpreted by me (1pt min.)? @ -CT scan of the pelvis and left femur obtained. My interpretation identifies no acute fractures. U/S interpreted by me (1pt. min.)? @ -Duplex ultrasound of the left lower extremity obtained. My interpretation identifies no evidence of DVT. What testing was considered but not performed? (CT, X-rays, U/S, labs)? Why? @ -None What meds were considered but not given? Why? @ -None Did you discuss the management of the patient with other professionals? @ -No Did you reconcile home meds? @ -No Was smoking cessation discussed for >3mins.? @ -No Was critical care preformed (if so, how long)? @ -No Were there social determinants of health that impacted care today? How? (Homelessness, low income, unemployed, alcoholism, drug addiction, transportation, low edu. Level, literacy, decrease access to med. care, alf, rehab)? @ -No Was there de-escalation of care discussed even if they declined? (Discuss DNR or withdrawal of care, Hospice)? @ -No What co-morbidities impacted this encounter? (DM, HTN, Smoking, COPD, CAD, Cancer, CVA, Hep., AIDS, mental health diagnosis, sleep apnea, morbid obesity)? @ -Fibromyalgia Was patient admitted / discharged? @ -Discharged. We started with an x-ray of the left hip and AP pelvis as well as the left femur. No acute process was identified. We then obtained a CT scan of the pelvis and left femur. The remote acetabular fracture was identified, which was present in 2020. No irregularities were otherwise noted. Duplex ultrasound of the left lower extremity obtained as well and no evidence of a DVT was found. Pain was managed in the emergency department and she was able to ambulate without difficulty. The cause of her symptoms is not entirely clear. Given that it is more so on the lateral aspect of the leg we discussed possibilities of sciatica, IT band syndrome, trochanteric bursitis, and meralgia paresthetica. Rx for prednisone and [place] prescribed for further pain management. Advised follow-up with her PCP in the next couple of days for reevaluation. Patient discharged home in stable condition. Case discussed with ED attending Dr. Holley. Return precautions reviewed in depth, the patient is instructed to return to the emergency department with any new, worsening, or concerning symptoms. Patient verbalized understanding. Undiagnosed new problem with uncertain prognosis? @ -None Drug Therapy requiring intensive monitoring for toxicity (Heparin, Nitro, Insulin, Cardizem)? @ -None Were any procedures done? @ -None Diagnosis/symptom? @ -Left leg pain Acute, or Chronic, or Acute on Chronic? @ -Acute Uncomplicated (without systemic symptoms) or Complicated (systemic symptoms)? @ -Uncomplicated Side effects of treatment? @ -None Exacerbation, Progression, or Severe Exacerbation] @ -Not applicable Poses a threat to life or bodily function? @ -No - Radiology Data Radiology results: report reviewed, image reviewed Disposition Clinical Impression: Left leg pain, Sciatica of left side Disposition: HOME SELF-CARE Instructions (If sedation given, give patient instructions): Sciatica (ED), Leg Pain (ED) Additional Instructions: Return to the emergency department with any new, worsening, or concerning symptoms. Take the prednisone daily for 5 days. Take the [place] sparingly when your pain is the most severe. Follow up with your primary care provider in 1-2 days. Prescriptions: HYDROcodone/APAP 5-325MG [[place] 5-325] 1 tab PO Q4HR PRN 3 Days #18 tab PRN Reason: Pain predniSONE 50 mg PO DAILY 5 Days #5 tab Is patient prescribed a controlled substance at d/c from ED?: Yes When asked, does pt state using other controlled substances?: No If prescribed controlled substance>3 days was MAPS reviewed?: Prescribed <3 Days Referrals: Juan Carolina DO [Primary Care Provider] - 1-2 days Time of Disposition: 21:49
[2024-12-13] MEDS: KETOROLAC 15 MG/ML 1 ML VIAL IVP STA (19:14)
[2024-12-13] MEDS: MORPHINE SULFATE 4 MG/ML SYRINGE IVP STA (19:15)
--- NOTE | 2024-12-13 19:15 | XR ---
EXAMINATION TYPE: XR Hip LT and AP Pelvis, XR femur LT DATE OF EXAM: 12/13/2024 7:09 PM INDICATION: Patient age:Female; 54 years old; Reason for study: Pain; PHH. pain COMPARISON: CT abdomen and pelvis 04/01/2021, CT left hip 04/07/2021, CT pelvis 02/22/2019, left hip radi ographs 04/07/2021 TECHNIQUE: The left hip was examined in the frontal and lateral projections and a AP pelvis. The lef t femur was examined in frontal and lateral projections. FINDINGS: No evidence of any acute osseous pathology, joint dislocation, or soft tissue swelling. Sup rapatellar spurring. No radiopaque foreign bodies. IMPRESSION: No acute osseous pathology. [facility], , 12/13/2024 7:12 PM
--- NOTE | 2024-12-13 20:20 | CT ---
EXAMINATION TYPE: CT pelvis wo con, CT femur LT wo con CT DLP: Combined 1546.4 mGycm, Automated exposure control for dose reduction was used. DATE OF EXAM: 12/13/2024 8:11 PM COMPARISON: Left femur and left hip/pelvic radiograph 12/13/2024, CT left hip 04/07/2021, left hip radi ographs 04/07/2021, CT pelvis 02/22/2019. CLINICAL INDICATION:Female, 54 years old with history of Pain; Left hip pain running into left leg. TECHNIQUE: Standard CT of the pelvis and left hipwithout IV or oral contrast. Lack of IV or oral co ntrast limits evaluation of solid and hollow organ viscera. Coronal and sagittal reformats were perfo rmed. FINDINGS: BLADDER: Unremarkable REPRODUCTIVE: Unremarkable. BOWEL: No focal bowel wall thickening or surrounding inflammatory changes. No evidence of bowel obstr uction. PERITONEUM: No evidence of pneumoperitoneum or free fluid. VASCULATURE: Atherosclerotic calcification of the distal abdominal aorta and its branches. MUSCULOSKELETAL: No acute osseous abnormalities. Remote nondisplaced left posterior acetabular fractu re. No significant osteoarthritic change. No aggressive osseous lesion. Suprapatellar spurring demons trated. LYMPH NODES: No gross evidence for lymphadenopathy. SOFT TISSUE/ABDOMINAL WALL: Unremarkable IMPRESSION: 1. No acute fracture or dislocation. 2. Remote nondisplaced left posterior acetabular fracture. [facility], , 12/13/2024 8:18 PM
[2024-12-13] MEDS: HYDROmorphone 1 MG/ML 1 ML SYRINGE IVP STA (20:45)
[2024-12-13] MEDS: LIDOCAINE 4% PATCH TOPICAL ONE (20:46)
[2024-12-13] MEDS: DEXAMETHASONE SOD PHOSPHATE 10 MG/ML 1 ML VIAL IVP STA (20:46)
--- NOTE | 2024-12-13 21:21 | US ---
EXAMINATION TYPE: US venous doppler duplex LE LT DATE OF EXAM: 12/13/2024 9:11 PM COMPARISON: US 01/15/24 CLINICAL INDICATION: Female, 54 years old with history of Leg pain; patient states left hip pain. no hx dvt. not on thinners, Pain TECHNIQUE: The lower extremity deep venous system is examined utilizing real time linear array sonog regina with graded compression, color doppler sonography, and spectral doppler. SIDE PERFORMED: Bilateral FINDINGS: VESSELS IMAGED: Common Femoral Vein Deep Femoral Vein Greater Saphenous Vein * Femoral Vein Popliteal Vein Small Saphenous Vein * Proximal Calf Veins (* superficial vessels) Left Leg: Appears negative for dvt , Color Doppler imaging shows patency of the vessels. Spectral wa veforms are within normal limits. IMPRESSION: No evidence of deep vein thrombosis of the left lower extremity. [facility], , 12/13/2024 9:18 PM
[2024-12-13] MEDS: HYDROcodone/APAP 10-325MG 1 EACH TAB PO ONE (22:07)
[2024-12-13] MEDS: ONDANSETRON 4 MG ODT STARTER PACK 2 TAB BTL PO STA (22:11)
[2024-12-13] MEDS: ACET/COD 300 MG/30 MG STARTER PACK 6 TAB BTL PO STA (22:11)
[2024-12-13 22:20] VITALS: BP 115/73; PULSE 71; RESP 20
== END 2024-12-13 22:20 | disposition home or self-care (01) ==
LOC: EC 18:07
DX: M54.32 Sciatica, left side (principal); M79.7 Fibromyalgia; F17.200 Nicotine dependence, unspecified, uncomplicated; Z88.5 Allergy status to narcotic agent
CPT/HCPCS: 73502; 73552; 93971; 72192; 73700; 99284; 96374; 96375 ×3; J2270; J1100; J1171; J1885; S0119

== ENCOUNTER → 2024-12-15 | Outpatient (CLI) | payer OTHER ==
--- NOTE | 2024-12-15 20:39 | XR ---
EXAMINATION TYPE: XR chest 2V DATE OF EXAM: 12/15/2024 5:33 PM COMPARISON: Chest x-ray October 05, 2024. CLINICAL INDICATION: Female, 54 years old with history of I50.20, pacemaker 2 months ago TECHNIQUE: Frontal and lateral views of the chest are obtained. FINDINGS: There is no focal air space opacity, pleural effusion, or pneumothorax seen. The cardiac silhouette size is stable and within normal limits. Persistent 3-lead pacemaker/defibrillator with st able lead in the right ventricle and coronary sinus but proximally retracted back into the SVC. The osseous structures are intact. IMPRESSION: As above. [facility], , 12/15/2024 8:37 PM
== END | disposition home or self-care (01) ==
LOC: RADXRMAIN 17:18
PROVIDERS: ATTEND Student in an Organized Health Care Education/Training Program
DX: I50.20 Unspecified systolic (congestive) heart failure (principal)
CPT/HCPCS: 71046

== ENCOUNTER 2025-02-14 08:45 | Day surgery (SDC) | payer OTHER ==
[2025-02-09 16:28] VITALS: BMI 25.0
[~2025-02-14 08:45] MED LIST changes: -ALBUTEROL NEBULIZED 2.5 MG/3 ML INHALATION STA; -ALPRAZolam 0.25 MG TAB PO PRN; -ALPRAZolam 0.5 MG TAB PO PRN; -ASPIRIN 325 MG TAB PO STA; -HEPARIN SODIUM 1,000 UN/ML (10ML VL) ONE; -HEPARIN SODIUM,PORCINE (1 ML) 2,500 UNIT in SODIUM CHLORIDE 0.9% 250 ML IRRIGATION PRN; -HEPARIN SODIUM,PORCINE 10,000 UNIT in SODIUM CHLORIDE 0.9% 1,000 ML IRRIGATION PRN; -IOPAMIDOL-370 100ML BTL INJ ONE; -LIDOCAINE 1% INJ 10MG/ML (20 ML MDV) ONE; -LIDOCAINE 1% INJ 10MG/ML (20 ML MDV) SQ ONE; -MIDAZOLAM 2 MG/2 ML VIAL IVP ONE; -NITROGLYCERIN SL TABS 0.4 MG TAB SUBLINGUAL PRN; -RX INFO: IV CONTRAST WAS GIVEN 1 EACH MISC MISCELLANE PRN; -SODIUM CHLORIDE 0.9% 1,000 ML in EMPTY BAG 1 BAG IV SCH; -VERAPAMIL 2.5 MG/ML 2 ML AMP ONE; +ceFAZolin 2 GM in DEXTROSE 5% IN WATER 50 ML IVPB PRN
--- NOTE | 2025-02-14 08:49 | P.HPCAR ---
History of Present Illness Patient has been scheduled for revision of ICD lead and atrial lead. The diagnosis in the EMR is lead malfunction. This is inaccurate. This is a case of significant lead dislodgment unlikely to be of a spontaneous nature given the degree of dislodgment Admitting diagnosis dislodgment/pull back of multiple intracardiac leads Plan Repositioning the leads Procedure will be performed under general anesthesia. Discussed with E MAIL SYSTEM ADMINISTRATOR and the marketing trainee Last time with mild sedation the patient jumped off the table and it was very hard to control her with sedation only For patient's safety, we will proceed with general anesthesia 2 weeks back I called the patient and spoke to her and clarified to her that t his was not a spontaneous minor dislodgment Risks of the procedure Cardiac puncture 1% Increased risk of infection since this is a redo case Main risk is recurrence of dislodgment. I will discuss this with her primary thermo processor Past Medical History Past Medical History: Coronary Artery Disease (CAD), Chest Pain / Angina, COPD, Fibromyalgia, GERD/Reflux, Hyperlipidemia, Hypertension, Thyroid Disorder Additional Past Medical History / Comment(s): IRRITABLE BOWEL DISEASE/ HAD GRAVES-NOW HYPO,. Anxiety with panic attacks, sciatica, History of Any Multi-Drug Resistant Organisms: C-DIFF Date of last positivie culture/infection: APRIL 2015 MDRO Source:: FECES Past Surgical History: AICD, Pacemaker Additional Past Surgical History / Comment(s): OVARY REMOVED, cardiac stent Distal circ, left hip broken March 2021-NO SX, pacer/defib Past Anesthesia/Blood Transfusion Reactions: Motion Sickness Date of Last Stent Placement:: . Type of Cardiac Device: Biventricular Pacemaker Device Placement Date:: 10/04/24 Smoking Status: Current every day smoker - Past Family History Mother Family Medical History: No Reported History Father Family Medical History: Cancer Results Current Medications Generic Name Dose Route Start Last Admin Trade Name Freq PRN Reason Stop Dose Admin Sodium Chloride 1,000 mls @ 50 mls/hr 02/14/25 06:05 Saline 0.9% IV 03/16/25 06:04 .Q20H ROCIO Sodium Chloride 1,000 mls @ 50 mls/hr 02/14/25 06:05 Saline 0.9% IV 03/16/25 06:04 .Q20H ROCIO Cefazolin Sodium 1 gm/ Sodium 250 mls @ 250 mls/hr 02/14/25 06:05 Chloride IRRIGATION 02/15/25 06:04 ONCE PRN PRE-OP Cefazolin Sodium 2 gm/ 50 mls @ 100 mls/hr 02/14/25 07:04 Dextrose/Water IVPB 02/15/25 07:03 ONCE PRN Pre-Op
[2025-02-14] MEDS ORDERED: ALBUTEROL NEBULIZED 2.5 MG/3 ML INHALATION STA (08:58)
[2025-02-14] MEDS: IV FLUID CONTINUATION 1,000 ML IV ONE (09:17)
[2025-02-14] MEDS: VANCOMYCIN 1,000 MG in SODIUM CHLORIDE 0.9% 250 ML IVPB STA (09:26)
[2025-02-14] MEDS ORDERED: ALBUTEROL NEBULIZED 2.5 MG/3 ML INHALATION PRN (09:28)
[2025-02-14 09:43] LABS: African American GFR (CKD) >90 (>60 ml/min/1.73 sqM); Anion Gap 10 mmol/L; Blood Urea Nitrogen 8 mg/dL (7-17); Calcium 9.7 mg/dL (8.4-10.2); Carbon Dioxide 24 mmol/L (22-30); Chloride 103 mmol/L (98-107); Glucose 113 mg/dL (74-99); Non-African American GFR(CKD) >90 (>60 ml/min/1.73 sqM); Potassium 3.8 mmol/L (3.5-5.1); Sodium 137 mmol/L (137-145)
[2025-02-14] MEDS ORDERED: SUCCINYLCHOLINE CHLORIDE 200 MG/10 ML VIAL IV ONE (09:58)
[2025-02-14] MEDS ORDERED: KETAMINE HCL IN 0.9 % NACL 50 MG/5 ML SYRINGE ONE (09:58)
[2025-02-14] MEDS ORDERED: ePHEDrine 50 MG/ML 1 ML VIAL ONE (09:58)
[2025-02-14] MEDS ORDERED: PHENYLEPHRINE 10 MG/ML VIAL ONE (09:58)
[2025-02-14] MEDS ORDERED: HYDROmorphone (PF) 1 MG/ML ONE (09:58)
[2025-02-14] MEDS ORDERED: LIDOCAINE 1% INJ 10MG/ML (20 ML MDV) ONE (09:58)
[2025-02-14] MEDS ORDERED: ETOMIDATE 2 MG/ML 10 ML VIAL ONE (09:58)
[2025-02-14] MEDS ORDERED: MIDAZOLAM 2 MG/2 ML VIAL ONE (09:58)
[2025-02-14] MEDS: IOPAMIDOL-370 100ML BTL INJ ONE (10:16)
[2025-02-14] MEDS: LIDOCAINE 1% INJ 10MG/ML (20 ML MDV) SQ ONE (10:54)
--- NOTE | 2025-02-14 11:52 | P.CONS ---
History of Present Illness - Reason for Consult Consult date: 02/14/25 - History of Present Illness Patient is a 55-year-old female with history of nonischemic cardiomyopathy status post BiV ICD, CAD, GERD, COPD, fibromyalgia, hypertension, dyslipidemia, hypothyroidism, irritable bowel, anxiety/depression presenting for revision of ICD lead and atrial lead. Patient claims that she has on and off chest discomfort this been going on for years. She occasionally gets shortness of b reath but mostly with exertion, denies any shortness of breath at rest. Denies any new significant cough or sputum production. No new abdominal pain, urinary or bowel complaints. Denies any fevers or chills. Temperature 97.9, pulse 68, respiratory 16, blood pressure 114/69, saturating at 94% on room air, sodium 137, potassium 3.8, creatinine 0.71, glucose 113. Sound physicians consulted for medical management and possible admission. Pertinent positives and negatives as discussed in HPI, a complete review of systems was performed and all other systems are negative. Patient seen and examined at bedside. Vital signs reviewed General: nontoxic, no distress, appears at stated age Derm: warm, dry Head: atraumatic, normocephalic, symmetric Eyes: EOMI, no lid lag, anicteric sclera, pupils equal round reactive to light ENT: Nose and ears atraumatic Neck: No thyromegaly, supple Mouth: no lip lesion, mucus membranes moist Cardiovascular: S1S2 reg, no murmur, no edema Lungs: clear to auscultation bilateral, no rhonchi, no rales, no wheeze, no accessory muscle use Abdominal: soft, nontender to palpation, no guarding, no appreciable organomegaly Ext: no gross muscle atrophy, muscle strength muscle strength 5 out of 5 in all 4 extremities, no contractures Neuro: CN II-XII grossly intact Psych: Alert, oriented, appropriate affect Assessment/Plan: Active: COPD, not in exacerbation - Continue home Trelegy daily, DuoNebs 4 times daily scheduled, albuterol every 6 hours as needed Anxiety - Continue oral Ativan 0.5 twice daily, Paxil 40 daily GERD - Continue omeprazole 40 twice daily Hypothyroidism - Continue Synthroid 137 mcg daily, liothyronine 5 mcg daily Nonischemic cardiomyopathy status post BiV AICD Coronary artery disease Dyslipidemia Hypertension - Getting revision of ICD as well as atrial lead - Management per structures assembler - Continued home cardiac meds except for aspirin Thank you for allowing us to participate in the care of this pleasant patient. Do not hesitate to contact us with questions. Someone can be reached from the [facility] hospitalist group all hours of the day at [phone] or via [employer]. Past Medical History Past Medical History: Coronary Artery Disease (CAD), Chest Pain / Angina, COPD, Fibromyalgia, GERD/Reflux, Hyperlipidemia, Hypertension, Thyroid Disorder Additional Past Medical History / Comment(s): IRRITABLE BOWEL DISEASE/ HAD GRAVES-NOW HYPO,. Anxiety with panic attacks, sciatica, History of Any Multi-Drug Resistant Organisms: C-DIFF Year Discovered:: APRIL 2015 MDRO Source:: FECES Past Surgical History: AICD, Pacemaker Additional Past Surgical History / Comment(s): OVARY REMOVED, cardiac stent D istal circ, left hip broken March 2021-NO SX, pacer/defib Past Anesthesia/Blood Transfusion Reactions: Motion Sickness Date of Last Stent Placement:: . Type of Cardiac Device: Biventricular Pacemaker Device Placement Date:: 10/04/24 Smoking Status: Current every day smoker - Past Family History Mother Family Medical History: No Reported History Father Family Medical History: Cancer Medications and Allergies Home Medications Medication Instructions Recorded Confirmed Type Fluticasone Nasal [place] [Flonase 2 spr EA NOSTRIL DAILY 10/16/17 02/14/25 History Nasal [place]] Liothyronine Sodium [Cytomel] 5 mcg PO DAILY 10/16/17 02/14/25 History Dicyclomine [Bentyl] 20 mg PO QID PRN 03/18/19 02/14/25 History Acetaminophen Tab [Tylenol] 500 mg PO Q8H 09/08/19 02/14/25 History Docusate Sodium [Dok] 100 mg PO BID 09/08/19 02/14/25 History LORazepam [Ativan] 0.5 mg PO BID 09/08/19 02/14/25 History Magnesium Oxide 400 mg PO DAILY 09/08/19 02/14/25 History Nitroglycerin Sl Tabs [Nitrostat] 0.4 mg SUBLINGUAL Q5M PRN 09/08/19 02/09/25 History Omeprazole [PriLOSEC] 40 mg PO BID 09/08/19 02/14/25 History Spironolactone [Aldactone] 25 mg PO DAILY 09/08/19 02/14/25 History Albuterol Sulfate [Proair Hfa] 1 - 2 puff INHALATION Q6H PRN 05/16/21 02/14/25 History Atorvastatin [Lipitor] 40 mg PO HS 05/16/21 02/14/25 History rOPINIRole HCL [Requip] 0.25 mg PO HS 05/16/21 02/14/25 History Atorvastatin [Lipitor] 20 mg PO HS 07/15/23 02/14/25 History Cetirizine HCl [Zyrtec] 10 mg PO DAILY 07/15/23 02/14/25 History Fluticasone/Umeclidin/Vilanter 1 puff INHALATION DAILY 07/15/23 02/14/25 History [Trelegy Ellipta 200-62.5-25] Multivit with Calcium,Iron,Min 1 each PO DAILY 07/15/23 02/14/25 History [Women's Multivitamin] PARoxetine HCL 40 mg PO DAILY 07/15/23 02/14/25 History Aspirin EC [Ecotrin Low Dose] 81 mg PO DAILY 10/03/24 02/14/25 History Empagliflozin [Jardiance] 10 mg PO DAILY 10/03/24 02/14/25 History Levothyroxine Sodium 137 mcg PO DAILY 10/03/24 02/14/25 History Orphenadrine Citrate [Orphenadrine 100 mg PO DAILY 10/03/24 02/14/25 History Citrate ER] Potassium Chloride 10 meq PO DAILY 10/03/24 02/14/25 History Sacubitril/Valsartan [Entresto 24 1 each PO BID 10/03/24 02/14/25 History mg-26 mg Tablet] Metoprolol Succinate [Toprol XL] 100 mg PO DAILY #90 tab 10/04/24 02/14/25 Rx Ipratropium-Albuterol Nebulize 3 ml INHALATION QID 02/09/25 02/14/25 History [Duoneb 0.5 mg-3 mg/3 ml Soln] Benzonatate [Tessalon Perles] 100 mg PO TID PRN 02/14/25 02/14/25 History Black Cohosh Root Extract 2.5 mg PO DAILY 02/14/25 02/14/25 History [Remifemin Menopause] HYDROcodone/APAP 7.5-325MG [[place] 1 tab PO Q6HR PRN 02/14/25 02/14/25 History 7.5-325] Allergies Allergy/AdvReac Type Severity Reaction Status Date / Time fentanyl Allergy Dyspnea Verified 02/09/25 16:17 Physical Exam Vitals: Vital Signs Temp Pulse Resp BP Pulse Ox 02/14/25 09:57 97.9 F 68 16 114/69 94 L Intake and Output 02/13/25 02/14/25 02/14/25 22:59 06:59 14:59 Intake Total 50 Balance 50 Intake: IV 50 Other: Weight 66.8 kg Results CBC & Chem 7: 02/14/25 09:15 Labs: Abnormal Lab Results - Last 24 Hours (Table) 02/14/25 Range/Units 09:15 Glucose 113 H (74-99) mg/dL
[2025-02-14] MEDS: ceFAZolin 1 GM in SODIUM CHLORIDE 0.9% IRRIG BTL 250 ML IRRIGATION PRN (12:33)
[2025-02-14] MEDS ORDERED: ACETAMINOPHEN IV (For NPO) 1,000 MG in EMPTY BAG 1 BAG IVPB ONE (12:37)
[2025-02-14] MEDS ORDERED: ACETAMINOPHEN TAB 325 MG TAB PO PRN (12:37)
[2025-02-14] MEDS ORDERED: HYDROcodone/APAP 5-325MG 1 EACH TAB PO PRN (12:37)
[2025-02-14] MEDS ORDERED: IPRATROPIUM-ALBUTEROL 3 ML NEB INHALATION SCH (13:00)
--- NOTE | 2025-02-14 13:26 | P.EPPROC ---
- EP Procedure Note Electrophysiology Procedure Note: Diagnosis Patient related significant dislodgment of the atrial lead from the right atrial appendage at baseline to the SVC Significant pull and loss of heel on both the ICD lead and the left bundle pacing lead, fortunately without dislodgment of the tip Final procedures performed Left upper extremity venogram New right atrial lead implant Revision of the left bundle lead Revision of the ICD lead Increase procedure duration and complexity Details Patient was brought to the EP lab in a fasting state. Written informed consent was obtained prior to the procedure. Procedure performed under general anesthesia IV antibiotics including IV vancomycin given Incision made over the previous surgical site and carried down to the level of the generator it was noted that the suture securing the generator had been disrupted/torn However the lead sleeves and the leads were secure for all leads, indicating significant pectoral muscle movement resulting in dislodgment and displacement of the leads and tearing of the suture therefore holding the device in place from the pectoral muscle Left upper extremity venogram was performed and a patent subclavian vein was noted All leads were freed from the surrounding tissue First the atrial lead was unscrewed and we tried to reposition it back. However the screw was relatively immobile indicating tissue growth within the screw body Therefore venous access was obtained using this lead and placing the micropuncture wire beneath the insulation, wire and needle and pushing the lead along with the micropuncture wire into the central circulation The micropuncture wire was freed from the lead The atrial lead was fully extracted from the intracardiac and vascular lumen However it was very difficult to get a sheath over this despite dilation indicating some degree of stenosis and scarring in the innominate vein. This was despite using prolonged heavy-duty advantage wire down into the IVC Therefore completely new access was obtained in the axillary vein The sheath was placed over the wire A new right atrial lead was positioned in the right atrial appendage P waves were 2.9 mV, pacing threshold 0.5 V at 0.5 ms and pacing impedance 600 ohms Lead was stable with mechanical motion Good current of injury noted The left bundle lead had been pulled back. Stylet was placed within the lumen. An adequate heel was given. Thresholds were excellent at 0.5 V at 0.5 ms and pacing impedance of 400 ohms The ICD lead had also been pulled back significantly. A stylet was placed. Adequate heel was given once again. Threshold 0.9 V at 0.5 ms, R waves 11.3 mV and pacing impedance of 480 ohms Under fluoroscopy, excellent lead positions were confirmed. The leads were secured to the underlying pectoralis muscle using 2 nonabsorbable sutures An encircling suture was placed around the extracted atrial lead puncture site to prevent backbleeding The pocket was irrigated with antibiotic solution The old generator was reimplanted and once again secured with underlying pectoralis muscle The wound was closed in 3 layers addressed per protocol This was a long procedure since the atrial lead seemed adhered. It was difficult to unscrew the lead screw. While central access was obtained using this lead and a wire wedged within the insulation, the tract was most likely scarred and the sheath could not go smoothly over the wire Therefore this lead was extracted and new access was obtained for implantation of a brand-new lead in the atrium While attempting dilation of the vein care was taken to ensure there was no dislodgment of the other ICD lead in the left bundle pacing lead. There was no dislodgment noted thresholds were excellent lead positions were excellent.
[2025-02-14 13:34] VITALS: TEMP 96.8
[2025-02-14 13:43] VITALS: RESP 16
--- NOTE | 2025-02-14 14:10 | XR ---
EXAMINATION TYPE: XR chest 1V portable DATE OF EXAM: 02/14/2025 1:54 PM COMPARISON: 12/15/2024 CLINICAL INDICATION: Female, 55 years old with history of Lead placement check, TECHNIQUE: XR chest 1V portable views of the chest are obtained. FINDINGS: Demonstrated are scattered senescent parenchymal change. There is no evidence for focal infiltrate. The heart is stable. Hilar and mediastinal structures are within normal limits. Degenerative changes are seen of the dorsal spine. IMPRESSION: 1. Chronic changes without evidence for acute pulmonary disease. [facility], , 02/14/2025 2:07 PM
[2025-02-14] MEDS: ceFAZolin 2 GM in DEXTROSE 5% IN WATER 50 ML IVPB SCH (15:05)
--- NOTE | 2025-02-14 16:16 | XR ---
EXAMINATION TYPE: XR chest 1V portable DATE OF EXAM: 02/14/2025 4:12 PM COMPARISON: 02/14/2025 CLINICAL INDICATION: Female, 55 years old with history of pacemaker lead revision, , FINDINGS: Left anterior chest wall AICD generator with right atrial and 2 right ventricular leads red emonstrated. Heart is borderline enlarged. Hyperinflation. No appreciable pneumothorax. No consolidat ion or pleural effusion. IMPRESSION: 1. Left anterior chest wall AICD generator is redemonstrated right atrial and 2 right ventricular chyna ds. 2. Possible background COPD. No acute cardiopulmonary process seen. [facility], Workstation: [facility], 02/14/2025 4:14 PM
[2025-02-14 17:05] VITALS: BP 105/66; PULSE 72
[2025-02-14] MEDS ORDERED: ATORVASTATIN 40 MG TAB PO SCH (21:00)
[2025-02-14] MEDS ORDERED: LORazepam 0.5 MG TAB PO SCH (21:00)
[2025-02-14] MEDS ORDERED: NON FORMULARY DRUG (Omeprazole 20 MG Capsule.Dr) PO SCH (21:00)
[2025-02-14] MEDS ORDERED: ATORVASTATIN 20 MG TAB PO SCH (21:00)
[2025-02-14] MEDS ORDERED: SACUBITRIL/VALSARTAN 24 MG-26 MG TABLET PO SCH (21:00)
[2025-02-15] MEDS ORDERED: LEVOTHYROXINE 137 MCG TAB PO SCH (09:00)
[2025-02-15] MEDS ORDERED: NON FORMULARY DRUG (Aspirin Ec 81 MG Tablet) PO SCH (09:00)
[2025-02-15] MEDS ORDERED: MAGNESIUM OXIDE 400 MG TAB PO SCH (09:00)
[2025-02-15] MEDS ORDERED: METOPROLOL SUCCINATE (ER) 100 MG TAB.ER.24H PO SCH (09:00)
[2025-02-15] MEDS ORDERED: LIOTHYRONINE SODIUM 5 MCG TAB PO SCH (09:00)
[2025-02-15] MEDS ORDERED: PAROXETINE HCL 40 MG PO SCH (09:00)
[2025-02-15] MEDS ORDERED: SPIRONOLACTONE 25 MG TAB PO SCH (09:00)
[2025-02-15] MEDS ORDERED: NON FORMULARY DRUG (Empagliflozin [Jardiance] 10 MG Tablet) PO SCH (09:00)
[2025-02-15] MEDS ORDERED: NON FORMULARY DRUG (Fluticasone/Umeclidin/Vilanter [Trelegy Ellipta 200-62.5-25] 1 EACH Bl INHALATION SCH (09:00)
== END 2025-02-14 16:40 | disposition home or self-care (01) ==
LOC: CATHEP 08:45
PROVIDERS: ATTEND Internal Medicine Clinical Cardiac Electrophysiology
DX: T82.120A Displacement of cardiac electrode, initial encounter (principal); I11.9 Hypertensive heart disease without heart failure; I42.8 Other cardiomyopathies; I25.10 Atherosclerotic heart disease of native coronary artery without angina pectoris; J44.9 Chronic obstructive pulmonary disease, unspecified; M79.7 Fibromyalgia; K21.9 Gastro-esophageal reflux disease without esophagitis; E78.5 Hyperlipidemia, unspecified; E03.9 Hypothyroidism, unspecified; K58.9 Irritable bowel syndrome, unspecified; F32.A Depression, unspecified; F41.9 Anxiety disorder, unspecified; F41.0 Panic disorder [episodic paroxysmal anxiety]; F17.200 Nicotine dependence, unspecified, uncomplicated; Z79.890 Hormone replacement therapy; Z79.51 Long term (current) use of inhaled steroids; Z79.82 Long term (current) use of aspirin; Z79.84 Long term (current) use of oral hypoglycemic drugs; Z79.899 Other long term (current) drug therapy; Z88.5 Allergy status to narcotic agent
CPT/HCPCS: 33216; 33215; 86900; 86901; 80048; 86850; 71045; C1769 ×2; C1892; C1898; J2250; J3370; J0330; J0690; J2003; J1171; Q9967; J2371

== ENCOUNTER → 2025-03-02 | Outpatient (CLI) | payer OTHER ==
--- NOTE | 2025-03-02 11:07 | US ---
EXAMINATION TYPE: US extremity nonvasc mass LT DATE OF EXAM: 03/02/2025 COMPARISON: NONE CLINICAL INDICATION: Female, 55 years old with history of R22.42 LOCALIZED SWELLING, MASS AND LUMP, L EFT LOW; Lump lateral left thigh x 4 weeks. TECHNIQUE: Grayscale and color Doppler imaging. Scanned left lateral thigh at patient's area of palp able concern. FINDINGS: *Hypoechoic area seen left lateral thigh at palpable area of concern: 0.6 x 0.7 x 0.4 cm. IMPRESSION: Indeterminate hypoechoic area in the patient's area of palpable abnormality. This is jus t beneath the skin surface. Correlate with dermatologic exam. Finding could represent lipoma versus s ebaceous cyst versus other. Clinical correlation and consider short-term follow-up. [facility], , 03/02/2025 11:04 AM
== END | disposition home or self-care (01) ==
LOC: RADUSWWP 10:38
PROVIDERS: ATTEND Internal Medicine
DX: R22.42 Localized swelling, mass and lump, left lower limb (principal)